=== PATIENT | male | born 1935 | race Caucasian/White ===

== ENCOUNTER 2017-04-12 10:32 | Outpatient (RCR) | payer MEDICARE, OTHER, SELFPAY ==
[2017-04-12 12:33] LABS: International Normalized Ratio 2.6; Prothrombin Time (Protime)PT. 26.5 SECONDS (11.7-14.9)
== END 2017-04-12 11:00 | disposition home or self-care (01) ==
LOC: MTLAB 10:32
PROVIDERS: Family Provider Family Medicine; PCP Family Medicine; Visit Provider Internal Medicine Cardiovascular Disease
DX: Z95.2 Presence of prosthetic heart valve (principal)
CPT/HCPCS: 36415; 85610

== ENCOUNTER 2017-06-03 13:17 | Outpatient (RCR) | payer MEDICARE, OTHER, SELFPAY ==
[2017-06-03 14:06] LABS: International Normalized Ratio 2.8; Prothrombin Time (Protime)PT. 29.7 SECONDS (11.7-14.9)
== END 2017-06-03 14:00 | disposition home or self-care (01) ==
LOC: MTLAB 13:17
PROVIDERS: Family Provider Family Medicine; PCP Family Medicine; Visit Provider Internal Medicine Cardiovascular Disease
DX: Z95.2 Presence of prosthetic heart valve (principal)
CPT/HCPCS: 36415; 85610

== ENCOUNTER 2017-08-01 08:22 | Outpatient (RCR) | payer MEDICARE, OTHER, SELFPAY ==
[2017-08-01 09:59] LABS: International Normalized Ratio 2.6; Prothrombin Time (Protime)PT. 28.3 SECONDS (11.7-14.9)
== END 2017-08-01 09:00 | disposition home or self-care (01) ==
LOC: MTLAB 08:22
PROVIDERS: Family Provider Family Medicine; PCP Family Medicine; Visit Provider Internal Medicine Cardiovascular Disease
DX: I48.0 Paroxysmal atrial fibrillation (principal)
CPT/HCPCS: 36415; 85610

== ENCOUNTER → 2017-08-02 08:25 | Outpatient (CLI) | payer MEDICARE, OTHER, SELFPAY ==
[2017-08-02 10:25] LABS: Absolute Lymphocyte Count 0.72 X10^3/ul (0.83-4.51); Absolute Neutrophil Count 2.9 X10^3/uL (2.0-7.7); Basophil# 0.04 X10^3/uL; Basophil% 0.9 % (0-1); Eosinophil# 0.13 X10^3/uL; Hematocrit 39.7 % (40-54); Hemoglobin 13.1 g/dl (13.0-16.5); Lymphocyte # 0.72 X10^3/ul (4.0); Lymphocyte % 16.8 % (19-41); Mean Corpuscular Hgb 32.5 pg (27.0-32.0); Mean Corpuscular Volume 98.5 fL (80-94); Mean Platelet Vol. 10.3 fl (6.2-12.0); Monocyte# 0.52 X10^3/uL; Monocyte% 12.1 % (0-10); Neutrophil # 2.87 X10^3/uL (2.7-7.7); Neutrophil % 67.2 % (47-70); Platelet Count 166 K/mm3 (150-450); RBC Distribution Width SD 49.8 fl (35.1-43.9); Red Blood Count 4.03 M/mm3 (4.6-6.2); White Blood Count 4.3 K/mm3 (4.4-11.0)
[2017-08-02 10:27] LABS: POSITIVE COUNT NO; POSITIVE DIFFERENTIAL NO; POSITIVE MORPHOLOGY NO
[2017-08-02 10:47] LABS: AST(SGOT) 23 U/L (15-37); Alanine Aminotransfer ALT/SGPT 22 U/L (16-61); Albumin, Serum 3.4 g/dL (3.2-5.0); Alkaline Phosphatase 63 U/L (45-117); Anion Gap 5 (5-15); BUN 21 mg/dL (7-18); BUN/Creat Ratio 16.7 RATIO (10-20); Bilirubin, Direct 0.17 mg/dL (0.00-0.30); Chloride 110 mmol/L (98-107); Cholesterol 116 mg/dL (200); Creatinine, Serum 1.26 mg/dL (0.70-1.30); EST Glomerular Filtration Rate 58 mL/min (>60); Est Glom Filt Rate - Afr Amer 70 mL/min (>60); Globulin 3.9 g/dL (2.2-4.2); Glucose 83 mg/dL (74-106); High Density Lipoprotein 50 mg/dL; Potassium 4.4 mmol/L (3.5-5.1); Protein, Total 7.3 g/dL (6.4-8.2); Sodium Level 141 mmol/L (136-145); Triglycerides 68 mg/dL; Very Low Density Lipoprotein 14 mg/dL (5-40)
== END ==
PROVIDERS: Physician Assistant Medical; Family Provider Family Medicine; PCP Family Medicine; Visit Provider Internal Medicine Cardiovascular Disease
DX: I10 Essential (primary) hypertension (principal); I48.91 Unspecified atrial fibrillation; E78.5 Hyperlipidemia, unspecified; I05.9 Rheumatic mitral valve disease, unspecified; I43 Cardiomyopathy in diseases classified elsewhere
CPT/HCPCS: 36415; 80048; 80061; 80076; 85025

== ENCOUNTER 2017-10-08 10:13 | Outpatient (RCR) | payer MEDICARE, OTHER, SELFPAY ==
[2017-10-08 12:04] LABS: International Normalized Ratio 3.2; Prothrombin Time (Protime)PT. 33.2 SECONDS (11.7-14.9)
== END 2017-10-08 12:00 ==
LOC: MTLAB 10:13
PROVIDERS: Family Provider Family Medicine; PCP Family Medicine; Visit Provider Internal Medicine Cardiovascular Disease
DX: I48.0 Paroxysmal atrial fibrillation (principal)
CPT/HCPCS: 36415; 85610

== ENCOUNTER 2017-12-05 09:04 | Outpatient (RCR) | payer MEDICARE, OTHER, SELFPAY ==
[2017-12-05 10:37] LABS: International Normalized Ratio 2.9; Prothrombin Time (Protime)PT. 30.3 SECONDS (11.7-14.9)
== END 2017-12-05 10:00 | disposition home or self-care (01) ==
LOC: MTLAB 09:04
PROVIDERS: Family Provider Family Medicine; PCP Family Medicine; Visit Provider Internal Medicine Cardiovascular Disease
DX: I48.0 Paroxysmal atrial fibrillation (principal)
CPT/HCPCS: 36415; 85610

== ENCOUNTER → 2018-02-04 11:07 | Outpatient (CLI) | payer MEDICARE, OTHER, SELFPAY | PROVIDERS: Family Provider Family Medicine; PCP Family Medicine; Referring Provider Internal Medicine Cardiovascular Disease; Visit Provider Internal Medicine Cardiovascular Disease | DX: I48.91 Unspecified atrial fibrillation (principal); I43 Cardiomyopathy in diseases classified elsewhere; I44.2 Atrioventricular block, complete; Z95.810 Presence of automatic (implantable) cardiac defibrillator; I49.3 Ventricular premature depolarization | CPT/HCPCS: 93225; 93226 ==

== ENCOUNTER 2018-02-25 11:28 | Outpatient (RCR) | payer MEDICARE, OTHER, SELFPAY ==
[2018-02-25 14:16] LABS: Prothrombin Time (Protime)PT. 31.6 SECONDS (11.7-14.9)
--- OUTSIDE RECORDS SUMMARY | 2018-04-09 03:15 | XMS RPT_ITS ---
:1935 Author Organization OHIP Support Name Relationship Address Phone R Unavailable Unavailable Unavailable LUCAS, MARINA Unavailable [address] + [place] [address] R Unavailable Unavailable Unavailable LUCAS, MARINA Unavailable [address] + [place] [address] R Unavailable Unavailable Unavailable LUCAS, MARINA Unavailable [address] + [place] [address] R Unavailable Unavailable Unavailable LUCAS, MARINA Unavailable [address] + [place] [address] R Unavailable Unavailable Unavailable LUCAS, MARINA Unavailable [address] + [place] [address] R Unavailable Unavailable Unavailable LUCAS, MARINA Unavailable [address] + [place] [address] R Unavailable Unavailable Unavailable LUCAS, MARINA Unavailable [address] + [place] [address] R Unavailable Unavailable Unavailable LUCAS, MARINA Unavailable [address] + [place] [address] R Unavailable Unavailable Unavailable LUCAS, MARINA Unavailable [address] + [place] [address] R Unavailable Unavailable Unavailable LUCAS, MARINA Unavailable [address] + [place] [address] R Unavailable Unavailable Unavailable LUCAS, MARINA Unavailable [address] + [place] [address] R Unavailable Unavailable Unavailable LUCAS, MARINA Unavailable [address] + [place] [address] R Unavailable Unavailable Unavailable LUCAS, MARINA Unavailable [address] + [place] [address] R Unavailable Unavailable Unavailable LUCAS, MARINA Unavailable [address] + [place] [address] R Unavailable Unavailable Unavailable MINO LUCASICE Unavailable [address] + [place] [address] R Unavailable Unavailable Unavailable MINO LUCASICE Unavailable [address] + [place] [address] R Unavailable Unavailable Unavailable MINO LUCASICE Unavailable [address] + [place] [address] R Unavailable Unavailable Unavailable MINO LUCASICE Unavailable NA + [place], [place] R Unavailable Unavailable Unavailable LUCASMINOMARINA Unavailable NA + [place], [place] R Unavailable Unavailable Unavailable MINO LUCASICE Unavailable [address] + [place] [address] Care Team Providers Name Role Phone Lon Alexis Attending Unavailable Jolliff, Luz Maria Primary Care Unavailable MoodispawLon Referring Unavailable Esther Mckinney Attending Unavailable Jolliff, Luz Maria Primary Care Unavailable Lucila Dugan Attending Unavailable Jolliff, Luz Maria Referring Unavailable Jolliff, Luz Maria Primary Care Unavailable MoodispawLon Attending Unavailable MoodispawLon Referring Unavailable Jolliff, Luz Maria Primary Care Unavailable Lucila Dugan Attending Unavailable Jolliff, Luz Maria Referring Unavailable Rosemarie Ang Attending Unavailable Esther Mckinney Attending Unavailable Jolliff, Luz Maria Referring Unavailable Jolliff, Luz Maria Primary Care Unavailable MoodispawLon Attending Unavailable MoodispawLon Referring Unavailable Jolliff, Luz Maria Primary Care Unavailable Lucila Dugan Attending Unavailable MoodispawLon Attending Unavailable Jolliff, Luz Maria Primary Care Unavailable MoodispawLon Attending Unavailable MoodispawLon Referring Unavailable Jolliff, Luz Maria Primary Care Unavailable Lucila Dugan Attending Unavailable Jolliff, Luz Maria Referring Unavailable MoodispawLon Attending Unavailable Moodisp[place] Lon Referring Unavailable Jolliff, Luz Maria Primary Care Unavailable MoodispawLon Attending Unavailable [place] Lon Referring Unavailable Jolliff, Luz Maria Primary Care Unavailable Lucila Dugan Attending Unavailable Jolliff, Luz Maria Referring Unavailable MoodispawLon Attending Unavailable Jolliff, Luz Maria Referring Unavailable KaileeLucila garrido Attending Unavailable Jolliff, Luz Maria Referring Unavailable Moodispaw, Lon Attending Unavailable Moodispaw, Lon Referring Unavailable Luz Maria Friedman Primary Care Unavailable Moodispaw, Lon Attending Unavailable Moodispaw, Lon Referring Unavailable Moodispaw, Lon Attending Unavailable Moodispaw, Lon Referring Unavailable Luz Maria Friedman Primary Care Unavailable PROBLEMS PROBLEMS DATE TYPE CONDITION / CODE ATTENDING STATUS SOURCE 03/04/2018 Unknown I48.0 - Paroxysmal [place], Active [place] atrial fibrillation [facility] I48.0(ICD-10) Hospital Repository 02/04/2018 Unknown I48.91 - Unspecified [place], Active [place] atrial fibrillation [facility] I48.91(ICD-10) Hospital Repository 02/04/2018 Unknown I43 - Cardiomyopathy [place], Active [place] in diseases classified [facility] elsewhere / Hospital I43(ICD-10) Repository 02/04/2018 Unknown Z95.810 - Presence of [place], Active [place] automatic [facility] (implantable) cardiac Hospital defibrillator / Repository Z95.810(ICD-10) 02/04/2018 Unknown I49.3 - Ventricular [place], Active [place] premature [facility] depolarization / Hospital I49.3(ICD-10) Repository 02/04/2018 Unknown I44.2 - [place], Active [place] Atrioventricular [facility] block, complete / Hospital I44.2(ICD-10) Repository 02/04/2018 Unknown I49.49 - Other Lucila Dugan Active [place] premature [facility] depolarization / Hospital I49.49(ICD-10) Repository 10/10/2017 Unknown I48.2 - Chronic atrial Lucila Dugan Active [place] fibrillation / Community I48.2(ICD-10) Hospital Repository 08/29/2017 Unknown Z95.2 - Presence of [place], Active [place] prosthetic heart valve [facility] / Z95.2(ICD-10) Hospital Repository 06/13/2017 Unknown I10 - Essential Mckinney, Active [place] (primary) hypertension [facility] / I10(ICD-10) Hospital Repository 06/13/2017 Unknown E78.5 - Mckinney, Active [place] Hyperlipidemia, [facility] unspecified / Hospital E78.5(ICD-10) Repository 06/13/2017 Unknown I05.9 - Rheumatic Mckinney, Active [place] mitral valve disease, [facility] unspecified / Hospital I05.9(ICD-10) Repository PROCEDURES PROCEDURES No Procedure Records FoundRESULTS RESULTS PROTHROMBIN TIME W/INR Collected: 02/25/2018 Status: F Source: [place] 11:32 AM [facility] REPOSITORY Order Comment: Comments: STANDING ORDER Comments: STANDING ORDER TYPE CODE TESTS RESULT OUT OF RANGE REFERENCE UNITS LAB L300.4150 11.7-14.9 SECONDS High PROTIME 31.6 LAB L300.4200 Normal INR 3.0 Performed By: #### L300.3900 #### [facility] [address] [place], [address] PACEMAKER CHECK Observed: 02/04/2018 Status: F Source: [place] 2:12 PM [facility] REPOSITORY [facility] [address] [place] [address] Pacemaker Check Date of Service: 02/04/181402 MR#: [id number] Acct: [id number] Name: RIO LUCAS Rep #: [id number] : 1935 From: Lucila Dugan Age/Sex: 82/M Location[place] [facility] [place] Status: Signed Billing Codes ICD Device Billing: ICD Dev Duane Ferreira 02/04/18 1405 <Electronically signed by Lucila Dugan > Date Lucila Dugan 02/04/18 1412<Electronically signed by Lon Alexis MD> Cosigner Signature: Date (if applicable) Lon Alexis MD CC: 12 LEAD EKG PERFORMED Observed: 02/04/2018 Status: F Source: [place] BY [facility] 10:25 AM [facility] REPOSITORY [facility] [address] [place] [address] 12 Lead EKG performed by [facility] 02/04/18 1024 MR#: [id number] Acct: [id number] Name: RIO LUCAS Rep #: [id number] : 1935 82 From: Lon Alexis MD Attending Dr: Lucila Dugan Status: DEP AMB Ordering Dr: Lon Alexis MD Date: 02/04/18 Location: [facility] [place] Sex: M C Admitted: BMS/12 Lead EKG performed by [facility] ECG Report Interpretation Atrial fibrillation / flutterPoor R wave progressionICLBBBNonspecific ST/T wave abnormalityABNORMAL Electronically signed on 02/05/2018 at 17:22 by Lon Alexis Software Version [id number] 02/05/18 1726 Date Lon Alexis MD CC: Luz Maria Friedman MD Date Dictated: 02/04/18 1024 Date Transcribed: 02/04/18 1024 Aegis Console Operator Track: PM Signed CARDIOLOGY VISIT Observed: 01/23/2018 Status: F Source: [place] REPORT 4:42 PM [facility] REPOSITORY [facility] [address] [place] [address] OFFICE VISIT Date of Service: 01/23/18 MR#: [id number] Acct: [id number] Name: RIO LUCAS Rep #: [id number] : 1935 Provider: Lon Alexis MD Age/Sex: 82/M Location: [facility] [place] Status: Signed [facility] HPI Details: RIO LUCAS, is a 82 M who presents to the office today for outpatient cardiovascular follow-up based upon a recent ICD interrogation suggesting underlying atrial flutter. It appears based upon his recent interrogation there have been concerns of underlying atrial flutter inhibiting him to biventricular paced 100% of the time. It appears based on his interrogation he is only been biventricular pacing between 50 and 60% of the time. He has not been complaining of ongoing palpitations. He has had no near syncope or syncope. He has had no new chest discomfort. There is been no orthopnea or PND or peripheral pitting edema. He does have what he believes is chronic shortness of breath/dyspnea and fatigue. He did have an ECG today. It appeared he was in an underlying electronic ventricular paced rhythm. Intake Vital Signs01/23/18 Height 6 ft 01/23/18 Weight: 205 lb 01/23/18 Body Mass Index (BMI) 27.8 01/23/18 Blood Pressure 142/88 H Intake Visit Reasons: FU Atrial Flutter\PFM Allergies No Known Allergies Allergy (Verified 01/23/18 15:15) Medications Aspirin [Aspirin, Baby] 81 mg PO DAILY@0800 03/17/13 [History Confirmed 01/23/18] warfarin 5 mg tablet 5 mg PO QDAY 03/05/17 [History Confirmed 01/23/18] finasteride 5 mg tablet 5 mg PO QDAY 06/11/17 [History Confirmed 01/23/18] amlodipine 5 mg tablet 5 mg PO DAILY #90 tab 06/13/17 [Rx Confirmed 01/23/18] carvedilol 25 mg tablet 25 mg PO BID #180 tab 06/13/17 [Rx Confirmed 01/23/18] digoxin 250 mcg tablet 250 mcg PO DAILY #90 tab 06/13/17 [Rx Confirmed 01/23/18] pravastatin 10 mg tablet 10 mg PO QHS #90 tab 06/13/17 [Rx Confirmed 01/23/18] warfarin 1 mg tablet 1 mg PO QDAY #90 tab 06/13/17 [Rx Confirmed 01/23/18] ramipril 10 mg capsule 10 mg PO BID #180 cap 06/17/17 [Rx Confirmed 01/23/18] Handicap Placard #1 ea 01/23/18 [Rx Confirmed 01/23/18] tamsulosin 0.4 mg capsule 0.4 mg PO BID cap 01/23/18 [History Confirmed 01/23/18] [facility] Medical History Essential hypertension (Chronic) Hyperlipidemia (Chronic) Mitral valve disorder (Chronic) Cardiomyopathy in other diseases classified elsewhere (Chronic) Atrioventricular block, complete (Chronic) Paroxysmal atrial fibrillation (Chronic) Premature beats (Chronic) 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) TIA (transient ischemic attack) (Chronic) [employer] (current) use of anticoagulants (Chronic) Dizziness and giddiness (Acute) Fatigue (Acute) Murmur (Acute) Surgical History H/O mitral valve replacement (Chronic) Cardiac pacemaker in situ (Chronic) Family History Father CAD (coronary artery disease) Mother Breast cancer Brother CAD (coronary artery disease) Hx CABG Brother Cancer Leukemia Social History Smoking Status: Never smoker alcohol intake: never substance use type: does not use caffeine: No what type of physical activity do you participate in: other details: tredmill frequency: 1-2 times per week duration: 15-30 minutes/day seatbelt use: always do you feel safe at home: Yes ROS Const Const: Negative for fatigue, weakness, weight gain, weight loss, frequent falls or excessive sweating Eyes Eyes: Negative for change in vision, blurry vision or transient loss of vision ENT ENT: Positive for balance problems (slight unsteadiness); negative for dizziness Cardio Chest Pain: No Palpitations: No Edema: None Muscle aches with walking: None Resp Respiratory: Negative for SOB with activity or SOB at rest GI GI: Negative vomiting or vomiting blood/hematemesis : Negative for hematuria Musc Musc: Positive for balance problems (slight unsteadiness) and muscle aches/ myalgia (generalized aches and pains); negative for muscle weakness or joint pain Skin Skin: Negative non-healing lesions or rash Neuro Neuro: Negative for weakness, blurry vision, dizziness, lightheadedness, frequent falls or orthostatic symptoms Adithya Hematologic/Lymphatic: Negative for easy bleeding Endo Endo: Negative for fatigue or excessive sweating Psych Psych: Negative for anxiety or depression Allergy Allergy/Immunology: Negative for hives, Negative for rash Cardiology Exam Const Appearance: cooperative, no acute distress, well developed and comfortable Nutritional Appearance: average body habitus Orientation: alert, awake and oriented x3 Head Head: normocephalic, atraumatic and normal to inspection Ears: hearing grossly normal bilaterally Nose: external nose normal Face and Sinus: face symmetric Mouth: oral mucosae normal Teeth and gingiva: fair dentition Eyes General: appearance normal, both eyes and all related structures Eyelids: eyelids normal Conjunctivae: conjunctivae normal Pupils: PERRL EOM: EOM intact bilaterally Neck Neck: normal visual inspection, no JVD and full ROM Carotids: Negative bruit Neck Mass: Negative Neck mass Chest Chest inspection: normal inspection of the chest, symmetric chest movement and normal respiratory effort Auscultation: Bilateral: Clear to Auscultation Cardio Palpation: normal PMI Rate: regular rate Rhythm: regular rhythm Heart sounds: S1 normal, S2 normal, crisp prosthetic S1 and positive S4; negative rub or murmur GI GI: normal to inspection, soft and bowel sounds present; negative tender Neuro General: alert, awake, oriented x3 and moves all extremities Skin Skin: no rashes or lesions noted Extremities Pulses: Normal: Right Posterior Tibial Pulse, Left Posterior Tibial Pulse, Right Radial Pulse, Left Radial Pulse Lower Extremity Edema: None: Bilateral Psych Psychological: normal affect Supplemental Info Transthoracic echocardiogram: 01/08/2027 Left ventricular systolic function is lower limits of normal. The estimated ejection fraction is 50 %. Paradoxical septal wall motion c/w a post open heart surgery state and / or an electronic ventricular pacemaker. Mild concentric left ventricular hypertrophy. The left atrium is moderately enlarged. The right atrium is severely enlarged. Stable appearing mechanical mitral valve apparatus. Trivial transvalvular insufficiency of the mitral valve. Mild tricuspid valve insufficiency. Mild focal aortic valve thickening. Right ventricular systolic pressure estimated to be 34 mmHg. ICD or pacer leads identified within the right atrium ICD or pacer leads identified within the right ventricle. Cardiac catheterization: 01/02/2008: [facility]: Report: Normal coronary arteries; normal prosthetic valve function ICD: Parts Classifier: Tellybean Scientific Name: [employer] BU[employer]ER-D IS-1 Model #: [id number] Serial #: [id number] Date Implanted: 03/19/2013 Device Characteristics Device: Biventricular Type: Implantable defibrillator Patient Characteristics AV Node Indication: Complete heart block Patient Substrate: Nonischemic cardiomyopathy Open heart surgery: [facility]: [place], [place]: 09/18/2004 Mitral valve replacement with a 33 mm [place] mechanical prosthesis Exclusion of the left atrial appendage Cryoprobe pulmonary vein isolation: Assessment AND Plan 1. Chronic atrial fibrillation I48.2 Plan He does have a history of underlying atrial fibrillation. He has been on medical management. This has included anticoagulant therapy 2. Atrial flutter I48.92 Plan There is concern of underlying atrial flutter and that this is inhibiting him from efficiently biventricular pacing. At the present time he will continue his current medication. His case will be discussed with his operation agent from [place] issue with respect to other options including medical therapy, DC cardioversion, or possible EPS/RFA. 3. Cardiomyopathy in other diseases classified elsewhere I43 Plan He does have a non-CAD related cardiomyopathy. He will continue medical management and follow-up 4. AICD (automatic cardioverter/defibrillator) present Z95.810 Plan He does have a biventricular device as noted above. Again there are concerns that he is not biventricular pacing near 100% of the time. His case will be discussed with his operation agent as noted above 5. H/O mitral valve replacement with mechanical valve Z95.2 Plan His mitral valve appears to have remained stable based on examination and noninvasive studies. He will continue AHA antibiotic prophylaxis. He will continue to be followed 6. Pure hypercholesterolemia E78.00 Plan He will continue risk factor evaluation and care as deemed appropriate. 7. Essential hypertension I10 Plan His blood pressure appears to be reasonably well-controlled. He will continue to be followed. 8. MCFP current use of anticoagulant Z79.01 Plan He is on anticoagulant therapy. He has had no obvious issues thus far. Plan Detail Other Orders Orders: Other Medications New: Additional Comments Thank you for allowing me to participate in the care of your patient. Please don't hesitate to call if any issues arise. This note was generated using a voice recognition system and there may be incorrect words, spelling or punctuation that were not noted when reviewing the office note prior to saving. Follow Up 3 Months (Keep appts.) Coding Level of Care Code Off vis,est,level 4 Diagnoses Chronic atrial fibrillation I48.2 Atrial fibrillation type: chronic Atrial flutter I48.92 Cardiomyopathy in other diseases classified elsewhere I43 AICD (automatic cardioverter/defibrillator) present Z95.810 H/O mitral valve replacement with mechanical valve Z95.2 Pure hypercholesterolemia E78.00 Hyperlipidemia type: pure hypercholesterolemia Essential hypertension I10 MCFP current use of anticoagulant Z79.01 Coding Level of Care Code Off vis,est,level 4 Diagnoses Chronic atrial fibrillation I48.2 Atrial fibrillation type: chronic Atrial flutter I48.92 Cardiomyopathy in other diseases classified elsewhere I43 AICD (automatic cardioverter/defibrillator) present Z95.810 H/O mitral valve replacement with mechanical valve Z95.2 Pure hypercholesterolemia E78.00 Hyperlipidemia type: pure hypercholesterolemia Essential hypertension I10 [employer] current use of anticoagulant Z79.01 01/23/18 1642 <Electronically signed by Lon Alexis MD> Date Lon Alexis MD Cosigner Signature: Date (if applicable) CC: Luz Maria Friedman MD 12 LEAD EKG PERFORMED Observed: 01/23/2018 Status: F Source: [place] [facility] 3:15 PM [facility] REPOSITORY [address] [address] 12 Lead EKG performed by [facility] 01/23/18 1514 MR#: [id number] Acct: [id number] Name: LANCERIO B Rep #: [id number] : 1935 82 From: Lon Alexis MD Attending Dr: Lon Alexis MD Status: DEP [facility] Ordering Dr: Lon Alexis MD Date: 01/23/18 Location: [facility] [place] Sex: M C Admitted: [facility]/12 Lead EKG performed by [facility] ECG Report Interpretation Electronic ventricular pacemaker Pacemaker ECG, No further analysis Electronically signed on 01/23/2018 at 17:27 by Lon Alexis Software Version [id number] 01/23/18 1731 Date Lon Alexis MD CC: Luz Maria Friedman MD Date Dictated: 01/23/181513 Date Transcribed: 01/23/181513 Aegis Console Operator Track: PM Signed PACEMAKER CHECK Observed: 01/17/2018 Status: F Source: [place] 6:58 AM [facility] REPOSITORY [facility] [address] [place] [address] [place] [address] Pacemaker Check Date of Service: 01/16/18 1046 MR#: [id number] Acct: [id number] Name: RIO LUCAS Rep #: [id number] : 1935 From: Lucila Dugan Age/Sex: 82/M Location: [facility] [place] Status: Signed Billing Codes ICD Device Billing: ICD Dev Prog Eval, Multi 01/16/18 1049 <Electronically signed by Lucila Dugan > Date Lucila Dugan 01/17/18 0658<Electronically signed by Kurt Solorzano MD> Jess Signature: Date (if applicable) Kurt Solorzano MD CC: PROTHROMBIN TIME W/INR Collected: 12/05/2017 Status: F Source: [place] 9:12 AM [facility] REPOSITORY TYPE CODE TESTS RESULT OUT OF RANGE REFERENCE UNITS LAB L300.4150 11.7-14.9 SECONDS High PROTIME 30.3 LAB L300.4200 Normal INR 2.9 Performed By: #### L300.3900 #### [facility] [address] [place], [address] PACEMAKER CHECK Observed: 10/09/2017 Status: F Source: [place] 4:58 PM [facility] REPOSITORY [facility] [address] [place] [address] [place] [address] Pacemaker Check Date of Service: 10/09/17 1611 MR#: [id number] Acct: [id number] Name: RIO LUCAS Rep #: [id number] : 1935 From: Lucila Dugan Age/Sex: 82/M Location: [facility] [place] Status: Signed Billing Codes ICD Device Billing: ICD Dev Prog Duane Crews 10/09/17 1615 <Electronically signed by Lucila Dugan > Date Lucila Dugan 10/09/17 1658<Electronically signed by Lon Alexis MD> Cosigner Signature: Date (if applicable) Lon Alexis MD CC: PROTHROMBIN TIME W/INR Collected: 10/08/2017 Status: F Source: [place] 10:17 AM [facility] REPOSITORY TYPE CODE TESTS RESULT OUT OF RANGE REFERENCE UNITS LAB L300.4150 11.7-14.9 SECONDS High PROTIME 33.2 LAB L300.4200 Normal INR 3.2 Performed By: #### L300.3900 #### [facility] [address] [place], [address] CBC W/DIFF, AUTOMATED Collected: 08/02/2017 Status: F Source: [place] 8:36 AM [facility] REPOSITORY TYPE CODE TESTS RESULT OUT OF RANGE REFERENCE UNITS LAB L100.1000 4.4-11.0 K/mm3 Low WBC 4.3 LAB L100.1200 4.6-6.2 M/mm3 Low RBC 4.03 LAB L100.1300 13.0-16.5 g/dl Normal HGB 13.1 LAB L100.1400 40-54 % Low HCT 39.7 LAB L100.1500 80-94 fL High MCV 98.5 LAB L100.1600 27.0-32.0 pg High MCH 32.5 LAB L100.1700 32-36 g/gl Normal MCHC 33.0 LAB L100.1810 11.6-14.6 % Normal RDW CV 14.0 LAB L100.1820 35.1-43.9 fl High RDW SD 49.8 LAB L100.1900 150-450 K/mm3 Normal PLT 166 LAB L100.2000 6.2-12.0 fl Normal MPV 10.3 LAB L100.2100 47-70 % Normal NEUT% 67.2 LAB L100.2200 19-41 % Low LY% 16.8 LAB L100.2300 0-10 % High MONO% 12.1 LAB L100.2400 0-5 % Normal EO% 3.0 LAB L100.2500 0-1 % Normal BASO% 0.9 LAB L100.2550 0.0-0.9 % Normal IM GRAN % 0.000 Result Comment: IG% - Immature Granulocytes (promyelocytes, myelocytes and metamyelocytes) > 1% indicates that a LEFT SHIFT is Present. LAB L100.2620 2.0-7.7 X10 3/uL Normal Absolute Neut 2.9 LAB L100.2720 0.83-4.51 X10 3/ul Low Absolute Lymph 0.72 Performed By: #### L100.0100 #### [facility] [address] [facility] [place], [place], [address] BASIC METABOLIC Collected: 08/02/2017 Status: F Source: [place] PROFILE (BMP) 8:36 AM [facility] REPOSITORY TYPE CODE TESTS RESULT OUT OF RANGE REFERENCE UNITS LAB L501.0100 74-106 mg/dL Normal GLU 83 Result Comment: Please note revised GLUCOSE reference range effective 2017. LAB L501.1000 7-18 mg/dL High BUN 21 LAB L501.1100 0.70-1.30 mg/dL Normal CREAT,SERUM 1.26 Result Comment: The validity of the calculated GFR AND GFRAA in patients over 70 years has not been determined. Clinical correlation is essential. LAB L501.1110 >60 mL/min Low EST GFR 58 Result Comment: Non- GFR Calc LAB L501.1115 >60 mL/min Normal EST GFR - AA 70 Result Comment: GFR Calc LAB L501.1300 10-20 RATIO Normal BUN/CRE 16.7 LAB L501.2200 8.5-10.1 mg/dL Low CA 8.0 LAB L501.5300 136-145 mmol/L NA Normal 141 LAB L501.5600 3.5-5.1 mmol/L K Normal 4.4 LAB L501.5900 98-107 mmol/L High CL 110 LAB L501.6100 21.0-32.0 mmol/L Normal CO2 26.0 LAB L501.6200 5-15 Normal GAP 5 Performed By: #### L500.2500, L500.3400, L500.4100 #### [facility] [address] [place], [place], [id number] LIVER PROFILE Collected: 08/02/2017 Status: F Source: [place] 8:36 AM [facility] REPOSITORY TYPE CODE TESTS RESULT OUT OF RANGE REFERENCE UNITS LAB L501.1500 6.4-8.2 g/dL Normal T PROT 7.3 LAB L501.1800 3.2-5.0 g/dL Normal ALB 3.4 LAB L501.1950 2.2-4.2 g/dL Normal GLOB 3.9 LAB L501.4100 15-37 U/L Normal AST 23 LAB L501.4305 45-117 U/L Normal ALK P 63 LAB L501.4405 16-61 U/L Normal ALT 22 LAB L501.4600 0.20-1.00 mg/dL Normal T BILI 0.80 LAB L501.4700 0.00-0.30 mg/dL Normal D BILI 0.17 Performed By: #### L500.2500, L500.3400, L500.4100 #### [facility] [address] [place], [place], [id number] LIPID PROFILE Collected: 08/02/2017 Status: F Source: [place] 8:36 AM [facility] REPOSITORY TYPE CODE TESTS RESULT OUT OF RANGE REFERENCE UNITS LAB L501.4900 200 mg/dL Normal CHOL 116 Result Comment: <200 mg/dL Desirable 200-240 mg/dL Borderline >240 mg/dL High Risk LAB L501.5000 mg/dL Normal TRIG 68 Result Comment: The drugs N-Acetylcysteine and Metamizole may falsely depress this assay. Serum Triglycerides Reference Interval Normal <150 mg/dL Borderline high 150 - 199 mg/dL High 200 - 499 mg/dL Very High > or = 500 mg/dL LAB L501.6400 mg/dL Normal HDL 50 Result Comment: The drugs N-Acetylcysteine and Metamizole may falsely depress this assay. Reference Range HDL <40 mg/dL Low HDL Cholesterol HDL >or= 60 mg/dL High HDL Cholesterol LAB L501.6500 0-130 mg/dL Normal LDL 52 LAB L501.6600 5-40 mg/dL Normal VLDL 14 Performed By: #### L500.2500, L500.3400, L500.4100 #### [facility] [address] [place], [address] PROTHROMBIN TIME W/INR Collected: 08/01/2017 Status: F Source: [place] 8:29 AM [facility] REPOSITORY TYPE CODE TESTS RESULT OUT OF RANGE REFERENCE UNITS LAB L300.4150 11.7-14.9 SECONDS High PROTIME 28.3 LAB L300.4200 Normal INR 2.6 Performed By: #### L300.3900 #### [facility] [address] [place], [address] PACEMAKER CHECK Observed: 07/15/2017 Status: F Source: [place] 10:15 AM [facility] REPOSITORY [facility] [address] [place] [address] Pacemaker Check Date of Service: 07/04/17 1047 MR#: [id number] Acct: [id number] Name: RIO LUCAS Rep #: [id number] : 1935 From: Lucila Dugan Age/Sex: 82/M Location: [facility] [facility] Status: Signed Comments Summary Comments: Bi-VICD Evaluation: Interrogation shows 3 NSVT episodes atrial whcguk=982% since last check 04/04/17. Left pectoral pocket/incision w/o s/s of infection or erosion. Pt offers no cardiac complaints at present. Presenting rhythm shows RV/LV pacing @ 80 ppm with underlying atrial flutter. Pt on Coumadin. RV paced= 87%, LV paced=87%. Battery longevity approx 5 yrs. Lead impedances, sensing and RV/LV pace/sense thresholds remain stable. Unable to check atrial threshold d/t atrial flutter. Increased LRL to 70 ppm in attempt to increase Bi-Vpacing d/t atrial flutter. Changed ATR trigger rate to 160 bpm from 170 bpm so will MS quicker. No other parameter changes made. Counters cleared. Next f/u appt scheduled for in 3 mos. Device Device Date Interviewed: 07/04/17 Follow-up Location: in office Interview Reason: routine follow up Parts Classifier: Logan Scientific Name: Energen CONTRACTOR BUYER-D IS-1 Model: N141 Serial #: [id number] Implant Date: 03/19/13 Year(s): 4 Implant Physician: Dr. Herson Cadet Patient Characteristics AV/Node Indication: Complete heart block Patient Substrate: Nonischemic cardiomyopathy Ejection fraction %: 50 to 54 (12/2016) By: Echo Underlying rhythm: Sinus rhythm Pacemaker Dependent: No Device Characteristics Device: Biventricular Type: Implantable defibrillator Device Physical Exam Yes Incision well healed Leads Lead #1 Parts Classifier Lead 1: St. Nathaniel Model Lead 1: 1388T Serial# Lead 1: [id number] Date Implanted Lead 1: 09/26/04 Position Lead 1: RA Lead #2 Parts Classifier Lead 2: Medtronic Model Lead 2: 6947 Serial# Lead 2: [id number] Date Implanted Lead 2: 01/05/08 Position Lead 2: RV Lead #3 Parts Classifier Lead 3: Medtronic Model Lead 3: [id number] Serial# Lead 3: [id number] Date Implanted Lead 3: 01/05/08 Position Lead 3: LV Diagnostics Pacing % RA Pacin % RV Pacin % LV Pacin Mode Switching Total # Episodes: 10 % Mode switched: 100 Arrhythmias VF Episodes: 0 Fast VT Episodes: 0 Slow VT Episodes: 0 Non-Sust Episodes: 13 Measurements Battery Charge Time (Sec): 11 Predicted Remaining Longevity (months or years): 5 years RA Measurements Signal Amplitude (mV): 5 Impedance (Ohms): 419 RV Measurements Signal Amplitude (mV): 15.8 Impedance (Ohms): 525 Threshold Voltage: 0.6 @ PW(ms): 0.5 Shock Impedance (Ohms): 51 LV Measurements Signal Amplitude (mV): 17.1 Impedance (Ohms): 740 Threshold Voltage: 1.3 @ PW(ms): 0.5 Tachy Settings VF Therapies VF Therapy Status On On On On On On Energy 31 41 41 41 41 41 Pathway ATP: During charging on FVT Therapies FVT Therapy Status On On On On On On VT Therapies FVT Therapy Status Off Off Off off Off Off Comments: Mateusz Settings Mateusz Settings Pacemaker Mode DDDR Output/Sensing V/PW (ms) 2.0/0.5 2.0/0.5 2.8/0.5 Sensitivity RA RV LV AGC 0.25 0.6 1.0 Comments: Billing Codes ICD Device Billing: ICD Dev Prog Eval, Multi Assessment AND Plan Problems 1. AICD (automatic cardioverter/defibrillator) present Z95.810 2. Cardiomyopathy in other diseases classified elsewhere I43 3. Atrioventricular block, complete I44.2 4. Paroxysmal atrial fibrillation I48.0 5. Premature ventricular contractions I49.3 07/13/17 1322 <Electronically signed by Lucila Dugan > Date Lucila Dugan 07/15/17 0924<Electronically signed by Lon Alexis MD> Cosigner Signature: Date (if applicable) Lon Alexis MD CC: CARDIOLOGY VISIT Observed: 07/15/2017 Status: F Source: [place] REPORT 9:37 AM [facility] REPOSITORY [facility] [address] [place] [address] OFFICE VISIT Date of Service: 06/13/17 MR#: [id number] Acct: [id number] Name: RIO LUCAS Rep #: [id number] : 1935 Provider: Esther Mckinney Age/Sex: 82/M Location: [facility] [place] Status: Signed HPI HPI Details: RIO LUCAS, is a 82 M who presents to the office today for for a cardiovascular follow-up. He has a history of mitral valve prolapse, mitral valve regurgitation, mitral valve replacement with a [employer] Nathaniel mechanical valve. Pacemaker placement in 2004 which was upgraded to an ICD in 2007. He also has a history of cardiomyopathy and hyper tension From a cardiac standpoint, patient is doing well. He does not have any chest discomfort/heaviness/tightness. His exercise tolerance is stable for his age. He does not have any worsening symptoms of shortness of breath. He denies any PND. He does not have any orthopnea. He does not have any symptoms of congestive heart failure. He does not have any palpitations that he is aware of. He does not have any lightheadedness or dizziness. He does not have any near-syncope or syncope. He does not have any lower extremity edema. He does not have any symptoms of claudication. Intake Vital Signs06/13/17 Height 6 ft 06/13/17 Weight: 208 lb 06/13/17 Body Mass Index (BMI) 28.2 06/13/17 Blood Pressure 142/74 06/13/17 Blood Pressure Location Lt brachial Intake Visit Reasons: 6 M Program Associate Required: No Accompanied by: None Is patient in pain?: No Allergies No Known Allergies Allergy (Verified 06/13/17 13:42) Medications Aspirin [Aspirin, Baby] 81 mg PO DAILY@0800 03/17/13 [History Confirmed 06/13/17] warfarin 5 mg tablet 5 mg PO QDAY 03/05/17 [History Confirmed 06/13/17] finasteride 5 mg tablet 5 mg PO QDAY 06/11/17 [History Confirmed 06/13/17] amlodipine 5 mg tablet 5 mg PO DAILY #90 tab 06/13/17 [Rx Confirmed 06/13/17] carvedilol 25 mg tablet 25 mg PO BID #180 tab 06/13/17 [Rx Confirmed 06/13/17] digoxin 250 mcg tablet 250 mcg PO DAILY #90 tab 06/13/17 [Rx Confirmed 06/13/17] pravastatin 10 mg tablet 10 mg PO QHS #90 tab 06/13/17 [Rx Confirmed 06/13/17] ramipril 10 mg capsule 10 mg PO BID #90 cap 06/13/17 [Rx Confirmed 06/13/17] warfarin 1 mg tablet 1 mg PO QDAY #90 tab 06/13/17 [Rx Confirmed 06/13/17] Ejection fraction %: 50 to 54 [facility] Medical History Hyperlipidemia (Chronic) Mitral valve disorder (Chronic) Cardiomyopathy in other diseases classified elsewhere (Chronic) Atrioventricular block, complete (Chronic) Paroxysmal atrial fibrillation (Chronic) Premature beats (Chronic) 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) TIA (transient ischemic attack) (Chronic) MCFP (current) use of anticoagulants (Chronic) Dizziness and giddiness (Acute) Fatigue (Acute) Murmur (Acute) Surgical History H/O mitral valve replacement (Chronic) Cardiac pacemaker in situ (Chronic) Family History Father CAD (coronary artery disease) Mother Breast cancer Brother CAD (coronary artery disease) Hx CABG Brother Cancer Leukemia Social History Smoking Status: Never smoker alcohol intake: never substance use type: does not use caffeine: No what type of physical activity do you participate in: other details: tredmill frequency: 1-2 times per week duration: 15-30 minutes/day seatbelt use: always do you feel safe at home: Yes ROS Const Const: Negative for weakness, fatigue, fever(s) or headache(s) Eyes Eyes: Negative for blind spots, loss of peripheral vision or transient loss of vision ENT ENT: Negative for headache(s), dizziness, tinnitus or Nosebleed/epistaxis Cardio Chest Pain: No Palpitations: No Edema: None Muscle aches with walking: None Resp Respiratory: Negative for SOB with activity, SOB at rest, SOB orthopnea\SOB lying down or Cough GI GI: Negative nausea, vomiting, heartburn or vomiting blood/hematemesis : Negative for hematuria Musc Musc: Negative for muscle aches/ myalgia Neuro Neuro: Negative for weakness, headache(s), dizziness, near syncope, syncope, lightheadedness or orthostatic symptoms Adithya Hematologic/Lymphatic: Negative for easy bleeding Endo Endo: Negative for fatigue Cardiology Exam Const Appearance: cooperative, no acute distress and well developed Orientation: alert, awake and oriented x3 Head Head: normocephalic and atraumatic Mouth: moist mucous membranes Eyes General: appearance normal, both eyes and all related structures Conjunctivae: conjunctivae normal Pupils: PERRL EOM: EOM intact bilaterally Neck Neck: normal visual inspection, no lymphadenopathy and no JVD Carotids: Negative bruit Neck Mass: Negative Neck mass Chest Chest inspection: normal inspection of the chest and symmetric chest movement Auscultation: Bilateral: Clear to Auscultation Cardio Palpation: normal PMI Rate: regular rate Rhythm: regular rhythm Heart sounds: S1 normal, S2 normal, crisp prosthetic S1 and positive S4; negative rub or murmur GI GI: normal to inspection, soft, no hepatosplenomegaly and bowel sounds present; negative tender Neuro General: alert, awake, oriented x3, CN's II-XI intact bilaterally and moves all extremities Extremities Pulses: Normal: Right Posterior Tibial Pulse, Left Posterior Tibial Pulse, Right Radial Pulse, Left Radial Pulse Lower Extremity Edema: None: Bilateral Psych Psychological: normal affect Supplemental Info Left ventricular systolic function is lower limits of normal. The estimated ejection fraction is 50 %. Paradoxical septal wall motion c/w a post open heart surgery state and / or an electronic ventricular pacemaker. Mild concentric left ventricular hypertrophy. The left atrium is moderately enlarged. The right atrium is severely enlarged. Stable appearing mechanical mitral valve apparatus. Trivial transvalvular insufficiency of the mitral valve. Mild tricuspid valve insufficiency. Mild focal aortic valve thickening. Right ventricular systolic pressure estimated to be 34 mmHg. ICD or pacer leads identified within the right atrium ICD or pacer leads identified within the right ventricle. ?<SPAN ?`?? Assessment AND Plan 1. Essential hypertension I10 SHIVA Porter Blood pressure is well controlled on current medications, we do not recommend any changes at this time. Orders Orders: 2. AICD (automatic cardioverter/defibrillator) present Z95.810 SHIVA Porter ICD is functioning appropriately. We will continue to monitor with routine scheduled ICD interrogations. Patient has not had any discharges from their device. 3. Chronic atrial fibrillation I48.2 SHIVA Porter Patient is not symptomatic. He will continue with his current rate limiting medication. This is continue to be monitored through his ICD. He is also anticoagulated with a therapeutic INR goal of 2.5-3.5. 4. Mitral valve disorder I05.9 SHIVA Porter Patient does have a mechanical valve. He is on Coumadin is therapeutic with his INRs. He is aware of antibiotic prophylaxis. We will continue to monitor by history, exam and echocardiograms as deemed appropriate. Recent echocardiogram has been reviewed. We will continue to monitor by history, exam and echocardiograms as deemed appropriate. Orders Orders: 5. Pure hypercholesterolemia E78.00; E78.0 Plan - SHIVA Morgan Patient is due to have his lipids checked in the near future. Will make adjustments accordingly. 6. Cardiomyopathy in other diseases classified elsewhere I43 Plan - SHIVA Morgan Stable, patient does not have any symptoms of congestive heart failure. We will continue to monitor by history, exam and echocardiograms as deemed appropriate. Orders Orders: Plan Detail Other Orders Orders: Other Medications New: Discontinued: Additional Comments - SHIVA Morgan The above patient was discussed with Dr. Solorzano in Dr. Tobin absence, he agrees with plan of care. Thank you for allowing us to participate in patient's plan of care, if you have any questions please do not hesitate to call. This note was generated using a voice recognition system and there may be incorrect words, spelling or punctuation errors that were not noted when reviewing the office note prior to saving. Follow Up 9 Months (PFM) Coding Level of Care Code Off vis,est,level 3 Diagnoses Essential hypertension I10 Hypertension type: essential hypertension AICD (automatic cardioverter/defibrillator) present Z95.810 Chronic atrial fibrillation I48.2 Atrial fibrillation type: chronic Mitral valve disorder I05.9 Pure hypercholesterolemia E78.00; E78.0 Hyperlipidemia type: pure hypercholesterolemia Cardiomyopathy in other diseases classified elsewhere I43 Coding Level of Care Code Off vis,est,level 3 Diagnoses Essential hypertension I10 Hypertension type: essential hypertension AICD (automatic cardioverter/defibrillator) present Z95.810 Chronic atrial fibrillation I48.2 Atrial fibrillation type: chronic Mitral valve disorder I05.9 Pure hypercholesterolemia E78.00; E78.0 Hyperlipidemia type: pure hypercholesterolemia Cardiomyopathy in other diseases classified elsewhere I43 06/14/17 1545 <Electronically signed by Esther SHANNON> Date Esther SHANNON 07/15/17 8691<Electronically signed by Lon Alexis MD> Jess Signature: Date (if applicable) Lon Alexis MD CC: Luz Maria Friedman MD PROTHROMBIN TIME W/INR Collected: 06/03/2017 Status: F Source: [place] 1:22 PM [facility] REPOSITORY TYPE CODE TESTS RESULT OUT OF RANGE REFERENCE UNITS LAB L300.4150 11.7-14.9 SECONDS High PROTIME 29.7 LAB L300.4200 Normal INR 2.8 Performed By: #### L300.3900 #### [facility] [address] [place], [address] PROTHROMBIN TIME W/INR Collected: 04/12/2017 Status: F Source: [place] 10:38 AM [facility] REPOSITORY TYPE CODE TESTS RESULT OUT OF RANGE REFERENCE UNITS LAB L300.4150 11.7-14.9 SECONDS High PROTIME 26.5 LAB L300.4200 Normal INR 2.6 Performed By: #### L300.3900 #### [facility] [address] [place], [address] CAROTID DUPLEX Observed: 04/07/2017 Status: F Source: [place]TRAS[place] 5:11 PM [facility] REPOSITORY [facility] [address] [place] [address] Carotid Duplex Ultrasound 04/03/17 1255 MR#: [id number] Acct: [id number] Name: RIO LUCAS Rep #: [id number] : 1935 81 From: Carlos Roche MD Attending Dr: Esther Mckinney Status: REG CLI Ordering Dr: Esther Mckinney Date: 04/03/17 Location: CVS Sex: M C Admitted: Reason For Study: Dizziness Rt. Velocities/BP Lt. Velocities/BP Prox CCA 96/15 cm/sec. Prox CCA 152/19 cm/sec. Mid CCA 83/17 cm/sec. Mid CCA 80/18 cm/sec. Dist CCA 83/17 cm/sec. Dist CCA 85/18 cm/sec. Prox ICA 57/16 cm/sec. Prox ICA 70/22 cm/sec. Mid ICA 70/22 cm/sec. Mid ICA 79/24 cm/sec. Dist ICA 89/24 cm/sec. Dist ICA 73/25 cm/sec. Rt. ICA/CCA = 1.07. Lt. ICA/CCA = 0.98. Prox ECA 147/16 cm/sec. Prox ECA 119/13 cm/sec. Rt. Vert. 41/10 cm/sec. Lt. Vert. 75/21 cm/sec. Right Extracranial There is intimal thickening but no significant atherosclerotic plaque noted in the right common carotid artery. There is intimal thickening but no significant atherosclerotic plaque noted in the right internal carotid artery. The right internal carotid artery is very tortuous. There is no significant atherosclerotic plaque noted in the right external carotid artery. Antegrade flow is noted in the right vertebral artery. Left Extracranial There is intimal thickening but no significant atherosclerotic plaque noted in the left common carotid artery. The left common carotid artery is tortuous. There is intimal thickening but no significant atherosclerotic plaque noted in the left internal carotid artery. The left internal carotid artery is very tortuous. There is no significant atherosclerotic plaque noted in the left external carotid artery. Antegrade flow is noted in the left vertebral artery. Procedure Carotid Duplex 58041. Exam performed in department. Interpretation Summary Mild (<50%) stenosis right extracranial internal carotid. Mild (<50%) stenosis left extracranial internal carotid. Flow within the vertebral arteries is antegrade bilaterally. Ordering Physician: Esther Mckinney Referring Physician: Luz Maria Friedman Performed By: Debbie Spangler, FAWAD, RVT 04/07/17 1710 Date Carlos Roche MD CC: Luz Maria Friedman MD; Esther Mckinney Date Dictated: 04/03/17 1255 Date Transcribed: 04/07/17 1710 [employer]eg[employer] Console Operator Track: Signed OFFICE VISIT REPORT Observed: 04/06/2017 Status: F Source: [place] 6:20 PM [facility] [address] [place] [address] OFFICE VISIT Date of Service: 04/04/17 MR#: [id number] Acct: [id number] Patient: RIO LUCAS Rep #: [id number] : 1935 Provider: Lucila Dugan Age/Sex: 81/M Location: [facility] [place] Status: Signed Device Device Date Interviewed: 04/04/17 Follow-up Location: in office Interview Reason: scheduled follow up Parts Classifier: [employer] Superstructure Name: Energen CONTRACTOR BUYER-D IS-1 Model: N141 Serial #: [id number] Implant Date: 03/19/13 Year(s): 4 Implant Physician: Dr. Herson Cadet Patient Characteristics AV/Node Indication: Complete heart block Patient Substrate: Nonischemic cardiomyopathy Ejection fraction %: 50 to 54 (12/2016) By: Echo Underlying rhythm: Sinus rhythm Pacemaker Dependent: No Device Characteristics Device: Biventricular Type: Implantable defibrillator Device Physical Exam Yes Incision well healed Leads Lead #1 Parts Classifier Lead 1: St. Nathaniel Model Lead 1: 1388T Serial# Lead 1: [id number] Date Implanted Lead 1: 09/26/04 Position Lead 1: RA Lead #2 Parts Classifier Lead 2: Medtronic Model Lead 2: 6947 Serial# Lead 2: [id number] Date Implanted Lead 2: 01/05/08 Position Lead 2: RV Lead #3 Parts Classifier Lead 3: Medtronic Model Lead 3: 4194 Serial# Lead 3: [id number] Date Implanted Lead 3: 01/05/08 Position Lead 3: LV Diagnostics Pacing % RA Pacin % RV Pacin % LV Pacin Mode Switching Total # Episodes: 10 % Mode switched: 100 Arrhythmias VF Episodes: 0 Fast VT Episodes: 0 Slow VT Episodes: 0 Non-Sust Episodes: 13 Measurements Battery Charge Time (Sec): 10.9 Battery Status: VELVET Predicted Remaining Longevity (months or years): 5 years RA Measurements Impedance (Ohms): 410 RV Measurements Signal Amplitude (mV): 15.7 Impedance (Ohms): 506 Threshold Voltage: 0.5 @ PW(ms): 0.5 LV Measurements Signal Amplitude (mV): 18.9 Impedance (Ohms): 701 Threshold Voltage: 1.5 @ PW(ms): 0.5 Tachy Settings VF Therapies VF Therapy Status On On On On On On Energy 31 41 41 41 41 41 Pathway ATP: During charging on FVT Therapies FVT Therapy Status On On On On On On VT Therapies FVT Therapy Status Off Off Off off Off Off Comments: Mateusz Settings Mateusz Settings Pacemaker Mode DDDR Output/Sensing V/PW (ms) 2.0/0.5 2.0/0.5 2.8/0.5 Sensitivity RA RV LV AGC 0.25 0.6 1.0 Comments: Comments Summary Comments: Bi-VICD Evaluation: Interrogation shows 100% atrial burden and 13 NSVT episodes since 12/21/16. Last NSVT episode occurred on 02/12/17. Left pectoral pocket/incision w/o s/s of infection or erosion. Pt continues to have dizziness but has states not as severe. Dizziness is with movement. Pt's balance noticed to be off when stood up and walking. Presenting rhythm shows Bi-Vpaced @ 70 ppm with underlying atrial flutter. Patient on Coumadin. Bi-Vpaced=86% which suboptimal possibly d/t RVR. Battery longevity approx 5 yrs. Lead impedances, sensing and RV/LV pace/sense thresholds remain stable. Unable to check atrial threshold d/t atrial flutter. No parameter changes made. Counters cleared. Next f/u appt scheduled for in 3 mos. Pt awaiting results from Carotid U/S. 04/04/17 1923 <Electronically signed by Lucila Dugan > Date Lucila Dugan 04/06/17 1820<Electronically signed by Lon Alexis MD> Cosigner Signature: Date (if applicable) Lon Alexis MD CC: ALLERGIES ALLERGIES DATE TYPE / CODE NAME / CODE REACTION SEVERITY SOURCE 01/23/2018 Drug No Known Unknown [place] [facility] Allergy/4160 Allergies/F00 Hospital 45571(SNOMED 9159636(RXNOR Repository CT) M) ENCOUNTERS ENCOUNTERS ADMIT/DISCHARGE ACCOUNT ADMITTING ENCOUNTER LOCATION SOURCE NUMBER CLASS 03/04/2018 [id number] Ambulatory [place] [facility] ing:[facility] Repository 02/25/2018/ [id number] Ambulatory [place] [facility] 8 5 [facility] ing:[facility]LAB Repository 02/07/2018 [id number] Ambulatory BMSBuilding:W [place] 9 [facility] Repository 02/04/2018 [id number] Ambulatory [place] [facility] ing:PSN Repository 02/04/2018/ [id number] Ambulatory BMSBuilding:B [facility] 7 [facility] Repository 01/23/2018/ [id number] Ambulatory BMSBuilding:B [facility] 8 3 [facility] Repository 01/16/2018/ [id number] Ambulatory BMSBuilding:B [place] 8 1 [facility] Repository 12/05/2017/ [id number] Ambulatory [place] [facility] ing:MTLAB Repository 10/09/2017/ [id number] Ambulatory BMSBuilding:B [facility] 8 9 [facility] Repository 10/08/2017/ [id number] Ambulatory Jb [place] 8 8 [facility] ing:[facility]LAB Repository 08/02/2017 [id number] Ambulatory Jb [place] 7 [facility] Hospital ing:MTLAB Repository 08/01/2017/ [id number] Ambulatory [place] [facility] 8 1 [facility] ing:[facility]LAB Repository 07/12/2017 [id number] Ambulatory BMSBuilding:B [facility] 2 [facility] Repository 07/04/2017/ [id number] Ambulatory BMSBuilding:B [place] 8 0 [facility] Repository 06/13/2017/ [id number] Ambulatory BMSBuilding:B [place] 8 8 [facility] Repository 06/13/2017 [id number] Ambulatory BMSBuilding:B [place] 9 [facility] Repository 06/03/2017/ [id number] Ambulatory Jb [facility] 8 6 [facility] ing:MTLAB Repository 04/12/2017/ [id number] Ambulatory [place] [facility] 8 3 [facility] ing:[facility]LAB Repository 04/04/2017/ [id number] Ambulatory BMSBuilding:B [facility] 8 5 [facility] Repository 04/03/2017 [id number] Ambulatory [place] [facility] 3 [facility] ing:[facility] Repository PAYERS PAYERS ENCOUNTER GUARANTOR PAYER SUBSCRIBER SOURCE 03/04/2018 RIO B Primary RIO B [place] [id number] Insurance:MEDICARE WAGNERDOB: [facility] [id number]: Repository [id number]: [id number] [phone] () Date:2017-05-03 03/04/2018 Secondary RIO B Jb Insurance:AARPPolicy WAGNERDOB: [facility] Number: [id number] [id number] Repository Date:3790-93-56ZQ [address], [place] [address]RD: 03/04/2018 Tertiary NOT GIVENUNK [place] Insurance:SELF PAY [facility] Number: Effective Repository Date:2018-03-04 02/25/2018 RIO B Primary RIO B [place] [id number] Insurance:MEDICARE WAGNERDOB: [facility] [id number] Number[place] Repository [address]Rgn: 330 [id number] [phone] () Date:2017-05-03 02/25/2018 Secondary RIO B Jb Insurance:AARPPolicy WAGNERDOB: Community Number: [id number] Hospital [id number] Repository Date:5567-86-07HZ [address], [place] [address]NR: 02/25/2018 Tertiary NOT GIVENUNK [place] Insurance:SELF PAY [facility] Number: Effective Repository Date:2017-12-31 02/07/2018 RIO B Primary RIO B [place] [id number] Insurance:MEDICARE WAGNERDOB: [facility] PART A [facility] [id number] Number: Repository [id number]: 330 [id number] [phone] () Date:2018-02-04 02/07/2018 Secondary RIO B Jb Insurance:AARPPolicy WAGNERDOB: Community Number: [id number] Hospital [id number] Repository Date:8694-08-44IF [address], [place] [address]MK: 02/07/2018 Tertiary NOT GIVENUNK [place] Insurance:SELF PAY [facility] Number: Effective Repository Date:2018-02-07 02/04/2018 RIO B Primary RIO B [place] [id number] Insurance:MEDICARE WAGNERDOB: [facility] PART A [facility] [id number] Number[place] Repository [address]Cbb: 330 [id number] [phone] () Date:2018-02-04 02/04/2018 Secondary RIO B Jb Insurance:AARPPolicy WAGNERDOB: Community Number: [id number] Hospital [id number] Repository Date:2566-87-12KI [address], [place] [address]BH: 02/04/2018 Tertiary NOT GIVENUNK [place] Insurance:SELF PAY [facility] Number: Effective Repository Date:2018-02-04 02/04/2018 RIO B Primary RIO B Jb [id number] Insurance:MEDICARE WAGNERDOB: [facility] PART A [facility] [id number] Number[place] Repository [address]Njb: 330 [id number] [phone] () Date:2018-01-29 02/04/2018 Secondary RIO B [place] Insurance:AARPPolicy WAGNERDOB: Community Number: [id number] Hospital [id number] Repository Date:5306-89-95YX [address], [place] [address]CG: 02/04/2018 Tertiary NOT GIVENUNK Jb Insurance:SELF PAY [facility] Number: Effective Repository Date:2018-02-04 01/23/2018 RIO B Primary RIO B [place] [id number] Insurance:MEDICARE WAGNERDOB: [id number] [place] Number[facility] Repository [address]Yyz: 330 [id number] [phone] () Date:2018-01-22 01/23/2018 Secondary RIO B Jb Insurance:AARPPolicy WAGNERDOB: Community Number: [id number] Hospital [id number] Repository Date:9690-08-60UR [address], [place] [address]NW: 01/23/2018 Tertiary NOT GIVENUNK Jb Insurance:SELF PAY [facility] Number: Effective Repository Date:2018-01-23 01/16/2018 RIO B Primary RIO B Jb [id number] Insurance:MEDICARE WAGNERDOB: [facility] PART A [facility] [id number] Number[place] Rep[place] [address]Ahw: 330 [id number] [phone] () Date:2017-10-09 01/16/2018 Secondary RIO B [place] Insurance:AARPPolicy WAGNERDOB: Community Number: [id number] Hospital [id number] Repository Date:0530-67-83AB [address]APF, [place] [address]TB: 01/16/2018 Tertiary NOT GIVENUNK [place] Insurance:SELF PAY [facility] Number: Effective Repository Date:2018-01-16 12/05/2017 RIO B Primary RIO B Jb [id number] Insurance:MEDICARE WAGNERDOB: Community [facility] PART A [facility] [id number] [place] Number[facility] Repository [address]Pmk: 330 [id number] [phone] () Date:2017-05-03 12/05/2017 Secondary RIO B [place] Insurance:AARPPolicy WAGNERDOB: Community Number: [id number] Hospital [id number] Repository Date:7273-50-27PS [address]JGVSQKW, [place] [address]DQ: 12/05/2017 Tertiary NOT GIVENUNK Jb Insurance:SELF PAY [facility] Number: Effective Repository Date:2017-11-01 10/09/2017 RIO B Primary RIO B Jb [id number] Insurance:MEDICARE WAGNERDOB: [facility] PART A [facility] [id number] [place] Repository [address]Yxr: 330 [id number] [phone] () Date:2017-07-04 10/09/2017 Secondary RIO B [place] Insurance:AARPPolicy WAGNERDOB: Community Number: [id number] Hospital [id number] Repository Date:7878-08-01JU [address]HTLXBSM, [place] [address]XH: 10/09/2017 Tertiary NOT GIVENUNK Jb Insurance:SELF PAY [facility] Number: Effective Repository Date:2017-10-09 10/08/2017 RIO B Primary RIO B [place] [id number] Insurance:MEDICARE WAGNERDOB: [facility] PART A [facility] [id number] [place] Number: Repository [address]Sov: 330 [id number] [phone] (HP) Date:2017-05-03 10/08/2017 Secondary RIO B Jb Insurance:AARPPolicy WAGNERDOB: Community Number: [id number] Hospital [id number] Repository Date:4622-34-82BM [address]NZ, [place] [address]QO: 10/08/2017 Tertiary NOT GIVENUNK [place] Insurance:SELF PAY [facility] Rep[facility] Date:2017-08-29 08/02/2017 RIO B Primary RIO B [place] [id number] Insurance:MEDICARE WAGNERDOB: Community [place] [facility] [place] [facility] [id number] Number: Repository [address]Isp: [phone] [id number] [phone] () Date:2017-08-02 08/02/2017 Secondary RIO B Jb Insurance:AARPPolicy WAGNERDOB: Community Number: [id number] Hospital [id number] Repository Date:6231-18-83YW [address]PJJSPYQ, [place] [address]YV: 08/02/2017 Tertiary NOT GIVENUNK [place] Insurance:SELF PAY [facility] Number: Effective Repository Date:2017-08-02 08/01/2017 RIO B Primary RIO B [place] [id number] Insurance:MEDICARE WAGNERDOB: Community [place] [facility] [id number] Number: Repository [address]Mlh: [phone] [id number] [phone] () Date:2017-05-03 08/01/2017 Secondary RIO B [place] Insurance:AARPPolicy WAGNERDOB: Community Number: [id number] Hospital [id number] Repository Date:5236-30-44VX [address]CTLUWJK, [place] [address]CG: 08/01/2017 Tertiary NOT GIVENUNK [place] Insurance:SELF PAY [facility] Number: Effective Repository Date:2017-07-01 07/12/2017 RIO B Primary RIO B Jb [id number] Insurance:MEDICARE WAGNERDOB: Community [place] [facility] [id number] [place] Number: Repository [address]Dkv: 330 [id number] [phone] () Date:2017-04-04 07/12/2017 Secondary RIO B Jb Insurance:AARPPolicy WAGNERDOB: Community Number: [id number] Hospital [id number] Repository Date:6596-10-38EZ [address]WSPQQTJ, [place] [address]DS: 07/12/2017 Tertiary NOT GIVENUNK Jb Insurance:SELF PAY [facility] Number: Effective Repository Date:2017-04-04 07/04/2017 RIO B Primary RIO B Jb [id number] Insurance:MEDICARE WAGNERDOB: [facility] [id number] [place] Number: Repository [address]Kuw: 330 [id number] [phone] () Date:2017-05-30 07/04/2017 Secondary RIO B Jb Insurance:AARPPolicy WAGNERDOB: Community Number: [id number] Hospital [id number] Repository Date:9737-50-59PY [address]CCDWWJI, [place] [address]GT: 07/04/2017 Tertiary NOT GIVENUNK [place] Insurance:SELF PAY [facility] Number: Effective Repository Date:2017-07-04 06/13/2017 RIO B Primary RIO B Jb [id number] Insurance:MEDICARE WAGNERDOB: [facility] [id number] [facility] [place] Number: Repository [address]Aut: 330 [id number] [phone] () Date:2017-03-08 06/13/2017 Secondary RIO B [place] Insurance:AARPPolicy WAGNERDOB: Community Number: [id number] Hospital [id number] Repository Date:6153-01-97HZ [address]LXPFCBC, [place] [address]UN: 06/13/2017 Tertiary NOT GIVENUNK Jb Insurance:SELF PAY [facility] Number: Effective Repository Date:2017-03-08 06/13/2017 RIO B Primary RIO B [place] [id number] Insurance:MEDICARE WAGNERDOB: Community [facility] PART A [facility] [id number] [facility] [place] Repository [address]Iye: 330 [id number] [phone] (HP) Date:2017-06-13 06/13/2017 Secondary RIO B [place] Insurance:AARPPolicy WAGNERDOB: Community Number: [id number] Hospital [id number] Repository Date:7771-99-69HR [address]DNLTITV, [place] [address]BF: 06/13/2017 Tertiary NOT GIVENUNK Jb Insurance:SELF PAY [facility] Number: Effective Repository Date:2017-06-13 06/03/2017 RIO B Primary RIO B Jb [id number] Insurance:MEDICARE WAGNERDOB: [facility] PART A [facility] [id number] Medical Center [facility] [place] Number[place] Repository [address]Kys: 330 [id number] [phone] (HP) Date:2017-05-03 06/03/2017 Secondary RIO B Jb Insurance:AARPPolicy WAGNERDOB: Community Number: [id number] Hospital [id number] Repository Date:2283-01-93ID [address]DRKZIDQ, [place] [address]MH: 06/03/2017 Tertiary NOT GIVENUNK Jb Insurance:SELF PAY [facility] Number: Effective Repository Date:2017-05-03 04/12/2017 RIO B Primary RIO B Jb [id number] Insurance:MEDICARE WAGNERDOB: [facility] PART A [facility] [id number] Medical Center [facility] [place] Number[place] Repository [address]Ysh: 330 [id number] [phone] (HP) Date:1999-05-02 04/12/2017 Secondary RIO B Jb Insurance:AARPPolicy WAGNERDOB: Community Number: [id number] Hospital [id number] Repository Date:9682-06-16BR [address]ORHCZJC, [place] [address]CN: 04/12/2017 Tertiary NOT GIVENUNK [place] Insurance:SELF PAY [facility] Number: Effective Repository Date:2017-04-01 04/04/2017 RIO B Primary RIO B [place] [id number] Insurance:MEDICARE WAGNERDOB: [facility] PART A [place] [id number] Number: Repository [id number]: [phone] [id number] [phone] (HP) Date:2017-03-03 04/04/2017 Secondary RIO B Jb Insurance:AARPPolicy WAGNERDOB: Community Number: [id number] [place] [address] [id number] Repository Date:1303-62-77KX [address]NAASFKY, [place] [address]XY: 04/04/2017 Tertiary NOT GIVENUNK Jb Insurance:SELF PAY [facility] Number: Effective Repository Date:2017-03-03 04/03/2017 Rio B Primary [place] [id number] Insurance:MEDICARE WagnerDOB: [facility] PART A [place] [id number] Number[place] Repository [id number]: [phone] [id number] [phone] (HP) Date:2017-03-21 04/03/2017 Secondary Rio B [place] Insurance:AARPPolicy WagnerDOB: Community Number: [id number] [place] [address] [id number] Repository Date:8866-75-74CR [address]IBKPUQA, [place] [address]HM: 04/03/2017 Tertiary NOT GIVENUNK Jb Insurance:SELF PAY [facility] Number: Effective Repository Date:2017-04-03
== END 2018-02-25 12:00 | disposition home or self-care (01) ==
LOC: MTLAB 11:28
PROVIDERS: Family Provider Family Medicine; PCP Family Medicine; Referring Provider Internal Medicine Cardiovascular Disease; Visit Provider Internal Medicine Cardiovascular Disease
DX: I48.0 Paroxysmal atrial fibrillation (principal)
CPT/HCPCS: 36415; 85610

== ENCOUNTER 2018-05-01 10:46 | Outpatient (RCR) | payer MEDICARE, OTHER, SELFPAY ==
[2018-01-23 15:15] VITALS: BMI 27.8
[2018-04-24 10:24] VITALS: BMI 28.6
[2018-04-28 10:51] LABS: AST(SGOT) 31 U/L (15-37); Alanine Aminotransfer ALT/SGPT 28 U/L (16-61); Albumin, Serum 3.5 g/dL (3.2-5.0); Alkaline Phosphatase 67 U/L (45-117); Anion Gap 7 (5-15); BUN 24 mg/dL (7-18); BUN/Creat Ratio 17.5 RATIO (10-20); Bilirubin, Direct 0.21 mg/dL (0.00-0.30); Calcium,Total 8.5 mg/dL (8.5-10.1); Chloride 109 mmol/L (98-107); Cholesterol 129 mg/dL (200); Creatinine, Serum 1.37 mg/dL (0.70-1.30); EST Glomerular Filtration Rate 53 mL/min (>60); Est Glom Filt Rate - Afr Amer 64 mL/min (>60); Globulin 4.1 g/dL (2.2-4.2); Glucose 91 mg/dL (74-106); High Density Lipoprotein 54 mg/dL; Potassium 4.3 mmol/L (3.5-5.1); Protein, Total 7.6 g/dL (6.4-8.2); Sodium Level 144 mmol/L (136-145); Triglycerides 71 mg/dL; Very Low Density Lipoprotein 14 mg/dL (5-40)
[2018-04-28 11:46] LABS: Digoxin Level < 0.06 ng/mL (0.80-2.00)
[2018-05-01 12:15] LABS: International Normalized Ratio 2.7; Prothrombin Time (Protime)PT. 28.8 SECONDS (11.7-14.9)
== END 2018-05-01 12:00 | disposition home or self-care (01) ==
LOC: MTLAB 10:46
PROVIDERS: Family Provider Family Medicine; PCP Family Medicine; Referring Provider Internal Medicine Cardiovascular Disease; Visit Provider Internal Medicine Cardiovascular Disease
DX: I48.0 Paroxysmal atrial fibrillation (principal); I10 Essential (primary) hypertension; I43 Cardiomyopathy in diseases classified elsewhere; I49.3 Ventricular premature depolarization; E78.5 Hyperlipidemia, unspecified; Z95.2 Presence of prosthetic heart valve; Z95.810 Presence of automatic (implantable) cardiac defibrillator; Z79.01 Long term (current) use of anticoagulants
CPT/HCPCS: 36415; 80048; 80061; 80076; 80162; 85610

== ENCOUNTER → 2018-05-22 09:51 | Outpatient (CLI) | payer MEDICARE, OTHER, SELFPAY ==
[2018-04-24 10:24] VITALS: BMI 28.6
--- NOTE | 2018-05-22 09:52 | ECHOD_ITS ---
Reason For Study: VALVE REPL Procedure This was a 2D Doppler, Color Flow transthoracic echocardiogram. The exam was of adequate technical quality. Exam performed in department. Left Ventricle Normal LV size. Left ventricular systolic function is normal. The estimated ejection fraction is 55 %. Paradoxical septal wall motion compatible with a post open-heart surgery state and/or an electronic ventricular pacemaker. No regional wall motion abnormalities noted. Right Ventricle Normal RV size. ICD or pacer leads identified within the right ventricle. Normal systolic function. Atria The left atrium is moderately enlarged. The right atrium is severely enlarged. ICD or pacer leads identified within the right atrium. No doppler evidence for ASD. Mitral Valve Stable appearing mechanical mitral valve apparatus. Trivial transvalvular insufficiency of the mitral valve. Tricuspid Valve Normal tricuspid valve. Mild (1+) tricuspid valve insufficiency. Right ventricular systolic pressure estimated to be 36 mmHg. Aortic Valve Trisinus/trileaflet aortic valve. Mild focal aortic valve calcification. Pulmonic Valve The pulmonic valve is not well visualized. Trivial pulmonic valve insufficiency. Great Vessels Borderline enlarge aortic root. Pericardium/Pleural No pericardial effusion. MMode/2D Measurements & Calculations LVIDd: 4.5 cm IVSd: 1.0 cm Ao root diam: 3.9 cm LVIDs: 3.5 cm LVPWd: 1.1 cm RVDd: 4.9 cm FS: 21.3 % LAV(MOD-bp): 113.4 ml LA A4 area: 31.5 cm2 LA dimension(2D): 6.0 cm LAV(MOD-bp) Indexed: 52.4 ml/m2 LAV(MOD-sp2): 106.6 ml LAV(MOD-sp4): 112.2 ml RA A4 area: 29.1 cm2 Doppler Measurements & Calculations MV V2 max: 172.3 cm/sec Ao V2 max: 109.7 cm/sec LV V1 max: 81.5 cm/sec MV max P.9 mmHg Ao max P.8 mmHg LV V1 max P.7 mmHg MV V2 mean: 98.8 cm/sec MV mean P.8 mmHg MV V2 VTI: 22.1 cm PA V2 max: 72.6 cm/sec TR max tai: 288.8 cm/sec MV P1/2t-pr_phl: 57.2 msec TR max P.4 mmHg Interpretation Summary Left ventricular systolic function is normal. The estimated ejection fraction is 55 %. Paradoxical septal wall motion compatible with a post open-heart surgery state and/or an electronic ventricular pacemaker. The left atrium is moderately enlarged. The right atrium is severely enlarged. Stable appearing mechanical mitral valve apparatus. Trivial transvalvular insufficiency of the mitral valve. Mild (1+) tricuspid valve insufficiency. Mild focal aortic valve calcification. Trivial pulmonic valve insufficiency. Borderline enlarge aortic root. Right ventricular systolic pressure estimated to be 36 mmHg. Transmitral diastolic flow velocities suggest diastolic dysfunction (pseudonormal pattern). ICD or pacer leads identified within the right atrium ICD or pacer leads identified within the right ventricle. Ordering Physician: Lon Alexis Referring Physician: DARIUS HARRISON Performed By: Radha Hayes, RDCS, RVT
== END ==
PROVIDERS: Family Provider Family Medicine; PCP Family Medicine; Referring Provider Internal Medicine Cardiovascular Disease; Visit Provider Internal Medicine Cardiovascular Disease
DX: I48.0 Paroxysmal atrial fibrillation (principal); I43 Cardiomyopathy in diseases classified elsewhere; I49.3 Ventricular premature depolarization; Z95.810 Presence of automatic (implantable) cardiac defibrillator; E78.5 Hyperlipidemia, unspecified; I10 Essential (primary) hypertension; Z79.01 Long term (current) use of anticoagulants; Z95.2 Presence of prosthetic heart valve
CPT/HCPCS: 93306

== ENCOUNTER 2018-07-14 13:16 | Outpatient (RCR) | payer MEDICARE, OTHER, SELFPAY ==
[2018-04-24 10:24] VITALS: BMI 28.6
[2018-07-14 15:30] LABS: International Normalized Ratio 3.1; Prothrombin Time (Protime)PT. 32.3 SECONDS (11.7-14.9)
== END 2018-07-29 16:00 | disposition home or self-care (01) ==
LOC: MTLAB 13:16
PROVIDERS: Family Provider Family Medicine; PCP Family Medicine; Referring Provider Internal Medicine Cardiovascular Disease; Visit Provider Internal Medicine Cardiovascular Disease
DX: I48.0 Paroxysmal atrial fibrillation (principal)
CPT/HCPCS: 36415; 85610

== ENCOUNTER 2018-09-24 09:25 | Outpatient (RCR) | payer MEDICARE, OTHER, SELFPAY ==
[2018-04-24 10:24] VITALS: BMI 28.6
[2018-09-24 10:15] LABS: International Normalized Ratio 2.6; Prothrombin Time (Protime)PT. 27.9 SECONDS (11.7-14.9)
[2018-09-24 10:44] LABS: AST(SGOT) 20 U/L (15-37); Alanine Aminotransfer ALT/SGPT 24 U/L (16-61); Albumin, Serum 3.5 g/dL (3.2-5.0); Alkaline Phosphatase 68 U/L (45-117); Bilirubin, Direct 0.29 mg/dL (0.00-0.30); Cholesterol 130 mg/dL (200); Globulin 3.9 g/dL (2.2-4.2); High Density Lipoprotein 43 mg/dL; Protein, Total 7.4 g/dL (6.4-8.2); Triglycerides 93 mg/dL; Very Low Density Lipoprotein 19 mg/dL (5-40)
== END 2018-09-24 10:00 | disposition home or self-care (01) ==
LOC: MTLAB 09:25
PROVIDERS: Family Provider Family Medicine; PCP Family Medicine; Referring Provider Internal Medicine Cardiovascular Disease; Visit Provider Internal Medicine Cardiovascular Disease
DX: I48.0 Paroxysmal atrial fibrillation (principal); Z79.01 Long term (current) use of anticoagulants; E78.5 Hyperlipidemia, unspecified
CPT/HCPCS: 36415; 80061; 80076; 85610

== ENCOUNTER 2018-10-28 08:04 | Outpatient (RCR) | payer MEDICARE, OTHER, SELFPAY ==
[2018-04-24 10:24] VITALS: BMI 28.6
[2018-10-28 10:27] LABS: International Normalized Ratio 4.3
== END 2018-10-28 08:30 | disposition home or self-care (01) ==
LOC: MTLAB 08:04
PROVIDERS: Family Provider Family Medicine; PCP Family Medicine; Referring Provider Internal Medicine Cardiovascular Disease; Visit Provider Internal Medicine Cardiovascular Disease
DX: I48.0 Paroxysmal atrial fibrillation (principal); Z79.01 Long term (current) use of anticoagulants
CPT/HCPCS: 36415; 85610

== ENCOUNTER 2018-11-20 09:15 | Outpatient (RCR) | payer MEDICARE, OTHER, SELFPAY ==
[2018-10-29 11:23] VITALS: BMI 28.2
[2018-11-04 12:29] LABS: International Normalized Ratio 3.4; Prothrombin Time (Protime)PT. 34.7 SECONDS (11.7-14.9)
[2018-11-20 10:07] LABS: International Normalized Ratio 3.2; Prothrombin Time (Protime)PT. 32.6 SECONDS (11.7-14.9)
== END 2018-11-20 10:15 | disposition home or self-care (01) ==
LOC: MTLAB 09:15
PROVIDERS: Family Provider Family Medicine; PCP Family Medicine; Referring Provider Internal Medicine Cardiovascular Disease; Visit Provider Internal Medicine Cardiovascular Disease
DX: I48.0 Paroxysmal atrial fibrillation (principal); Z79.01 Long term (current) use of anticoagulants
CPT/HCPCS: 36415; 85610

== ENCOUNTER 2018-12-11 11:44 | Outpatient (RCR) | payer MEDICARE, OTHER, SELFPAY ==
[2018-10-29 11:23] VITALS: BMI 28.2
[2018-12-11 14:50] LABS: International Normalized Ratio 2.2; Prothrombin Time (Protime)PT. 24.5 SECONDS (11.7-14.9)
== END 2018-12-11 18:00 | disposition home or self-care (01) ==
LOC: MTLAB 11:44
PROVIDERS: Family Provider Family Medicine; PCP Family Medicine; Referring Provider Internal Medicine Cardiovascular Disease; Visit Provider Internal Medicine Cardiovascular Disease
DX: I48.0 Paroxysmal atrial fibrillation (principal); Z79.01 Long term (current) use of anticoagulants
CPT/HCPCS: 36415; 85610

== ENCOUNTER 2019-01-27 10:52 | Outpatient (RCR) | payer MEDICARE, OTHER, SELFPAY ==
[2018-10-29 11:23] VITALS: BMI 28.2
[2018-12-31 12:29] LABS: Prothrombin Time (Protime)PT. 38.8 SECONDS (11.7-14.9)
[2018-12-31 12:42] LABS: International Normalized Ratio 3.9
[2019-01-08 16:18] LABS: International Normalized Ratio 2.6; Prothrombin Time (Protime)PT. 27.8 SECONDS (11.7-14.9)
[2019-01-27 13:52] LABS: International Normalized Ratio 2.5; Prothrombin Time (Protime)PT. 26.7 SECONDS (11.7-14.9)
== END 2019-01-27 18:00 | disposition home or self-care (01) ==
LOC: MTLAB 10:52
PROVIDERS: Family Provider Family Medicine; PCP Family Medicine; Referring Provider Internal Medicine Cardiovascular Disease; Visit Provider Internal Medicine Cardiovascular Disease
DX: I48.0 Paroxysmal atrial fibrillation (principal); Z79.01 Long term (current) use of anticoagulants
CPT/HCPCS: 36415; 85610

== ENCOUNTER → 2019-02-27 09:11 | Outpatient (CLI) | payer MEDICARE, OTHER, SELFPAY ==
[2018-10-29 11:23] VITALS: BMI 28.2
[2019-02-27 10:38] LABS: Anion Gap 5 (5-15); BUN 33 mg/dL (7-18); BUN/Creat Ratio 25.8 RATIO (10-20); Calcium,Total 8.4 mg/dL (8.5-10.1); Chloride 113 mmol/L (98-107); Cholesterol 136 mg/dL (200); Creatinine, Serum 1.28 mg/dL (0.70-1.30); EST Glomerular Filtration Rate 57 mL/min (>60); Est Glom Filt Rate - Afr Amer 69 mL/min (>60); Glucose 91 mg/dL (74-106); High Density Lipoprotein 47 mg/dL; Potassium 4.5 mmol/L (3.5-5.1); Sodium Level 144 mmol/L (136-145); Triglycerides 69 mg/dL; Very Low Density Lipoprotein 14 mg/dL (5-40)
== END ==
PROVIDERS: Family Provider Family Medicine; PCP Family Medicine; Referring Provider Family Medicine; Visit Provider Family Medicine
DX: I10 Essential (primary) hypertension (principal)
CPT/HCPCS: 36415; 80048; 80061

== ENCOUNTER → 2019-03-06 12:41 | Outpatient (CLI) | payer MEDICARE, OTHER, SELFPAY ==
[2018-10-29 11:23] VITALS: BMI 28.2
== END ==
PROVIDERS: Family Provider Family Medicine; PCP Family Medicine; Referring Provider Family Medicine; Visit Provider Family Medicine
DX: R29.898 Other symptoms and signs involving the musculoskeletal system (principal)
CPT/HCPCS: 93922

== ENCOUNTER 2019-03-17 14:29 | Outpatient (RCR) | payer MEDICARE, OTHER, SELFPAY ==
[2018-10-29 11:23] VITALS: BMI 28.2
[2019-03-10 12:26] LABS: AST(SGOT) 26 U/L (15-37); Alanine Aminotransfer ALT/SGPT 25 U/L (16-61); Albumin, Serum 3.5 g/dL (3.2-5.0); Alkaline Phosphatase 86 U/L (45-117); Bilirubin, Direct 0.18 mg/dL (0.00-0.30); Cholesterol 133 mg/dL (200); Globulin 4.1 g/dL (2.2-4.2); High Density Lipoprotein 46 mg/dL; Protein, Total 7.6 g/dL (6.4-8.2); Triglycerides 88 mg/dL; Very Low Density Lipoprotein 18 mg/dL (5-40)
[2019-03-10 12:36] LABS: International Normalized Ratio 2.3; Prothrombin Time (Protime)PT. 25.1 SECONDS (11.7-14.9)
[2019-03-17 17:46] LABS: International Normalized Ratio 3.3; Prothrombin Time (Protime)PT. 34.1 SECONDS (11.7-14.9)
== END 2019-03-17 18:00 | disposition home or self-care (01) ==
LOC: MTLAB 14:29
PROVIDERS: Family Provider Family Medicine; PCP Family Medicine; Referring Provider Internal Medicine Cardiovascular Disease; Visit Provider Internal Medicine Cardiovascular Disease
DX: I48.0 Paroxysmal atrial fibrillation (principal); Z79.01 Long term (current) use of anticoagulants; E78.5 Hyperlipidemia, unspecified
CPT/HCPCS: 36415; 80061; 80076; 85610

== ENCOUNTER 2019-04-16 10:47 | Outpatient (RCR) | payer MEDICARE, OTHER, SELFPAY ==
[2019-03-11 14:22] VITALS: BMI 27.9
[2019-04-16 12:31] LABS: Prothrombin Time (Protime)PT. 37.8 SECONDS (11.7-14.9)
[2019-04-16 13:08] LABS: International Normalized Ratio 3.8
== END 2019-04-16 18:00 | disposition home or self-care (01) ==
LOC: MTLAB 10:47
PROVIDERS: Family Provider Family Medicine; PCP Family Medicine; Referring Provider Internal Medicine Cardiovascular Disease; Visit Provider Internal Medicine Cardiovascular Disease
DX: I48.0 Paroxysmal atrial fibrillation (principal); Z79.01 Long term (current) use of anticoagulants
CPT/HCPCS: 36415; 85610

== ENCOUNTER 2019-05-25 11:53 | Outpatient (RCR) | payer MEDICARE, OTHER, SELFPAY ==
[2019-03-11 14:22] VITALS: BMI 27.9
[2019-05-15 14:08] LABS: Prothrombin Time (Protime)PT. 38.4 SECONDS (11.7-14.9)
[2019-05-15 14:25] LABS: International Normalized Ratio 3.9
[2019-05-25 14:20] LABS: International Normalized Ratio 2.5; Prothrombin Time (Protime)PT. 27.2 SECONDS (11.7-14.9)
== END 2019-05-25 18:00 | disposition home or self-care (01) ==
LOC: MTLAB 11:53
PROVIDERS: Family Provider Family Medicine; PCP Family Medicine; Referring Provider Internal Medicine Cardiovascular Disease; Visit Provider Internal Medicine Cardiovascular Disease
DX: I48.0 Paroxysmal atrial fibrillation (principal); Z79.01 Long term (current) use of anticoagulants
CPT/HCPCS: 36415; 85610

== ENCOUNTER 2019-07-14 15:18 | Outpatient (RCR) | payer MEDICARE, OTHER, SELFPAY ==
[2019-03-11 14:22] VITALS: BMI 27.9
[2019-07-14 17:36] LABS: International Normalized Ratio 2.3; Prothrombin Time (Protime)PT. 24.5 SECONDS (11.7-14.9)
== END 2019-07-30 18:00 | disposition home or self-care (01) ==
LOC: MTLAB 15:18
PROVIDERS: Family Provider Family Medicine; PCP Family Medicine; Referring Provider Internal Medicine Cardiovascular Disease; Visit Provider Internal Medicine Cardiovascular Disease
DX: I48.0 Paroxysmal atrial fibrillation (principal); Z79.01 Long term (current) use of anticoagulants
CPT/HCPCS: 36415; 85610

== ENCOUNTER 2019-09-28 08:45 | Outpatient (RCR) | payer MEDICARE, OTHER, SELFPAY ==
[2019-03-11 14:22] VITALS: BMI 27.9
[2019-09-10 13:19] VITALS: BMI 26.7
[2019-09-14 12:46] LABS: AST(SGOT) 20 U/L (15-37); Alanine Aminotransfer ALT/SGPT 21 U/L (16-61); Albumin, Serum 3.4 g/dL (3.2-5.0); Alkaline Phosphatase 64 U/L (45-117); Bilirubin, Direct 0.26 mg/dL (0.00-0.30); Cholesterol 122 mg/dL (200); Globulin 3.9 g/dL (2.2-4.2); High Density Lipoprotein 48 mg/dL; Protein, Total 7.3 g/dL (6.4-8.2); Triglycerides 67 mg/dL; Very Low Density Lipoprotein 13 mg/dL (5-40)
[2019-09-14 12:49] LABS: International Normalized Ratio 2.4; Prothrombin Time (Protime)PT. 25.3 SECONDS (11.7-14.9)
[2019-09-24 15:25] LABS: International Normalized Ratio 1.2; Prothrombin Time (Protime)PT. 14.3 SECONDS (11.7-14.9)
[2019-09-25 12:20] LABS: International Normalized Ratio 1.1; Prothrombin Time (Protime)PT. 13.8 SECONDS (11.7-14.9)
[2019-09-25 12:27] LABS: AST(SGOT) 19 U/L (15-37); Alanine Aminotransfer ALT/SGPT 22 U/L (16-61); Albumin, Serum 3.2 g/dL (3.2-5.0); Alkaline Phosphatase 61 U/L (45-117); Bilirubin, Direct 0.18 mg/dL (0.00-0.30); Globulin 3.8 g/dL (2.2-4.2)
[2019-09-26 09:13] LABS: International Normalized Ratio 1.4; Prothrombin Time (Protime)PT. 17.1 SECONDS (11.7-14.9)
[2019-09-27 10:07] LABS: International Normalized Ratio 1.9; Prothrombin Time (Protime)PT. 21.3 SECONDS (11.7-14.9)
[2019-09-28 10:11] LABS: International Normalized Ratio 2.2; Prothrombin Time (Protime)PT. 23.6 SECONDS (11.7-14.9)
== END 2019-09-28 18:00 | disposition home or self-care (01) ==
LOC: MTLAB 08:45
PROVIDERS: Family Provider Family Medicine; PCP Family Medicine; Referring Provider Internal Medicine Cardiovascular Disease; Visit Provider Internal Medicine Cardiovascular Disease
DX: I48.0 Paroxysmal atrial fibrillation (principal); Z79.01 Long term (current) use of anticoagulants; E78.00 Pure hypercholesterolemia, unspecified
CPT/HCPCS: 36415; 80061; 80076; 85610

== ENCOUNTER 2019-10-22 11:12 | Outpatient (RCR) | payer MEDICARE, OTHER, SELFPAY ==
[2019-09-10 13:19] VITALS: BMI 26.7
[2019-09-30 12:46] LABS: International Normalized Ratio 2.7; Prothrombin Time (Protime)PT. 28.1 SECONDS (11.7-14.9)
[2019-10-07 12:57] LABS: International Normalized Ratio 2.2; Prothrombin Time (Protime)PT. 24.3 SECONDS (11.7-14.9)
[2019-10-15 12:57] LABS: International Normalized Ratio 2.3; Prothrombin Time (Protime)PT. 25.1 SECONDS (11.7-14.9)
[2019-10-22 15:16] LABS: Prothrombin Time (Protime)PT. 30.4 SECONDS (11.7-14.9)
== END 2019-10-22 18:00 | disposition home or self-care (01) ==
LOC: MTLAB 11:12
PROVIDERS: Family Provider Family Medicine; PCP Family Medicine; Referring Provider Internal Medicine Cardiovascular Disease; Visit Provider Internal Medicine Cardiovascular Disease
DX: I48.0 Paroxysmal atrial fibrillation (principal); Z79.01 Long term (current) use of anticoagulants
CPT/HCPCS: 36415; 85610

== ENCOUNTER 2019-11-27 11:41 | Outpatient (RCR) | payer MEDICARE, OTHER, SELFPAY ==
[2019-09-10 13:19] VITALS: BMI 26.7
[2019-11-11 15:49] LABS: Prothrombin Time (Protime)PT. 38.9 SECONDS (11.7-14.9)
[2019-11-19 12:53] LABS: International Normalized Ratio 3.8
[2019-11-27 15:58] LABS: International Normalized Ratio 3.2; Prothrombin Time (Protime)PT. 32.2 SECONDS (11.7-14.9)
== END 2019-11-30 18:00 | disposition home or self-care (01) ==
LOC: MTLAB 11:41
PROVIDERS: Family Provider Family Medicine; PCP Family Medicine; Referring Provider Internal Medicine Cardiovascular Disease; Visit Provider Internal Medicine Cardiovascular Disease
DX: I48.0 Paroxysmal atrial fibrillation (principal); Z79.01 Long term (current) use of anticoagulants
CPT/HCPCS: 36415; 85610

== ENCOUNTER 2019-12-18 09:55 | Outpatient (RCR) | payer MEDICARE, OTHER, SELFPAY ==
[2019-09-10 13:19] VITALS: BMI 26.7
[2019-12-18 12:22] LABS: Prothrombin Time (Protime)PT. 30.5 SECONDS (11.7-14.9)
== END 2019-12-18 18:00 | disposition home or self-care (01) ==
LOC: MTLAB 09:55
PROVIDERS: Family Provider Family Medicine; PCP Family Medicine; Referring Provider Internal Medicine Cardiovascular Disease; Visit Provider Internal Medicine Cardiovascular Disease
DX: I48.0 Paroxysmal atrial fibrillation (principal); Z79.01 Long term (current) use of anticoagulants
CPT/HCPCS: 36415; 85610

== ENCOUNTER 2020-01-15 15:21 | Outpatient (RCR) | payer MEDICARE, OTHER, SELFPAY ==
[2019-09-10 13:19] VITALS: BMI 26.7
[2020-01-15 17:49] LABS: Prothrombin Time (Protime)PT. 30.6 SECONDS (11.7-14.9)
== END 2020-01-15 18:00 | disposition home or self-care (01) ==
LOC: MTLAB 15:21
PROVIDERS: Family Provider Family Medicine; PCP Family Medicine; Referring Provider Internal Medicine Cardiovascular Disease; Visit Provider Internal Medicine Cardiovascular Disease
DX: I48.0 Paroxysmal atrial fibrillation (principal); Z79.01 Long term (current) use of anticoagulants
CPT/HCPCS: 36415; 85610

== ENCOUNTER 2020-02-11 13:35 | Outpatient (RCR) | payer MEDICARE, OTHER, SELFPAY ==
[2019-09-10 13:19] VITALS: BMI 26.7
[2020-02-11 16:28] LABS: International Normalized Ratio 3.1; Prothrombin Time (Protime)PT. 31.3 SECONDS (11.7-14.9)
== END 2020-02-11 18:00 | disposition home or self-care (01) ==
LOC: MTLAB 13:35
PROVIDERS: Family Provider Family Medicine; PCP Family Medicine; Referring Provider Internal Medicine Cardiovascular Disease; Visit Provider Internal Medicine Cardiovascular Disease
DX: I48.0 Paroxysmal atrial fibrillation (principal); Z79.01 Long term (current) use of anticoagulants
CPT/HCPCS: 36415; 85610

== ENCOUNTER 2020-03-11 09:26 | Outpatient (RCR) | payer MEDICARE, OTHER, SELFPAY ==
[2019-09-10 13:19] VITALS: BMI 26.7
[2020-03-11 12:04] LABS: International Normalized Ratio 2.9; Prothrombin Time (Protime)PT. 30.2 SECONDS (11.7-14.9)
== END 2020-03-11 18:00 | disposition home or self-care (01) ==
LOC: MTLAB 09:26
PROVIDERS: Family Provider Family Medicine; PCP Family Medicine; Referring Provider Internal Medicine Cardiovascular Disease; Visit Provider Internal Medicine Cardiovascular Disease
DX: I48.0 Paroxysmal atrial fibrillation (principal); Z79.01 Long term (current) use of anticoagulants
CPT/HCPCS: 36415; 85610

== ENCOUNTER → 2020-03-16 09:06 | Outpatient (CLI) | payer MEDICARE, OTHER, SELFPAY ==
[2019-09-10 13:19] VITALS: BMI 26.7
[2020-03-16 10:50] LABS: AST(SGOT) 19 U/L (15-37); Alanine Aminotransfer ALT/SGPT 30 U/L (16-61); Albumin, Serum 3.3 g/dL (3.2-5.0); Alkaline Phosphatase 74 U/L (45-117); Cholesterol 124 mg/dL (200); Globulin 4.1 g/dL (2.2-4.2); High Density Lipoprotein 50 mg/dL; Protein, Total 7.4 g/dL (6.4-8.2); Triglycerides 48 mg/dL; Very Low Density Lipoprotein 10 mg/dL (5-40)
== END ==
PROVIDERS: PCP Family Medicine; Referring Provider Internal Medicine Cardiovascular Disease; Visit Provider Internal Medicine Cardiovascular Disease
DX: E78.00 Pure hypercholesterolemia, unspecified (principal)
CPT/HCPCS: 36415; 80061; 80076

== ENCOUNTER 2020-05-13 14:07 | Outpatient (RCR) | payer MEDICARE, OTHER, SELFPAY ==
[2019-09-10 13:19] VITALS: BMI 26.7
[2020-05-13 17:56] LABS: International Normalized Ratio 2.9
== END 2020-05-13 18:00 | disposition home or self-care (01) ==
LOC: MTLAB 14:07
PROVIDERS: Family Provider Family Medicine; PCP Family Medicine; Referring Provider Internal Medicine Cardiovascular Disease; Visit Provider Internal Medicine Cardiovascular Disease
DX: I48.0 Paroxysmal atrial fibrillation (principal); Z79.01 Long term (current) use of anticoagulants
CPT/HCPCS: 36415; 85610

== ENCOUNTER 2020-07-28 10:27 | Outpatient (RCR) | payer MEDICARE, OTHER, SELFPAY ==
[2019-09-10 13:19] VITALS: BMI 26.7
[2020-05-30 10:29] VITALS: BMI 26.7
[2020-07-28 12:17] LABS: International Normalized Ratio 3.2; Prothrombin Time (Protime)PT. 31.6 SECONDS (11.7-14.9)
== END 2020-07-28 18:00 | disposition home or self-care (01) ==
LOC: MTLAB 10:27
PROVIDERS: Family Provider Family Medicine; PCP Family Medicine; Referring Provider Internal Medicine Cardiovascular Disease; Visit Provider Internal Medicine Cardiovascular Disease
DX: I48.0 Paroxysmal atrial fibrillation (principal); Z79.01 Long term (current) use of anticoagulants
CPT/HCPCS: 36415; 85610

== ENCOUNTER 2020-07-29 08:50 | Emergency (ER) | payer MEDICARE, OTHER, SELFPAY ==
[2020-05-30 10:29] VITALS: BMI 26.7
[2020-07-29 08:51] VITALS: BP 147/77; PULSE 58; RESP 18; TEMP 36.6; O2SAT 99; BMI 27.8
--- NOTE | 2020-07-29 09:13 | EDS_ITS ---
HPI History of Present Illness Chief Complaint: Nosebleed Detail of Chief Complaint: Patient started with a nosebleed just after midnight this morning. Informant: patient Onset/Context/Timing Location: Left side of nose Narrative Narrative: Patient on Coumadin for history of mechanical heart valve and history of paroxysmal A. fib. Patient states that he was picking at his nose last evening when it started to bleed around midnight. Patient placed a packing into the nose and went to sleep and when he woke up this morning noted that still had small amount of bleeding. Patient did check his INR yesterday and it was 3.2. Patient denies frequent nosebleeds. Prior similar symptoms: No PFSH PFSH Medical History (Updated 07/29/20 @ 10:[address] 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 Mitral valve disorder Murmur Paroxysmal atrial fibrillation Premature beats Premature ventricular contractions Pure hypercholesterolemia TIA (transient ischemic attack) Home Medications aspirin 81 mg PO DAILY@0800 03/17/13 [History Last Taken Unknown] Handicap Placard #1 ea 09/29/18 [Rx Last Taken Unknown] carvedilol 25 mg tablet 25 mg PO BID #180 tab 09/10/19 [Rx Last Taken Unknown] ramipril 10 mg capsule 10 mg PO BID #180 cap 09/10/19 [Rx Last Taken Unknown] warfarin 1 mg tablet 1 mg PO QDAY #90 tab 09/10/19 [Rx Last Taken Unknown] warfarin 5 mg tablet 5 mg PO QDAY #90 tab 09/10/19 [Rx Last Taken Unknown] amlodipine 5 mg tablet 5 mg PO DAILY #90 tab 12/09/19 [Rx Last Taken Unknown] warfarin 6 mg tablet 6 mg PO DAILY #90 tab 02/10/20 [Rx Last Taken Unknown] pravastatin 10 mg tablet 10 mg PO QHS #90 tab 05/30/20 [Rx Last Taken Unknown] tamsulosin 0.4 mg capsule 0.4 mg PO QHS 05/30/20 [History Last Taken Unknown] amoxicillin-pot clavulanate [Augmentin] 1 tab PO BID #14 tab 07/29/20 [Rx Last Taken Unknown] ramipril 10 mg PO BID 07/29/20 [History Last Taken Unknown] Allergy/AdvReac Type Severity Reaction Status Date / Time No Known Allergies Allergy Verified 07/29/20 08:53 Family History Father CAD (coronary artery disease) Mother Breast cancer Brother CAD (coronary artery disease) Hx CABG Brother Cancer Leukemia Surgical History Cardiac pacemaker in situ H/O mitral valve replacement Social History (Updated 05/30/20 @ 10:[address] Lon Alexis MD) Smoking Status: Never smoker alcohol intake: never substance use type: does not use caffeine: No what type of physical activity do you participate in: other details: tredmill frequency: 1-2 times per week duration: 15-30 minutes/day seatbelt use: always do you feel safe at home: Yes ROS ROS ED Constitutional Constitutional ED: Reports systems reviewed and no addt'l complaints, except as documented; Denies body ache(s), change in weight or chills Eyes Eyes: Denies acute decrease in peripheral vision, change in vision, double vision or loss of vision ENT ENT ED: Reports none and other Details: Bleeding from left side of nose ; Denies ear pain, lip swelling, loss taste/smell, neck pain, otalgia or sore throat Cardiovascular Cardiovascular: Reports none; Denies abdominal pain, chest pain with activity, leg edema, lightheadedness, palpitations, rapid heart rate or syncope Respiratory/Chest Respiratory/Chest: Reports none; Denies change in mental status, dry cough, dyspnea, hemoptysis, shortness of breath at rest or shortness of breath with exertion Gastrointestinal Gastrointestinal: Reports none; Denies abdominal pain, change in stool character, diarrhea, hematemesis, hematochezia, melena, rectal bleeding or vomiting Genitourinary Genitourinary ED: Reports none; Denies abdominal discomfort, anuria, dysuria, genital pain or polyuria Musculoskeletal Musculoskeletal: Reports none; Denies arthralgias, back pain, difficulty walking, extremity pain, muscle weakness or myalgias Integumentary Reports none; Denies abscess or rash Neurologic Neurologic: Reports none; Denies abnormal gait, confusion, focal weakness, frequent falls, headache(s), loss of vision, numbness, paresthesias, radicular pain, vertigo or weakness Psychiatric Psychiatric: Reports systems reviewed and no addt'l complaints, except as documented and none; Denies behavioral changes, confusion, difficulty concentrating, hallucinations, suicidal ideation, tactile hallucinations or visual hallucinations Endocrine Endocrinology: Denies none, cold intolerance, excessive sweating, fatigue or heat intolerance Hematologic/Lymphatic Hematologic/Lymphatic: Reports none; Denies anemia, easy bleeding or easy bruising Allergic/Immunologic Allergic/Immunologic ED: Denies as per HPI, none, lip swelling, mouth swelling, throat swelling, tongue swelling or hives EXAM Physical Exam Const Vital Signs: 07/29/20 08:51 Temperature 97.8 F Temperature Source Temporal Pulse Rate 58 L Respiratory Rate 18 Blood Pressure 147/77 H Blood Pressure Mean 100 Pulse Ox 99 Oxygen Delivery Method Room Air Positive well nourished and well developed General Appearance ED: well developed and NAD HEENT Reports TM's clear and moist mucous membranes HEENT Narrative: Patient has clot on the floor of nasal vault on the left. Patient had small clot noted down the posterior oropharynx without any evidence of active bleeding. I do not appreciate the site of the bleeding. I did have patient attempt to blow his nose and there was no active bleeding. normocephalic and atraumatic; Negative for trauma or tenderness Tympanic Membrane ED: Yes TM's clear Eyes PERRL and EOMs intact bilaterally General Eye ED: Negative for pale conjunctiva or scleral icterus Neck no lymphadenopathy, supple and no JVD General: Negative for tenderness Chest Wall inspection of chest normal and palpation of chest normal Chest: symmetrical chest wall rise; Negative for tenderness Resp normal respiratory effort and clear to auscultation bilaterally Effort and Inspection: Negative for respiratory distress or pain with movement Auscultation: Negative for rhonchi, wheezes or diminished lung sounds Cardio S1 normal heart sound, S2 normal heart sound, no murmurs and peripheral pulses 2+ throughout; Negative for diaphoretic Cardio Narrative: Heart is irregular with a 2 out of 6 systolic ejection murmur noted Peripheral Pulses: pulses 2+ throughout GI normal to inspection, nondistended, normoactive bowel sounds, soft to palpation, non-tender, non-distended and no masses Back/Spine no CVA tenderness and no thoracic nor lumbar tenderness Extremity normal to inspection General Extremety ED: Negative for edema General Extremity: Negative for edema Neuro oriented x3, CN's II-XII intact bilaterally, no sensory deficits noted and gait normal Sensorium / Orientation: awake, alert, oriented to person, oriented to place and oriented to time Motor Exam: strength 5/5 throughout and strength abnormal Psych mental status grossly normal Skin no rashes or lesions noted and no wounds MDM MDM MDM Narrative Medical decision making narrative: After cotton was removed from the left side of nose patient was noted to have a clot on the inferior floor the left nasal vault continue to have small amount of blood oozing from it. I decision was made to place a 7.5 cm Rhino Rocket into the left nasal vault and was inflated with air. Patient was observed further in the emergency department and had no further bleeding. We are unable to discontinue his Coumadin as he has a mechanical heart valve. His INR was 3.2 yesterday. Patient will be advised to follow-up with his ear nose and throat physician who will have to remove his packing. We will start him on Augmentin until the packing is removed. Patient advised to return if worsening of the bleeding or condition should worsen anyway. Procedures Other Procedures Procedure(s): Patient had cotton ball with Prem solution applied to the left nasal vault and pressure was held for 20 minutes. Patient continued to have small amount of bleeding noted and therefore a Rhino Rocket was placed in the left nasal vault 7.5 cm. Discharge Plan Triage Chief Complaint: Nosebleed ED Provider: Leilani Pérez Dx/Rx/DC Orders Clinical Impression: Acute anterior epistaxis Instructions: ED Epistaxis (Adult) Prescriptions: New amoxicillin-pot clavulanate [Augmentin] 875-125 mg tablet 1 tab PO BID Qty: 14 RF: 0 No Action warfarin [Coumadin] 1 mg tablet 1 mg PO QDAY Qty: 90 RF: 3 warfarin [Coumadin] 5 mg tablet 5 mg PO QDAY Qty: 90 RF: 3 carvedilol 25 mg tablet 25 mg PO BID Qty: 180 RF: 3 ramipril 10 mg capsule 10 mg PO BID Qty: 180 RF: 3 tamsulosin 0.4 mg capsule 0.4 mg PO QHS RF: 0 pravastatin 10 mg tablet 10 mg PO QHS Qty: 90 RF: 4 aspirin 81 MG tablet,chewable 81 mg PO DAILY@0800 RF: 0 ramipril 10 mg Capsule 10 mg PO BID RF: 0 (DME) Handicap Placard Qty: 1 RF: 0 amlodipine 5 mg tablet 5 mg PO DAILY Qty: 90 RF: 3 warfarin 6 mg tablet 6 mg PO DAILY Qty: 90 RF: 4 Primary Care Provider: Lon Gonzalez Referrals: Ryan Eddy MD [STAFF PHYSICIAN] - 3-5 Days Lon Gonzalez MD [Primary Care Provider] - Disposition Disposition: Home, self care
== END 2020-07-29 10:45 | disposition home or self-care (01) ==
PROVIDERS: Emergency Provider Emergency Medicine; PCP Family Medicine
DX: R04.0 Epistaxis (principal); I10 Essential (primary) hypertension; I44.2 Atrioventricular block, complete; I43 Cardiomyopathy in diseases classified elsewhere; I48.0 Paroxysmal atrial fibrillation; I49.3 Ventricular premature depolarization; E78.00 Pure hypercholesterolemia, unspecified; Z86.73 Personal history of transient ischemic attack (TIA), and cerebral infarction without residual deficits; Z95.2 Presence of prosthetic heart valve; Z79.01 Long term (current) use of anticoagulants; Z79.82 Long term (current) use of aspirin; Z79.899 Other long term (current) drug therapy
CPT/HCPCS: 30901; 99282

== ENCOUNTER → 2020-08-04 03:50 | Emergency (ER) | payer MEDICARE, OTHER, SELFPAY ==
[2020-07-29 08:51] VITALS: BMI 27.8
[2020-08-04 03:51] VITALS: BP 140/63; PULSE 55; RESP 16; TEMP 36.7; O2SAT 96; BMI 27.6
--- NOTE | 2020-08-04 04:04 | EX.ED.VIS.UR ---
HPI HPI - URI History of Present Illness Chief Complaint: Nosebleed Informant: patient Narrative Narrative: Patient presents with a nosebleed. Is coming from the left-hand side. He states it started bleeding a little bit yesterday but then he woke up with it again this morning. It started last week when he was picking at his nose. He was seen here and had a Rhino Rocket placed. He did follow-up with Dr. Eddy who cauterized his nose in the office and sent him home. The patient is on Coumadin for mechanical heart valve. His INR last week was 3.2. He denies that he is picking at his nose at this time. ROS ROS ED Constitutional Constitutional ED: Denies chills or fever(s) Eyes Eyes: Denies blurry vision, change in vision or diplopia ENT ENT ED: Reports other Details: Epistaxis Cardiovascular Cardiovascular: Denies chest pain or palpitations Respiratory/Chest Respiratory/Chest: Denies cough, dyspnea or sputum Gastrointestinal Gastrointestinal: Denies abdominal pain, diarrhea, nausea or vomiting Genitourinary Genitourinary ED: Denies dysuria, hematuria or urinary frequency Musculoskeletal Musculoskeletal: Denies back pain or neck pain Integumentary Denies change in pigmentation or rash Neurologic Neurologic: Denies headache(s), numbness or weakness Psychiatric Psychiatric: Denies anxiety or depression Endocrine Endocrinology: Denies polydipsia or polyuria [facility] Medical History 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, complete Cardiomyopathy in other diseases classified elsewhere Dizziness and giddiness Essential hypertension Fatigue Hernia longterm (current) use of anticoagulants Mitral valve disorder Murmur Paroxysmal atrial fibrillation Premature beats Premature ventricular contractions Pure hypercholesterolemia TIA (transient ischemic attack) Home Medications aspirin 81 mg PO DAILY@0800 03/17/13 [History Last Taken Unknown] Handicap Placard #1 ea 09/29/18 [Rx Last Taken Unknown] carvedilol 25 mg tablet 25 mg PO BID #180 tab 09/10/19 [Rx Last Taken Unknown] ramipril 10 mg capsule 10 mg PO BID #180 cap 09/10/19 [Rx Last Taken Unknown] warfarin 1 mg tablet 1 mg PO QDAY #90 tab 09/10/19 [Rx Last Taken Unknown] warfarin 5 mg tablet 5 mg PO QDAY #90 tab 09/10/19 [Rx Last Taken Unknown] amlodipine 5 mg tablet 5 mg PO DAILY #90 tab 12/09/19 [Rx Last Taken Unknown] warfarin 6 mg tablet 6 mg PO DAILY #90 tab 02/10/20 [Rx Last Taken Unknown] pravastatin 10 mg tablet 10 mg PO QHS #90 tab 05/30/20 [Rx Last Taken Unknown] tamsulosin 0.4 mg capsule 0.4 mg PO QHS 05/30/20 [History Last Taken Unknown] amoxicillin-pot clavulanate [Augmentin] 1 tab PO BID #14 tab 07/29/20 [Rx Last Taken Unknown] ramipril 10 mg PO BID 07/29/20 [History Last Taken Unknown] Allergy/AdvReac Type Severity Reaction Status Date / Time No Known Allergies Allergy Verified 08/04/20 03:57 Family History Father CAD (coronary artery disease) Mother Breast cancer Brother CAD (coronary artery disease) Hx CABG Brother Cancer Leukemia Surgical History Cardiac pacemaker in situ H/O mitral valve replacement Social History Smoking Status: Never smoker alcohol intake: never substance use type: does not use caffeine: No what type of physical activity do you participate in: other details: tredmill frequency: 1-2 times per week duration: 15-30 minutes/day seatbelt use: always do you feel safe at home: Yes EXAM Physical Exam Const Vital Signs: 08/04/20 03:51 Temperature 98.1 F Temperature Source Temporal Pulse Rate 55 L Respiratory Rate 16 Blood Pressure 140/63 H Blood Pressure Mean 88 Pulse Ox 96 Oxygen Delivery Method Room Air Positive well nourished and well developed General Appearance ED: well developed HEENT HEENT Narrative: There is oozing of blood coming from the inferior portion of the left nares. I cannot visualize where the exact bleeding is coming from. When tilting his head back he is swallowing blood. normocephalic and atraumatic External Ear: external ears normal Eyes PERRL Neck supple Neuro oriented x3 Sensorium / Orientation: alert Motor Exam: strength 5/5 throughout Psych mental status grossly normal Skin Rashes: no rashes MDM MDM MDM Narrative Medical decision making narrative: I was unable to visualize the bleeding source so I put a 7.5 cm Rhino Rocket. He did have hemostasis after this. His INR is 4.6. I recommend he skip his next Coumadin dose. He will need to call Dr. Eddy's office today for follow-up Lab Data Attestation: I reviewed the patient's lab results. Labs: Laboratory Results - last 24 hr 08/04/20 04:12 PT 43.0 H INR 4.6 H* Procedures Other Procedures Procedure(s): 7.5 cm Rhino Rocket was placed in the left nares. It was inflated until hemostasis was obtained Discharge Plan Triage Chief Complaint: Nosebleed ED Provider: Luther Lazcano Dx/Rx/DC Orders Clinical Impression: Epistaxis Instructions: ED Epistaxis (Adult) Prescriptions: No Action warfarin [Coumadin] 1 mg tablet 1 mg PO QDAY Qty: 90 RF: 3 warfarin [Coumadin] 5 mg tablet 5 mg PO QDAY Qty: 90 RF: 3 carvedilol 25 mg tablet 25 mg PO BID Qty: 180 RF: 3 ramipril 10 mg capsule 10 mg PO BID Qty: 180 RF: 3 tamsulosin 0.4 mg capsule 0.4 mg PO QHS RF: 0 pravastatin 10 mg tablet 10 mg PO QHS Qty: 90 RF: 4 aspirin 81 MG tablet,chewable 81 mg PO DAILY@0800 RF: 0 ramipril 10 mg Capsule 10 mg PO BID RF: 0 amoxicillin-pot clavulanate [Augmentin] 875-125 mg tablet 1 tab PO BID Qty: 14 RF: 0 (DME) Handicap Placard Qty: 1 RF: 0 amlodipine 5 mg tablet 5 mg PO DAILY Qty: 90 RF: 3 warfarin 6 mg tablet 6 mg PO DAILY Qty: 90 RF: 4 Primary Care Provider: Lon Gonzalez Referrals: Ryan Eddy MD [STAFF PHYSICIAN] - Lon Gonzalez MD [Primary Care Provider] - Disposition Disposition: Home, self care
[2020-08-04 04:41] LABS: International Normalized Ratio 4.6
[2020-08-04 04:49] VITALS: BP 144/70; PULSE 60; RESP 16; O2SAT 96
== END | disposition home or self-care (01) ==
PROVIDERS: Emergency Provider Emergency Medicine; PCP Family Medicine
DX: R04.0 Epistaxis (principal); I10 Essential (primary) hypertension; I43 Cardiomyopathy in diseases classified elsewhere; I44.2 Atrioventricular block, complete; I48.0 Paroxysmal atrial fibrillation; I70.219 Atherosclerosis of native arteries of extremities with intermittent claudication, unspecified extremity; E78.00 Pure hypercholesterolemia, unspecified; Z86.73 Personal history of transient ischemic attack (TIA), and cerebral infarction without residual deficits; Z79.01 Long term (current) use of anticoagulants; Z79.82 Long term (current) use of aspirin; Z79.899 Other long term (current) drug therapy
CPT/HCPCS: 30901; 85610; 99282; A4216

== ENCOUNTER 2020-08-06 02:33 | Emergency (ER) | payer MEDICARE, OTHER, SELFPAY ==
[2020-08-04 03:51] VITALS: BMI 27.6
[2020-08-06 02:34] VITALS: BP 150/69; PULSE 60; RESP 15; TEMP 36.5; O2SAT 99; BMI 28.0
--- NOTE | 2020-08-06 02:58 | EDS_ITS ---
HPI History of Present Illness Chief Complaint: Nosebleed Narrative Narrative: This patient is an 85-year-old male who presents with epistaxis. He has had 2 recent visits for the same. He has had nasal packings placed on both occasions. After the first ER visit he did follow-up with otolaryngology and underwent cautery. His epistaxis recurred and he had another packing placed. The patient feels it was not as full or pushed back as far it had actually fallen out on its own. His bleeding began again tonight about 40 minutes before presentation. He is on warfarin due to a history of aortic mechanical valve. His INR was high on his recent visits. He otherwise denies recent medical illness. No fevers vomiting cough chest pain. 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 Mitral valve disorder Murmur Paroxysmal atrial fibrillation Premature beats Premature ventricular contractions Pure hypercholesterolemia TIA (transient ischemic attack) Home Medications aspirin 81 mg PO DAILY@0800 03/17/13 [History Last Taken Unknown] Handicap Placard #1 ea 09/29/18 [Rx Last Taken Unknown] carvedilol 25 mg tablet 25 mg PO BID #180 tab 09/10/19 [Rx Last Taken Unknown] ramipril 10 mg capsule 10 mg PO BID #180 cap 09/10/19 [Rx Last Taken Unknown] warfarin 1 mg tablet 1 mg PO QDAY #90 tab 09/10/19 [Rx Last Taken Unknown] warfarin 5 mg tablet 5 mg PO QDAY #90 tab 09/10/19 [Rx Last Taken Unknown] amlodipine 5 mg tablet 5 mg PO DAILY #90 tab 12/09/19 [Rx Last Taken Unknown] warfarin 6 mg tablet 6 mg PO DAILY #90 tab 02/10/20 [Rx Last Taken Unknown] pravastatin 10 mg tablet 10 mg PO QHS #90 tab 05/30/20 [Rx Last Taken Unknown] tamsulosin 0.4 mg capsule 0.4 mg PO QHS 05/30/20 [History Last Taken Unknown] amoxicillin-pot clavulanate [Augmentin] 1 tab PO BID #14 tab 07/29/20 [Rx Last Taken Unknown] ramipril 10 mg PO BID 07/29/20 [History Last Taken Unknown] Allergy/AdvReac Type Severity Reaction Status Date / Time No Known Allergies Allergy Verified 08/06/20 02:37 Family History Father CAD (coronary artery disease) Mother Breast cancer Brother CAD (coronary artery disease) Hx CABG Brother Cancer Leukemia Surgical History Cardiac pacemaker in situ H/O mitral valve replacement Social History Smoking Status: Never smoker alcohol intake: never substance use type: does not use caffeine: No what type of physical activity do you participate in: other details: tredmill frequency: 1-2 times per week duration: 15-30 minutes/day seatbelt use: always do you feel safe at home: Yes ROS ROS ED Constitutional Constitutional ED: Denies fever(s) Eyes Eyes: Denies change in vision ENT ENT ED: Reports other Details: Epistaxis Cardiovascular Cardiovascular: Denies chest pain Respiratory/Chest Respiratory/Chest: Denies dyspnea Gastrointestinal Gastrointestinal: Denies vomiting Integumentary Denies rash Neurologic Neurologic: Denies headache(s) Hematologic/Lymphatic Hematologic/Lymphatic: Reports easy bleeding EXAM Physical Exam Const Vital Signs: 08/06/20 02:34 Temperature 97.7 F L Temperature Source Temporal Pulse Rate 60 Respiratory Rate 15 Blood Pressure 150/69 H Blood Pressure Mean 96 Pulse Ox 99 Oxygen Delivery Method Room Air Positive well nourished HEENT HEENT Narrative: Patient has active epistaxis from left nostril. I am unable to identify the definite source of bleeding Eyes EOMs intact bilaterally Neck supple Chest Wall inspection of chest normal Cardio regular rate and regular rhythm GI Palpation: soft Extremity normal to inspection Neuro Sensorium / Orientation: alert Psych mental status grossly normal Skin no rashes or lesions noted MDM MDM MDM Narrative Medical decision making narrative: Patient presented with significant active epistaxis. Afrin was instilled in both naris. A 7.5 cm anterior/posterior Rhino Rocket type packing was placed in the left nostril. This was well- tolerated. Hemostasis was achieved. INR is 6. Although the previous ER note had noted the patient was advised to hold the dose of Coumadin there may have been a miscommunication as patient was not aware of this and has been taking his Coumadin as normal. I clearly stated to hold his next 2 doses of warfarin and to have his INR rechecked on Saturday and to contact Dr. Alexis or his office for further guidance on warfarin dosing. Additionally the patient does have ENT follow-up scheduled on Saturday. On recheck his bleeding is still controlled. All questions answered bedside, patient agreeable to the plan. Patient discharged. Lab Data Labs: Laboratory Results - last 24 hr 08/06/20 03:05 PT 52.5 H INR 6.0 H* Discharge Plan Triage Chief Complaint: Nosebleed ED Provider: Evan Stokes Dx/Rx/DC Orders Clinical Impression: Epistaxis Instructions: ED Epistaxis (Adult) Prescriptions: No Action warfarin [Coumadin] 1 mg tablet 1 mg PO QDAY Qty: 90 RF: 3 warfarin [Coumadin] 5 mg tablet 5 mg PO QDAY Qty: 90 RF: 3 carvedilol 25 mg tablet 25 mg PO BID Qty: 180 RF: 3 ramipril 10 mg capsule 10 mg PO BID Qty: 180 RF: 3 tamsulosin 0.4 mg capsule 0.4 mg PO QHS RF: 0 pravastatin 10 mg tablet 10 mg PO QHS Qty: 90 RF: 4 aspirin 81 MG tablet,chewable 81 mg PO DAILY@0800 RF: 0 ramipril 10 mg Capsule 10 mg PO BID RF: 0 amoxicillin-pot clavulanate [Augmentin] 875-125 mg tablet 1 tab PO BID Qty: 14 RF: 0 (DME) Handicap Placard Qty: 1 RF: 0 amlodipine 5 mg tablet 5 mg PO DAILY Qty: 90 RF: 3 warfarin 6 mg tablet 6 mg PO DAILY Qty: 90 RF: 4 Primary Care Provider: Lon Gonzalez Referrals: Lon Gonzalez MD [Primary Care Provider] - Disposition Disposition: Home, self care
[2020-08-06 03:20] LABS: Prothrombin Time (Protime)PT. 52.5 SECONDS (11.7-14.9)
[2020-08-06 03:54] VITALS: BP 149/81; PULSE 60; RESP 18; O2SAT 95
== END 2020-08-06 03:58 | disposition home or self-care (01) ==
PROVIDERS: Emergency Provider Emergency Medicine; PCP Family Medicine
DX: R04.0 Epistaxis (principal); I44.2 Atrioventricular block, complete; I10 Essential (primary) hypertension; I48.0 Paroxysmal atrial fibrillation; I43 Cardiomyopathy in diseases classified elsewhere; E78.00 Pure hypercholesterolemia, unspecified; I70.219 Atherosclerosis of native arteries of extremities with intermittent claudication, unspecified extremity; Z86.73 Personal history of transient ischemic attack (TIA), and cerebral infarction without residual deficits; Z95.2 Presence of prosthetic heart valve; Z79.01 Long term (current) use of anticoagulants; Z79.82 Long term (current) use of aspirin; Z79.899 Other long term (current) drug therapy
CPT/HCPCS: 30901; 36415; 85610; 99282

== ENCOUNTER 2020-08-22 14:29 | Outpatient (RCR) | payer MEDICARE, OTHER, SELFPAY ==
[2020-08-08 12:37] LABS: International Normalized Ratio 3.9; Prothrombin Time (Protime)PT. 37.2 SECONDS (11.7-14.9)
[2020-08-19 10:26] LABS: Prothrombin Time (Protime)PT. 41.6 SECONDS (11.7-14.9)
[2020-08-19 10:35] LABS: International Normalized Ratio 4.5
[2020-08-22 18:17] LABS: International Normalized Ratio 3.2; Prothrombin Time (Protime)PT. 31.6 SECONDS (11.7-14.9)
== END 2020-08-22 18:00 | disposition home or self-care (01) ==
LOC: MTLAB 14:29
PROVIDERS: Family Provider Family Medicine; PCP Family Medicine; Referring Provider Internal Medicine Cardiovascular Disease; Visit Provider Internal Medicine Cardiovascular Disease
DX: I48.0 Paroxysmal atrial fibrillation (principal); Z79.01 Long term (current) use of anticoagulants
CPT/HCPCS: 36415; 85610

== ENCOUNTER 2020-09-12 11:10 | Outpatient (RCR) | payer MEDICARE, OTHER, SELFPAY ==
[2020-08-30 15:32] LABS: International Normalized Ratio 3.2; Prothrombin Time (Protime)PT. 31.9 SECONDS (11.7-14.9)
[2020-09-12 12:26] LABS: International Normalized Ratio 2.9; Prothrombin Time (Protime)PT. 29.7 SECONDS (11.7-14.9)
== END 2020-09-12 18:00 | disposition home or self-care (01) ==
LOC: MTLAB 11:10
PROVIDERS: Family Provider Family Medicine; PCP Family Medicine; Referring Provider Internal Medicine Cardiovascular Disease; Visit Provider Internal Medicine Cardiovascular Disease
DX: I48.0 Paroxysmal atrial fibrillation (principal); Z79.01 Long term (current) use of anticoagulants
CPT/HCPCS: 36415; 85610

== ENCOUNTER 2020-10-11 10:56 | Outpatient (RCR) | payer MEDICARE, OTHER, SELFPAY ==
[2020-10-11 12:16] LABS: International Normalized Ratio 3.3; Prothrombin Time (Protime)PT. 32.7 SECONDS (11.7-14.9)
== END 2020-10-11 18:00 | disposition home or self-care (01) ==
LOC: MTLAB 10:56
PROVIDERS: Family Provider Family Medicine; PCP Family Medicine; Referring Provider Internal Medicine Cardiovascular Disease; Visit Provider Internal Medicine Cardiovascular Disease
DX: I48.0 Paroxysmal atrial fibrillation (principal); Z79.01 Long term (current) use of anticoagulants
CPT/HCPCS: 36415; 85610

== ENCOUNTER 2020-11-23 10:22 | Outpatient (RCR) | payer MEDICARE, OTHER, SELFPAY ==
[2020-11-14 18:07] LABS: Prothrombin Time (Protime)PT. 38.6 SECONDS (11.7-14.9)
[2020-11-14 18:17] LABS: International Normalized Ratio 4.1
[2020-11-23 12:26] LABS: International Normalized Ratio 2.2; Prothrombin Time (Protime)PT. 23.7 SECONDS (11.7-14.9)
== END 2020-11-23 18:00 | disposition home or self-care (01) ==
LOC: MTLAB 10:22
PROVIDERS: Family Provider Family Medicine; PCP Family Medicine; Referring Provider Internal Medicine Cardiovascular Disease; Visit Provider Internal Medicine Cardiovascular Disease
DX: I48.0 Paroxysmal atrial fibrillation (principal); Z79.01 Long term (current) use of anticoagulants
CPT/HCPCS: 36415; 85610

== ENCOUNTER 2020-12-07 10:58 | Outpatient (RCR) | payer MEDICARE, OTHER, SELFPAY ==
[2020-11-30 01:40] VITALS: BMI 28.0
[2020-11-30 15:19] LABS: International Normalized Ratio 2.1; Prothrombin Time (Protime)PT. 23.1 SECONDS (11.7-14.9)
[2020-12-07 12:23] LABS: International Normalized Ratio 2.6; Prothrombin Time (Protime)PT. 27.1 SECONDS (11.7-14.9)
[2020-12-07 12:32] LABS: AST(SGOT) 21 U/L (15-37); Alanine Aminotransfer ALT/SGPT 25 U/L (16-61); Albumin, Serum 3.1 g/dL (3.2-5.0); Alkaline Phosphatase 60 U/L (45-117); Cholesterol 116 mg/dL (200); Globulin 4.2 g/dL (2.2-4.2); High Density Lipoprotein 49 mg/dL; Protein, Total 7.3 g/dL (6.4-8.2); Triglycerides 72 mg/dL; Very Low Density Lipoprotein 14 mg/dL (5-40)
== END 2020-12-07 18:00 | disposition home or self-care (01) ==
LOC: MTLAB 10:58
PROVIDERS: Physician Assistant Medical; Family Provider Family Medicine; PCP Family Medicine; Referring Provider Internal Medicine Cardiovascular Disease; Visit Provider Internal Medicine Cardiovascular Disease
DX: I48.0 Paroxysmal atrial fibrillation (principal); E78.00 Pure hypercholesterolemia, unspecified; Z79.01 Long term (current) use of anticoagulants
CPT/HCPCS: 36415; 80061; 80076; 85610

== ENCOUNTER 2021-01-05 10:11 | Outpatient (RCR) | payer MEDICARE, OTHER, SELFPAY ==
[2020-12-30 02:18] VITALS: BMI 28.0
[2021-01-05 12:33] LABS: International Normalized Ratio 3.1; Prothrombin Time (Protime)PT. 30.9 SECONDS (11.7-14.9)
== END 2021-01-29 04:06 | disposition home or self-care (01) ==
LOC: MTLAB 10:11
PROVIDERS: Family Provider Family Medicine; PCP Family Medicine; Referring Provider Internal Medicine Cardiovascular Disease; Visit Provider Internal Medicine Cardiovascular Disease
DX: I48.0 Paroxysmal atrial fibrillation (principal); Z79.01 Long term (current) use of anticoagulants
CPT/HCPCS: 36415; 85610

== ENCOUNTER 2021-02-27 11:59 | Outpatient (RCR) | payer MEDICARE, OTHER, SELFPAY ==
[2021-01-29 04:06] VITALS: BMI 28.0
[2021-02-10 15:08] LABS: International Normalized Ratio 2.3; Prothrombin Time (Protime)PT. 24.7 SECONDS (11.7-14.9)
[2021-02-27 15:28] LABS: International Normalized Ratio 3.4; Prothrombin Time (Protime)PT. 33.2 SECONDS (11.7-14.9)
== END 2021-02-28 18:00 | disposition home or self-care (01) ==
LOC: MTLAB 11:59
PROVIDERS: Family Provider Family Medicine; PCP Family Medicine; Referring Provider Internal Medicine Cardiovascular Disease; Visit Provider Internal Medicine Cardiovascular Disease
DX: I48.0 Paroxysmal atrial fibrillation (principal); Z79.01 Long term (current) use of anticoagulants
CPT/HCPCS: 36415; 85610

== ENCOUNTER 2021-05-08 09:33 | Outpatient (RCR) | payer MEDICARE, OTHER, SELFPAY ==
[2021-03-01 03:16] VITALS: BMI 28.0
[2021-05-08 13:00] LABS: International Normalized Ratio 2.6
== END 2021-05-08 18:00 | disposition home or self-care (01) ==
LOC: MTLAB 09:33
PROVIDERS: Family Provider Family Medicine; PCP Family Medicine; Referring Provider Internal Medicine Cardiovascular Disease; Visit Provider Internal Medicine Cardiovascular Disease
DX: I48.0 Paroxysmal atrial fibrillation (principal); Z79.01 Long term (current) use of anticoagulants
CPT/HCPCS: 36415; 85610

== ENCOUNTER 2021-07-06 11:37 | Outpatient (RCR) | payer MEDICARE, OTHER, SELFPAY ==
[2021-05-30 10:42] VITALS: BMI 28.0
[2021-07-06 15:33] LABS: International Normalized Ratio 3.1; Prothrombin Time (Protime)PT. 31.4 SECONDS (11.7-14.9)
== END 2021-07-06 18:00 | disposition home or self-care (01) ==
LOC: MTLAB 11:37
PROVIDERS: Family Provider Family Medicine; PCP Family Medicine; Referring Provider Internal Medicine Cardiovascular Disease; Visit Provider Internal Medicine Cardiovascular Disease
DX: I48.0 Paroxysmal atrial fibrillation (principal); Z79.01 Long term (current) use of anticoagulants
CPT/HCPCS: 36415; 85610

== ENCOUNTER 2021-08-18 13:00 | Outpatient (RCR) | payer MEDICARE, OTHER, SELFPAY ==
[2021-07-30 04:02] VITALS: BMI 28.0
[2021-08-18 15:36] LABS: International Normalized Ratio 2.7; Prothrombin Time (Protime)PT. 27.9 SECONDS (11.7-14.9)
== END 2021-08-18 18:00 | disposition home or self-care (01) ==
LOC: MTLAB 13:00
PROVIDERS: Family Provider Family Medicine; PCP Family Medicine; Referring Provider Internal Medicine Cardiovascular Disease; Visit Provider Internal Medicine Cardiovascular Disease
DX: I48.0 Paroxysmal atrial fibrillation (principal); Z79.01 Long term (current) use of anticoagulants
CPT/HCPCS: 36415; 85610

== ENCOUNTER → 2021-09-29 | Outpatient (CLI) | payer MEDICARE, OTHER, SELFPAY ==
--- NOTE | 2021-09-29 08:52 | ECHOD_ITS ---
Reason For Study: CMP Procedure This was a 2D Doppler, Color Flow transthoracic echocardiogram. The exam was of adequate technical quality. Exam performed in department. Left Ventricle Normal LV size. Left ventricular systolic function is normal. The estimated ejection fraction is 55 %. Paradoxical septal wall motion compatible with post open heart surgery state and electronic ventricular pacemaker. Unable to assess diastolic dysfunction. Right Ventricle Normal RV size. ICD or pacer leads identified within the right ventricle. Normal systolic function. Atria The left atrium is moderately enlarged. The right atrium is severely enlarged. ICD or pacer leads identified within the right atrium. No doppler evidence for ASD. Mitral Valve Stable appearing mechanical mitral valve apparatus. MIld (1+) transvalvular insufficiency of the mitral valve. Tricuspid Valve Normal tricuspid valve. Mild tricuspid valve insufficiency. Right ventricular systolic pressure estimated to be 43 mmHg. Aortic Valve Trisinus/trileaflet aortic valve. Normal aortic valve. Pulmonic Valve The pulmonic valve is not well visualized. Trivial pulmonic valve insufficiency. Great Vessels The aortic root is not well visualized. Pericardium/Pleural No pericardial effusion. MMode/2D Measurements & Calculations LVIDd: 4.6 cm IVSd: 1.1 cm LVAd ap4: 34.6 cm2 LVIDs: 3.2 cm LVPWd: 1.3 cm LVLd ap4: 9.3 cm RVDd: 4.7 cm FS: 29.8 % EDV(MOD-sp4): 116.8 ml EDV(sp4-el): 109.6 ml LVAs ap4: 24.2 cm2 LVLs ap4: 8.4 cm ESV(MOD-sp4): 61.0 ml ESV(sp4-el): 59.6 ml EF(MOD-sp4): 47.8 % EF(sp4-el): 45.7 % SV(MOD-sp4): 55.9 ml SV(sp4-el): 50.1 ml RA A4 area: 42.7 cm2 Doppler Measurements & Calculations MV E max tai: 148.1 cm/sec Ao V2 max: 119.1 cm/sec LV V1 max: 100.8 cm/sec Ao max P.7 mmHg LV V1 max P.1 mmHg PA V2 max: 65.7 cm/sec TR max tai: 314.6 cm/sec TR max P.6 mmHg ECHO/Echo Complete Interpretation Summary Left ventricular systolic function is normal. The estimated ejection fraction is 55 %. Paradoxical septal wall motion compatible with post open heart surgery state an d electronic ventricular pacemaker. The left atrium is moderately enlarged. The right atrium is severely enlarged. Stable appearing mechanical mitral valve apparatus. MIld (1+) transvalvular insufficiency of the mitral valve. Mild tricuspid valve insufficiency. Trivial pulmonic valve insufficiency. Right ventricular systolic pressure estimated to be 43 mmHg. Unable to assess diastolic dysfunction. ICD or pacer leads identified within the right atrium ICD or pacer leads identified within the right ventricle. Ordering Physician: Marycruz Alaniz Referring Physician: Marycruz Alaniz Performed By: Liana Mackey RCS
[2021-09-29 10:03] LABS: AST(SGOT) 18 U/L (15-37); Alanine Aminotransfer ALT/SGPT 20 U/L (16-61); Albumin, Serum 3.2 g/dL (3.2-5.0); Alkaline Phosphatase 59 U/L (45-117); Bilirubin, Direct 0.26 mg/dL (0.00-0.30); Cholesterol 112 mg/dL (200); Globulin 3.9 g/dL (2.2-4.2); High Density Lipoprotein 49 mg/dL; Protein, Total 7.1 g/dL (6.4-8.2); Triglycerides 46 mg/dL; Very Low Density Lipoprotein 9 mg/dL (5-40)
== END | disposition home or self-care (01) ==
PROVIDERS: PCP Family Medicine; Referring Provider Nurse Practitioner Gerontology; Visit Provider Nurse Practitioner Gerontology
DX: E78.00 Pure hypercholesterolemia, unspecified (principal); I43 Cardiomyopathy in diseases classified elsewhere; Z95.810 Presence of automatic (implantable) cardiac defibrillator
CPT/HCPCS: 36415; 80061; 80076; 93306

== ENCOUNTER 2021-11-20 08:24 | Outpatient (RCR) | payer MEDICARE, OTHER, SELFPAY ==
[2021-08-30 01:40] VITALS: BMI 28.0
[2021-11-20 10:09] LABS: International Normalized Ratio 2.3; Prothrombin Time (Protime)PT. 24.9 SECONDS (11.7-14.9)
== END 2021-11-20 18:00 | disposition home or self-care (01) ==
LOC: MTLAB 08:24
PROVIDERS: Family Provider Family Medicine; PCP Family Medicine; Referring Provider Internal Medicine Cardiovascular Disease; Visit Provider Internal Medicine Cardiovascular Disease
DX: I48.0 Paroxysmal atrial fibrillation (principal); Z79.01 Long term (current) use of anticoagulants; Z95.2 Presence of prosthetic heart valve
CPT/HCPCS: 36415; 85610

== ENCOUNTER 2021-12-19 11:33 | Outpatient (RCR) | payer MEDICARE, OTHER, SELFPAY ==
[2021-11-30 01:35] VITALS: BMI 28.0
[2021-12-06 18:04] LABS: International Normalized Ratio 2.2; Prothrombin Time (Protime)PT. 23.8 SECONDS (11.7-14.9)
[2021-12-19 15:21] LABS: International Normalized Ratio 3.3; Prothrombin Time (Protime)PT. 33.4 SECONDS (11.7-14.9)
== END 2021-12-19 18:00 | disposition home or self-care (01) ==
LOC: MTLAB 11:33
PROVIDERS: Family Provider Family Medicine; PCP Family Medicine; Referring Provider Internal Medicine Cardiovascular Disease; Visit Provider Internal Medicine Cardiovascular Disease
DX: I48.0 Paroxysmal atrial fibrillation (principal); Z79.01 Long term (current) use of anticoagulants; Z95.2 Presence of prosthetic heart valve
CPT/HCPCS: 36415; 85610

== ENCOUNTER 2022-01-26 10:26 | Outpatient (RCR) | payer MEDICARE, OTHER, SELFPAY ==
[2021-12-30 04:16] VITALS: BMI 28.0
[2022-01-24 15:17] LABS: Prothrombin Time (Protime)PT. 51.7 SECONDS (11.7-14.9)
[2022-01-24 16:13] LABS: International Normalized Ratio 5.8
[2022-01-26 13:32] LABS: International Normalized Ratio 3.1; Prothrombin Time (Protime)PT. 31.4 SECONDS (11.7-14.9)
== END 2022-01-26 18:00 | disposition home or self-care (01) ==
LOC: MTLAB 10:26
PROVIDERS: Family Provider Family Medicine; PCP Family Medicine; Referring Provider Internal Medicine Cardiovascular Disease; Visit Provider Internal Medicine Cardiovascular Disease
DX: I48.0 Paroxysmal atrial fibrillation (principal); Z79.01 Long term (current) use of anticoagulants; Z95.2 Presence of prosthetic heart valve
CPT/HCPCS: 36415; 85610

== ENCOUNTER 2022-02-06 11:11 | Outpatient (RCR) | payer MEDICARE, OTHER, SELFPAY ==
[2022-01-30 13:27] VITALS: BMI 28.0
[2022-02-06 15:22] LABS: International Normalized Ratio 3.2; Prothrombin Time (Protime)PT. 32.2 SECONDS (11.7-14.9)
== END 2022-02-28 18:00 | disposition home or self-care (01) ==
LOC: MTLAB 11:11
PROVIDERS: Family Provider Family Medicine; PCP Family Medicine; Referring Provider Internal Medicine Cardiovascular Disease; Visit Provider Internal Medicine Cardiovascular Disease
DX: I48.0 Paroxysmal atrial fibrillation (principal); Z79.01 Long term (current) use of anticoagulants; Z95.2 Presence of prosthetic heart valve
CPT/HCPCS: 36415; 85610

== ENCOUNTER → 2022-03-09 | Outpatient (CLI) | payer MEDICARE, OTHER, SELFPAY ==
[2022-03-09 10:55] LABS: Anion Gap 3 (5-15); BUN 22 mg/dL (7-18); BUN/Creat Ratio 16.7 RATIO (10-20); Calcium,Total 8.8 mg/dL (8.5-10.1); Chloride 109 mmol/L (98-107); Creatinine, Serum 1.32 mg/dL (0.70-1.30); EST Glomerular Filtration Rate 54 mL/min (>60); Est Glom Filt Rate - Afr Amer 66 mL/min (>60); Glucose 105 mg/dL (74-106); Potassium 4.4 mmol/L (3.5-5.1); Sodium Level 138 mmol/L (136-145)
== END | disposition home or self-care (01) ==
LOC: LAB 09:42
PROVIDERS: PCP Family Medicine; Referring Provider Nurse Practitioner Gerontology; Visit Provider Nurse Practitioner Gerontology
DX: R42 Dizziness and giddiness (principal)
CPT/HCPCS: 36415; 80048

== ENCOUNTER 2022-03-22 11:04 | Outpatient (RCR) | payer MEDICARE, OTHER, SELFPAY ==
[2022-03-01 02:52] VITALS: BMI 28.0
[2022-03-08 16:11] LABS: Prothrombin Time (Protime)PT. 53.1 SECONDS (11.7-14.9)
[2022-03-08 18:44] LABS: International Normalized Ratio 5.9
[2022-03-13 12:19] LABS: International Normalized Ratio 4.6; Prothrombin Time (Protime)PT. 43.6 SECONDS (11.7-14.9)
[2022-03-22 12:22] LABS: International Normalized Ratio 3.2; Prothrombin Time (Protime)PT. 32.4 SECONDS (11.7-14.9)
== END 2022-03-22 18:00 | disposition home or self-care (01) ==
LOC: MTLAB 11:04
PROVIDERS: Family Provider Family Medicine; PCP Family Medicine; Referring Provider Internal Medicine Cardiovascular Disease; Visit Provider Internal Medicine Cardiovascular Disease
DX: I48.0 Paroxysmal atrial fibrillation (principal); Z79.01 Long term (current) use of anticoagulants; Z95.2 Presence of prosthetic heart valve
CPT/HCPCS: 36415; 85610

== ENCOUNTER 2022-04-19 07:08 | Emergency (ER) | payer MEDICARE, OTHER, SELFPAY ==
[2022-04-19 07:09] VITALS: BP 136/79; PULSE 86; RESP 18; TEMP 36.7; O2SAT 95; BMI 26.2
--- NOTE | 2022-04-19 07:38 | ED.VIS.BACK ---
HPI History of Present Illness Chief Complaint: Back Informant: patient Onset/Context/Timing Onset: Weeks (2) Context: Gradual Onset Timing: Intermittent Quality: Aching Location: Lumbar and Buttock Worsened by: improves with Movement Relieved by: Nothing Associated Symptoms Associated Symptoms: Negative for Numbness, Tingling, Radiation to Right Leg, Radiation to Left Leg, Fever, Abdominal Pain, Dysuria, Unable to Transfer, Urinary Retention, Urinary Incontinence, Constipation or Fecal Incontinence Narrative Narrative: Patient presents with back pain that has been getting worse over the past couple weeks. Patient states his grades are getting worse. Family states patient has been following more frequently. Family states patient has been having some lower extremity weakness bilaterally. Patient states his pain is over the lower lumbar area and into his buttocks. Patient denies any radiation of the pain to his lower extremities. Patient states his pain is worse with movement. Patient states it is better with rest. Patient describes his pain as aching. Patient states his pain comes and goes. Patient denies any radiation of the pain into the abdomen. Patient denies any fevers or chills. Patient denies any incontinence of urine or stool. 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 Mitral valve disorder Murmur Paroxysmal atrial fibrillation Premature beats Premature ventricular contractions Pure hypercholesterolemia TIA (transient ischemic attack) Home Medications aspirin 81 mg chewable tablet 81 mg PO DAILY@0800 03/17/13 [History Last Taken Unknown] Handicap Placard #1 ea 09/29/18 [Rx Last Taken Unknown] tamsulosin 0.4 mg capsule 0.4 mg PO QHS 05/30/20 [History Last Taken Unknown] warfarin 1 mg tablet 1 mg PO QDAY #90 tabs 01/10/21 [Rx Last Taken Unknown] warfarin 5 mg tablet 5 mg PO QDAY #90 tabs 01/10/21 [Rx Last Taken Unknown] pravastatin 10 mg tablet 10 mg PO QHS #90 tabs 09/06/21 [Rx Last Taken Unknown] carvedilol 25 mg tablet 25 mg PO BID #180 tabs 01/05/22 [Rx Last Taken Unknown] warfarin 2 mg tablet 2 mg PO DAILY #270 tabs 01/12/22 [Rx Last Taken Unknown] ramipril 10 mg capsule 10 mg PO BID #180 caps 01/17/22 [Rx Last Taken Unknown] amlodipine 5 mg tablet 5 mg PO DAILY #90 tabs 03/09/22 [Rx Last Taken Unknown] cephalexin 500 mg capsule 500 mg PO Q8H 03/09/22 [History Last Taken Unknown] fluoxetine 20 mg capsule (Prozac) 20 mg PO DAILY 03/09/22 [History Last Taken Unknown] Allergy/AdvReac Type Severity Reaction Status Date / Time No Known Allergies Allergy Verified 04/19/22 07:12 Family History Father CAD (coronary artery disease) Mother Breast cancer Brother CAD (coronary artery disease) Hx CABG Brother Cancer Leukemia Surgical History Cardiac pacemaker in situ H/O mitral valve replacement Social History Smoking Status: Never smoker alcohol intake: never substance use type: does not use caffeine: No what type of physical activity do you participate in: other details: tredmill frequency: 1-2 times per week duration: 15-30 minutes/day seatbelt use: always do you feel safe at home: Yes ROS ROS ED Constitutional Constitutional ED: Denies chills or fever(s) Eyes Eyes: Denies blurry vision or change in vision ENT ENT ED: Denies rhinorrhea or sore throat Cardiovascular Cardiovascular: Denies chest pain or palpitations Respiratory/Chest Respiratory/Chest: Denies cough or dyspnea Gastrointestinal Gastrointestinal: Denies nausea or vomiting Genitourinary Genitourinary ED: Denies dysuria or hematuria Musculoskeletal Musculoskeletal: Reports back pain; Denies neck pain Integumentary Reports rash; Denies abscess Neurologic Neurologic: Reports weakness; Denies headache(s) Allergic/Immunologic Allergic/Immunologic ED: Denies mouth swelling or urticaria EXAM Physical Exam Const Vital Signs: 04/19/22 07:09 04/19/22 09:14 Temperature 98.1 F Temperature Source Temporal Pulse Rate 86 86 Respiratory Rate 18 16 Blood Pressure 136/79 H 144/91 H Blood Pressure Mean 98 108 Pulse Ox 95 94 Oxygen Delivery Method Room Air Room Air Positive well nourished and well developed General Appearance ED: well developed and NAD HEENT Reports moist mucous membranes Neck supple and no JVD Resp normal respiratory effort and clear to auscultation bilaterally Cardio regular rate and regular rhythm GI normal to inspection, nondistended, normoactive bowel sounds and non-tender Palpation: soft Back/Spine Back/Spine Narrative: There is tenderness over the lower lumbar spine and paraspinal muscles. There is some ecchymosis in the right upper lumbar paraspinal area. There is no bony crepitance or step-off. There is adequate range of motion of the lumbar spine. There is some mild restriction of all motion secondary to pain. Straight leg raises were negative bilaterally. Deep tendon reflexes were 2/4 bilaterally in the lower extremities. Strength is 5/5 bilaterally in the lower extremities. There are no sensory deficits noted. Lumbar Spine / Lower Back: ROM limited and straight leg raise negative bilaterally Extremity normal to inspection General Extremety ED: Negative for edema or tenderness General Extremity: Negative for edema Neuro oriented x3, CN's II-XII intact bilaterally and no sensory deficits noted Sensorium / Orientation: alert Motor Exam: strength 5/5 throughout Deep Tendon Reflexes: Rt Patellar (L4): 2+, Lt Patellar (L4): 2+, Rt Ankle (S1): 2+ and Lt Ankle (S1): 2+ Deep Tendon Reflexes Back: Rt Patellar (L4): 2+, Lt Patellar (L4): 2+, Rt Ankle (S1): 2+ and Lt Ankle (S1): 2+ Psych mental status grossly normal MDM MDM MDM Narrative Medical decision making narrative: Patient states he is concerned that this could be from a kidney stone or gallstone. Because of his concerns, CT scan of the abdomen pelvis without contrast was obtained. This will evaluate for kidney stone as well as musculoskeletal etiology of his pain. CBC and comprehensive metabolic profile were obtained to check for anemia, infection, electrolyte abnormality, and biliary obstruction. Urinalysis will be obtained to check for urinary tract infection and hematuria. Patient was given injection of morphine for pain. Patient was given IV fluids. Lab Data Lab results narrative: CBC was reviewed. There is a mild anemia with a hemoglobin of 11.9 and hematocrit 35.5. Platelets were normal. Comprehensive metabolic profile was obtained and was reviewed. BUN was 22 and creatinine was 1.38. Prior outpatient results were reviewed. These are consistent with those results. Total bilirubin was slightly elevated at 1.10. Urinalysis was reviewed. There is no evidence of urinary tract infection or hematuria. Labs: Laboratory Results - last 24 hr 04/19/22 04/19/22 04/19/22 08:08 08:08 08:35 WBC 4.7 RBC 3.55 L Hgb 11.9 L Hct 35.5 L MCV 100.0 H MCH 33.5 H MCHC 33.5 RDW Std Deviation 52.6 H RDW Coeff of Al 14.2 Plt Count 193 MPV 10.0 Immature Gran % (Auto) 0.200 Neut % (Auto) 72.0 H Lymph % (Auto) 12.3 L [place] % (Auto) 10.2 H Eos % (Auto) 4.0 Baso % (Auto) 1.3 H Absolute Neuts (auto) 3.4 Absolute Lymphs (auto) 0.58 L Nucleated RBC % 0 Differential Comment SCANNED Sodium 136 Potassium 3.9 Chloride 107 Carbon Dioxide 26.0 Anion Gap 3 L BUN 22 H Creatinine 1.38 H Estim Creat Clear Calc 41.39 Est GFR (MDRD) Af Amer 63 Est GFR (MDRD) Non-Af 52 L BUN/Creatinine Ratio 15.9 Glucose 100 Calcium 8.4 L Total Bilirubin 1.10 H AST 19 ALT 21 Alkaline Phosphatase 80 Total Protein 7.2 Albumin 3.3 Globulin 3.9 Albumin/Globulin Ratio 0.8 L Lipase 112 Urine Color Yellow Urine Clarity Clear Urine pH 6.0 Ur Specific [place] 1.020 Urine Protein Negative Urine Glucose (UA) Normal Urine Ketones Negative Urine Occult Blood 150 H Urine Nitrite Negative Urine Bilirubin Negative Urine Urobilinogen Normal Ur Leukocyte Esterase Negative Urine RBC 0-5 SEEN Urine WBC 0 SEEN Ur Squamous Epith Cells 0 SEEN Urine Bacteria 0 SEEN Urine Mucus 1+ Radiography Diagnostic Testing: Clinical Impression(s) from Imaging Studies Abdomen/Pelvis CT 04/19/22 07:45 IMPRESSION: Markedly enlarged prostate with indentation of the bladder base. Stable cystic structure in the posterior medial segment of the right lower lobe suggestive of either a bronchogenic cyst or pericardial cyst. Electronically Signed: Valente Floyd MD at 9:29 EST , CT scan of the abdomen pelvis was obtained. On my independent interpretation, there is no free air or obstruction. There is no obstructive uropathy. There is no evidence of cholelithiasis or cholecystitis. Radiologist also interpreted the CT scan. He noted a markedly enlarged prostate that is indenting the bladder base. There is either a bronchogenic cyst or a pericardial cyst in the right lower lobe that is stable. Treatment and Re-Evaluation Narrative: On reevaluation, the patient was able to ambulate up and down the hallway without difficulty. Patient feels well enough to go home. Patient was advised that this may be a musculoskeletal strain. Patient was instructed to use ice to the area. Patient was instructed to take Tylenol or ibuprofen as needed for pain. Patient was instructed to follow-up with his primary care physician in 5 to 7 days. Patient understood and was agreeable with the plan. All questions were answered. Discharge Plan Triage Chief Complaint: Back Other Complaint: Flank Pain ED Provider: Jose Maria Montiel Dx/Rx/DC Orders Clinical Impression: Acute low back pain, Lumbar contusion Instructions: ED Back Contusion, ED Back and Neck Pain, General Prescriptions: No Action tamsulosin 0.4 mg capsule 0.4 mg PO QHS cephalexin 500 mg capsule 500 mg PO Q8H fluoxetine [Prozac] 20 mg capsule 20 mg PO DAILY aspirin 81 MG tablet,chewable 81 mg PO DAILY@0800 (DME) Handicap Placard Qty: 1 0RF Dose Instruction: As directed Rx Instructions: Good from 09/29/2018 - 09/30/2023 warfarin 5 mg tablet 5 mg PO QDAY Qty: 90 3RF Protocol: Dose Management Condition: Saturday Dose/Route: 2 mg Instruction: 1 x 2 mg tablet Condition: Saturday Dose/Route: 2 mg Instruction: 1 x 2 mg tablet Condition: Saturday Dose/Route: 2 mg Instruction: 1 x 2 mg tablet Condition: Saturday Dose/Route: 2 mg Instruction: 1 x 2 mg tablet Condition: Dose/Route: 2 mg Instruction: 1 x 2 mg tablet Condition: Saturday Dose/Route: 2 mg Instruction: 1 x 2 mg tablet Condition: Saturday Dose/Route: 2 mg Instruction: 1 x 2 mg tablet Protocol Text: Adjustment Start Date: Saturday04/18/22 INR Value: 2.0 INR Date: 04/18/22 Recheck Date: 04/25/22 warfarin 1 mg tablet 1 mg PO QDAY Qty: 90 3RF Protocol: Dose Management Condition: Saturday Dose/Route: 2 mg Instruction: 1 x 2 mg tablet Condition: Saturday Dose/Route: 2 mg Instruction: 1 x 2 mg tablet Condition: Saturday Dose/Route: 2 mg Instruction: 1 x 2 mg tablet Condition: Saturday Dose/Route: 2 mg Instruction: 1 x 2 mg tablet Condition: Dose/Route: 2 mg Instruction: 1 x 2 mg tablet Condition: Saturday Dose/Route: 2 mg Instruction: 1 x 2 mg tablet Condition: Saturday Dose/Route: 2 mg Instruction: 1 x 2 mg tablet Protocol Text: Adjustment Start Date: Saturday04/18/22 INR Value: 2.0 INR Date: 04/18/22 Recheck Date: 04/25/22 pravastatin 10 mg tablet 10 mg PO QHS Qty: 90 4RF carvedilol 25 mg tablet 25 mg PO BID Qty: 180 3RF warfarin 2 mg tablet 2 mg PO DAILY Qty: 270 4RF Protocol: Dose Management Condition: Saturday Dose/Route: 2 mg Instruction: 1 x 2 mg tablet Condition: Saturday Dose/Route: 2 mg Instruction: 1 x 2 mg tablet Condition: Saturday Dose/Route: 2 mg Instruction: 1 x 2 mg tablet Condition: Saturday Dose/Route: 2 mg Instruction: 1 x 2 mg tablet Condition: Dose/Route: 2 mg Instruction: 1 x 2 mg tablet Condition: Saturday Dose/Route: 2 mg Instruction: 1 x 2 mg tablet Condition: Saturday Dose/Route: 2 mg Instruction: 1 x 2 mg tablet Protocol Text: Adjustment Start Date: Saturday04/18/22 INR Value: 2.0 INR Date: 04/18/22 Recheck Date: 04/25/22 Rx Instructions: Take 2 tabs (4mg) x3 days and 6mg the other days of the week; or as directed ramipril 10 mg capsule 10 mg PO BID Qty: 180 3RF amlodipine 5 mg tablet 5 mg PO DAILY Qty: 90 3RF Primary Care Provider: Lon Gonzalez Referrals: Lon Gonzalez MD [Primary Care Provider] - 5-7 Days Disposition Disposition: Home, Self Care
--- NOTE | 2022-04-19 07:45 | CT_ITS ---
STUDY: CT ABDOMEN AND PELVIS WITHOUT CONTRAST REASON FOR EXAM: Male, 86 years old. One week history of back pain. RADIATION DOSAGE (If Supplied By Facility): CTDIvol = ( 9.45 ) mGy, DLP = ( 514.68 ) mGycm TECHNIQUE: Transaxial images were obtained from the dome of the diaphragm to the symphysis pubis without oral contrast, and without intravenous contrast. Sagittal and coronal images were reconstructed. Individualized dose optimization techniques were used for this CT. COMPARISON: Comparison is made with prior study dated 11/26/2014. FINDINGS: Stable 4.1 cm x 6.2 sono cystic structure in the posterior medial segment of the right lower lobe. This may represent a bronchogenic or pericardial cyst. Stable mild scarring at the lung bases. Cardiomegaly. Prior mitral valve replacement. Dual-chamber pacemaker. Normal liver. Normal gallbladder and extrahepatic biliary system. There are multiple benign calcified granulomata of the spleen. There are pancreatic calcifications in the distribution of the ducts consistent with chronic pancreatitis. Normal bilateral adrenal glands. Normal right kidney. Normal left kidney. Normal visualized stomach. Normal small intestine. Normal colon. The appendix is visualized and appears normal. There is diffuse atherosclerotic calcification of the abdominal aorta, without a demonstrated aneurysm. Normal inferior vena cava. Normal retroperitoneum. The urinary bladder is empty at the time of examination. The prostate is enlarged. It measures 6.4 sinus by 7.3 cm. This causes indentation of the bladder base. There is a left-sided inguinal hernia containing adipose tissue. There are degenerative changes of the visualized lumbar spine. CT/Abdomen/Pelvis without Cont IMPRESSION: Markedly enlarged prostate with indentation of the bladder base. Stable cystic structure in the posterior medial segment of the right lower lobe suggestive of either a bronchogenic cyst or pericardial cyst. Electronically Signed: Valente Floyd MD at 9:29 EST ,
[2022-04-19] MEDS: Morphine 4 MG/ML Syringe IV (08:26)
[2022-04-19] MEDS: 0.9% Normal Saline 1,000 ML 1000 ML IV (08:26)
[2022-04-19 08:40] LABS: Absolute Lymphocyte Count 0.58 X10^3/uL (0.83-4.51); Absolute Neutrophil Count 3.4 X10^3/uL (2.0-7.7); Basophil# 0.06 X10^3/uL; Basophil% 1.3 % (0-1); Eosinophil# 0.19 X10^3/uL; Hematocrit 35.5 % (40-54); Hemoglobin 11.9 g/dL (13.0-16.5); Lymphocyte # 0.58 X10^3/ul (0.83-4.51); Lymphocyte % 12.3 % (19-41); Mean Corp Hgb Conc 33.5 g/dL (32-36); Mean Corpuscular Hgb 33.5 pg (27.0-32.0); Monocyte# 0.48 X10^3/uL; Monocyte% 10.2 % (0-10); NRBC Flagged by Analyzer 0 % (0-5); Neutrophil # 3.38 X10^3/uL (2.7-7.7); POSITIVE DIFFERENTIAL YES; Platelet Count 193 K/mm3 (150-450); RBC Distribution Width CV 14.2 % (11.6-14.6); RBC Distribution Width SD 52.6 fl (35.1-43.9); Red Blood Count 3.55 M/mm3 (4.6-6.2); White Blood Count 4.7 K/mm3 (4.4-11.0)
[2022-04-19 08:42] LABS: Bacteria 0 SEEN /hpf (None Seen); Squamous Epithelial Cells - UA 0 SEEN /hpf (0-5); White Blood Cells 0 SEEN /hpf (0-5)
[2022-04-19 08:48] LABS: ALB/GLOB Ratio 0.8 RATIO (0.9-2.4); AST(SGOT) 19 U/L (15-37); Alanine Aminotransfer ALT/SGPT 21 U/L (16-61); Albumin, Serum 3.3 g/dL (3.2-5.0); Alkaline Phosphatase 80 U/L (45-117); Anion Gap 3 (5-15); BUN 22 mg/dL (7-18); BUN/Creat Ratio 15.9 RATIO (10-20); Calcium,Total 8.4 mg/dL (8.5-10.1); Chloride 107 mmol/L (98-107); Creatinine, Serum 1.38 mg/dL (0.70-1.30); EST Glomerular Filtration Rate 52 mL/min (>60); Est Glom Filt Rate - Afr Amer 63 mL/min (>60); Estimated Creatinine Clearance 41.39 ml/min; Globulin 3.9 g/dL (2.2-4.2); Glucose 100 mg/dL (74-106); Lipase 112 U/L (73-393); Potassium 3.9 mmol/L (3.5-5.1); Protein, Total 7.2 g/dL (6.4-8.2); Sodium Level 136 mmol/L (136-145)
[2022-04-19 08:50] LABS: Color, Urine Yellow (Yellow); Glucose, Dipstick Normal (Normal); Ketone-Dipstick Negative (Negative); Leukocyte Esterase-Dipstick Negative /ul (Negative); Nitrite-Dipstick Negative (Negative); Occult Blood-Urine 150 /ul (Negative); Protein-Dipstick Negative (Negative); Urine Bilirubin Dipstick Negative (Negative); Urine Clarity Clear (Clear); Urine Urobilinogen Normal (Normal)
[2022-04-19 09:00] LABS: Differential Indicated SCAN CRITERIA MET
[2022-04-19 09:02] LABS: Mucous, Urine 1+ /hpf (<or=2+); Red Blood Cells-Urine 0-5 SEEN /hpf (0-5)
[2022-04-19 09:14] VITALS: BP 144/91; PULSE 86; RESP 16; O2SAT 94
[2022-04-19 09:51] LABS: Differential Comment SCANNED
[2022-04-19 12:00] VITALS: BP 124/77; PULSE 62; RESP 15; O2SAT 98
== END 2022-04-19 12:05 | disposition home or self-care (01) ==
PROVIDERS: Emergency Provider Emergency Medicine; PCP Family Medicine; Visit Provider Emergency Medicine
DX: S30.0XXA Contusion of lower back and pelvis, initial encounter (principal); M54.50 Low back pain, unspecified; Z86.73 Personal history of transient ischemic attack (TIA), and cerebral infarction without residual deficits; Z95.0 Presence of cardiac pacemaker; X58.XXXA Exposure to other specified factors, initial encounter
CPT/HCPCS: 74176; 80053; 81001; 83690; 85025; 96374; 99285

== ENCOUNTER 2022-04-30 16:00 | Outpatient (RCR) | payer MEDICARE, OTHER, SELFPAY ==
[2022-04-01 06:44] VITALS: BMI 28.0
[2022-04-03 14:58] LABS: International Normalized Ratio 6.2; Prothrombin Time (Protime)PT. 54.7 SECONDS (11.7-14.9)
[2022-04-10 15:25] LABS: Prothrombin Time (Protime)PT. 56.3 SECONDS (11.7-14.9)
[2022-04-10 15:33] LABS: International Normalized Ratio 6.4
[2022-04-12 15:50] LABS: International Normalized Ratio 6.7
--- NOTE | 2022-04-30 16:00 | CT_ITS ---
EXAM: CT HEAD WITHOUT INTRAVENOUS CONTRAST CLINICAL INDICATION: ataxia after fall with head trauma TECHNIQUE: Multiple axial images were obtained of the head without intravenous contrast. This CT exam was performed using one or more of the following dose reduction techniques: automated exposure control, adjustment of the mA and/or kV according to patient size, and/or use of iterative reconstruction technique. This report was created using [employer] report generation technology. COMPARISON: None. FINDINGS: BRAIN AND EXTRA-AXIAL SPACES: Areas of diminished white matter density noted within both cerebral hemispheres suggestive of chronic microvascular change. Prominence of the cortical sulci and ventricles related to volume loss change. Mild encephalomalacic changes of the right cerebellum likely related to prior surgery. No intra- or extra-axial hemorrhage. No evidence of acute infarct. No intracranial mass or mass effect. There is preservation of the flores/white matter interface. Basal cisterns are patent. BONES/JOINTS: Right occipital craniectomy defect is noted. No discrete lytic or blastic abnormalities. SINUSES: Nearly complete opacification of the right maxillary sinus. MASTOID AIR CELLS: Normal. Clear. ORBITS: Visualized globes, extraocular muscles, optic nerves and retrobulbar fat appear unremarkable. CT/Brain/Head without Contrast IMPRESSION: 1. No acute intracranial abnormality. 2. Senescent changes. 3. Postop changes of the right occiput. 4. Right maxillary sinus opacification suggestive of chronic sinusitis. Electronically Signed: Eb Frey MD at 16:29 EST ,
[2022-04-30 16:04] LABS: International Normalized Ratio 2.2; Prothrombin Time (Protime)PT. 24.2 SECONDS (11.7-14.9)
== END 2022-04-30 16:06 | disposition home or self-care (01) ==
LOC: CT 16:00
PROVIDERS: Family Provider Family Medicine; PCP Family Medicine; Referring Provider Internal Medicine Cardiovascular Disease; Visit Provider Internal Medicine Cardiovascular Disease
DX: I48.0 Paroxysmal atrial fibrillation (principal); Z79.01 Long term (current) use of anticoagulants; Z95.2 Presence of prosthetic heart valve; S09.90XA Unspecified injury of head, initial encounter
CPT/HCPCS: 36415; 70450; 85610

== ENCOUNTER 2022-05-17 08:24 | Day surgery (SDC) | payer MEDICARE, OTHER, SELFPAY ==
[2022-04-23 09:59] LABS: Bacteria 0 SEEN /hpf (None Seen); Mucous, Urine 0 SEEN /hpf (<or=2+); Squamous Epithelial Cells - UA 0 SEEN /hpf (0-5)
[2022-04-23 10:23] LABS: Hematocrit 35.3 % (40-54); Hemoglobin 11.5 g/dL (13.0-16.5); Mean Corp Hgb Conc 32.6 g/dL (32-36); Mean Corpuscular Hgb 32.8 pg (27.0-32.0); Mean Corpuscular Volume 100.6 fL (80-94); Mean Platelet Vol. 9.9 fl (6.2-12.0); Platelet Count 177 K/mm3 (150-450); RBC Distribution Width CV 14.7 % (11.6-14.6); RBC Distribution Width SD 53.4 fl (35.1-43.9); Red Blood Count 3.51 M/mm3 (4.6-6.2); White Blood Count 4.6 K/mm3 (4.4-11.0)
[2022-04-23 11:02] LABS: Anion Gap 6 (5-15); BUN 23 mg/dL (7-18); BUN/Creat Ratio 12.8 RATIO (10-20); Calcium,Total 9.1 mg/dL (8.5-10.1); Chloride 107 mmol/L (98-107); EST Glomerular Filtration Rate 38 mL/min (>60); Est Glom Filt Rate - Afr Amer 46 mL/min (>60); Glucose 102 mg/dL (74-106); Potassium 4.1 mmol/L (3.5-5.1); Sodium Level 140 mmol/L (136-145)
[2022-04-23 11:03] LABS: International Normalized Ratio 2.1
[2022-04-23 11:20] LABS: AST(SGOT) 20 U/L (15-37); Alanine Aminotransfer ALT/SGPT 22 U/L (16-61); Albumin, Serum 3.3 g/dL (3.2-5.0); Alkaline Phosphatase 79 U/L (45-117); Bilirubin, Direct 0.33 mg/dL (0.00-0.30); Cholesterol 113 mg/dL (200); High Density Lipoprotein 49 mg/dL; Protein, Total 7.3 g/dL (6.4-8.2); Triglycerides 67 mg/dL; Very Low Density Lipoprotein 13 mg/dL (5-40)
[2022-04-23 12:01] LABS: Color, Urine Yellow (Yellow); Glucose, Dipstick Normal (Normal); Ketone-Dipstick 5 mg/dl (Negative); Leukocyte Esterase-Dipstick 25 /ul (Negative); Nitrite-Dipstick Negative (Negative); Occult Blood-Urine 25 /ul (Negative); Protein-Dipstick 30 mg/dl (Negative); Urine Clarity Sl. Cloudy (Clear); Urine Urobilinogen 1 mg/dl (Normal)
[2022-04-23 12:02] LABS: Urine Bilirubin Dipstick 1 mg/dL (Negative)
[2022-04-23 12:13] LABS: Hyaline Cast 0-5 SEEN /lpf (0-5); Red Blood Cells-Urine 0-5 SEEN /hpf (0-5); White Blood Cells 0-5 SEEN /hpf (0-5)
[2022-05-16 08:34] VITALS: BMI 26.3
--- NOTE | 2022-05-17 11:24 | EX.DEFIBPROC ---
Defibrillator Procedure Note Defibrillator Procedure Note Diagnosis: NONISCHEMIC Cardiomyopathy with NYHA Class ii. ICD for PRIMARY prevention. Device generator replacement for normal battery depletion Preoperative diagnosis is device at end of life for normal battery depletion. Postoperative diagnosis same as above. After informed consent and IV antibiotics the patient was brought to the [place] catheterization laboratory and the skin over the device was prepped and draped in the usual sterile manner. Intermittent boluses of Versed, and fentanyl were used for sedation and analgesia as well as 1% subcutaneous lidocaine. An incision was made over the pre-existing device. Using blunt and Bovie dissection the pocket was opened and the device was removed. Careful attention was paid not to injure the pre-existing leads. The leads were removed from the device header and they were interrogated. There is normal lead function. Hemostasis was obtained. The pocket was flushed with antibiotic solution. The sponge and needle count were correct. The new device was brought to the field. The leads were placed in the appropriate position in the header and secured by the set screw. The leads and the device were then placed in the pocket. The pocket was closed with a deep layer of running 2-0 Vicryl, a superficial layer of running 4-0 Vicryl, skin with Steri-Strips which were covered with a rolled 4 x 4 and Tegaderm. Patient left the room with the device programmed to proper parameters and there were no complications. The device is a bIv icd chamber [employer] generator. All lead parameters were tested and found to be functionally normal. Lead and device serial and model numbers are available in the chart documents provided by the device company industrial sales representative procedure summary. The patient's [place] QRS complex is narrow thus there is no need for chronic biventricular pacing. His atrial rhythm is chronic atrial flutter thus there is no need for programming any atrial parameters since pacing is not feasible and there is no additional value to merely sensing atrial flutter. I have programmed the pacing parameters to VVI 40. All of his medications can be continued. I did program biventricular pacing to ON but only in the setting of VVI 40. Consideration for a direct oral anticoagulant may be helpful considering his INR is quite variable or consideration for left atrial appendage occlusion device. Since he is also on antiplatlet therapy
== END 2022-05-17 14:40 | disposition home or self-care (01) ==
PROVIDERS: Internal Medicine Cardiovascular Disease; Nurse Practitioner Gerontology; PCP Family Medicine; Referring Provider Internal Medicine Cardiovascular Disease; Visit Provider Internal Medicine Cardiovascular Disease
DX: Z45.02 Encounter for adjustment and management of automatic implantable cardiac defibrillator (principal); I43 Cardiomyopathy in diseases classified elsewhere; I70.219 Atherosclerosis of native arteries of extremities with intermittent claudication, unspecified extremity; I44.2 Atrioventricular block, complete; I48.0 Paroxysmal atrial fibrillation; R42 Dizziness and giddiness; R53.83 Other fatigue; Z95.810 Presence of automatic (implantable) cardiac defibrillator; Z95.2 Presence of prosthetic heart valve; E78.00 Pure hypercholesterolemia, unspecified; I10 Essential (primary) hypertension; Z86.73 Personal history of transient ischemic attack (TIA), and cerebral infarction without residual deficits; Z79.01 Long term (current) use of anticoagulants; Z82.49 Family history of ischemic heart disease and other diseases of the circulatory system
CPT/HCPCS: 33264; 36415; 36416; 80048; 80061; 80076; 81001; 85027; 85610; 93641; 99152; 99153; J7040; J7050

== ENCOUNTER 2022-05-25 10:26 | Outpatient (RCR) | payer MEDICARE, OTHER, SELFPAY ==
[2022-05-14 18:17] LABS: Prothrombin Time (Protime)PT. 71.4 SECONDS (11.7-14.9)
[2022-05-14 18:59] LABS: International Normalized Ratio 8.6
[2022-05-16 15:41] LABS: International Normalized Ratio 3.5; Prothrombin Time (Protime)PT. 35.1 SECONDS (11.7-14.9)
[2022-05-25 12:05] LABS: International Normalized Ratio 2.9
== END 2022-05-25 18:00 | disposition home or self-care (01) ==
LOC: MTLAB 10:26
PROVIDERS: PCP Family Medicine; Referring Provider Internal Medicine Cardiovascular Disease; Visit Provider Internal Medicine Cardiovascular Disease
DX: Z79.01 Long term (current) use of anticoagulants (principal)
CPT/HCPCS: 36415; 85610

== ENCOUNTER 2022-06-02 18:49 | Day surgery (SDC) | payer MEDICARE, OTHER, SELFPAY ==
[2022-06-02] VITALS (10 sets, daily range): BP systolic 92–120; BP diastolic 60–83; PULSE 73–97; RESP 16–97; TEMP 36.3–36.6; O2SAT 20–97; BMI 25.2
--- NOTE | 2022-06-02 19:11 | ED.VIS.GI ---
HPI HPI - GI History of Present Illness Chief Complaint: Foreign Body Detail of Chief Complaint: Esophageal foreign body. Patient was eating cauliflower. Informant: patient Abdominal Pain/Flank Pain Onset: Today and Hours Context: Sudden Onset Timing: Continuous Current Severity: Moderate Maximum Severity: Moderate Nausea/Vomiting/Emesis GI Symptom: Negative for Nausea or Vomiting Diarrhea/Melena/Hematochezia GI Symptom: Negative for Diarrhea, Melena or Hematochezia Associated Symptoms Associated Symptoms: Negative for Dysuria, Frequency or Hematuria Narrative Narrative: 87-year-old male history of A-fib, cardiomyopathy, pacemaker and on Coumadin. About an hour ago he was eating cauliflower for dinner and said it got stuck in his throat. Now he is unable to swallow. He denies any meat. Said he was swallowing fine earlier today. He has had prior symptoms of this before and is needed upper endoscopy before. 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, complete Cardiomyopathy in other diseases classified elsewhere Dizziness and giddiness Essential hypertension Fatigue Hernia senior care (current) use of anticoagulants Mitral valve disorder Murmur Paroxysmal atrial fibrillation Premature beats Premature ventricular contractions Pure hypercholesterolemia TIA (transient ischemic attack) Home Medications aspirin 81 mg chewable tablet 81 mg PO DAILY@0800 03/17/13 [History Last Taken 05/16/22] Handicap Placard #1 ea 09/29/18 [Rx Last Taken Unknown] tamsulosin 0.4 mg capsule 0.4 mg PO QHS 05/30/20 [History Last Taken Unknown] warfarin 1 mg tablet 1 mg PO QDAY #90 tabs 01/10/21 [Rx Last Taken Unknown] warfarin 5 mg tablet 5 mg PO QDAY #90 tabs 01/10/21 [Rx Last Taken 05/13/22] pravastatin 10 mg tablet 10 mg PO QHS #90 tabs 09/06/21 [Rx Last Taken Unknown] carvedilol 25 mg tablet 25 mg PO BID #180 tabs 01/05/22 [Rx Last Taken 05/17/22] warfarin 2 mg tablet 2 mg PO DAILY #270 tabs 01/12/22 [Rx Last Taken Unknown] ramipril 10 mg capsule 10 mg PO BID #180 caps 01/17/22 [Rx Last Taken 05/17/22] amlodipine 5 mg tablet 5 mg PO DAILY #90 tabs 03/09/22 [Rx Last Taken 05/17/22] cephalexin 500 mg capsule 500 mg PO Q8H 03/09/22 [History Last Taken Unknown] fluoxetine 20 mg capsule (Prozac) 20 mg PO DAILY 03/09/22 [History Last Taken Unknown] Allergy/AdvReac Type Severity Reaction Status Date / Time No Known Allergies Allergy Verified 05/16/22 08:36 Family History Father CAD (coronary artery disease) Mother Breast cancer Brother CAD (coronary artery disease) Hx CABG Brother Cancer Leukemia Surgical History Cardiac pacemaker in situ H/O mitral valve replacement Social History Smoking Status: Never smoker alcohol intake: never substance use type: does not use caffeine: No what type of physical activity do you participate in: other details: tredmill frequency: 1-2 times per week duration: 15-30 minutes/day seatbelt use: always do you feel safe at home: Yes ROS ROS ED ROS Narrative No recent illness. Review of Systems ROS Unobtainable: Denies due to encephalopathy Constitutional Constitutional ED: Denies fever(s) ENT ENT ED: Denies ear pain Cardiovascular Cardiovascular: Denies chest pain Respiratory/Chest Respiratory/Chest: Denies cough Gastrointestinal Gastrointestinal: Denies abdominal pain Genitourinary Genitourinary ED: Denies dysuria or hematuria Musculoskeletal Musculoskeletal: Denies arthralgias Integumentary Denies abscess Neurologic Neurologic: Denies headache(s) Psychiatric Psychiatric: Denies anxiety Endocrine Endocrinology: Denies polydipsia Hematologic/Lymphatic Hematologic/Lymphatic: Denies easy bleeding Allergic/Immunologic Allergic/Immunologic ED: Denies mouth swelling or tongue swelling EXAM Physical Exam Narrative Exam Narrative: 79-year-old male unable to swallow even his own phlegm. Vital signs are stable his pulse ox is 92% on room air. HEENT exam a lot of phlegm and saliva in posterior pharynx which was suctioned out. This did improve his symptoms. Neck nontender. Trachea midline. Lungs clear to auscultation. Heart regular rhythm rate about 95 no murmur. Chest wall nontender. Abdomen soft nontender. Moving all 4 extremities. Neurologically is awake and alert. Const Vital Signs: 06/02/22 18:50 06/02/22 18:57 06/02/22 20:12 Temperature 97.8 F Temperature Source Oral Pulse Rate 95 96 Respiratory Rate 18 21 H Blood Pressure 120/83 H 112/76 Blood Pressure Mean 95 88 Blood Pressure Source Blood Pressure Position Blood Pressure Location Pulse Ox 92 97 95 Oxygen Delivery Method Room Air Room Air Room Air 06/02/22 20:37 06/02/22 20:49 Temperature 97.9 F Temperature Source Temporal Pulse Rate 76 97 Respiratory Rate 97 H 18 Blood Pressure 107/72 107/72 Blood Pressure Mean 83 83 Blood Pressure Source Monitor Blood Pressure Position Semi-Fowlers Blood Pressure Location Right Arm Pulse Ox 20 97 Oxygen Delivery Method Room Air Room Air Positive well nourished and well developed; Negative for obese, cachectic, contractures or unkempt General Appearance ED: well developed and NAD; Negative for unkempt, cachectic or contractures Nutritional Appearance: Negative for cachectic or obese HEENT Reports moist mucous membranes normocephalic and atraumatic; Negative for trauma or tenderness Eyes PERRL and EOMs intact bilaterally General Eye ED: Negative for pale conjunctiva Neck no lymphadenopathy, supple and no JVD General: Negative for tenderness Carotids: Negative for other Lymph Lymphatic: Negative for other Resp normal respiratory effort and clear to auscultation bilaterally Effort and Inspection: Negative for respiratory distress Auscultation: Negative for rales, rhonchi or wheezes Cardio regular rate, regular rhythm, S1 normal heart sound, S2 normal heart sound and no murmurs Rate: Negative for bradycardia Rhythm: Negative for abnormal rhythm GI non-tender, non-distended and no masses Inspection: Negative for abdominal distention Auscultation: normoactive bowel sounds Palpation: soft; Negative for tender, guarding or rigid Back/Spine no CVA tenderness General Back: Negative for CVA tenderness Cervical Spine: Negative for cervical spine tenderness Thoracic Spine / Upper Back: Negative for thoracic spinal tenderness Lumbar Spine / Lower Back: Negative for lumbar spinal tenderness Coccyx: Negative for other Extremity full ROM General Extremety ED: Negative for edema or tenderness General Extremity: Negative for edema Neuro CN's II-XII intact bilaterally and moves all extremities Sensorium / Orientation: alert, oriented to person and oriented to place Motor Exam: strength 5/5 throughout Psych mental status grossly normal and thought process normal Appearance: Negative for unkempt Attitude: No agitated Mood & Affect: Negative for depressed, anxious or tearful Skin no wounds Lesions: no lesions Rashes: no rashes Trauma: Negative for abrasion Nails: Negative for discolored MDM MDM MDM Narrative Medical decision making narrative: 87-year-old male suspect esophageal foreign body. He is unable to swallow. I am seeing if there is someone available for GI for upper endoscopy to evaluate for esophageal food impaction. Repeat exam at 8:15 PM. He is able to handle his own secretions he can drink some water. He said his swallowing is still not his normal but it is much improved. I have already spoken to Dr. Radha camacho thumb on for general surgery she is on her way in to evaluate the patient for possible upper endoscopy. She did request an INR be obtained which has been ordered. Patient's PT/INR returned and was supratherapeutic at 5.0. We will call down to endoscopy to make sure they are aware that so they can have the patient hold his Coumadin and have that reevaluated before it is restarted next several days. Lab Data Labs: Laboratory Results - last 24 hr 06/02/22 20:10 PT 46.4 H INR 5.0 H* Discharge Plan Triage Chief Complaint: Foreign Body ED Provider: Todd Ram Dx/Rx/DC Orders Clinical Impression: Esophageal obstruction due to food impaction, Chronic anticoagulation, History of chronic atrial fibrillation, Coagulopathy Primary Care Provider: Lon Gonzalez Disposition Disposition: Home, Self Care Discharge Date/Time: 06/02/22 20:50
[2022-06-02 20:25] LABS: Prothrombin Time (Protime)PT. 46.4 SECONDS (11.7-14.9)
--- NOTE | 2022-06-02 20:41 | CON.PCM.SX_ITS ---
Assessment & Plan Assessment/Plan (1) Esophageal obstruction due to food impaction: (2) Chronic anticoagulation: (3) History of chronic atrial fibrillation: (4) H/O mitral valve replacement with mechanical valve: PLAN: Plan I have discussed the above with the patient. Patient is at increased risk for bleeding due to INR being 5--family and patient expressed understanding.. However due to the mechanical valve we are unable to really reverse the INR. Hopefully since he is swallowing a little better we will just have to take a look with the EGD. I have offered the patient esophagogastroduodenoscopy, possible removal of foreign body I have explained the risks/benefits of the procedure and described the procedure. I have discussed the risks with the patient, including but not limited to: infection, bleeding, perforation of the GI tract requiring emergency surgery, inability to complete the procedure, injury to any internal organs, complications of anesthesia, etc. - the patient understands and agrees to proceed. I have answered all the patient's questions to the patient's satisfaction and the patient has no further questions. Enma Fine M.D. Pager: [phone] [facility] [address] [place] [address], [facility], [address] [place] [address] Office: [phone] HPI Consult Data Date of Consult: 06/02/22 HPI Narrative HPI Narrative: GREGORIO LUCAS, is a 87 M who presents due to a soft general food impaction. Patient was having some raw cauliflower tonight and felt increased discomfort in his neck and was unable to swallow his saliva. Patient does have top and bottom dentures. Patient's currently had his bottom dentures out. Patient states he is able to swallow a little bit better currently. Patient is anticoagulated due to mechanical valve current INR is 5. Patient has a pacer in ACD; however, family states they state he has not gone off. 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, complete Cardiomyopathy in other diseases classified elsewhere Dizziness and giddiness Essential hypertension Fatigue Hernia residential (current) use of anticoagulants Mitral valve disorder Murmur Paroxysmal atrial fibrillation Premature beats Premature ventricular contractions Pure hypercholesterolemia TIA (transient ischemic attack) Home Medications aspirin 81 mg chewable tablet 81 mg PO DAILY@0800 03/17/13 [History Last Taken 05/16/22] Handicap Placard #1 ea 09/29/18 [Rx Last Taken Unknown] tamsulosin 0.4 mg capsule 0.4 mg PO QHS 05/30/20 [History Last Taken Unknown] warfarin 1 mg tablet 1 mg PO QDAY #90 tabs 01/10/21 [Rx Last Taken Unknown] warfarin 5 mg tablet 5 mg PO QDAY #90 tabs 01/10/21 [Rx Last Taken 05/13/22] pravastatin 10 mg tablet 10 mg PO QHS #90 tabs 09/06/21 [Rx Last Taken Unknown] carvedilol 25 mg tablet 25 mg PO BID #180 tabs 01/05/22 [Rx Last Taken 05/17/22] warfarin 2 mg tablet 2 mg PO DAILY #270 tabs 01/12/22 [Rx Last Taken Unknown] ramipril 10 mg capsule 10 mg PO BID #180 caps 01/17/22 [Rx Last Taken 05/17/22] amlodipine 5 mg tablet 5 mg PO DAILY #90 tabs 03/09/22 [Rx Last Taken 05/17/22] cephalexin 500 mg capsule 500 mg PO Q8H 03/09/22 [History Last Taken Unknown] fluoxetine 20 mg capsule (Prozac) 20 mg PO DAILY 03/09/22 [History Last Taken Unknown] Allergy/AdvReac Type Severity Reaction Status Date / Time No Known Allergies Allergy Verified 05/16/22 08:36 Family History Father CAD (coronary artery disease) Mother Breast cancer Brother CAD (coronary artery disease) Hx CABG Brother Cancer Leukemia Surgical History Cardiac pacemaker in situ H/O mitral valve replacement Social History Smoking Status: Never smoker alcohol intake: never substance use type: does not use caffeine: No what type of physical activity do you participate in: other details: tredmill frequency: 1-2 times per week duration: 15-30 minutes/day seatbelt use: always do you feel safe at home: Yes Physical Exam Const alert and oriented x3 General Appearance: cooperative HEENT Head and Scalp: normal to inspection Resp no retractions Effort and Inspection: able to speak in complete sentences Cardio Rate: regular rate GI soft to palpation, non-tender and non-distended Lab / Micro Data Labs: Laboratory Results - last 24 hr 06/02/22 20:10: PT 46.4 H, INR 5.0 H*
--- NOTE | 2022-06-02 21:14 | OP.CCLET_ITS ---
06/02/2022 Lon Gonzalez MD [address] [id number] Re : Upper GI endoscopy procedure for Rio Neal Dear Dr. Gonzalez This procedure was performed on Thursday, June 02, 2022. My impressions and recommendations are as follows: Impressions : - Z-line variable. - Food in the proximal esophagus. - Erythematous mucosa in the antrum. - Normal examined duodenum. - Small hiatal hernia. - No specimens collected. Recommendations : - Discharge patient to home. - Resume previous diet. - Use Protonix (pantoprazole) 40 mg PO daily. - Continue present medications. My findings are described in the full procedure note, which is enclosed. If I can be of further assistance, please feel free to contact me at Doctor phone number(s): , Work: . Sincerely, MD Enma Baeza MD 06/02/2022 9:13:04 PM This report has been signed electronically.
--- NOTE | 2022-06-02 21:14 | OP.EGD_ITS ---
Patient Name: Rio Neal Procedure Date: 06/02/2022 8:40 PM Date of : 1935 Age: 87 Procedure: Upper GI endoscopy Indications: Foreign body in the esophagus Providers: Enma Fine MD Referring MD: Enma Fine MD Medicines: Monitored Anesthesia Care Patient Profile: This is an 87 year old male. Complications: No immediate complications. Procedure: Pre-Anesthesia Assessment: - Prior to the procedure, a History and Physical was performed, and patient medications and allergies were reviewed. The patient's tolerance of previous anesthesia was also reviewed. The risks and benefits of the procedure and the sedation options and risks were discussed with the patient. All questions were answered, and informed consent was obtained. Prior Anticoagulants: The patient has taken Coumadin (warfarin), last dose was day of procedure. ASA Grade Assessment: Per anesthesia. After reviewing the risks and benefits, the patient was deemed in satisfactory condition to undergo the procedure. After obtaining informed consent, the endoscope was passed under direct vision. Throughout the procedure, the patient's blood pressure, pulse, and oxygen saturations were monitored continuously. The gastroscope was introduced through the mouth, and advanced to the second part of duodenum. The upper GI endoscopy was accomplished without difficulty. The patient tolerated the procedure well. Scope In: 8:56:56 PM Scope Out: 9:02:31 PM Total Procedure Duration Time 0 hours 5 minutes 35 seconds Findings: The Z-line was variable. Food was found in the proximal esophagus. Cauliflower pieces were small and able to pass into stomach without any difficultie just with insufflation and water Mildly erythematous mucosa without bleeding was found in the gastric antrum. The examined duodenum was normal. A small hiatal hernia was present. Impression: - Z-line variable. - Food in the proximal esophagus. - Erythematous mucosa in the antrum. - Normal examined duodenum. - Small hiatal hernia. - No specimens collected. Recommendation: - Discharge patient to home. - Resume previous diet. - Use Protonix (pantoprazole) 40 mg PO daily. - Continue present medications. Procedure Code(s): --- Professional --- 22296, Esophagogastroduodenoscopy, flexible, transoral; diagnostic, including collection of specimen(s) by brushing or washing, when performed (separate procedure) Diagnosis Code(s): --- Professional --- K22.8, Other specified diseases of esophagus T18.128A, Food in esophagus causing other injury, initial encounter K31.89, Other diseases of stomach and duodenum K44.9, Diaphragmatic hernia without obstruction or gangrene T18.108A, Unspecified foreign body in esophagus causing other injury, initial encounter CPT copyright 2017 [employer]. All rights reserved. The codes documented in this report are preliminary and upon sketch maker review may be revised to meet current compliance requirements. MD Enma Baeza MD 06/02/2022 9:13:04 PM This report has been signed electronically. Number of Addenda: 0 Note Initiated On: 06/02/2022 8:40 PM
== END 2022-06-02 21:40 | disposition home or self-care (01) ==
LOC: ED 19:41 → EN 20:15 → AC 20:15
PROVIDERS: Emergency Provider Emergency Medicine; PCP Family Medicine; Referring Provider Surgery; Visit Provider Surgery
PROC: 0DJ08ZZ Inspection of Upper Intestinal Tract, Via Natural or Artificial Opening Endoscopic (ICD-10-PCS; CPT 43235; principal; 2022-06-02 21:00)
DX: K44.9 Diaphragmatic hernia without obstruction or gangrene (principal); I42.9 Cardiomyopathy, unspecified; Z79.01 Long term (current) use of anticoagulants; Z79.82 Long term (current) use of aspirin; E78.00 Pure hypercholesterolemia, unspecified; Z95.0 Presence of cardiac pacemaker; R11.2 Nausea with vomiting, unspecified; T18.108A Unspecified foreign body in esophagus causing other injury, initial encounter; I10 Essential (primary) hypertension; R79.1 Abnormal coagulation profile; K31.89 Other diseases of stomach and duodenum; K22.89 Other specified disease of esophagus; T18.128A Food in esophagus causing other injury, initial encounter; Z86.73 Personal history of transient ischemic attack (TIA), and cerebral infarction without residual deficits
CPT/HCPCS: 43235; 85610; 99284; A4216

== ENCOUNTER 2022-06-25 10:57 | Outpatient (RCR) | payer MEDICARE, OTHER, SELFPAY ==
[2022-06-06 12:54] LABS: International Normalized Ratio 3.8; Prothrombin Time (Protime)PT. 37.2 SECONDS (11.7-14.9)
[2022-06-19 18:07] LABS: International Normalized Ratio 1.9; Prothrombin Time (Protime)PT. 21.7 SECONDS (11.7-14.9)
[2022-06-19 20:20] LABS: Anion Gap 5 (5-15); BUN 24 mg/dL (7-18); BUN/Creat Ratio 15.5 RATIO (10-20); Calcium,Total 8.3 mg/dL (8.5-10.1); Chloride 109 mmol/L (98-107); Creatinine, Serum 1.55 mg/dL (0.70-1.30); EST Glomerular Filtration Rate 45 mL/min (>60); Est Glom Filt Rate - Afr Amer 55 mL/min (>60); Glucose 94 mg/dL (74-106); Potassium 4.2 mmol/L (3.5-5.1); Sodium Level 141 mmol/L (136-145)
[2022-06-25 13:05] LABS: Prothrombin Time (Protime)PT. 22.2 SECONDS (11.7-14.9)
== END 2022-06-29 21:09 | disposition home or self-care (01) ==
LOC: MTLAB 10:57
PROVIDERS: PCP Family Medicine; Referring Provider Internal Medicine Cardiovascular Disease; Visit Provider Internal Medicine Cardiovascular Disease
DX: Z95.2 Presence of prosthetic heart valve (principal); I48.0 Paroxysmal atrial fibrillation; Z79.01 Long term (current) use of anticoagulants
CPT/HCPCS: 36415; 80048; 85610

== ENCOUNTER 2022-07-09 11:00 | Outpatient (RCR) | payer MEDICARE, OTHER, SELFPAY ==
--- NOTE | 2022-05-09 11:53 | HP.PTEVAL_ITS ---
Patient's Visit Information GREGORIO LUCAS is a 86 year old M referred to Physical Therapy by Dr. Luz Maria Friedman MD with a diagnosis of Balance. Date of Evaluation: 05/09/22 Physical Therapist: Letty Gottlieb DPT - Visit Plan Frequency: 2x /Week Duration: 4 Weeks Plan: Focus on functional mobility, LE and core strength/stabilization and proprioception- GAIT BELT. HEP Given IE: marching, hip adduction with ball, LAQ, seated HR/TR - Subjective 4-6 weeks ago he started having issues with walking and balance. No medication or history has changed- they have done two CT Scans and everything was clear. He just needs to get stronger. He has been using a walker for about a week. He does not use the walker normally. He has had multiple falls- yesterday he went over backwards in a chair. He hold onto furniture when he is walking. He used a cane once in awhile but not all the time prior to about 4 weeks ago. He has progressively gotten worse. 6 months he has been sitting in his chair. He gets very tired quickly. He lives in a split level- railing on a single side. He is still going up/down the stairs. He leads with the right LE when he goes up and down. He has never had PT prior. He does have pain in the middle of the back that comes and goes. He has a harder time walking when he has pain in his back. 10 min of the day he reports pain- if he gets up and moves around the pain goes away- pain starts when he sits for long periods of time. PMHx/Meds: see ED visit 04/19/22. - Objective Posture: FH, RS- unable to correct but does improve. Gait: decreased step length- shuffling- FWW-requires SBA for safety. HR/TR: unable in standing but able in sitting. Balance: see FGA and TUG. ROM: WFL with the exception of knee extension-HS contracture - unable to get full extension approx 15 deg con traction bilateral. Strength: Core: poor, Hip: 4/5 throughout, Knee: 4+/5, Ankle: 5/5. Flex: HS: SEVERE, Gastroc: mod - Balance/Special Test Scores Functional Gait Assessment Score: 3 % Disability: 90.0000 CATSIB Score (Max score 120 seconds): 12 Lower Extremity Functional Score: 9 TUG Test Time Seconds: 40 - Goals Goal 1:: Patient will be I with HEP and progression Goal Time Frame: 4-6 Weeks Goal 2:: Patient ambulate >300 feet with mod I and LRD Goal Time Frame: 4-6 Weeks Goal 3:: Patient will TUG in under 20 sec with LRD safely Goal Time Frame: 4-6 Weeks Goal 4:: Patient will improve his FGA by 5 points for increased safety Goal Time Frame: 4-6 Weeks Goal 5:: Patient will report 80% improvement Goal Time Frame: 4-6 Weeks - Rehabilitation Potential Physical Therapy Diagnosis: Patient presents with hypomobility- he has decreased LE and core strength/stabilization, proprioception, flex and muscular endurance leading to poor posture, balance and difficulty with ADL's - Anticipated Interventions Patient/Client Instruction: Educate patient on: Benefits of Fitness Program Therapeutic Exercise to Include: Strength training, Endurance training, Balance training, Coordination, Agility training, Body mechanics, Postural training, Flexibilty training, Gait and locomotor training, Neuromotor development, Dynamic Lumbar Stabilization, Scapular Strength/Stabilization For the Purpose of:: To improve muscle performance and motor function Thank you for the opportunity to evaluate your patient. For Medicare and Medicare HMO plans, please review the plan of care and approve it. It will need to be FAXED BACK to us at [phone] for Medicare purposes. For Medicare only, by signing this I certify the plan of care. Please let me know if there are questions or concerns regarding this plan of care. Physician Signature: Date:
--- NOTE | 2022-06-06 12:00 | HP.PTREVAL ---
Dr. Luz Maria Friedman MD, It has been my pleasure to treat GREGORIO LUCAS over the last 8 visits for Balance. Please see the progress note below for an update on the physical therapy plan of care! Subjective: Patient and report that he is doing better- no falls- moving better and sleeping better. Objective/Function: Posture: FH, RS- unable to correct but does improve. Gait: decreased step length- shuffling- FWW-requires SBA for safety. HR/TR: unable in standing but able in sitting. Balance: see FGA and TUG. ROM: WFL - stretched out hamstrings to 0 degrees of extension Strength: Core: poor, Hip: 4+/5 throughout, Knee: 4+/5, Ankle: 5/5. Flex: HS: moderate, Gastroc: mod Plan Plan: 06/06/22: Continue an additional 2x a week for 4 weeks. Focus on functional mobility, LE and core strength/stabilization and proprioception- GAIT BELT. HEP Given IE: marching, hip adduction with ball, LAQ, seated HR/TR Balance/Gait/Functional tests - Balance/Special Test Scores Functional Gait Assessment Score: 13 % Disability: 56.6700 CATSIB Score (Max score 120 seconds): 12 Lower Extremity Functional Score: 41 TUG Test Time Seconds: 28 Tug Test: 20-30sec.=variable mobility Goals Goal 1:: Patient will be I with HEP and progression Goal Time Frame: 4-6 Weeks Goal Progress: Progressing Goal 2:: Patient ambulate >300 feet with mod I and LRD Goal Time Frame: 4-6 Weeks Goal Progress: Progressing Goal 3:: Patient will TUG in under 20 sec with LRD safely Goal Time Frame: 4-6 Weeks Goal Progress: Progressing Goal 4:: Patient will improve his FGA by 5 points for increased safety Goal Time Frame: 4-6 Weeks Goal Progress: Progressing Goal 5:: Patient will report 80% improvement Goal Time Frame: 4-6 Weeks Goal Progress: Progressing Anticipated Interventions Patient/Client Instruction: Educate patient on: Benefits of Fitness Program Therapeutic Exercise to Include: Strength training, Endurance training, Balance training, Coordination, Agility training, Body mechanics, Postural training, Flexibilty training, Gait and locomotor training, Neuromotor development, Dynamic Lumbar Stabilization, Scapular Strength/Stabilization For the Purpose of:: To improve muscle performance and motor function Please do not hesitate to contact me at [phone] by phone or if you have questions or concerns regarding this new plan of care! Sincerely, CORINA CarrilloT
--- NOTE | 2022-07-09 12:08 | HP.PTDCSUM_ITS ---
It has been my pleasure to treat GREGORIO LUCAS referred by Dr. Luz Maria Friedman MD, with the diagnosis of Balance for a total of 15 visit(s). Discharge Date: Please see the following information for a summary of their discharge status. Subjective: Patient reports that he is slowly but surely getting better. No falls- but they are very careful. He and his feel that he is 80-90% better. She feels that he is using his walker much better. He still has issues getting in/out of the chairs because it rocks back and forth. They plan to look into [employer]. They are also on a waiting list for [facility] living at [place] [facility] Pain Intensity (Out of 10): 8 % Improvement: 50 Objective/Function: Posture: FH, RS- unable to correct but does improve. Gait: decreased step length- shuffling- FWW-much improved safety HR/TR: unable in standing but able in sitting. Balance: see FGA and TUG. ROM: WFL - stretched out hamstrings to 0 degrees of extension Strength: Core: poor, Hip: 4+/5 throughout, Knee: 4+/5, Ankle: 5/5. Flex: HS: moderate, Gastroc: mod. Transfers: requires UE A to get out of chair Goal 1:: Patient will be I with HEP and progression Goal Progress: Progressing Goal 2:: Patient ambulate >300 feet with mod I and LRD Goal Progress: Progressing Goal 3:: Patient will TUG in under 20 sec with LRD safely Goal Progress: Progressing Goal 4:: Patient will improve his FGA by 5 points for increased safety Goal Progress: Progressing Goal 5:: Patient will report 80% improvement Goal Progress: Progressing Plan: 07/09/22: Discharge to [facility] home exercise program and [employer]i [employer] classes. 06/06/22: Continue an additional 2x a week for 4 weeks. Focus on functional mobility, LE and core strength/stabilization and proprioception- GAIT BELT. HEP Given IE: marching, hip adduction with ball, LAQ, seated HR/TR If there are questions or concerns regarding this patient's physical therapy, please feel free to call me at [phone]. Thank you for the referral of this patient. Sincerely, Letty Gottlieb, CORINAT Balance/Gait/Functional tests - Balance/Special Test Scores Functional Gait Assessment Score: 11 % Disability: 63.3400 CATSIB Score (Max score 120 seconds): 12 Lower Extremity Functional Score: 42 TUG Test Time Seconds: 28 Tug Test: <20 sec.=mostly independent
== END 2022-07-09 19:00 | disposition home or self-care (01) ==
LOC: PT 11:00
PROVIDERS: PCP Family Medicine; Referring Provider Family Medicine; Visit Provider Family Medicine
DX: R26.81 Unsteadiness on feet (principal)
CPT/HCPCS: 97110; 97162; 97164; 97530

== ENCOUNTER 2022-07-24 14:33 | Outpatient (RCR) | payer MEDICARE, OTHER, SELFPAY ==
[2022-07-02 12:13] LABS: International Normalized Ratio 2.3; Prothrombin Time (Protime)PT. 25.3 SECONDS (11.7-14.9)
[2022-07-17 18:24] LABS: International Normalized Ratio 2.3
[2022-07-24 18:10] LABS: International Normalized Ratio 2.5; Prothrombin Time (Protime)PT. 26.5 SECONDS (11.7-14.9)
== END 2022-07-29 05:13 | disposition home or self-care (01) ==
LOC: MTLAB 14:33
PROVIDERS: PCP Family Medicine; Referring Provider Physician Assistant Medical; Visit Provider Physician Assistant Medical
DX: Z95.2 Presence of prosthetic heart valve (principal); I48.0 Paroxysmal atrial fibrillation; Z79.01 Long term (current) use of anticoagulants; N19 Unspecified kidney failure; Z86.79 Personal history of other diseases of the circulatory system
CPT/HCPCS: 36415; 85610

== ENCOUNTER 2022-08-13 11:59 | Outpatient (RCR) | payer MEDICARE, OTHER, SELFPAY ==
[2022-08-13 16:11] LABS: International Normalized Ratio 2.6; Prothrombin Time (Protime)PT. 28.3 SECONDS (11.7-14.9)
== END 2022-08-13 12:59 | disposition home or self-care (01) ==
LOC: MTLAB 11:59
PROVIDERS: PCP Family Medicine; Referring Provider Physician Assistant Medical; Visit Provider Physician Assistant Medical
DX: Z95.2 Presence of prosthetic heart valve (principal); I48.0 Paroxysmal atrial fibrillation; Z79.01 Long term (current) use of anticoagulants; N19 Unspecified kidney failure; Z86.79 Personal history of other diseases of the circulatory system
CPT/HCPCS: 36415; 85610

== ENCOUNTER 2022-08-31 12:31 | Emergency (ER) | payer MEDICARE, OTHER, SELFPAY ==
[2022-08-31 12:36] VITALS: BP 141/79; PULSE 93; RESP 18; TEMP 37.1; O2SAT 97; BMI 29.9
--- NOTE | 2022-08-31 13:03 | CT_ITS ---
EXAM: CT HEAD WITHOUT INTRAVENOUS CONTRAST CLINICAL INDICATION: Head trauma on anticoagulant TECHNIQUE: Multiple axial images were obtained of the head without intravenous contrast. This CT exam was performed using one or more of the following dose reduction techniques: automated exposure control, adjustment of the mA and/or kV according to patient size, and/or use of iterative reconstruction technique. COMPARISON: CT Head dated 04/30/2022 FINDINGS: BRAIN AND EXTRA-AXIAL SPACES: Areas of diminished white matter density noted within both cerebral hemispheres suggestive of chronic microvascular change. Prominence of the cortical sulci and ventricles related to volume loss change. No hemorrhage or mass effect. No evidence of acute ischemia. BONES/JOINTS: Right occipital craniectomy defect again noted. SINUSES: Right maxillary sinus remains opacified. MASTOID AIR CELLS: Normal. Clear. ORBITS: Visualized globes, extraocular muscles, optic nerves and retrobulbar fat appear unremarkable. CT/Brain/Head without Contrast IMPRESSION: 1. No acute intracranial abnormality. 2. Stable senescent changes. Electronically Signed: Eb Frey MD at 14:08 EDT ,
--- NOTE | 2022-08-31 13:03 | EKG12_ITS ---
Test Reason : FALL Blood Pressure : / mmHG Vent. Rate : 095 BPM Atrial Rate : 000 BPM P-R Int : 000 ms QRS Dur : 108 ms QT Int : 402 ms P-R-T Axes : 000 096 -24 degrees QTc Int : 505 ms Atrial fibrillation Rightward axis Septal infarct , age undetermined Prolonged QT Abnormal ECG Confirmed by RADHA HUDSON, JORGE ([id number]), school photograph editor SONNY JACOBSON ([id number]) on 09/04/2022 8:46:34 AM Referred By: Confirmed By:JORGE GARCIA MD
--- NOTE | 2022-08-31 13:05 | EX.ED.DYSGE1 ---
HPI History of Present Illness Chief Complaint: Fall Detail of Chief Complaint: Multiple falls past week, on anticoagulant, multiple areas of pain Informant: patient and family Onset/Context/Timing Onset: Weeks (For episodes past week) Quality: Complains of pain Location: Extremities, back Current Severity: Mild Maximum Severity: Moderate Worsened by: Not a good informant due to dementia Relieved by: Nothing Associated Symptoms Associated Symptoms: Headache Narrative Narrative: Patient is an 87-year-old male on Coumadin with past medical history of AICD, mitral valve replacement with mechanical valve, pure hypercholesterolemia, essential hypertension, paroxysmal atrial fibrillation, TIA and long-term use of anticoagulant. He does have a cardiac pacemaker. This was recently changed. He fell a week ago and had pain. He had increased pain since has had 3 additional falls with the last fall occurring last evening. The fall that occurred last night was not witnessed. He does complain of headache. [place] double vision, blurred vision loss of vision. Does have history of hard of hearing and uses hearing aids. He presently denies neck pain. He denies numbness or tingling in his arms or legs. There is no history of neuropathy. He denies chest pain or shortness of breath. He denies GI symptoms. He denies urologic symptoms. 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 Mitral valve disorder Murmur Paroxysmal atrial fibrillation Premature beats Premature ventricular contractions Pure hypercholesterolemia TIA (transient ischemic attack) Home Medications aspirin 81 mg chewable tablet 81 mg PO DAILY@0800 03/17/13 [History Last Taken 05/16/22] Handicap Placard #1 ea 09/29/18 [Rx Last Taken Unknown] tamsulosin 0.4 mg capsule 0.4 mg PO QHS 05/30/20 [History Last Taken Unknown] warfarin 1 mg tablet 1 mg PO QDAY #90 tabs 01/10/21 [Rx Last Taken Unknown] warfarin 5 mg tablet 5 mg PO QDAY #90 tabs 01/10/21 [Rx Last Taken 05/13/22] pravastatin 10 mg tablet 10 mg PO QHS #90 tabs 09/06/21 [Rx Last Taken Unknown] carvedilol 25 mg tablet 25 mg PO BID #180 tabs 01/05/22 [Rx Last Taken 05/17/22] warfarin 2 mg tablet 2 mg PO DAILY #270 tabs 01/12/22 [Rx Last Taken Unknown] ramipril 10 mg capsule 10 mg PO BID #180 caps 01/17/22 [Rx Last Taken 05/17/22] amlodipine 5 mg tablet 5 mg PO DAILY #90 tabs 03/09/22 [Rx Last Taken 05/17/22] cephalexin 500 mg capsule 500 mg PO Q8H 03/09/22 [History Last Taken Unknown] fluoxetine 20 mg capsule (Prozac) 20 mg PO DAILY 03/09/22 [History Last Taken Unknown] pantoprazole 40 mg tablet,delayed release 40 mg PO DAILY #30 tabs 06/02/22 [Rx Last Taken Unknown] Allergy/AdvReac Type Severity Reaction Status Date / Time No Known Allergies Allergy Verified 05/16/22 08:36 Family History Father CAD (coronary artery disease) Mother Breast cancer Brother CAD (coronary artery disease) Hx CABG Brother Cancer Leukemia Surgical History Cardiac pacemaker in situ H/O mitral valve replacement Social History (Updated 08/31/22 @ 13:[address] Jese Chadwick MD) household members: spouse Smoking Status: Never smoker alcohol intake: never substance use type: does not use caffeine: No what type of physical activity do you participate in: other details: tredmill frequency: 1-2 times per week duration: 15-30 minutes/day seatbelt use: always do you feel safe at home: Yes ROS ROS ED Review of Systems ROS Unobtainable: due to mental status Constitutional Constitutional ED: Denies chills, fever(s), subjective, sweats or weight loss Eyes Eyes: Denies blurry vision, change in vision or diplopia ENT ENT ED: Denies ear pain, rhinorrhea or sore throat Cardiovascular Cardiovascular: Denies chest pain, orthopnea, palpitations, paroxysmal nocturnal dyspnea or racing heartbeat Respiratory/Chest Respiratory/Chest: Denies cough, dyspnea, dyspnea on exertion, orthopnea or paroxysmal nocturnal dyspnea Gastrointestinal Gastrointestinal: Denies abdominal pain, nausea or vomiting Genitourinary Genitourinary ED: Denies dysuria, hematuria or other Musculoskeletal Musculoskeletal: Reports arthralgias, back pain and myalgias; Denies neck pain Integumentary Reports rash; Denies abscess or Abrasions Neurologic Neurologic: Reports headache(s) and weakness; Denies paresthesias Psychiatric Psychiatric: Denies anxiety Endocrine Endocrinology: Denies cold intolerance or heat intolerance Hematologic/Lymphatic Hematologic/Lymphatic: Reports easy bruising EXAM Physical Exam Const Vital Signs: 08/31/22 12:36 08/31/22 12:40 08/31/22 14:37 Temperature 98.7 F Temperature Source Temporal Pulse Rate 93 94 Respiratory Rate 18 14 Respiratory Effort Normal Respiratory Depth Normal Blood Pressure 141/79 H 148/90 H Blood Pressure Mean 99 109 Pulse Ox 97 96 Oxygen Delivery Method Room Air Room Air Room Air Positive well nourished and well developed General Appearance ED: well developed, NAD and pallor; Negative for cyanotic or diaphoretic HEENT Reports dry mucous membranes HEENT Narrative: Patient has hearing aids noted. TMs are normal. No clinical signs of basilar skull fracture. No palpable depression. Uvula is midline. There is no deviation tongue with protrusion. There is no erythema or exudate of the posterior pharynx. trauma and tenderness Mouth ED: Yes dry mucous membranes Mouth: dry mucous membranes Eyes PERRL and EOMs intact bilaterally Eyes Narrative: There is no subconjunctival hemorrhage noted. General Eye ED: Negative for pale conjunctiva or scleral icterus Neck no lymphadenopathy, supple and no JVD Chest Wall inspection of chest normal and palpation of chest normal Chest Narrative: There is a palpable pacemaker left subclavian region. Resp normal respiratory effort and clear to auscultation bilaterally Cardio regular rate, regular rhythm, S1 normal heart sound, S2 normal heart sound and no murmurs GI normal to inspection, nondistended, normoactive bowel sounds, non-tender, non-distended and no masses; Negative for hepatosplenomegaly Back/Spine no CVA tenderness Cervical Spine: Negative for cervical spine tenderness Extremity Extremity Narrative: Patient has edema of the lower extremities that is pitting in nature. DP pulses palpable and 2+. He has multiple scratches noted due to dry skin. There is no asymmetry. There is no discoloration. There is no leg vein distention. There is no palpable cords or tenderness on the distribution deep venous system. General Extremety ED: Yes edema General Extremity: edema Neuro No oriented x3, No CN's II-XII intact bilaterally and no sensory deficits noted Sensorium / Orientation: alert Motor Exam: strength 5/5 throughout Psych mental status grossly normal Skin No no rashes or lesions noted, no wounds and No skin turgor normal General Skin Exam: pallor; Negative for elasticity normal or jaundice MDM MDM MDM Narrative Medical decision making narrative: With history of multiple falls on Coumadin will obtain PT/INR and CT of the head to rule out intracranial bleed. CBC was obtained assess H&H and white count. Basic metabolic panel assess renal function as well as electrolytes. Patient's son informed that they were moving him into assisted living. Presently he lives with his . Lab Data Attestation: I reviewed the patient's lab results. Lab results narrative: There is approximate 1.5 g drop in hemoglobin since April 2022. INR is elevated at 3.9. Basic metabolic panel reveals a BUN to creatinine ratio greater than 20-1. This is abnormal as well since April. In light of the drop in hemoglobin elevated BUN/creatinine ratio will perform rectal exam to assess for melena/maroon stool. Also will check for heme positive stool. Stool for occult blood was negative. Labs: Laboratory Results - last 24 hr 08/31/22 08/31/22 08/31/22 13:15 13:15 13:15 WBC 5.7 RBC 2.97 L Hgb 9.8 L Hct 30.8 L MCV 103.7 H MCH 33.0 H MCHC 31.8 L RDW Std Deviation 56.6 H RDW Coeff of Al 14.9 H Plt Count 186 MPV 10.1 Immature Gran % (Auto) 0.700 Neut % (Auto) 81.8 H Lymph % (Auto) 5.1 L [place] % (Auto) 10.6 H Eos % (Auto) 1.1 Baso % (Auto) 0.7 Absolute Neuts (auto) 4.6 Absolute Lymphs (auto) 0.29 L Nucleated RBC % 0 Differential Comment COMMENT PT 38.5 H INR 3.9 Sodium 143 Potassium 4.1 Chloride 112 H Carbon Dioxide 25.0 Anion Gap 6 BUN 26 H Creatinine 1.19 Estim Creat Clear Calc 45.70 Est GFR (MDRD) Af Amer 74 Est GFR (MDRD) Non-Af 61 BUN/Creatinine Ratio 21.8 H Glucose 99 Calcium 8.6 Radiography Diagnostic Testing: Clinical Impression(s) from Imaging Studies Brain CT 08/31/22 13:03 IMPRESSION: 1. No acute intracranial abnormality. 2. Stable senescent changes. Electronically Signed: Eb Frey MD at 14:08 EDT Reading Location ID and State: [facility] / [place] Tel , Service support , CT of the head was independent reviewed by me at 1353. There is no evidence of subdural, epidural, intracranial bleed or subarachnoid hemorrhage. There is no fluid noted in the sinuses. Awaiting formal read by radiologist. EKG Initial EKG: Attestation: I personally reviewed and interpreted this EKG as follows: Interpretation: Atrial Fibrillation (Rate is 95. Cures duration 108 ms. QT duration 402 ms. [place] to the right. There is decreased anterior force. QTc is 505, prolonged QT.) Discharge Plan Triage Chief Complaint: Fall ED Provider: Jese Chadwick Dx/Rx/DC Orders Clinical Impression: CHI (closed head injury), AICD (automatic cardioverter/defibrillator) present, Paroxysmal atrial fibrillation, Essential hypertension, Pure hypercholesterolemia, Cardiac pacemaker in situ, Anticoagulant long-term use, Multiple falls Instructions: ED Head Injury (Adult) Prescriptions: No Action tamsulosin 0.4 mg capsule 0.4 mg PO QHS cephalexin 500 mg capsule 500 mg PO Q8H fluoxetine [Prozac] 20 mg capsule 20 mg PO DAILY aspirin 81 MG tablet,chewable 81 mg PO DAILY@0800 pantoprazole 40 mg tablet,delayed release (DR/EC) 40 mg PO DAILY Qty: 30 3RF (DME) Handicap Placard Qty: 1 0RF Dose Instruction: As directed Rx Instructions: Good from 09/29/2018 - 09/30/2023 warfarin 5 mg tablet 5 mg PO QDAY Qty: 90 3RF Protocol: Dose Management Condition: Saturday Dose/Route: 4 mg Instruction: 2 x 2 mg tablets Condition: Saturday Dose/Route: 2 mg Instruction: 1 x 2 mg tablet Condition: Saturday Dose/Route: 2 mg Instruction: 1 x 2 mg tablet Condition: Saturday Dose/Route: 2 mg Instruction: 1 x 2 mg tablet Condition: Dose/Route: 2 mg Instruction: 1 x 2 mg tablet Condition: Saturday Dose/Route: 4 mg Instruction: 2 x 2 mg tablets Condition: Saturday Dose/Route: 4 mg Instruction: 2 x 2 mg tablets Protocol Text: Adjustment Start Date: Saturday08/13/22 INR Value: 2.6 INR Date: 08/13/22 Recheck Date: 08/27/22 warfarin 1 mg tablet 1 mg PO QDAY Qty: 90 3RF Protocol: Dose Management Condition: Saturday Dose/Route: 4 mg Instruction: 2 x 2 mg tablets Condition: Saturday Dose/Route: 2 mg Instruction: 1 x 2 mg tablet Condition: Saturday Dose/Route: 2 mg Instruction: 1 x 2 mg tablet Condition: Saturday Dose/Route: 2 mg Instruction: 1 x 2 mg tablet Condition: Dose/Route: 2 mg Instruction: 1 x 2 mg tablet Condition: Saturday Dose/Route: 4 mg Instruction: 2 x 2 mg tablets Condition: Saturday Dose/Route: 4 mg Instruction: 2 x 2 mg tablets Protocol Text: Adjustment Start Date: Saturday08/13/22 INR Value: 2.6 INR Date: 08/13/22 Recheck Date: 08/27/22 pravastatin 10 mg tablet 10 mg PO QHS Qty: 90 4RF carvedilol 25 mg tablet 25 mg PO BID Qty: 180 3RF warfarin 2 mg tablet 2 mg PO DAILY Qty: 270 4RF Protocol: Dose Management Condition: Saturday Dose/Route: 4 mg Instruction: 2 x 2 mg tablets Condition: Saturday Dose/Route: 2 mg Instruction: 1 x 2 mg tablet Condition: Saturday Dose/Route: 2 mg Instruction: 1 x 2 mg tablet Condition: Saturday Dose/Route: 2 mg Instruction: 1 x 2 mg tablet Condition: Dose/Route: 2 mg Instruction: 1 x 2 mg tablet Condition: Saturday Dose/Route: 4 mg Instruction: 2 x 2 mg tablets Condition: Saturday Dose/Route: 4 mg Instruction: 2 x 2 mg tablets Protocol Text: Adjustment Start Date: Saturday08/13/22 INR Value: 2.6 INR Date: 08/13/22 Recheck Date: 08/27/22 Rx Instructions: Take 2 tabs (4mg) x3 days and 6mg the other days of the week; or as directed ramipril 10 mg capsule 10 mg PO BID Qty: 180 3RF amlodipine 5 mg tablet 5 mg PO DAILY Qty: 90 3RF Primary Care Provider: Lon Gonzalez Referrals: Lon Gonzalez MD [Primary Care Provider] - 3-5 Days Disposition Disposition: Home, Self Care
[2022-08-31 13:30] LABS: Absolute Lymphocyte Count 0.29 X10^3/uL (0.83-4.51); Absolute Neutrophil Count 4.6 X10^3/uL (2.0-7.7); Basophil# 0.04 X10^3/uL; Basophil% 0.7 % (0-1); Eosinophil# 0.06 X10^3/uL; Eosinophils% 1.1 % (0-5); Hematocrit 30.8 % (40-54); Hemoglobin 9.8 g/dL (13.0-16.5); Lymphocyte # 0.29 X10^3/ul (0.83-4.51); Lymphocyte % 5.1 % (19-41); Mean Corp Hgb Conc 31.8 g/dL (32-36); Mean Corpuscular Volume 103.7 fL (80-94); Mean Platelet Vol. 10.1 fl (6.2-12.0); Monocyte% 10.6 % (0-10); NRBC Flagged by Analyzer 0 % (0-5); Neutrophil # 4.63 X10^3/uL (2.7-7.7); Neutrophil % 81.8 % (47-70); POSITIVE DIFFERENTIAL YES; Platelet Count 186 K/mm3 (150-450); RBC Distribution Width CV 14.9 % (11.6-14.6); RBC Distribution Width SD 56.6 fl (35.1-43.9); Red Blood Count 2.97 M/mm3 (4.6-6.2); White Blood Count 5.7 K/mm3 (4.4-11.0)
[2022-08-31 13:31] LABS: Differential Indicated SCAN CRITERIA MET
[2022-08-31 13:36] LABS: International Normalized Ratio 3.9; Prothrombin Time (Protime)PT. 38.5 SECONDS (11.7-14.9)
[2022-08-31 13:44] LABS: Anion Gap 6 (5-15); BUN 26 mg/dL (7-18); BUN/Creat Ratio 21.8 RATIO (10-20); Calcium,Total 8.6 mg/dL (8.5-10.1); Chloride 112 mmol/L (98-107); Creatinine, Serum 1.19 mg/dL (0.70-1.30); EST Glomerular Filtration Rate 61 mL/min (>60); Est Glom Filt Rate - Afr Amer 74 mL/min (>60); Glucose 99 mg/dL (74-106); Potassium 4.1 mmol/L (3.5-5.1); Sodium Level 143 mmol/L (136-145)
[2022-08-31 14:37] VITALS: BP 148/90; PULSE 94; RESP 14; O2SAT 96
[2022-08-31 15:35] VITALS: BP 147/82; PULSE 100; RESP 17
== END 2022-08-31 16:41 | disposition home or self-care (01) ==
PROVIDERS: Emergency Provider Emergency Medicine; PCP Family Medicine; Visit Provider Emergency Medicine
DX: R29.6 Repeated falls (principal); I48.0 Paroxysmal atrial fibrillation; I10 Essential (primary) hypertension; Z79.01 Long term (current) use of anticoagulants; E78.00 Pure hypercholesterolemia, unspecified; Z95.2 Presence of prosthetic heart valve; Z86.73 Personal history of transient ischemic attack (TIA), and cerebral infarction without residual deficits; I25.10 Atherosclerotic heart disease of native coronary artery without angina pectoris; S09.8XXA Other specified injuries of head, initial encounter; W19.XXXA Unspecified fall, initial encounter; Z95.810 Presence of automatic (implantable) cardiac defibrillator; Z79.82 Long term (current) use of aspirin
CPT/HCPCS: 99285; 70450; 80048; 82274; 85025; 85610; 93005; A4216

== ENCOUNTER 2022-09-02 11:10 | Inpatient (IN) | payer MEDICARE, OTHER, SELFPAY ==
[2022-09-02] VITALS (7 sets, daily range): BP systolic 115–128; BP diastolic 71–93; PULSE 96–103; RESP 14–18; TEMP 36.2–37.1; O2SAT 94–98; BMI 26.8; BMI 25.5
--- NOTE | 2022-09-02 11:40 | EKG12_ITS ---
Test Reason : NEURO Blood Pressure : / mmHG Vent. Rate : 098 BPM Atrial Rate : 000 BPM P-R Int : 000 ms QRS Dur : 104 ms QT Int : 372 ms P-R-T Axes : 000 090 -30 degrees QTc Int : 474 ms Atrial fibrillation Rightward axis Low voltage QRS Septal infarct , age undetermined Abnormal ECG Confirmed by RADHA HUDSON, JORGE ([id number]), editor map SONNY JACOBSON ([id number]) on 09/04/2022 8:48:23 AM Referred By: Confirmed By:JORGE GARCIA MD
--- NOTE | 2022-09-02 11:40 | CT_ITS ---
EXAM: CT HEAD WITHOUT INTRAVENOUS CONTRAST CLINICAL INDICATION: AMS TECHNIQUE: Multiple axial images were obtained of the head without intravenous contrast. This CT exam was performed using one or more of the following dose reduction techniques: automated exposure control, adjustment of the mA and/or kV according to patient size, and/or use of iterative reconstruction technique. COMPARISON: CT Head dated 08/31/2022 FINDINGS: BRAIN AND EXTRA-AXIAL SPACES: Areas of diminished white matter density noted within both cerebral hemispheres suggestive of chronic microvascular change. Prominence of the cortical sulci and ventricles related to volume loss change. No hemorrhage or mass effect. No acute ischemia. BONES/JOINTS: No suspicious lytic or blastic abnormality. SINUSES: Opacified right maxillary sinus again noted. MASTOID AIR CELLS: Normal. Clear. ORBITS: Visualized globes, extraocular muscles, optic nerves and retrobulbar fat appear unremarkable. CT/Brain/Head without Contrast IMPRESSION: 1. No acute intracranial abnormality. 2. Stable senescent changes. Electronically Signed: Eb Frey MD at 12:43 EDT ,
--- NOTE | 2022-09-02 11:46 | RAD_ITS ---
EXAM: XR CHEST, 1 VIEW CLINICAL INDICATION: AMS TECHNIQUE: Frontal view of the chest. COMPARISON: XR Chest dated 03/11/2013 FINDINGS: LUNGS AND PLEURAL SPACES: Normal. No consolidation or edema. No pneumothorax. No effusion. HEART: Mild cardiomegaly. MEDIASTINUM: No mediastinal or hilar mass. BONES/JOINTS: Sternotomy wires and AICD remain in place. RAD/Chest 1 View (Portable) IMPRESSION: No acute pulmonary abnormality. Mild cardiomegaly. Electronically Signed: Eb Frey MD at 12:44 EDT ,
[2022-09-02 11:55] LABS: Hematocrit 29.2 % (40-54); Hemoglobin 9.4 g/dL (13.0-16.5); Mean Corp Hgb Conc 32.2 g/dL (32-36); Mean Corpuscular Hgb 33.3 pg (27.0-32.0); Mean Corpuscular Volume 103.5 fL (80-94); Mean Platelet Vol. 10.4 fl (6.2-12.0); Platelet Count 203 K/mm3 (150-450); RBC Distribution Width CV 15.1 % (11.6-14.6); RBC Distribution Width SD 57.6 fl (35.1-43.9); Red Blood Count 2.82 M/mm3 (4.6-6.2); White Blood Count 6.2 K/mm3 (4.4-11.0)
[2022-09-02 12:02] LABS: Bacteria 0 SEEN /hpf (None Seen); Mucous, Urine 0 SEEN /hpf (<or=2+); Squamous Epithelial Cells - UA 0 SEEN /hpf (0-5); White Blood Cells 0 SEEN /hpf (0-5)
[2022-09-02 12:03] LABS: Color, Urine Yellow (Yellow); Glucose, Dipstick Normal (Normal); Ketone-Dipstick 15 mg/dl (Negative); Leukocyte Esterase-Dipstick 25 /ul (Negative); Nitrite-Dipstick Negative (Negative); Occult Blood-Urine 10 /ul (Negative); Protein-Dipstick 30 mg/dl (Negative); Specific Gravity, Urine 1.025 (1.002-1.030); Urine Clarity Clear (Clear); Urine Urobilinogen 1 mg/dl (Normal)
--- NOTE | 2022-09-02 12:03 | EX.ED.DYSGE1 ---
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, complete Cardiomyopathy in other diseases classified elsewhere Dizziness and giddiness Essential hypertension Fatigue Hernia USP (current) use of anticoagulants Mitral valve disorder Murmur Paroxysmal atrial fibrillation Premature beats Premature ventricular contractions Pure hypercholesterolemia TIA (transient ischemic attack) Home Medications aspirin 81 mg chewable tablet 81 mg PO DAILY@0800 heart [facility] 03/17/13 [History Last Taken 05/16/22] Handicap Placard #1 ea 09/29/18 [Rx Last Taken Unknown] tamsulosin 0.4 mg capsule 0.4 mg PO QHS prostate 05/30/20 [History Last Taken Unknown] pravastatin 10 mg tablet 10 mg PO QHS #90 tabs 09/06/21 [Rx Last Taken Unknown] carvedilol 25 mg tablet 25 mg PO BID #180 tabs 01/05/22 [Rx Last Taken 05/17/22] warfarin 2 mg tablet 2 mg PO DAILY #270 tabs 01/12/22 [Rx Last Taken Unknown] ramipril 10 mg capsule 10 mg PO BID #180 caps 01/17/22 [Rx Last Taken 05/17/22] amlodipine 5 mg tablet 5 mg PO DAILY #90 tabs 03/09/22 [Rx Last Taken 05/17/22] fluoxetine 20 mg capsule (Prozac) 20 mg PO DAILY mood 03/09/22 [History Last Taken Unknown] finasteride 5 mg PO/SL DAILY 09/02/22 [History Last Taken Unknown] Allergy/AdvReac Type Severity Reaction Status Date / Time No Known Allergies Allergy Verified 09/02/22 11:11 Family History Father CAD (coronary artery disease) Mother Breast cancer Brother CAD (coronary artery disease) Hx CABG Brother Cancer Leukemia Surgical History Cardiac pacemaker in situ H/O mitral valve replacement Social History (Updated 09/02/22 @ 17:12 by Jolanta Miguel) household members: spouse housing: assisted living facility Smoking Status: Never smoker alcohol intake: never substance use type: does not use caffeine: No what type of physical activity do you participate in: other details: tredmill frequency: 1-2 times per week duration: 15-30 minutes/day seatbelt use: always do you feel safe at home: Yes EXAM Physical Exam Const Vital Signs: 09/02/22 11:12 09/02/22 13:10 09/02/22 13:16 Temperature 97.2 F L Temperature Source Temporal Pulse Rate 99 103 H Respiratory Rate 18 17 Respiratory Pattern Normal Blood Pressure 128/71 H 126/88 H Blood Pressure Mean 90 100 Pulse Ox 97 98 Oxygen Delivery Method Room Air Room Air 09/02/22 15:00 Temperature Temperature Source Pulse Rate 99 Respiratory Rate 14 Respiratory Pattern Blood Pressure 128/79 H Blood Pressure Mean 95 Pulse Ox 94 Oxygen Delivery Method Room Air MDM MDM MDM Narrative Medical decision making narrative: HISTORY OF PRESENT ILLNESS: 87-year-old male alf resident here accompanied by his daughter and son-in-law with concern for change in mental status. Last known well was yesterday around lunchtime. They state he has been progressively declining over last several weeks. They note left-sided weakness. States symptoms have been constant, severe without alleviating or exacerbating factors REVIEW OF SYSTEMS: Unable to obtain secondary to acuity of condition PHYSICAL EXAM: Nursing triage notes reviewed, Vital signs reviewed Constitutional: please see mdm HENT: MMM Eyes: Pupils equal round and reactive to light, Extraocular muscles intact Neck: No stridor, no JVD, full neck ROM Lungs: Clear to auscultation, No wheezing or rales. No increased work of breathing, no conversational dyspnea, no accessory muscle use, no nasal flaring. No respiratory distress noted Heart: Regular rate and rhythm, No murmurs, No rubs and No gallops, 2+ distal pulses (radial, femoral, posterior tibial) in all extremities Abdomen: Soft, there is no tenderness, rigidity, rebound or guarding, no obvious peritoneal signs, no palpable pulsatile abdominal masses, no auscultated abdominal bruit : No CVAT Back: No obvious signs of trauma, no step-offs deformities or midline T or L-spine tenderness Extremities: No edema Neuro: Alert and oriented x3, neuro exam at baseline, cranial nerves II through XII are intact. No pain with extraocular muscle movement. There is negative test of skew. Normal speech. 4/5 strength in upper extremities in flexion extension. 3/5 strength in bilateral lower extremities. Symmetric weakness noted. Intact sensation to light touch in upper and lower extremity dermatomes. No extremity ataxia. 2+ reflexes. No meningeal signs. Negative Babinski. NIH of 0. Skin: No rash or lesions noted MEDICAL DECISION MAKING: Chief Complaint: Diffuse weakness, change in mental status External records reviewed: Factors affecting care: CAD, cardiomyopathy, hypertension, paroxysmal A-fib, hyperlipidemia, TIA Social determinants of health: Elderly, poor health literacy History obtained from others: The patient's family Consults: Internal medicine ALL IMAGES HAVE BEEN PERSONALLY REVIEWED AND INTERPRETED BY MYSELF. MDM Narrative: Patient was hemodynamically stable, afebrile, nontoxic-appearing. There are no focal neurologic deficits on my exam. No source of infection I considered the following differential diagnosis: Intracranial normality, ICH, arrhythmia, anemia, metabolic encephalopathy, UTI Labs images most consistent with likely hepatic encephalopathy given hyperbilirubinemia, new elevated ammonia level. No evidence of intracranial normality, arrhythmia, myocardial ischemia, UTI. Given the patient's advanced age, change in mental status and diffuse weakness with inability ambulate at assisted living he is appropriate for admission to the hospital for ongoing evaluation, treatment of hepatic encephalopathy, PT OT and potential placement at more appropriate facility. This was discussed with the hospitalist (Dr. Mejía) who accepted the patient's case. Dr. Mejía requested CT scan of the thoracic and lumbar spine which he will follow-up on an inpatient basis. Total critical care time today provided was at least 0 minutes. This excludes separately billable procedures. There was a high probability of clinically significant/life threatening deterioration in the patient's condition which required my urgent intervention. Shared decision making: I will have a discussion with the patient and or visitors regarding risk/benefits of further testing or admission. They will be made aware of of the risk/benefits inherent in this decision they will be given the opportunity to voice understanding. Lab Data Attestation: I reviewed the patient's lab results. Lab results narrative: EKG with rate controlled atrial fibrillation, right axis deviation, prolonged QT, no STEMI CBC without leukocytosis, mild anemia, no thrombocytopenia BMP without evidence of significant electrolyte abnormalities, no anion gap, no acute kidney injury. LFTs with hyperbilirubinemia with no prior for comparison. Mildly elevated AST Ammonia elevated BNP elevated consistent with volume overload increased transmural pressure Lipase is wnl indicating no pancreatic inflammation. Troponin is negative, no evidence of myocardial ischemia INR supratherapeutic UA without evidence of infection. Labs: Laboratory Results - last 24 hr 09/02/22 09/02/22 09/02/22 11:00 11:00 11:00 WBC 6.2 RBC 2.82 L Hgb 9.4 L Hct 29.2 L MCV 103.5 H MCH 33.3 H MCHC 32.2 RDW Std Deviation 57.6 H RDW Coeff of Al 15.1 H Plt Count 203 MPV 10.4 PT INR Sodium 144 Potassium 4.0 Chloride 113 H Carbon Dioxide 25.0 Anion Gap 6 BUN 38 H Creatinine 1.30 Estim Creat Clear Calc 40.56 Est GFR (MDRD) Af Amer 67 Est GFR (MDRD) Non-Af 55 L BUN/Creatinine Ratio 29.2 H Glucose 112 H Calcium 8.2 L Total Bilirubin 1.20 H AST 44 H ALT 31 Alkaline Phosphatase 102 Ammonia Troponin I High Sens 40 B-Natriuretic Peptide 773.1 H Total Protein 6.4 Albumin 2.7 L Globulin 3.7 Albumin/Globulin Ratio 0.7 L Lipase 21 Urine Color Urine Clarity Urine pH Ur Specific [place] Urine Protein Urine Glucose (UA) Urine Ketones Urine Occult Blood Urine Nitrite Urine Bilirubin Urine Urobilinogen Ur Leukocyte Esterase Urine RBC Urine WBC Ur Squamous Epith Cells Urine Bacteria Urine Mucus POC Glucose 09/02/22 09/02/22 09/02/22 11:00 11:37 11:56 WBC RBC Hgb Hct MCV MCH MCHC RDW Std Deviation RDW Coeff of Al Plt Count MPV PT 41.0 H INR 4.2 H* Sodium Potassium Chloride Carbon Dioxide Anion Gap BUN Creatinine Estim Creat Clear Calc Est GFR (MDRD) Af Amer Est GFR (MDRD) Non-Af BUN/Creatinine Ratio Glucose Calcium Total Bilirubin AST ALT Alkaline Phosphatase Ammonia Troponin I High Sens B-Natriuretic Peptide Total Protein Albumin Globulin Albumin/Globulin Ratio Lipase Urine Color Yellow Urine Clarity Clear Urine pH 5.0 Ur Specific [place] 1.025 Urine Protein 30 H Urine Glucose (UA) Normal Urine Ketones 15 H Urine Occult Blood 10 H Urine Nitrite Negative Urine Bilirubin 1 H Urine Urobilinogen 1 H Ur Leukocyte Esterase 25 H Urine RBC 0-5 SEEN Urine WBC 0 SEEN Ur Squamous Epith Cells 0 SEEN Urine Bacteria 0 SEEN Urine Mucus 0 SEEN POC Glucose 114 H 09/02/22 13:30 WBC RBC Hgb Hct MCV MCH MCHC RDW Std Deviation RDW Coeff of Al Plt Count MPV PT INR Sodium Potassium Chloride Carbon Dioxide Anion Gap BUN Creatinine Estim Creat Clear Calc Est GFR (MDRD) Af Amer Est GFR (MDRD) Non-Af BUN/Creatinine Ratio Glucose Calcium Total Bilirubin AST ALT Alkaline Phosphatase Ammonia 42.0 H Troponin I High Sens B-Natriuretic Peptide Total Protein Albumin Globulin Albumin/Globulin Ratio Lipase Urine Color Urine Clarity Urine pH Ur Specific [place] Urine Protein Urine Glucose (UA) Urine Ketones Urine Occult Blood Urine Nitrite Urine Bilirubin Urine Urobilinogen Ur Leukocyte Esterase Urine RBC Urine WBC Ur Squamous Epith Cells Urine Bacteria Urine Mucus POC Glucose ABG Data ABG results: ABG 09/02/22 14:06 Specimen Type JANICE VBG pH 7.44 H VBG pO2 143 H VBG HCO3 24 VBG Total CO2 25 VBG O2 Sat (Calc) 99 H VBG Base Excess 0 POC Mix VBG pCO2 Pt Tmp 35.1 L O2 Delivery Device Room Air Radiography Chest X-Ray - ED: Read by ED Physician Diagnostic Testing: Clinical Impression(s) from Imaging Studies Brain CT 09/02/22 11:40 IMPRESSION: 1. No acute intracranial abnormality. 2. Stable senescent changes. Electronically Signed: Eb Frey MD at 12:43 EDT , Chest X-Ray 09/02/22 11:46 IMPRESSION: No acute pulmonary abnormality. Mild cardiomegaly. Electronically Signed: Eb Frey MD at 12:44 EDT , I have personally reviewed the patient's chest x-ray. Chest x-ray is unremarkable for pulmonary edema, pneumothorax, pneumonia or focal cardiopulmonary abnormality. Discharge Plan Dx/Rx/DC Orders Clinical Impression: Acute weakness, Altered mental status, Hyperammonemia, Hyperbilirubinemia Disposition Disposition: Acute Care Hospital [facility] Discharge Date/Time: 09/02/22 16:28
[2022-09-02 12:04] LABS: Bedside Glucose 114 mg/dL (74-106)
[2022-09-02 12:04] LABS: International Normalized Ratio 4.2
[2022-09-02 12:09] LABS: Urine Bilirubin Dipstick 1 mg/dL (Negative)
[2022-09-02 12:12] LABS: ALB/GLOB Ratio 0.7 RATIO (0.9-2.4); AST(SGOT) 44 U/L (15-37); Alanine Aminotransfer ALT/SGPT 31 U/L (16-61); Albumin, Serum 2.7 g/dL (3.2-5.0); Alkaline Phosphatase 102 U/L (45-117); Anion Gap 6 (5-15); BUN 38 mg/dL (7-18); BUN/Creat Ratio 29.2 RATIO (10-20); Calcium,Total 8.2 mg/dL (8.5-10.1); Chloride 113 mmol/L (98-107); EST Glomerular Filtration Rate 55 mL/min (>60); Est Glom Filt Rate - Afr Amer 67 mL/min (>60); Estimated Creatinine Clearance 40.56 ml/min; Globulin 3.7 g/dL (2.2-4.2); Glucose 112 mg/dL (74-106); Lipase 21 U/L (13-75); Protein, Total 6.4 g/dL (6.4-8.2); Sodium Level 144 mmol/L (136-145); Troponin-I HS 40 pg/mL (3.0-78.0)
[2022-09-02 12:21] LABS: Red Blood Cells-Urine 0-5 SEEN /hpf (0-5)
[2022-09-02 12:29] LABS: BNP,B-Type NATRIURETIC PEPTIDE 773.1 pg/mL (0-100)
[2022-09-02 14:10] LABS: Blood Gas Specimen Type VEN; O2 Delivery Device Room Air; VBG BASE EXCESS 0 mmol/L (-1.0-3.5); VBG Bicarbonate 24 mmol/L (22-26); VBG PO2 143 mmHg (25-40); VBG SO2 99 % (50-70); VBG TCO2 25 mmol/L (23-33); VBG pCO2 35.1 mmHg (41-51); VBG pH 7.44 (7.32-7.42)
--- NOTE | 2022-09-02 15:14 | HP.PCM.HOS_ITS ---
HPI - General General Date of Admission: 09/02/22 Date of Service: 09/02/22 Chief Complaint: Generalized weakness, recurrent fall, garbled speech for past few days to 1 week HPI Narrative GREGORIO LUCAS, is a 87 M who who is in assisted living center in [place] was brought to ED for back pain and generalized weakness. Patient's son and allen berrioser present in the ER and according to them patient fell about a week ago on last weekend. Prior to that he also had 3 falls in 1 week. Patient complain of lumbar back pain more on the right side and feels pain on lifting right lower extremity. Patient unable to stand or bear weight. As per the daughter he also has garbled speech hard to understand for last 2 to 3 days. According to her, lissa pandey goes in and out of garbled speech/language deficit. Patient also has gradual onset of dementia and could not tell the name of month and year although he remembers current and immediate past president. He denies recent chest pain pressure tightness or acute shortness of breath. No fever, dysuria or recent URI symptoms. Vitals done in EMS shows BP 122/80, heart rate 108/min. In ED was normal with heart rate 99 203/min. Twelve-lead EKG shows A-fib at 98 bpm, QTc 474 ms, RAD. Patient had left subclavicular pacemaker and recently converted to AICD about 2 months ago with well-healed scar. He also has mitral valve replacement with mechanical valve and on warfarin, INR supratherapeutic. Patient was also in ED for recent fall on 09-[address] head which did not show acute abnormality and was discharged back. 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 Mitral valve disorder Murmur Paroxysmal atrial fibrillation Premature beats Premature ventricular contractions Pure hypercholesterolemia TIA (transient ischemic attack) Home Medications aspirin 81 mg chewable tablet 81 mg PO DAILY@0800 03/17/13 [History Last Taken 05/16/22] Handicap Placard #1 ea 09/29/18 [Rx Last Taken Unknown] tamsulosin 0.4 mg capsule 0.4 mg PO QHS 05/30/20 [History Last Taken Unknown] warfarin 1 mg tablet 1 mg PO QDAY #90 tabs 01/10/21 [Rx Last Taken Unknown] warfarin 5 mg tablet 5 mg PO QDAY #90 tabs 01/10/21 [Rx Last Taken 05/13/22] pravastatin 10 mg tablet 10 mg PO QHS #90 tabs 09/06/21 [Rx Last Taken Unknown] carvedilol 25 mg tablet 25 mg PO BID #180 tabs 01/05/22 [Rx Last Taken 05/17/22] warfarin 2 mg tablet 2 mg PO DAILY #270 tabs 01/12/22 [Rx Last Taken Unknown] ramipril 10 mg capsule 10 mg PO BID #180 caps 01/17/22 [Rx Last Taken 05/17/22] amlodipine 5 mg tablet 5 mg PO DAILY #90 tabs 03/09/22 [Rx Last Taken 05/17/22] cephalexin 500 mg capsule 500 mg PO Q8H 03/09/22 [History Last Taken Unknown] fluoxetine 20 mg capsule (Prozac) 20 mg PO DAILY 03/09/22 [History Last Taken Unknown] pantoprazole 40 mg tablet,delayed release 40 mg PO DAILY #30 tabs 06/02/22 [Rx Last Taken Unknown] Allergy/AdvReac Type Severity Reaction Status Date / Time No Known Allergies Allergy Verified 09/02/22 11:11 Family History Father CAD (coronary artery disease) Mother Breast cancer Brother CAD (coronary artery disease) Hx CABG Brother Cancer Leukemia Surgical History Cardiac pacemaker in situ H/O mitral valve replacement Social History household members: spouse Smoking Status: Never smoker alcohol intake: never substance use type: does not use caffeine: No what type of physical activity do you participate in: other details: tredmill frequency: 1-2 times per week duration: 15-30 minutes/day seatbelt use: always do you feel safe at home: Yes ROS ROS Narrative 14 system ROS incomplete as patient has gradual onset of dementia, garbled speech. It was mostly obtained from patient's son and daughter near the bedside. No chest pain pressure or tightness. No nausea vomiting, hematemesis or melena. Patient had bowel movement today in the morning. Feels sensation of defecation and bladder fullness/urination. No acute urinary symptoms. No dysuria. Rest 14 ROS are negative except mentioned in HPI Review of Systems ROS Unobtainable: due to mental status Vital Signs Vital Signs Vital Signs: 09/02/22 11:12 09/02/22 13:10 09/02/22 13:16 Temperature 97.2 F L Temperature Source Temporal Pulse Rate 99 103 H Respiratory Rate 18 17 Respiratory Pattern Normal Blood Pressure 128/71 H 126/88 H Blood Pressure Mean 90 100 Pulse Ox 97 98 Oxygen Delivery Method Room Air Room Air Weight Weight: 191 lb 12.835 oz Body Mass Index (BMI) 26.8 Physical Exam Narrative General: Alert, Oriented x1, unclear of the place and time. Normal baseline. Cooperative HEENT: Atraumatic, PERRLA, EOMI, Normocephalic Oral: No Gingival or Mucosal Lesions/ Ulcerations Neck: Supple, No JVD, Negative Carotid Bruits Lungs: Air entry diminished in bilateral lung bases. No crepitation/rhonchi Cardiovascular: Regular rate, Regular Rhythm, Normal S1, Normal S2, No murmurs Abdomen: Bowel Sounds Present, Soft, Non Tender, Non-Distended : No renal angle tenderness. No suprapubic tenderness. Extremities: No edema, Capillary Refill Less than 3 Seconds Skin: No rashes, No breakdown Spine: Tenderness present over lumbar spine mainly on right side. SLR positive on RLE 45 to 60 degree. ROM restricted over lumbar spine. Degenerative arthritis. Musculoskeletal: No Tenderness to Palpation of Joints or Extremities. 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 ROM restricted Neurological: Cranial nerves II-XII grossly intact, DTR 2+/4. Mild to moderate language deficit. Mild dysarthria. Psych/Mental Status: Flat affect. Gradual onset dementia. Results Lab / Micro Data Result Diagrams: 09/02/22 11:00 09/02/22 11:00 Labs: Laboratory Results - last 24 hr 09/02/22 11:00: WBC 6.2, RBC 2.82 L, Hgb 9.4 L, Hct 29.2 L, MCV 103.5 H, MCH 33.3 H, MCHC 32.2, RDW Std Deviation 57.6 H, RDW Coeff of Al 15.1 H, Plt Count 203, MPV 10.4 09/02/22 11:00: Sodium 144, Potassium 4.0, Chloride 113 H, Carbon Dioxide 25.0, Anion Gap 6, BUN 38 H, Creatinine 1.30, Estim Creat Clear Calc 40.56, Est GFR (MDRD) Af Amer 67, Est GFR (MDRD) Non-Af 55 L, BUN/Creatinine Ratio 29.2 H, Glucose 112 H, Calcium 8.2 L, Total Bilirubin 1.20 H, AST 44 H, ALT 31, Alkaline Phosphatase 102, Troponin I High Sens 40, Total Protein 6.4, Albumin 2.7 L, Globulin 3.7, Albumin/Globulin Ratio 0.7 L, Lipase 21 09/02/22 11:00: B-Natriuretic Peptide 773.1 H 09/02/22 11:00: PT 41.0 H, INR 4.2 H* 09/02/22 11:37: POC Glucose 114 H 09/02/22 11:56: Urine Color Yellow, Urine Clarity Clear, Urine pH 5.0, Ur Specific [place] 1.025, Urine Protein 30 H, Urine Glucose (UA) Normal, Urine Ketones 15 H, Urine Occult Blood 10 H, Urine Nitrite Negative, Urine Bilirubin 1 H, Urine Urobilinogen 1 H, Ur Leukocyte Esterase 25 H, Urine RBC 0-5 SEEN, Urine WBC 0 SEEN, Ur Squamous Epith Cells 0 SEEN, Urine Bacteria 0 SEEN, Urine Mucus 0 SEEN 09/02/22 13:30: Ammonia 42.0 H Micro: Microbiology 09/02/22 11:45 Nasal Secretion SARS-CoV-2 & FLU Antigen (Rapid) - Final ABG Data ABG results: ABG 09/02/22 14:06 Specimen Type JANICE VBG pH 7.44 H VBG pO2 143 H VBG HCO3 24 VBG Total CO2 25 VBG O2 Sat (Calc) 99 H VBG Base Excess 0 POC Mix VBG pCO2 Pt Tmp 35.1 L O2 Delivery Device Room Air Radiology Impression Brain CT 09/02/22 11:40 IMPRESSION: 1. No acute intracranial abnormality. 2. Stable senescent changes. Electronically Signed: Eb Frey MD at 12:43 EDT , Chest X-Ray 09/02/22 11:46 IMPRESSION: No acute pulmonary abnormality. Mild cardiomegaly. Electronically Signed: Eb Frey MD at 12:44 EDT , Assessment & Plan Assessment/Plan (1) Fall: (2) Suspected cerebrovascular accident: PLAN: Plan This is a 87-year-old gentleman was brought to ED by EMS for generalized weakness, lumbar back pain, garbled speech 1. Change in his speech, mild to moderate language deficit concern of stroke subacute: Patient is being admitted in PCU. PT, OT, speech therapy/swallow evaluation and management, nursing NIH stroke scale, BP and glucose monitoring and control as per stroke protocol. TSH, A1c fasting lipid profile tomorrow AM. MRI brain ordered. Patient has AICD therefore will need a screening before the MRI. Carotid Doppler is ordered. Patient recently had echo in September 2021 reported EF 55% with ICD. No Doppler evidence for ASD. LA moderately enlarged, RA severely enlarged. RVSP 43 mmHg suggestive of mild to moderate pulmonary hypertension. Stable mechanical mitral valve apparatus with mild MR. Mild TR. Patient already on baby aspirin and pravastatin. Medium intensity statin as patient is elderly with back pain. 2. Recurrent fall in the last week with lumbar back pain and spasm: CT thoracic and lumbar spine ordered. SLR positive of RLE. PT and OT, low-dose opioid for pain control and muscle relaxant. Patient might need from assisted living to subacute rehab. programming manager consult. 3. 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 I think it is gradually progressing dementia but unclear to rule out acute encephalopathy at this time. Patient denies dysuria or recent change in urine characteristic therefore I do not suspect UTI. UA shows LE 25, WBC 0, RBC 0, benign. Serum ammonia 42 elevated, etiology unclear. Patient does not have history of cirrhosis. Lactulose empirically ordered. Chest x-ray does not show acute abnormality. 4. 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 Patient is doing well with no recent chest pressure tightness or pressure or acute shortness of breath the last 2 to 3 weeks. Last cardiology visit in April 2022. 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 Patient on carvedilol 25 mg twice daily with holding parameters, warfarin. INR supratherapeutic, 4.2. Hold warfarin. 5. Hypertension and dyslipidemia: Lipid profile tomorrow AM.Last lipid profile in September 2021 reported LDL 54, HDL 49 and triglyceride 46 in normal limit. Blood pressure is in normal range. Living will/advanced directive/end of life care: Patient does not have living will or advanced directive. After discussion of benefits/risks procedures involved with full code, DNR CC arrest and DNR CC, the patient opted for full code. Patient does want artificial life support including intubation, tube feed, ventilator and/chest compression, central venous catheter, vasopressor and DC shock if needed Total time spent in [id number] encounter in discussion of advanced directive 17 minutes. Clinical Impression(s) from Imaging Studies Brain CT 09/02/22 11:40 IMPRESSION: 1. No acute intracranial abnormality. 2. Stable senescent changes. Chest X-Ray 09/02/22 11:46 IMPRESSION: No acute pulmonary abnormality. Mild cardiomegaly. Microbiology Past 72 Hours 09/02/22 11:45 Nasal Secretion SARS-CoV-2 & FLU Antigen (Rapid) - Final Laboratory Results 09/02/22 11:00: WBC 6.2, RBC 2.82 L, Hgb 9.4 L, Hct 29.2 L, MCV 103.5 H, MCH 33.3 H, MCHC 32.2, RDW Std Deviation 57.6 H, RDW Coeff of Al 15.1 H, Plt Count 203, MPV 10.4 09/02/22 11:00: Sodium 144, Potassium 4.0, Chloride 113 H, Carbon Dioxide 25.0, Anion Gap 6, BUN 38 H, Creatinine 1.30, Estim Creat Clear Calc 40.56, Est GFR (MDRD) Af Amer 67, Est GFR (MDRD) Non-Af 55 L, BUN/Creatinine Ratio 29.2 H, Glucose 112 H, Calcium 8.2 L, Total Bilirubin 1.20 H, AST 44 H, ALT 31, Alkaline Phosphatase 102, Troponin I High Sens 40, Total Protein 6.4, Albumin 2.7 L, Globulin 3.7, Albumin/Globulin Ratio 0.7 L, Lipase 21 09/02/22 11:00: B-Natriuretic Peptide 773.1 H 09/02/22 11:00: PT 41.0 H, INR 4.2 H* 09/02/22 11:37: POC Glucose 114 H 09/02/22 11:56: Urine Color Yellow, Urine Clarity Clear, Urine pH 5.0, Ur Specific [place] 1.025, Urine Protein 30 H, Urine Glucose (UA) Normal, Urine Ketones 15 H, Urine Occult Blood 10 H, Urine Nitrite Negative, Urine Bilirubin 1 H, Urine Urobilinogen 1 H, Ur Leukocyte Esterase 25 H, Urine RBC 0-5 SEEN, Urine WBC 0 SEEN, Ur Squamous Epith Cells 0 SEEN, Urine Bacteria 0 SEEN, Urine Mucus 0 SEEN 09/02/22 13:30: Ammonia 42.0 H 09/02/22 14:06: Specimen Type JANICE, VBG pH 7.44 H, VBG pO2 143 H, VBG HCO3 24, VBG Total CO2 25, VBG O2 Sat (Calc) 99 H, VBG Base Excess 0, POC Mix VBG pCO2 Pt Tmp 35.1 L, O2 Delivery Device Room Air Charges/Coding Visit Charges Inpatient E&M: 00065 Init Hosp L3 Procedures Hospitalists Procedures: 97548 Advncd Care Plan 30 Min
--- NOTE | 2022-09-02 15:41 | CT_ITS ---
EXAM: CT THORACIC SPINE WITHOUT INTRAVENOUS CONTRAST CLINICAL INDICATION: back pain TECHNIQUE: Helically acquired images were obtained of the thoracic spine without intravenous contrast. 2D reformats were reviewed. This CT exam was performed using one or more of the following dose reduction techniques: automated exposure control, adjustment of the mA and/or kV according to patient size, and/or use of iterative reconstruction technique. RADIATION DOSE: CTDIvol = 23.98 mGy, DLP = 2079.07 mGy-cm COMPARISON: No relevant prior studies available. FINDINGS: VERTEBRAE: Diffusely osteopenic. Moderate thoracic kyphosis. No spinal stenosis. No fracture. No traumatic subluxation. No discrete lytic or blastic abnormality. DISCS/SPINAL CANAL/NEURAL FORAMINA: Unremarkable. Diffuse spondylosis. VASCULATURE: Visualized thoracic aorta is not dilated. LYMPH NODES: Unremarkable. No retroperitoneal adenopathy. LUNGS AND PLEURAL SPACES: Slight bilateral pleural effusions. No mass. No pneumothorax. HEART: Prosthetic mitral valve. CT/Spine Thoracic without Contras IMPRESSION: 1. Moderate thoracic kyphosis. 2. Diffuse spondylosis. No spinal stenosis. 3. Bones are diffusely osteopenic. 4. Slight bilateral pleural effusions. 5. No acute abnormality. Electronically Signed: Terrance Jimenez MD at 1:38 EDT ,
--- NOTE | 2022-09-02 15:41 | CT_ITS ---
We are attempting to reach an attending provider to discuss findings. An addendum with communication details will be sent when the communication is complete. EXAM: CT LUMBAR SPINE WITHOUT INTRAVENOUS CONTRAST CLINICAL INDICATION: back pain TECHNIQUE: Helically acquired images were obtained of the lumbar spine without intravenous contrast. 2D reformats were reviewed. This CT exam was performed using one or more of the following dose reduction techniques: automated exposure control, adjustment of the mA and/or kV according to patient size, and/or use of iterative reconstruction technique. RADIATION DOSE: CTDIvol = 23.98 mGy, DLP = 2079.07 mGy-cm COMPARISON: No relevant prior studies available. FINDINGS: VERTEBRAE: Transverse fracture of the anterior sacrum at S1-S2 with approximately 30 degrees of kyphotic angulation. Acute anterior compression fracture L1 with approximately 20% loss of height. Diffuse bilateral multilevel vertebral facet arthropathy. Diffusely osteopenic vertebra. No traumatic subluxation. No discrete lytic or blastic abnormality. SACRUM/COCCYX: Bilateral nondisplaced sacral wing fractures. DISCS/SPINAL CANAL/NEURAL FORAMINA: Vacuum phenomenon L4-L5. Mild diffuse spondylosis. VASCULATURE: Visualized abdominal aorta is not dilated. LYMPH NODES: Unremarkable. No retroperitoneal adenopathy. CT/Spine Lumbar without Contrast IMPRESSION: 1. Transverse fracture of the anterior sacrum at S1-S2 with approximately 30 degrees of kyphotic angulation. 2. Bilateral nondisplaced sacral wing fractures. 3. Acute anterior compression fracture L1 with approximately 20% loss of height. No retropulsion. 4. Diffuse bilateral multilevel vertebral facet arthropathy. 5. No spinal stenosis. Electronically Signed: Terrance Jimenez MD at 1:43 EDT ,
--- NOTE | 2022-09-02 16:46 | CDU_ITS ---
Reason For Study: Suspected stroke Rt. Velocities/BP Lt. Velocities/BP Prox CCA 78.7/12.6 cm/sec. Prox CCA 81.1/8.9 cm/sec. Mid CCA 64.5/10.7 cm/sec. Mid CCA 68.3/10.7 cm/sec. Dist CCA 53.2/6.9 cm/sec. Dist CCA 37.7/6 cm/sec. Prox ICA 28.6/6.9 cm/sec. Prox ICA 46.6/16.3 cm/sec. Mid ICA 30.5/8.8 cm/sec. Mid ICA 48.5/14.5 cm/sec. Dist ICA 51.3/11.6 cm/sec. Dist ICA 43.7/13.5 cm/sec. Rt. ICA/CCA = 0.80. Lt. ICA/CCA = 0.71. Prox ECA 48.5 cm/sec. Prox ECA 74.9/6 cm/sec. Rt. Vert. 55.1/12.6 cm/sec. Lt. Vert. 61.7/20.1 cm/sec. Right Extracranial There is intimal thickening but no significant atherosclerotic plaque noted in the right common carotid artery. There is homogeneous, smooth atherosclerotic plaque noted in the right internal carotid artery. There is intimal thickening but no significant atherosclerotic plaque noted in the right external carotid artery. Antegrade flow is noted in the right vertebral artery. Left Extracranial There is intimal thickening but no significant atherosclerotic plaque noted in the left common carotid artery. There is intimal thickening but no significant atherosclerotic plaque noted in the left internal carotid artery. There is intimal thickening but no significant atherosclerotic plaque noted in the left external carotid artery. Antegrade flow is noted in the left vertebral artery. Procedure Carotid Duplex 19139. This is a Carotid Duplex examination using B-mode, color flow and specral Doppler. The study was technically difficult. Exam performed portable in patient room. VL/Carotid Duplex Ultrasound Interpretation Summary Smooth plaque at the proximal right internal carotid artery with less than 50% stenosis Less than 50% stenosis right external carotid artery Intimal thickening at the proximal left internal carotid artery with less than 50% stenosis Less than 50% stenosis left external carotid artery Patent and antegrade vertebral arteries bilaterally Ordering Physician: Ronnie Mejía Referring Physician: Lon Gonzalez Performed By: Adriana Santos RVT
[2022-09-02] MEDS: Lactated Ringers 1,000 ML 75 ML IV (17:52)
[2022-09-02] MEDS: Aspirin 81 MG TAB.CHEW PO (18:02)
[2022-09-02] MEDS: oxyCODONE 5 MG Tablet 2.5 MG PO (18:02)
[2022-09-02] MEDS: Carvedilol 25 MG Tablet PO (20:54)
[2022-09-02] MEDS: 0.9% Saline Lock 10 ML Syringe IV (20:54)
[2022-09-02] MEDS: tiZANidine HCl 2 MG Tablet PO (20:54)
[2022-09-02] MEDS: Senna/Docusate Sodium 1 Tablet 2 TABLET PO (20:54)
[2022-09-02] MEDS: Lactulose 20 GM/30 ML UDC PO (20:54)
[2022-09-02] MEDS: Tamsulosin HCl 0.4 MG Capsule PO (20:54)
[2022-09-02] MEDS: Atorvastatin Calcium 20 MG Tablet PO (20:56)
[2022-09-03] VITALS (7 sets, daily range): BP systolic 109–141; BP diastolic 70–114; PULSE 90–104; RESP 18; TEMP 36.3–36.8; O2SAT 93–96; BMI 25.5
[2022-09-03] MEDS: oxyCODONE 5 MG Tablet 2.5 MG PO ×2 (00:52→20:52)
--- NOTE | 2022-09-03 04:31 | NURSING ---
Pt very AKHIOK and has c/o back and leg pain d/t his sacrum and L1 fracture. Pt very weak has some difficulties moving lower extremities, and w/ not being able to hear well has some difficulties ff directions. Overall conditions complicate performing NIHss assessment.
--- NOTE | 2022-09-03 05:14 | NURSING ---
pt hasnt urinated all night, bladder scanned for 392cc urine in bladder. okay to straight cath pt, Pt had 400cc clear, romeo urine output. Pt states to feeling so much better after.
[2022-09-03] MEDS: tiZANidine HCl 2 MG Tablet PO ×3 (05:23→20:58)
[2022-09-03] MEDS: Lactulose 20 GM/30 ML UDC PO ×3 (05:23→20:54)
[2022-09-03 07:56] LABS: Prothrombin Time (Protime)PT. 41.1 SECONDS (11.7-14.9)
[2022-09-03 07:58] LABS: International Normalized Ratio 4.2
[2022-09-03 09:20] LABS: Hemoglobin A1c 5.2 % (3.8-5.6)
[2022-09-03] MEDS: Pantoprazole Sodium 40 MG Tablet PO (10:59)
[2022-09-03] MEDS: Senna/Docusate Sodium 1 Tablet 2 TABLET PO ×2 (10:59→20:57)
[2022-09-03] MEDS: FLUoxetine 20 MG Capsule PO (10:59)
[2022-09-03] MEDS: Aspirin 81 MG TAB.CHEW PO (11:00)
[2022-09-03] MEDS: Ensure Plus High Protein 120 ML LIQUID PO (13:49)
--- NOTE | 2022-09-03 15:16 | CASEMGMT ---
Sw informed by bedside RN that patient and family had questions specifically for social work. Sw presented to bedside and introduced self to patient and his daughter and son. Patient's son states that they recently moved patient and his into Independent Living at [facility] and patient has continued to decline. Pt son asked what their options are at this time. Sw explained that options will be dependent upon what the doctor and therapy recommend for patient once he is medically ready for dishcarge. Sw stated that once a recommendation has been made on what discharge plan should be, sw can provide a list of agencies that work with patient's insurance. Patient states that he does have a POA/ Living will. Sw encouraged pt daughter to bring in copy of documents so they can be scanned into patient's chart. Lexie Farooq, VEHICLE DELIVERY WORKER, REGULATOR OPERATOR
--- NOTE | 2022-09-03 17:45 | PN.HOSP_ITS ---
Subjective Subjective Right seen comfortably, no issues overnight. Unfortunately he has had multiple devices that preclude him from getting an MRI Objective Data Objective Data Vital Signs: Vital Signs Temp Pulse Resp BP Pulse Ox O2 Del Method 97.7 F L 102 H 18 128/114 H 95 Room Air 09/03/22 16:25 09/03/22 16:25 09/03/22 16:25 09/03/22 16:25 09/03/22 16:25 09/03/22 16:25 Oxygen Delivery Method Room Air Weight: 183 lb 3.266 oz Body Mass Index (BMI) 25.5 Intake & Output: Intake and Output for Last 24 Hours 09/02/22 09/03/22 09/04/22 03:59 03:59 03:59 Intake Total 1030 / 1030 120 / 120 Output Total 0 / 0 400 / 400 Balance 1030 / 1030 -280 / -280 Lab / Micro Data Result Diagrams: 09/02/22 11:00 09/02/22 11:00 Labs: Laboratory Results - last 24 hr 09/03/22 07:25: Hemoglobin A1c 5.2 09/03/22 07:25: PT 41.1 H, INR 4.2 H* Micro: Microbiology 09/02/22 11:56 Urine, Catheterized Urine Culture - Preliminary GPC Poss Enterococcus sp 09/02/22 11:45 Nasal Secretion SARS-CoV-2 & FLU Antigen (Rapid) - Final Radiography Diagnostic Testing: Radiology Impression Lumbar Spine CT 09/02/22 15:41 IMPRESSION: 1. Transverse fracture of the anterior sacrum at S1-S2 with approximately 30 degrees of kyphotic angulation. 2. Bilateral nondisplaced sacral wing fractures. 3. Acute anterior compression fracture L1 with approximately 20% loss of height. No retropulsion. 4. Diffuse bilateral multilevel vertebral facet arthropathy. 5. No spinal stenosis. Electronically Signed: Terrance Jimenez MD at 1:43 EDT , ADDENDUM: 09/03/22 0157 IMPRESSION: 1. Transverse fracture of the anterior sacrum at S1-S2 with approximately 30 degrees of kyphotic angulation. 2. Bilateral nondisplaced sacral wing fractures. 3. Acute anterior compression fracture L1 with approximately 20% loss of height. No retropulsion. 4. Diffuse bilateral multilevel vertebral facet arthropathy. 5. No spinal stenosis. N.B. : The above Results were Read Back by Terrance Jimenez MD to Leslie Doyle RN, and understanding confirmed on 09/03/2022 01:50:59 (ET). Electronically Signed: Terrance Jimenez MD at 1:43 EDT , Thoracic Spine CT 09/02/22 15:41 IMPRESSION: 1. Moderate thoracic kyphosis. 2. Diffuse spondylosis. No spinal stenosis. 3. Bones are diffusely osteopenic. 4. Slight bilateral pleural effusions. 5. No acute abnormality. Electronically Signed: Terrance Jimenez MD at 1:38 EDT , Carotid Duplex 09/02/22 16:46 Interpretation Summary Smooth plaque at the proximal right internal carotid artery with less than 50% stenosis Less than 50% stenosis right external carotid artery Intimal thickening at the proximal left internal carotid artery with less than 50% stenosis Less than 50% stenosis left external carotid artery Patent and antegrade vertebral arteries bilaterally Ordering Physician: Ronnie Mejía Referring Physician: Lon Gonzalez Performed By: Adriana Santos RVT Physical Exam Narrative General: Alert, Oriented x1-2, Cooperative, No apparent distress HEENT: Atraumatic, PERRLA, EOMI, Normocephalic Oral: Moist Mucosa Neck: Supple, No JVD Lungs: Diminished, Normal air movement, No rhonchi, No wheeze, No rales Cardiovascular: Regular rate, Regular Rhythm, Normal S1, Normal S2, No murmurs Abdomen: Soft, Non Tender, Non-Distended, No Hepato-splenomegaly Extremities: No edema, Capillary Refill Less than 3 Seconds Skin: No rashes, No breakdown Musculoskeletal: Low back pain which limits lower extremity movement Neurological: Motor Exam 5/5 strength throughout, Sensory exam intact to light touch and pain, NIH of 4 because of his decreased mobility of his lower extremities bilaterally Psych/Mental Status: Normal Affect, Appropriate Assessment & Plan Assessment/Plan (1) Fall: (2) Suspected cerebrovascular accident: PLAN: Plan 1. Change in his speech, mild to moderate language deficit concern of stroke subacute: Patient is being admitted in PCU. PT, OT, speech therapy/swallow evaluation and management, nursing NIH stroke scale, BP and glucose monitoring and control as per stroke protocol. TSH, A1c fasting lipid profile tomorrow AM. MRI brain ordered. Patient has AICD therefore will need a screening before the MRI. Carotid Doppler is ordered. Patient recently had echo in September 2021 reported EF 55% with ICD. No Doppler evidence for ASD. LA moderately enlarged, RA severely enlarged. RVSP 43 mmHg suggestive of mild to moderate pulmonary hypertension. Stable mechanical mitral valve apparatus with mild MR. Mild TR. Patient already on baby aspirin and pravastatin. Medium intensity statin as patient is elderly with back pain. 09/03: We will repeat CT brain in the morning as he cannot have an MRI, will follow-up with PT and OT and if necessary will discuss with family the possibility of SNF placement 2. Recurrent fall in the last week with lumbar back pain and spasm: CT thoracic and lumbar spine ordered. SLR positive of RLE. PT and OT, low-dose opioid for pain control and muscle relaxant. Patient might need from assisted living to subacute rehab. produce manager consult. 3. 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 I think it is gradually progressing dementia but unclear to rule out acute encephalopathy at this time. Patient denies dysuria or recent change in urine characteristic therefore I do not suspect UTI. UA shows LE 25, WBC 0, RBC 0, benign. Serum ammonia 42 elevated, etiology unclear. Patient does not have history of cirrhosis. Lactulose empirically ordered. Chest x-ray does not show acute abnormality. 09/03: Continue with fluoxetine for anxiety and depression continue with Seroquel at night at to help with any agitation 4. 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 Patient is doing well with no recent chest pressure tightness or pressure or acute shortness of breath the last 2 to 3 weeks. Last cardiology visit in April 2022. 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 Patient on carvedilol 25 mg twice daily with holding parameters, warfarin. INR supratherapeutic, 4.2. Hold warfarin. 09/03: INR still elevated will continue to hold Coumadin 5. Hypertension and dyslipidemia: Lipid profile tomorrow AM.Last lipid profile in September 2021 reported LDL 54, HDL 49 and triglyceride 46 in normal limit. Blood pressure is in normal range. DVT: Supratherapeutic INR Charges/Coding Visit Charges Inpatient E&M: 16583 Subs Hosp L2
[2022-09-03] MEDS: Carvedilol 25 MG Tablet PO (20:56)
[2022-09-03] MEDS: Atorvastatin Calcium 20 MG Tablet PO (20:57)
[2022-09-03] MEDS: Tamsulosin HCl 0.4 MG Capsule PO (20:57)
[2022-09-04 00:25] VITALS: BP 139/97; PULSE 101; RESP 18; TEMP 36.4; O2SAT 96
[2022-09-04 02:56] VITALS: BMI 25.5
[2022-09-04] MEDS: Sodium Chloride 0.65% 1 SPRAY SPRAY.BTL NASAL ×3 (03:25→21:42)
[2022-09-04 04:30] VITALS: BP 133/75; PULSE 103; RESP 18; TEMP 36.8; O2SAT 95
[2022-09-04] MEDS: tiZANidine HCl 2 MG Tablet PO ×3 (05:49→21:46)
[2022-09-04] MEDS: Lactulose 20 GM/30 ML UDC PO ×3 (05:49→21:43)
--- NOTE | 2022-09-04 05:55 | CT_ITS ---
STUDY: CT BRAIN WITHOUT CONTRAST REASON FOR EXAM: Male, 87 years old. Stroke, cant have MRI RADIATION DOSAGE (If Supplied By Facility): CTDIvol = ( 44.99 ) mGy, DLP = ( 863.60 ) mGycm TECHNIQUE: Transaxial CT imaging of the brain was performed without administration of intravenous contrast material. Individualized dose optimization techniques were used for this CT. COMPARISON: Comparison is made with prior study dated September 02, 2022. FINDINGS: Normal soft tissue structures. Was again, the patient is status post craniotomy in the right occipital lobe. There is mild cerebral atrophy with widening of the extra-axial spaces and ventricular dilatation. There are areas of decreased attenuation within the white matter tracts of the supratentorial brain, consistent with microvascular disease changes. Normal basal ganglia and thalami. Normal brainstem. There is mild cerebellar atrophy. Stable focal assimilation lateral aspect of the right cerebellar hemisphere. There is no intracranial hemorrhage. There are no findings of an acute ischemic infarction. Atherosclerotic calcification of the vertebral arteries and cavernous portions of the internal carotid arteries bilaterally. Stable opacification of the right maxillary sinus. CT/Brain/Head without Contrast IMPRESSION: Chronic involutional changes of the brain. Stable examination. Electronically Signed: Valente Floyd MD at 14:11 EDT ,
[2022-09-04 06:49] LABS: Absolute Lymphocyte Count 0.48 X10^3/uL (0.83-4.51); Absolute Neutrophil Count 3.5 X10^3/uL (2.0-7.7); Basophil# 0.03 X10^3/uL; Basophil% 0.6 % (0-1); Eosinophil# 0.17 X10^3/uL; Eosinophils% 3.5 % (0-5); Hematocrit 28.3 % (40-54); Hemoglobin 9.1 g/dL (13.0-16.5); Lymphocyte # 0.48 X10^3/ul (0.83-4.51); Mean Corp Hgb Conc 32.2 g/dL (32-36); Mean Corpuscular Volume 102.5 fL (80-94); Mean Platelet Vol. 9.7 fl (6.2-12.0); Monocyte# 0.62 X10^3/uL; Monocyte% 12.9 % (0-10); NRBC Flagged by Analyzer 0 % (0-5); Neutrophil % 72.6 % (47-70); POSITIVE DIFFERENTIAL YES; Platelet Count 208 K/mm3 (150-450); RBC Distribution Width CV 14.9 % (11.6-14.6); RBC Distribution Width SD 55.2 fl (35.1-43.9); Red Blood Count 2.76 M/mm3 (4.6-6.2); White Blood Count 4.8 K/mm3 (4.4-11.0)
[2022-09-04 07:02] LABS: International Normalized Ratio 3.1; Prothrombin Time (Protime)PT. 32.5 SECONDS (11.7-14.9)
[2022-09-04 07:06] LABS: Differential Indicated SCAN CRITERIA MET
[2022-09-04 07:30] VITALS: O2SAT 94
[2022-09-04 07:32] LABS: Anion Gap 4 (5-15); BUN 28 mg/dL (7-18); BUN/Creat Ratio 25.5 RATIO (10-20); Calcium,Total 8.1 mg/dL (8.5-10.1); Chloride 113 mmol/L (98-107); Cholesterol 91 mg/dL (200); EST Glomerular Filtration Rate 67 mL/min (>60); Est Glom Filt Rate - Afr Amer 81 mL/min (>60); Estimated Creatinine Clearance 49.44 ml/min; Glucose 104 mg/dL (74-106); High Density Lipoprotein 35 mg/dL; Potassium 3.4 mmol/L (3.5-5.1); Sodium Level 143 mmol/L (136-145); Triglycerides 67 mg/dL; Very Low Density Lipoprotein 13 mg/dL (5-40)
[2022-09-04 09:02] VITALS: BMI 25.5
[2022-09-04] MEDS: FLUoxetine 20 MG Capsule PO (09:19)
[2022-09-04] MEDS: Ramipril 10 MG Capsule PO (09:19)
[2022-09-04] MEDS: Pantoprazole Sodium 40 MG Tablet PO (09:20)
[2022-09-04] MEDS: Carvedilol 25 MG Tablet PO ×2 (09:20→21:43)
[2022-09-04] MEDS: Senna/Docusate Sodium 1 Tablet 2 TABLET PO ×2 (09:20→21:46)
[2022-09-04] MEDS: Aspirin 81 MG TAB.CHEW PO (09:21)
--- NOTE | 2022-09-04 09:32 | CASEMGMT ---
Discharge Planning SNF list created and given to SW. Ailyn Serrano
[2022-09-04 10:00] VITALS: BP 122/74; PULSE 100; RESP 16; TEMP 36.6; O2SAT 97
--- NOTE | 2022-09-04 12:23 | PCM.PN.HOSP ---
Subjective Subjective Doing well, no issues overnight Objective Data Objective Data Vital Signs: Vital Signs Temp Pulse Resp BP Pulse Ox O2 Del Method 97.9 F 100 16 122/74 H 97 Room Air 09/04/22 10:00 09/04/22 10:00 09/04/22 10:00 09/04/22 10:00 09/04/22 10:00 09/04/22 10:00 Oxygen Delivery Method Room Air Weight: 183 lb 3.266 oz Body Mass Index (BMI) 25.5 Intake & Output: Intake and Output for Last 24 Hours 09/03/22 09/04/22 09/05/22 03:59 03:59 03:59 Intake Total 1030 / 1030 577.5 / 577.5 Output Total 0 / 0 400 / 400 Balance 1030 / 1030 177.5 / 177.5 Lab / Micro Data Result Diagrams: 09/04/22 06:31 09/04/22 06:31 Labs: Laboratory Results - last 24 hr 09/04/22 06:31: PT 32.5 H, INR 3.1 09/04/22 06:31: WBC 4.8, RBC 2.76 L, Hgb 9.1 L, Hct 28.3 L, MCV 102.5 H, MCH 33.0 H, MCHC 32.2, RDW Std Deviation 55.2 H, RDW Coeff of Al 14.9 H, Plt Count 208, MPV 9.7, Immature Gran % (Auto) 0.400, Neut % (Auto) 72.6 H, Lymph % (Auto) 10.0 L, [place] % (Auto) 12.9 H, Eos % (Auto) 3.5, Baso % (Auto) 0.6, Absolute Neuts (auto) 3.5, Absolute Lymphs (auto) 0.48 L, Nucleated RBC % 0, Differential Comment COMMENT 09/04/22 06:31: Sodium 143, Potassium 3.4 L, Chloride 113 H, Carbon Dioxide 26.0, Anion Gap 4 L, BUN 28 H, Creatinine 1.10, Estim Creat Clear Calc 49.44, Est GFR (MDRD) Af Amer 81, Est GFR (MDRD) Non-Af 67, BUN/Creatinine Ratio 25.5 H, Glucose 104, Calcium 8.1 L, Triglycerides 67, Cholesterol 91, LDL Cholesterol 43, VLDL Cholesterol 13, HDL Cholesterol 35 L Micro: Microbiology 09/02/22 11:56 Urine, Catheterized Urine Culture - Preliminary GPC Poss Enterococcus sp Staphylococcus species 09/02/22 11:45 Nasal Secretion SARS-CoV-2 & FLU Antigen (Rapid) - Final Physical Exam Narrative General: Alert, Oriented x2, Cooperative, No apparent distress HEENT: Atraumatic, PERRLA, EOMI, Normocephalic Oral: Moist Mucosa Neck: Supple, No JVD Lungs: Diminished, Normal air movement, No rhonchi, No wheeze, No rales Cardiovascular: Regular rate, Regular Rhythm, Normal S1, Normal S2, No murmurs Abdomen: Soft, Non Tender, Non-Distended, No Hepato-splenomegaly Extremities: No edema, Capillary Refill Less than 3 Seconds Skin: No rashes, No breakdown Musculoskeletal: Low back pain which limits lower extremity movement Neurological: Motor Exam 5/5 strength throughout, Sensory exam intact to light touch and pain, NIH of 4 because of his decreased mobility of his lower extremities bilaterally Psych/Mental Status: Normal Affect, Appropriate Assessment & Plan Assessment/Plan (1) Fall: (2) Suspected cerebrovascular accident: PLAN: Plan 1. Change in his speech, mild to moderate language deficit concern of stroke subacute: Patient is being admitted in PCU. PT, OT, speech therapy/swallow evaluation and management, nursing NIH stroke scale, BP and glucose monitoring and control as per stroke protocol. TSH, A1c fasting lipid profile tomorrow AM. MRI brain ordered. Patient has AICD therefore will need a screening before the MRI. Carotid Doppler is ordered. Patient recently had echo in September 2021 reported EF 55% with ICD. No Doppler evidence for ASD. LA moderately enlarged, RA severely enlarged. RVSP 43 mmHg suggestive of mild to moderate pulmonary hypertension. Stable mechanical mitral valve apparatus with mild MR. Mild TR. Patient already on baby aspirin and pravastatin. Medium intensity statin as patient is elderly with back pain. 09/03: We will repeat CT brain in the morning as he cannot have an MRI, will follow-up with PT and OT and if necessary will discuss with family the possibility of SNF placement 09/04: Repeat CT scan is done and my read does not show a stroke however pending formal read. Plan for SNF placement secondary to PT and OT requirements 2. Recurrent fall in the last week with lumbar back pain and spasm: CT thoracic and lumbar spine ordered. SLR positive of RLE. PT and OT, low-dose opioid for pain control and muscle relaxant. Patient might need from assisted living to subacute rehab. manager competitive intelligence consult. 3. 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 I think it is gradually progressing dementia but unclear to rule out acute encephalopathy at this time. Patient denies dysuria or recent change in urine characteristic therefore I do not suspect UTI. UA shows LE 25, WBC 0, RBC 0, benign. Serum ammonia 42 elevated, etiology unclear. Patient does not have history of cirrhosis. Lactulose empirically ordered. Chest x-ray does not show acute abnormality. 09/03: Continue with fluoxetine for anxiety and depression continue with Seroquel at night at to help with any agitation 4. 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 Patient is doing well with no recent chest pressure tightness or pressure or acute shortness of breath the last 2 to 3 weeks. Last cardiology visit in April 2022. 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 Patient on carvedilol 25 mg twice daily with holding parameters, warfarin. INR supratherapeutic, 4.2. Hold warfarin. 09/03: INR still elevated will continue to hold Coumadin 5. Hypertension and dyslipidemia: Lipid profile tomorrow AM.Last lipid profile in September 2021 reported LDL 54, HDL 49 and triglyceride 46 in normal limit. Blood pressure is in normal range. DVT: Supratherapeutic INR Charges/Coding Visit Charges Inpatient E&M: 81222 Subs Hosp L2
[2022-09-04 14:00] VITALS: BP 115/77; PULSE 105; RESP 18; O2SAT 98
[2022-09-04] MEDS: Potassium Chloride Oral Tablet 20 MEQ 40 MEQ PO (14:01)
--- NOTE | 2022-09-04 15:02 | CASEMGMT ---
Sw A list of SNF providers, including quality and resources use data and consistent with the patient's preferred geographical region, medical needs and insurance network from the [facility] Guide were given to patient. Patient reviewed list with his daughter and informed sw of choices: 1.) [facility] 2.) [facility] and 3.) [facility]. Rand informed discharge assistance Ailyn. Referral sent to [facility]. Lexie Farooq, FLIGHT SIMULATOR TEACHER, STATISTICAL FINANCIAL ANALYST
--- NOTE | 2022-09-04 15:03 | CASEMGMT ---
Discharge Planning Referral sent via [facility] to [facility]. Ailyn Serrano
[2022-09-04] MEDS: Jantoven 2 MG Tablet PO (16:59)
[2022-09-04] MEDS: Ensure Plus High Protein 120 ML LIQUID PO ×2 (16:59→21:56)
[2022-09-04] MEDS: oxyCODONE 5 MG Tablet 2.5 MG PO (19:47)
[2022-09-04 21:36] VITALS: BP 144/85; PULSE 106; RESP 18; TEMP 36.9; O2SAT 96
[2022-09-04] MEDS: Atorvastatin Calcium 20 MG Tablet PO (21:42)
[2022-09-04] MEDS: Tamsulosin HCl 0.4 MG Capsule PO (21:44)
[2022-09-04] MEDS: QUEtiapine 25 MG Tablet PO (21:51)
--- NOTE | 2022-09-05 00:35 | NURSING ---
pt more confused overnight, frequently pulling tele leads and brief off. This RN notified MD, and MD ordered ok to be off tele.
[2022-09-05 01:44] VITALS: BMI 25.5
[2022-09-05 03:33] VITALS: BP 137/82; PULSE 104; RESP 18; TEMP 36.8; O2SAT 96
[2022-09-05 03:35] VITALS: O2SAT 96
[2022-09-05] MEDS: Lactulose 20 GM/30 ML UDC PO (06:23)
[2022-09-05] MEDS: tiZANidine HCl 2 MG Tablet PO (06:23)
[2022-09-05 06:43] LABS: International Normalized Ratio 2.1; Prothrombin Time (Protime)PT. 23.9 SECONDS (11.7-14.9)
--- NOTE | 2022-09-05 08:56 | CASEMGMT ---
Discharge Planning Patient is ready for discharge. Msg sent via [facility] to [facility] for update on status of referral. Ailyn Serrano
[2022-09-05] MEDS: oxyCODONE 5 MG Tablet 2.5 MG PO (09:29)
[2022-09-05] MEDS: Ramipril 10 MG Capsule PO (09:29)
[2022-09-05 09:30] VITALS: BP 130/76; PULSE 106; RESP 18; TEMP 36.4; O2SAT 98
[2022-09-05] MEDS: Carvedilol 25 MG Tablet PO (09:30)
[2022-09-05] MEDS: FLUoxetine 20 MG Capsule PO (09:30)
[2022-09-05] MEDS: Aspirin 81 MG TAB.CHEW PO (09:30)
[2022-09-05] MEDS: Pantoprazole Sodium 40 MG Tablet PO (09:30)
[2022-09-05] MEDS: Ensure Plus High Protein 120 ML LIQUID PO (09:31)
[2022-09-05 09:41] VITALS: PULSE 106
--- NOTE | 2022-09-05 09:58 | PN.HOSP_ITS ---
Subjective Subjective Doing well, no issues overnight Objective Data Objective Data Vital Signs: Vital Signs Temp Pulse Resp BP Pulse Ox O2 Del Method 97.5 F L 106 H 18 130/76 H 98 Room Air 09/05/22 09:30 09/05/22 09:41 09/05/22 09:30 09/05/22 09:30 09/05/22 09:30 09/05/22 09:41 Oxygen Delivery Method Room Air Weight: 183 lb 3.266 oz Body Mass Index (BMI) 25.5 Intake & Output: Intake and Output for Last 24 Hours 09/04/22 09/05/22 09/06/22 03:59 03:59 03:59 Intake Total 577.5 / 577.5 Output Total 400 / 400 Balance 177.5 / 177.5 Lab / Micro Data Result Diagrams: 09/04/22 06:31 09/04/22 06:31 Labs: Laboratory Results - last 24 hr 09/05/22 06:06: PT 23.9 H, INR 2.1 Micro: Microbiology 09/02/22 11:56 Urine, Catheterized Urine Culture - Final Enterococcus faecalis Staphylococcus epidermidis 09/02/22 11:45 Nasal Secretion SARS-CoV-2 & FLU Antigen (Rapid) - Final Radiography Diagnostic Testing: Radiology Impression Brain CT 09/04/22 05:55 IMPRESSION: Chronic involutional changes of the brain. Stable examination. Electronically Signed: Valente Floyd MD at 14:11 EDT Reading Location ID and State: [address] [place] [address] , Service support , Physical Exam Narrative General: Alert, Oriented x2, Cooperative, No apparent distress HEENT: Atraumatic, PERRLA, EOMI, Normocephalic Oral: Moist Mucosa Neck: Supple, No JVD Lungs: Diminished, Normal air movement, No rhonchi, No wheeze, No rales Cardiovascular: Regular rate, Regular Rhythm, Normal S1, Normal S2, No murmurs Abdomen: Soft, Non Tender, Non-Distended, No Hepato-splenomegaly Extremities: No edema, Capillary Refill Less than 3 Seconds Skin: No rashes, No breakdown Musculoskeletal: Low back pain which limits lower extremity movement Neurological: Motor Exam 5/5 strength throughout, Sensory exam intact to light touch and pain, NIH of 4 because of his decreased mobility of his lower extremities bilaterally Psych/Mental Status: Normal Affect, Appropriate Assessment & Plan Assessment/Plan (1) Fall: (2) Suspected cerebrovascular accident: PLAN: Plan 1. Change in his speech, mild to moderate language deficit concern of stroke subacute: Patient is being admitted in PCU. PT, OT, speech therapy/swallow evaluation and management, nursing NIH stroke scale, BP and glucose monitoring and control as per stroke protocol. TSH, A1c fasting lipid profile tomorrow AM. MRI brain ordered. Patient has AICD therefore will need a screening before t he MRI. Carotid Doppler is ordered. Patient recently had echo in September 2021 reported EF 55% with ICD. No Doppler evidence for ASD. LA moderately enlarged, RA severely enlarged. RVSP 43 mmHg suggestive of mild to moderate pulmonary hypertension. Stable mechanical mitral valve apparatus with mild MR. Mild TR. Patient already on baby aspirin and pravastatin. Medium intensity statin as patient is elderly with back pain. 09/03: We will repeat CT brain in the morning as he cannot have an MRI, will follow-up with PT and OT and if necessary will discuss with family the possibility of SNF placement 09/04: Repeat CT scan is done and my read does not show a stroke however pending formal read. Plan for SNF placement secondary to PT and OT requirements 09/05: CT scan was also read as normal by radiology 2. Recurrent fall in the last week with lumbar back pain and spasm: CT thoracic and lumbar spine ordered. SLR positive of RLE. PT and OT, low-dose opioid for pain control and muscle relaxant. Patient might need from assisted living to subacute rehab. schedule planning manager consult. 3. 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 I think it is gradually progressing dementia but unclear to rule out acute encephalopathy at this time. Patient denies dysuria or recent change in urine characteristic therefore I do not suspect UTI. UA shows LE 25, WBC 0, RBC 0, benign. Serum ammonia 42 elevated, etiology unclear. Patient does not have history of cirrhosis. Lactulose empirically ordered. Chest x-ray does not show acute abnormality. 09/03: Continue with fluoxetine for anxiety and depression continue with Seroquel at night at to help with any agitation 09/05: Urine cultures have grown Enterococcus and Staphylococcus however CFU's are between 1000 and 10,000 therefore will not treat 4. 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 Patient is doing well with no recent chest pressure tightness or pressure or acute shortness of breath the last 2 to 3 weeks. Last cardiology visit in April 2022. 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 Patient on carvedilol 25 mg twice daily with holding parameters, warfarin. INR supratherapeutic, 4.2. Hold warfarin. 09/03: INR still elevated will continue to hold Coumadin 67: Restart Coumadin and monitor 5. Hypertension and dyslipidemia: Lipid profile tomorrow AM.Last lipid profile in September 2021 reported LDL 54, HDL 49 and triglyceride 46 in normal limit. Blood pressure is in normal range. DVT: Coumadin Charges/Coding Visit Charges Inpatient E&M: 29591 Subs Hosp L2
--- NOTE | 2022-09-05 11:28 | CASEMGMT ---
Discharge Planning Patient has been accepted by [facility]. SW notified. Ailyn Serrano
--- NOTE | 2022-09-05 11:45 | PCM.TXEXTCAR ---
Diet Diet Order/Speech Therapy: 09/02/22 17:34 Diet: Cardiac - Heart Healthy Food consistency:: Soft & Bite Sized Liquid Consistency:: Regular/Thin Is pt able to select menu?: No Diet Comments: Supervision at meals, upright as much as tolerated Routine Orders/Code Status Routine Lab Work: CBC, BMP and INR Code Status: DNRCC-A Wound(s) Posterior L arm: Wound Type: Skin Tear Therapies Physical Therapy: Eval and Treat Occupational Therapy: Eval and Treat Problem/Diagnosis (1) Fall: Status: Acute Code(s): W19.XXXA - Unspecified fall, initial encounter (2) Suspected cerebrovascular accident: Status: Acute Code(s): R09.89 - Other specified symptoms and signs involving the circulatory and respiratory systems Plan 1. Change in his speech, mild to moderate language deficit concern of stroke subacute: Patient is being admitted in PCU. PT, OT, speech therapy/swallow evaluation and management, nursing NIH stroke scale, BP and glucose monitoring and control as per stroke protocol. TSH, A1c fasting lipid profile tomorrow AM. MRI brain ordered. Patient has AICD therefore will need a screening before the MRI. Carotid Doppler is ordered. Patient recently had echo in September 2021 reported EF 55% with ICD. No Doppler evidence for ASD. LA moderately enlarged, RA severely enlarged. RVSP 43 mmHg suggestive of mild to moderate pulmonary hypertension. Stable mechanical mitral valve apparatus with mild MR. Mild TR. Patient already on baby aspirin and pravastatin. Medium intensity statin as patient is elderly with back pain. 09/03: We will repeat CT brain in the morning as he cannot have an MRI, will follow-up with PT and OT and if necessary will discuss with family the possibility of SNF placement 09/04: Repeat CT scan is done and my read does not show a stroke however pending formal read. Plan for SNF placement secondary to PT and OT requirements 09/05: CT scan was also read as normal by radiology 2. Recurrent fall in the last week with lumbar back pain and spasm: CT thoracic and lumbar spine ordered. SLR positive of RLE. PT and OT, low-dose opioid for pain control and muscle relaxant. Patient might need from assisted living to subacute rehab. service station manager consult. 3. 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 I think it is gradually progressing dementia but unclear to rule out acute encephalopathy at this time. Patient denies dysuria or recent change in urine characteristic therefore I do not suspect UTI. UA shows LE 25, WBC 0, RBC 0, benign. Serum ammonia 42 elevated, etiology unclear. Patient does not have history of cirrhosis. Lactulose empirically ordered. Chest x-ray does not show acute abnormality. 09/03: Continue with fluoxetine for anxiety and depression continue with Seroquel at night at to help with any agitation 6/: Urine cultures have grown Enterococcus and Staphylococcus however CFU's are between 1000 and 10,000 therefore will not treat 4. 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 Patient is doing well with no recent chest pressure tightness or pressure or acute shortness of breath the last 2 to 3 weeks. Last cardiology visit in April 2022. 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 Patient on carvedilol 25 mg twice daily with holding parameters, warfarin. INR supratherapeutic, 4.2. Hold warfarin. 09/03: INR still elevated will continue to hold Coumadin 7: Restart Coumadin and monitor 5. Hypertension and dyslipidemia: Lipid profile tomorrow AM.Last lipid profile in September 2021 reported LDL 54, HDL 49 and triglyceride 46 in normal limit. Blood pressure is in normal range. DVT: Coumadin Allergies/Procedures Done in Hospital Allergies No Known Allergies Allergy (Verified 09/02/22 11:11) Procedures: None Type of Care/Length of Stay Estimated LOS: Convalescent Care Less Than 30 days Type of Care Needed: Skilled Rehab Potential: Good Prognosis: Good Additional Orders/Day of Discharge Day of Discharge: 09/05/22 Dietary and Speech Recommendations Dietitian Recommendations/Changes: will adjust diet to regular and add 120mL ensure plus high protein 4x/day given concerns for wt loss/malnutrition. Speech Linguistic Eval Summary: Patient is hard of hearing. He was confused intermittently throughout session, describing to DAIRY HUSBANDRY WORKER that he came from a trip or a vacation. Orientation: Patient is oriented to self, . DAIRY HUSBANDRY WORKER re-oriented the patient to city, month, and year. Auditory Comprehension: Following 1-step commands - 08/05 acc. Frequent repetition of commands and instruction, likely due to hard of hearing status and poor attention to task. He often needed redirected to activities during the session. Verbal Expression: 2-min conversational sample taken. Patient with fluent speech with volume WNL. Speech intelligibility ~90% acc. 7.3 words per utterance. Confrontation naming - 9/10 acc. Divergent naming list of concrete category - 4 items in 60 seconds. Social Interaction: Patient pleasant in conversation; however, he became off topic frequently and required redirection. Memory: Not formally tested; however, patient needed reminded throughout the session he was in the hospital, not on a trip/vacation, frequent repetition of DAIRY HUSBANDRY WORKER's name as patient kept asking. The patient presents with moderate cognitive-linguistic impairment with most notable deficits in orientation, attention, and recall. Additionally, DAIRY HUSBANDRY WORKER has concerns for poor safety awareness. Patient wanting to get out of bed to re-adjust positioning due to pain. DAIRY HUSBANDRY WORKER pressed call light and alerted MANAGER PACU for assistance safely re-adjusting patient and encouraged pt to stay in bed and utilize call light for assistance. Goals added to POC. Discharge Plan Admission Admit Date/Time: 09/02/22 19:24 Attending Provider: Yvan Watson Primary Care Provider: Lon Gonzalez Consulting Providers: Ronnie Mejía Discharge Orders/Prescriptions Prescriptions: New quetiapine 25 mg Tablet 25 mg PO QHS PRN PRN (Reason: Agitation) Qty: 0 0RF lactulose 20 gram/30 mL Solution 20 g PO TID Qty: 0 0RF Continued tamsulosin 0.4 mg capsule 0.4 mg PO QHS fluoxetine [Prozac] 20 mg capsule 20 mg PO DAILY aspirin 81 MG tablet,chewable 81 mg PO DAILY@0800 finasteride 5 mg PO/SL DAILY (DME) Handicap Placard Qty: 1 0RF Dose Instruction: As directed Rx Instructions: Good from 09/29/2018 - 09/30/2023 pravastatin 10 mg tablet 10 mg PO QHS Qty: 90 4RF carvedilol 25 mg tablet 25 mg PO BID Qty: 180 3RF warfarin 2 mg tablet 2 mg PO DAILY Qty: 270 4RF Protocol: Dose Management Condition: Saturday Dose/Route: 2 mg Instruction: 1 x 2 mg tablet Condition: Saturday Dose/Route: 2 mg Instruction: 1 x 2 mg tablet Condition: Saturday Dose/Route: 2 mg Instruction: 1 x 2 mg tablet Condition: Saturday Dose/Route: 4 mg Instruction: 2 x 2 mg tablets Condition: Dose/Route: 4 mg Instruction: 2 x 2 mg tablets Condition: Saturday Dose/Route: 2 mg Instruction: 1 x 2 mg tablet Condition: Saturday Dose/Route: 2 mg Instruction: 1 x 2 mg tablet Protocol Text: Adjustment Start Date: Saturday08/31/22 INR Value: 3.9 INR Date: 08/31/22 Recheck Date: 09/07/22 Rx Instructions: Take 2 tabs (4mg) , Saturday and 2mg Saturday, Saturday, Saturday, Saturday, Saturday ramipril 10 mg capsule 10 mg PO BID Qty: 180 3RF amlodipine 5 mg tablet 5 mg PO DAILY Qty: 90 3RF Referrals / Follow Up: Lon Gonzalez MD [Primary Care Provider] - Disposition Disposition (needs filled in before D/C Order can be placed): Intermediate Facility
--- NOTE | 2022-09-05 13:17 | CASEMGMT ---
Discharge Planning Discharge orders and transport time sent to [facility] via [facility]. Ailyn Serrano
--- NOTE | 2022-09-05 13:26 | CASEMGMT ---
Patient medically ready for discharge. 7000 completed and sent along with discharge orders to [facility] where patient will be going. Patient and family have been informed of discharge plans and agree. Transport has been arranged via [facility]. Family and patient notified of potato picker time. Patient's daughter also asking questions regarding Medicaid. Sw provided some resources and encouraged daughter to follow up with resources available at [facility] who can assist with completion of application if necessary. Lexie Farooq, CASE TECHNICIAN REGULATOR OPERATOR
--- NOTE | 2022-09-05 13:37 | PHA.DC.MR ---
Pharmacy Service has performed discharge medication reconciliation for this patient. The patient's discharge medication list was reviewed for discrepancies and discrepancies were resolved. Home Medications aspirin 81 mg chewable tablet 81 mg PO DAILY@0800 heart health 03/17/13 Handicap Placard #1 ea 09/29/18 tamsulosin 0.4 mg capsule 0.4 mg PO QHS prostate 05/30/20 pravastatin 10 mg tablet 10 mg PO QHS #90 tabs 09/06/21 carvedilol 25 mg tablet 25 mg PO BID #180 tabs 01/05/22 warfarin 2 mg tablet 2 mg PO DAILY #270 tabs 01/12/22 ramipril 10 mg capsule 10 mg PO BID #180 caps 01/17/22 amlodipine 5 mg tablet 5 mg PO DAILY #90 tabs 03/09/22 fluoxetine 20 mg capsule (Prozac) 20 mg PO DAILY mood 03/09/22 finasteride 5 mg PO/SL DAILY 09/02/22 lactulose 20 gram/30 mL oral solution 20 g (30 mL) PO TID #0 mL 09/05/22 quetiapine 25 mg tablet 25 mg PO QHS PRN PRN Agitation #0 tabs 09/05/22
--- NOTE | 2022-09-05 14:04 | NURSING ---
pt dressed and ready for ems transport. belongings list completed and pt with b/l hearing aides and dentures in. attempted to call report but ecf requesting to call back in 10.
--- NOTE | 2022-09-05 14:58 | DS.PCM_ITS ---
Providers Date of Admission: 09/02/22 Primary Care Physician: Dr. Lon Gonzalez MD Reason For Visit: GEN WEAKNESS Diagnosis Discharge Diagnosis (1) Fall: Status: Acute Code(s): W19.XXXA - Unspecified fall, initial encounter (2) Suspected cerebrovascular accident: Status: Acute Code(s): R09.89 - Other specified symptoms and signs involving the circulatory and respiratory systems Medications at Discharge Home Medications aspirin 81 mg chewable tablet 81 mg PO DAILY@0800 heart health 03/17/13 Handicap Placard #1 ea 09/29/18 tamsulosin 0.4 mg capsule 0.4 mg PO QHS prostate 05/30/20 pravastatin 10 mg tablet 10 mg PO QHS #90 tabs 09/06/21 carvedilol 25 mg tablet 25 mg PO BID #180 tabs 01/05/22 warfarin 2 mg tablet 2 mg PO DAILY #270 tabs 01/12/22 ramipril 10 mg capsule 10 mg PO BID #180 caps 01/17/22 amlodipine 5 mg tablet 5 mg PO DAILY #90 tabs 03/09/22 fluoxetine 20 mg capsule (Prozac) 20 mg PO DAILY mood 03/09/22 finasteride 5 mg PO/SL DAILY 09/02/22 lactulose 20 gram/30 mL oral solution 20 g (30 mL) PO TID #0 mL 09/05/22 quetiapine 25 mg tablet 25 mg PO QHS PRN PRN Agitation #0 tabs 09/05/22 Hospital Course Operations None Procedures None Summary of Care Provided Minutes Spent on Discharge: 36 Hospital Course: Per HPI: GREGORIO LUCAS, is a 87 M who who is in assisted living center in [place] was brought to ED for back pain and generalized weakness.? Patient's son and daughter present in the ER and according to them patient fell about a week ago on last weekend.? Prior to that he also had 3 falls in 1 week.? Patient complain of lumbar back pain more on the right side and feels pain on lifting right lower extremity.? Patient unable to stand or bear weight.? As per the daughter he also has garbled speech hard to understand for last 2 to 3 days.? According to her, he goes in and out of garbled speech/language deficit.? Patient also has gradual onset of dementia and could not tell the name of month and year although he remembers current and immediate past president. He denies recent chest pain pressure tightness or acute shortness of breath.? No fever, dysuria or recent URI symptoms. Vitals done in EMS shows BP 122/80, heart rate 108/min.? In ED was normal with heart rate 99 203/min. Twelve-lead EKG shows A-fib at 98 bpm, QTc 474 ms, RAD.? Patient had left subclavicular pacemaker and recently converted to AICD about 2 months ago with well-healed scar.? He also has mitral valve replacement with mechanical valve and on warfarin, INR supratherapeutic. Patient was also in ED? for recent fall on 09-[address] head which did not show acute abnormality and was discharged back. Hospital Course: 1.? Change in his speech, mild to moderate language deficit concern of stroke subacute: Patient is being admitted in PCU.? PT, OT, speech therapy/swallow evaluation and management, nursing NIH stroke scale, BP and glucose monitoring and control as per stroke protocol.? TSH, A1c fasting lipid profile tomorrow AM.? MRI brain? ordered.? Patient has AICD therefore will need a screening before the MRI.? Carotid Doppler is ordered.? Patient recently had echo in September 2021 reported EF 55% with ICD.? No Doppler evidence for ASD.? LA moderately enlarged, RA severely enlarged.? RVSP 43 mmHg suggestive of mild to moderate pulmonary hypertension.? Stable mechanical mitral valve apparatus with mild MR.? Mild TR.? Patient already on baby aspirin and pravastatin.? Medium intensity statin as patient is elderly with back pain. 09/03: We will repeat CT brain in the morning as he cannot have an MRI, will follow-up with PT and OT and if necessary will discuss with family the possib ility of SNF placement 09/04: Repeat CT scan is done and my read does not show a stroke however pending formal read.? Plan for SNF placement secondary to PT and OT requirements 09/05: CT scan was also read as normal by radiology 2.? Recurrent fall in the last week with lumbar back pain and spasm: CT thoracic and lumbar spine ordered.? SLR positive of RLE.? PT and OT, low-dose opioid for pain control and muscle relaxant.? Patient might need from assisted living to subacute rehab.? provider network manager consult. 3.? 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 I think it is gradually progressing dementia but unclear to rule out acute encephalopathy at this time.? Patient denies dysuria or recent change in urine characteristic therefore I do not suspect UTI.? UA shows LE 25, WBC 0, RBC 0, benign.? Serum ammonia 42 elevated, etiology unclear.? Patient does not have history of cirrhosis.? Lactulose empirically ordered.? Chest x-ray does not show acute abnormality. 09/03: Continue with fluoxetine for anxiety and depression continue with Seroquel at night at to help with any agitation 09/05: Urine cultures have grown Enterococcus and Staphylococcus however CFU's are between 1000 and 10,000 therefore will not treat. He did have a slightly elevated ammonia to 42 so we will plan to discharge on oral lactulose. We will also place on Seroquel to allow for rest at night and to prevent his sleep schedule from changing 4.? 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 Patient is doing well with no recent chest pressure tightness or pressure or acute shortness of breath the last 2 to 3 weeks.? Last cardiology visit in April 2022.? 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 Patient on carvedilol 25 mg twice daily with holding parameters, warfarin.? INR supratherapeutic, 4.2.? Hold warfarin. 09/03: INR still elevated will continue to hold Coumadin 09/05: Restart Coumadin and monitor 5.? Hypertension and dyslipidemia: Lipid profile was unremarkable.Last lipid profile in September 2021 reported LDL 54, HDL 49 and triglyceride 46 in normal limit.? Blood pressure is in normal range. Weight / BMI Weight Weight: 183 lb 3.266 oz Body Mass Index (BMI) 25.5 ABG / Lab / Microbiology Data Result Diagrams: 09/04/22 06:31 09/04/22 06:31 Laboratory: Laboratory Results - last 24 hr 09/05/22 06:06: PT 23.9 H, INR 2.1 Microbiology: Microbiology 09/05/22 12:00 Nasal Secretion SARS-CoV-2 Antigen (Rapid) - Final 09/02/22 11:56 Urine, Catheterized Urine Culture - Final Enterococcus faecalis Staphylococcus epidermidis 09/02/22 11:45 Nasal Secretion SARS-CoV-2 & FLU Antigen (Rapid) - Final Meaningful Use Info Meaningful Use Diagnoses (Choose all that apply): None applicable Discharge Plan Admission Admit Date/Time: 09/02/22 19:24 Attending Provider: Yvan Watson Primary Care Provider: Lon Gonzalez Consulting Providers: Ronnie Mejía Discharge Orders/Prescriptions Prescriptions: New quetiapine 25 mg Tablet 25 mg PO QHS PRN PRN (Reason: Agitation) Qty: 0 0RF lactulose 20 gram/30 mL Solution 20 g PO TID Qty: 0 0RF Continued tamsulosin 0.4 mg capsule 0.4 mg PO QHS fluoxetine [Prozac] 20 mg capsule 20 mg PO DAILY aspirin 81 MG tablet,chewable 81 mg PO DAILY@0800 finasteride 5 mg PO/SL DAILY (DME) Handicap Placard Qty: 1 0RF Dose Instruction: As directed Rx Instructions: Good from 09/29/2018 - 09/30/2023 pravastatin 10 mg tablet 10 mg PO QHS Qty: 90 4RF carvedilol 25 mg tablet 25 mg PO BID Qty: 180 3RF warfarin 2 mg tablet 2 mg PO DAILY Qty: 270 4RF Protocol: Dose Management Condition: Saturday Dose/Route: 2 mg Instruction: 1 x 2 mg tablet Condition: Saturday Dose/Route: 2 mg Instruction: 1 x 2 mg tablet Condition: Saturday Dose/Route: 2 mg Instruction: 1 x 2 mg tablet Condition: Saturday Dose/Route: 4 mg Instruction: 2 x 2 mg tablets Condition: Dose/Route: 4 mg Instruction: 2 x 2 mg tablets Condition: Saturday Dose/Route: 2 mg Instruction: 1 x 2 mg tablet Condition: Saturday Dose/Route: 2 mg Instruction: 1 x 2 mg tablet Protocol Text: Adjustment Start Date: Saturday08/31/22 INR Value: 3.9 INR Date: 08/31/22 Recheck Date: 09/07/22 Rx Instructions: Take 2 tabs (4mg) , Saturday and 2mg Saturday, Saturday, Saturday, Saturday, Saturday ramipril 10 mg capsule 10 mg PO BID Qty: 180 3RF amlodipine 5 mg tablet 5 mg PO DAILY Qty: 90 3RF Referrals / Follow Up: Lon Gonzalez MD [Primary Care Provider] - Disposition Disposition (needs filled in before D/C Order can be placed): [facility] Charges/Coding Visit Charges Inpatient E&M: 25473 Disch Hosp >30min
== END 2022-09-05 14:20 | disposition skilled nursing facility (03) | DRG 92 ==
LOC: ED 15:25 → PCU 16:09
PROVIDERS: Admitting Provider Internal Medicine; Emergency Provider Emergency Medicine; PCP Family Medicine; Visit Provider Family Medicine
DX: R47.89 Other speech disturbances (principal); S32.019A Unspecified fracture of first lumbar vertebra, initial encounter for closed fracture; I42.8 Other cardiomyopathies; S32.10XA Unspecified fracture of sacrum, initial encounter for closed fracture; I27.20 Pulmonary hypertension, unspecified; I48.0 Paroxysmal atrial fibrillation; I73.9 Peripheral vascular disease, unspecified; E78.00 Pure hypercholesterolemia, unspecified; I08.1 Rheumatic disorders of both mitral and tricuspid valves; I10 Essential (primary) hypertension; E80.6 Other disorders of bilirubin metabolism; F41.9 Anxiety disorder, unspecified; W19.XXXA Unspecified fall, initial encounter; M54.50 Low back pain, unspecified; F32.A Depression, unspecified; R53.1 Weakness; R29.700 NIHSS score 0; Z79.01 Long term (current) use of anticoagulants; Z79.82 Long term (current) use of aspirin; R41.82 Altered mental status, unspecified; Z51.5 Encounter for palliative care; Z66 Do not resuscitate; R79.1 Abnormal coagulation profile; Z95.810 Presence of automatic (implantable) cardiac defibrillator
CPT/HCPCS: 36415; 70450; 71045; 72128; 72131; 80048; 80053; 80061; 81001; 82140; 82274; 82803; 82962; 83036; 83690; 83880; 84484; 85025; 85027; 85610; 87077; 87086; 87088; 87186; 87426; 87428; 92507; 92523; 92610; 93005; 93880; 97162; 97166; 97530; 97535; 97802; 99285; J7120; A4216

== ENCOUNTER 2022-09-07 12:49 | Inpatient (IN) | payer MEDICARE, OTHER, SELFPAY ==
[2022-09-07 12:51] VITALS: BP 160/89; PULSE 84; RESP 16; TEMP 36.2; O2SAT 93; BMI 37.9
--- NOTE | 2022-09-07 13:45 | EX.ED.DYSGE1 ---
HPI History of Present Illness Chief Complaint: Abn Labs Informant: patient and family Narrative Narrative: 87-year-old male who was living at home but was placed in assisted living about a month ago with his due to a relatively rapid decline in memory/functional capacity, and 3 days ago, he was deemed inappropriate for assisted living due to needing a lot more care than they can provide and sent to a longterm facility where he was diagnosed with what sounds like a lumbar compression fracture due to multiple falls in assisted living, and labs that were done today showed acute renal failure so daughter states that staff at the senior care said you can put him on palliative care/comfort care only, or we can transport him to the hospital for medical care. The daughter states there is no reason for them to consider palliative/comfort care prior to this, so she is not sure that they want to do that, hence having him transported him here. He does have a history of lung cancer that is in remission. 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 Mitral valve disorder Murmur Paroxysmal atrial fibrillation Premature beats Premature ventricular contractions Pure hypercholesterolemia TIA (transient ischemic attack) Home Medications aspirin 81 mg chewable tablet 81 mg PO DAILY@0800 heart [facility] [place] 03/17/13 [History Last Taken 05/16/22] Handicap Placard #1 ea 09/29/18 [Rx Last Taken Unknown] tamsulosin 0.4 mg capsule 0.4 mg PO QHS prostate 05/30/20 [History Last Taken Unknown] pravastatin 10 mg tablet 10 mg PO QHS #90 tabs 09/06/21 [Rx Last Taken Unknown] carvedilol 25 mg tablet 25 mg PO BID #180 tabs 01/05/22 [Rx Last Taken 05/17/22] warfarin 2 mg tablet 2 mg PO DAILY #270 tabs 01/12/22 [Rx Last Taken Unknown] ramipril 10 mg capsule 10 mg PO BID #180 caps 01/17/22 [Rx Last Taken 05/17/22] amlodipine 5 mg tablet 5 mg PO DAILY #90 tabs 03/09/22 [Rx Last Taken 05/17/22] fluoxetine 20 mg capsule (Prozac) 20 mg PO DAILY mood 03/09/22 [History Last Taken Unknown] finasteride 5 mg PO/SL DAILY 09/02/22 [History Last Taken Unknown] lactulose 20 gram/30 mL oral solution 20 g (30 mL) PO TID #0 mL 09/05/22 [Rx Last Taken Unknown] quetiapine 25 mg tablet 25 mg PO QHS PRN PRN Agitation #0 tabs 09/05/22 [Rx Last Taken Unknown] Allergy/AdvReac Type Severity Reaction Status Date / Time No Known Allergies Allergy Verified 09/02/22 11:11 Family History Father CAD (coronary artery disease) Mother Breast cancer Brother CAD (coronary artery disease) Hx CABG Brother Cancer Leukemia Surgical History Cardiac pacemaker in situ H/O mitral valve replacement Social History household members: spouse housing: assisted living facility Smoking Status: Never smoker alcohol intake: never substance use type: does not use caffeine: No what type of physical activity do you participate in: other details: tredmill frequency: 1-2 times per week duration: 15-30 minutes/day seatbelt use: always do you feel safe at home: Yes ROS ROS ED Constitutional Constitutional ED: Denies chills or fever(s) Eyes Eyes: Denies change in vision or diplopia ENT ENT ED: Denies rhinorrhea or sore throat Cardiovascular Cardiovascular: Denies chest pain or palpitations Respiratory/Chest Respiratory/Chest: Denies cough or dyspnea Gastrointestinal Gastrointestinal: Denies abdominal pain, diarrhea, nausea or vomiting Genitourinary Genitourinary ED: Denies dysuria or hematuria Musculoskeletal Musculoskeletal: Denies back pain or neck pain Integumentary Denies abscess or rash Neurologic Neurologic: Reports confusion; Denies headache(s), paresthesias or weakness Psychiatric Psychiatric: Denies anxiety or suicidal thoughts EXAM Physical Exam Const Vital Signs: 09/07/22 12:51 09/07/22 13:18 Temperature 97.1 F L Temperature Source Oral Pulse Rate 84 Respiratory Rate 16 Respiratory Pattern Normal Blood Pressure 160/89 H Blood Pressure Mean 112 Pulse Ox 93 Oxygen Delivery Method Room Air Positive well nourished and well developed General Appearance ED: well developed and NAD HEENT Reports moist mucous membranes normocephalic and atraumatic Eyes PERRL and EOMs intact bilaterally Neck full ROM and supple Resp normal respiratory effort and clear to auscultation bilaterally Cardio regular rate, regular rhythm and no murmurs GI non-tender and non-distended Auscultation: normoactive bowel sounds Palpation: soft Back/Spine no CVA tenderness General Back: other FROM Extremity normal to inspection General Extremety ED: Negative for edema, pulses abnormal or tenderness General Extremity: Negative for edema or pulses abnormal Neuro CN's II-XII intact bilaterally and no sensory deficits noted Neuro Narrative: Oriented to state but thinks he is in [place], and nearby town. Disoriented to time. Sensorium / Orientation: awake, alert and orientation impaired Motor Exam: general weakness Psych mental status grossly normal Skin no rashes or lesions noted and no wounds MDM MDM MDM Narrative Medical decision making narrative: This appears to be very acute, occurring in 3 days or so. Daughter states yesterday he was wide-awake and talking yet confused, at baseline. He is a little somnolent now but awakes easily to voice and states that he feels as good as expected. He does not have any terminal diagnoses, and they prefer after our discussion to have him admitted medically to explore/treat his renal failure which I think is totally appropriate. As I discussed with him, if he has had a progressive decline due to some type of dementia, he does have a history of stroke and it may be a vascular dementia, they can certainly look into palliative care options as well simultaneously if needed, or later. History & Record Review Discussion w/independent historian: EMS personnel, Patient and Family Lab Data Attestation: I reviewed the patient's lab results. Lab results narrative: Reviewed outpatient labs from earlier today, hemoglobin 9.9 a little macrocytic, creatinine 4.12 with the last reading from 3 days prior 1.1. BUN 57 up from 28. Total protein and albumin low. No hyperkalemia. Management Discussion w/another healthcare provider: Hospitalist Treatment and Re-Evaluation Comments:: Apparently patient was recently admitted, which is why he had labs done 3 days ago; reviewed that briefly and discussed with hospitalist for admission. Will straight cath to see if he has urine production. Discharge Plan Dx/Rx/DC Orders Clinical Impression: Acute renal failure, Debility Disposition Disposition: Acute Care Hospital [facility]
--- NOTE | 2022-09-07 13:59 | HP.PCM.HOS_ITS ---
HPI - General General Date of Admission: 09/07/22 Date of Service: 09/07/22 Chief Complaint: Patient had abnormal lab found in correction, increased creatinine. HPI Narrative GREGORIO LUCAS, is a 87 M who was discharged on 09/05/2022 was brought to ED ED by EMS for increased creatinine and abnormal lab. Patient complain of generalized weakness. During last admission patient was admitted for generalized weakness with 3 falls in last 1 week with excruciating pain on lumbar back pain. As per the daughter and son, therapist are working on him but is still not able to walk because of pain. BUN 57 went up from 28. Creatinine 4.12 with 1.13 days ago. No hyperkalemia. Rest of the features remain same as in last admission with gradual decline in physical health and dementia. PCP signed DNR CC arrest paper in patient's chart. 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 Mitral valve disorder Murmur Paroxysmal atrial fibrillation Premature beats Premature ventricular contractions Pure hypercholesterolemia TIA (transient ischemic attack) Home Medications aspirin 81 mg chewable tablet 81 mg PO DAILY@0800 heart [facility] 03/17/13 [History Last Taken 05/16/22] Handicap Placard #1 ea 09/29/18 [Rx Last Taken Unknown] tamsulosin 0.4 mg capsule 0.4 mg PO QHS prostate 05/30/20 [History Last Taken Unknown] pravastatin 10 mg tablet 10 mg PO QHS #90 tabs 09/06/21 [Rx Last Taken Unknown] carvedilol 25 mg tablet 25 mg PO BID #180 tabs 01/05/22 [Rx Last Taken 05/17/22] warfarin 2 mg tablet 2 mg PO DAILY #270 tabs 01/12/22 [Rx Last Taken Unknown] ramipril 10 mg capsule 10 mg PO BID #180 caps 01/17/22 [Rx Last Taken 05/17/22] amlodipine 5 mg tablet 5 mg PO DAILY #90 tabs 03/09/22 [Rx Last Taken 05/17/22] fluoxetine 20 mg capsule (Prozac) 20 mg PO DAILY mood 03/09/22 [History Last Taken Unknown] finasteride 5 mg PO/SL DAILY 09/02/22 [History Last Taken Unknown] lactulose 20 gram/30 mL oral solution 20 g (30 mL) PO TID #0 mL 09/05/22 [Rx Last Taken Unknown] quetiapine 25 mg tablet 25 mg PO QHS PRN PRN Agitation #0 tabs 09/05/22 [Rx Last Taken Unknown] Allergy/AdvReac Type Severity Reaction Status Date / Time No Known Allergies Allergy Verified 09/02/22 11:11 Family History Father CAD (coronary artery disease) Mother Breast cancer Brother CAD (coronary artery disease) Hx CABG Brother Cancer Leukemia Surgical History Cardiac pacemaker in situ H/O mitral valve replacement Social History household members: spouse housing: assisted living facility Smoking Status: Never smoker alcohol intake: never substance use type: does not use caffeine: No what type of physical activity do you participate in: other details: tredmill frequency: 1-2 times per week duration: 15-30 minutes/day seatbelt use: always do you feel safe at home: Yes ROS ROS Narrative 14 system ROS incomplete? as patient has mild difficulty in understanding and dementia. It was mostly obtained from patient's son and daughter near the bedside. Constitutional: Reports fatigue and weakness. No fever. HEENT: Reports systems reviewed and no addt'l complaints, except as documented Respiratory/Chest: No acute shortness of breath or respiratory distress or wheezing. CVS: No chest pain pressure or tightness. Gastrointestinal: Denies coffee ground emesis, hematemesis or vomiting Genitourinary: Denies burning urination or new urinary tract symptoms Musculoskeletal: Back pain. Not able to walk. Neurologic: Denies seizure-like symptoms. skin: No ulcer. No rash Endocrinology: Reports systems reviewed and no addt'l complaints, except as documented Hematologic/Lymphatic: Reports systems reviewed and no addt'l complaints, except as documented Rest 14 ROS are negative except as mentioned in HPI Vital Signs Vital Signs Vital Signs: 09/07/22 12:51 09/07/22 13:18 Temperature 97.1 F L Temperature Source Oral Pulse Rate 84 Respiratory Rate 16 Respiratory Pattern Normal Blood Pressure 160/89 H Blood Pressure Mean 112 Pulse Ox 93 Oxygen Delivery Method Room Air Weight Weight: 200 lb 9.93 oz Body Mass Index (BMI) 37.9 Physical Exam Narrative General: Alert, Oriented x3. Normal baseline. Awake. HEENT: Atraumatic, PERRLA, EOMI, Normocephalic Oral: Oral mucosa dry. No Gingival or Mucosal Lesions/ Ulcerations Neck: Supple, No JVD, Negative Carotid Bruits Lungs:? Air entry diminished in bilateral lung bases.? No crepitation/rhonchi Cardiovascular: Regular rate, Regular Rhythm, Normal S1, Normal S2, No murmurs Abdomen: Bowel Sounds Present, Soft, Non Tender, Non-Distended : No renal angle tenderness.? No suprapubic tenderness. Extremities: No edema, Capillary Refill Less than 3 Seconds Skin: No rashes, No breakdown Spine: Tenderness present over lumbosacral spine spine mainly on right side. Patient not able to stand up. SLR positive on RLE at 60 degree.? ROM restricted over lumbar spine.? Musculoskeletal: No Tenderness to Palpation of Joints or Extremities.? 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 Stiffness at knee and hip joints. Neurological: Cranial nerves II-XII grossly intact, DTR? 2+/4.? Mild to moderate language deficit.? Mild dysarthria. Psych/Mental Status: Flat affect.? Gradual onset dementia. Assessment & Plan Assessment/Plan (1) GLORIA (acute kidney injury): PLAN: Plan This is a 87-year-old gentleman being sent from correction for increased BUN and creatinine. Patient looks dehydrated. 1. GLORIA on CKD stage IIIa: Patient BUNs/creatinine went up from 28-57 and 1.1- 4.12 respectively. IV fluid Ringer lactate ordered as patient has high chloride 110. Sodium and potassium in normal range. Patient not on diuretic on home medication but on ramipril that is held. Monitor kidney function daily. Bladder scan Q3 hourly and if urine retention will need a straight cath. 2.? Recurrent fall about 10 days ago with lumbosacral back pain, stiffness and spasm: CT lumbar spine was done last time which showed transverse fracture of anterior sacrum at S1-S2 with approximately 30 degree of kyphotic angulation. Bilateral nondisplaced sacral wing fractures. Acute anterior compression fracture L1 with a proximal 20% loss of height. Diffuse bilateral multilevel vertebral facet arthropathy. No spinal stenosis. Thoracic spine shows moderate thoracis kyphosis, diffuse spondylosis but no spinal stenosis. Bones are diffusely osteopenic. No acute abnormality. PT and OT. Muscle relaxant and pain medication. Patient is still has significant pain and spasm over lumbar spine. 3.? gradual onset dementia: Patient had a stroke work-up during last admission but could not have MRI because of AICD.? Patient had repeat CT scan which did not show up any new changes therefore it was discharged to SNF. 4.? 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 Patient denies any acute change including chest pain or tightness or pressure or acute shortness of breath.Patient recently had echo in September 2021 reported EF 55% with ICD.? No Doppler evidence for ASD.? LA moderately enlarged, RA severely enlarged.? RVSP 43 mmHg suggestive of mild to moderate pulmonary hypertension.? Stable mechanical mitral valve apparatus with mild MR.? Mild TR.? Patient already on baby aspirin and pravastatin.? Last cardiology visit in April 2022.? 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 Patient on carvedilol 25 mg twice daily with holding parameters, warfarin continued. INR therapeutic. 5.? Hypertension and dyslipidemia: Lipid profile done on 09/04 shows normal LDL, TG and total cholesterol except HDL low at 35. Blood pressure fluctuates was 160/89 but most recent 105/70. DVT: Coumadin Living will/advanced directive/end of life care: Patient does not have living will or advanced directive. Patient has DNRCC arrest papers signed up by PCP. After discussion of benefits/risks procedures involved with full code, DNR CC arrest and DNR CC, the patient and his family members opted for DNRCC arrest with no intubation. Patient's family member do not want artificial life support including intubation, tube feed, ventilator and/chest compression, central venous catheter, vasopressor and DC shock if needed Total time spent in [id number] encounter in discussion of advanced directive 17 minutes. Charges/Coding Visit Charges Inpatient E&M: 41196 Init Hosp L3 Procedures Hospitalists Procedures: 78491 Advncd Care Plan 30 Min
[2022-09-07 14:20] VITALS: BP 105/70; PULSE 69; RESP 15; TEMP 36.2; O2SAT 93
[2022-09-07 14:22] LABS: Mucous, Urine 0 SEEN /hpf (<or=2+); Squamous Epithelial Cells - UA 0 SEEN /hpf (0-5)
[2022-09-07 14:31] LABS: Color, Urine Yellow (Yellow); Glucose, Dipstick Normal (Normal); Ketone-Dipstick 5 mg/dl (Negative); Leukocyte Esterase-Dipstick 25 /ul (Negative); Nitrite-Dipstick Negative (Negative); Occult Blood-Urine 150 /ul (Negative); Protein-Dipstick Negative (Negative); Specific Gravity, Urine 1.015 (1.002-1.030); Urine Bilirubin Dipstick Negative (Negative); Urine Clarity Sl. Cloudy (Clear); Urine Urobilinogen Normal (Normal)
[2022-09-07 14:41] LABS: Bacteria 2+ /hpf (None Seen); Red Blood Cells-Urine 10-25 SEEN /hpf (0-5); White Blood Cells 0-5 SEEN /hpf (0-5)
[2022-09-07] MEDS: 0.9% Normal Saline 1,000 ML 150 ML IV (15:00)
--- NOTE | 2022-09-07 15:38 | CM.ED ---
Social Work SW introduced self and role to patient and family. Pt's daughter and son present in the room. They expressed concern over the nurse at [facility] insisting they need to make a choice immediately whether patient goes to the hospital or is placed on hospice. Daughter decided to have pt come to the hospital and patient is being admitted due to abnormal labs. SW provided emotional support. Currently it is unclear whether patient is in need of care such as palliative or hospice. Pt was in independent living, then assisted living and now skilled. Children expressed concern over wanted to do what is best for their father and not being able to make that kind of decision without more information. Plan: SW to follow patient and physician recommendations for care. Rhiannon Sims WATER QUALITY SPECIALIST, POULTRY FARM LABORER
[2022-09-07 16:24] VITALS: BMI 37.9
[2022-09-07 16:50] VITALS: BP 100/67; PULSE 104; RESP 18; O2SAT 97
[2022-09-07 18:33] LABS: Magnesium 2.4 mg/dL (1.6-2.6); Phosphorus 4.7 mg/dL (2.5-4.9)
[2022-09-07 18:55] VITALS: BP 93/69; PULSE 98; RESP 18; TEMP 36.6; O2SAT 93
[2022-09-07] MEDS: Lactated Ringers 1,000 ML 100 ML IV (19:11)
[2022-09-07 19:40] VITALS: BP 98/58; PULSE 100; RESP 18; TEMP 36.6; O2SAT 98
[2022-09-07] MEDS: Pravastatin 20 MG Tablet 10 MG PO (20:06)
[2022-09-07] MEDS: Tamsulosin HCl 0.4 MG Capsule PO (20:10)
[2022-09-07] MEDS: Menthol/Lanolin/Calamine/Znox 113 GM Tube 1 APPLIC TOPICAL (20:10)
[2022-09-07] MEDS: Lactulose 20 GM/30 ML UDC PO (20:11)
[2022-09-07] MEDS: QUEtiapine 25 MG Tablet PO (20:14)
[2022-09-07] MEDS: Acetaminophen 325 MG Tablet 650 MG PO (20:14)
[2022-09-07 20:21] VITALS: RESP 22
[2022-09-08 01:39] VITALS: BP 118/71; PULSE 100; RESP 20; TEMP 37.1; O2SAT 96
[2022-09-08] MEDS: 0.9% Saline Lock 10 ML Syringe IV (01:40)
[2022-09-08 02:24] VITALS: BMI 35.5
[2022-09-08] MEDS: Lactated Ringers 1,000 ML 100 ML IV (06:21)
[2022-09-08 06:30] VITALS: BP 110/67; PULSE 99; RESP 18; TEMP 36.3; O2SAT 97
[2022-09-08] MEDS: Lactulose 20 GM/30 ML UDC PO ×3 (06:30→22:22)
[2022-09-08 06:48] LABS: Absolute Lymphocyte Count 0.45 X10^3/uL (0.83-4.51); Absolute Neutrophil Count 8.9 X10^3/uL (2.0-7.7); Basophil# 0.01 X10^3/uL; Basophil% 0.1 % (0-1); Eosinophil# 0.13 X10^3/uL; Eosinophils% 1.2 % (0-5); Hematocrit 29.1 % (40-54); Hemoglobin 9.3 g/dL (13.0-16.5); Lymphocyte # 0.45 X10^3/ul (0.83-4.51); Lymphocyte % 4.1 % (19-41); Mean Corpuscular Hgb 33.5 pg (27.0-32.0); Mean Corpuscular Volume 104.7 fL (80-94); Mean Platelet Vol. 9.9 fl (6.2-12.0); Monocyte# 1.34 X10^3/uL; Monocyte% 12.3 % (0-10); NRBC Flagged by Analyzer 0 % (0-5); Neutrophil # 8.94 X10^3/uL (2.7-7.7); Neutrophil % 81.8 % (47-70); POSITIVE DIFFERENTIAL YES; Platelet Count 278 K/mm3 (150-450); RBC Distribution Width CV 14.8 % (11.6-14.6); RBC Distribution Width SD 56.7 fl (35.1-43.9); Red Blood Count 2.78 M/mm3 (4.6-6.2); White Blood Count 10.9 K/mm3 (4.4-11.0)
[2022-09-08 07:00] LABS: Differential Indicated SCAN CRITERIA MET
[2022-09-08 07:19] LABS: Anion Gap 6 (5-15); BUN 64 mg/dL (7-18); BUN/Creat Ratio 14.2 RATIO (10-20); Chloride 112 mmol/L (98-107); EST Glomerular Filtration Rate 13 mL/min (>60); Est Glom Filt Rate - Afr Amer 16 mL/min (>60); Estimated Creatinine Clearance 8.39 ml/min; Glucose 99 mg/dL (74-106); Potassium 4.6 mmol/L (3.5-5.1); Sodium Level 141 mmol/L (136-145)
[2022-09-08] MEDS: Acetaminophen 325 MG Tablet 650 MG PO (07:49)
[2022-09-08] MEDS: Menthol/Lanolin/Calamine/Znox 113 GM Tube 1 APPLIC TOPICAL ×2 (07:50→22:22)
[2022-09-08] MEDS: FLUoxetine 20 MG Capsule PO (07:56)
[2022-09-08] MEDS: Aspirin 81 MG TAB.CHEW PO (07:57)
[2022-09-08] MEDS: Finasteride 5 MG Tablet PO (07:58)
[2022-09-08] MEDS: amLODIPine 5 MG Tablet PO (08:10)
[2022-09-08 08:11] VITALS: BP 115/72; PULSE 99; RESP 20; TEMP 36.4; O2SAT 99
[2022-09-08 09:05] LABS: Differential Comment SCANNED
--- NOTE | 2022-09-08 13:05 | PN_ITS ---
Subjective Subjective Patient seen and examined. His daughter was by his bedside. He was admitted with a complaint of weakness and found to have GLORIA. His daughter states she does have a history of enlarged prostate. Patient tells me he has been urinating well. No catheter inserted currently. Review of systems otherwise negative. Objective Data Objective Data Vital Signs: Vital Signs Temp Pulse Resp BP Pulse Ox O2 Del Method 97.5 F L 99 20 H 115/72 99 Room Air 09/08/22 08:11 09/08/22 08:11 09/08/22 08:11 09/08/22 08:11 09/08/22 08:11 09/08/22 08:13 Oxygen Delivery Method Room Air Weight: 188 lb 4.396 oz Body Mass Index (BMI) 35.5 Intake & Output: Intake and Output for Last 24 Hours 09/06/22 09/07/22 09/08/22 23:59 23:59 23:59 Intake Total 600 / 600 1120 / 1120 Output Total 1000 / 1000 Balance 600 / 600 120 / 120 Lab / Micro Data Result Diagrams: 09/08/22 06:26 09/08/22 06:26 Labs: Laboratory Results - last 24 hr 09/07/22 14:11: Urine Color Yellow, Urine Clarity Sl. Cloudy, Urine pH 5.0, Ur Specific [place] 1.015, Urine Protein Negative, Urine Glucose (UA) Normal, Urine Ketones 5 H, Urine Occult Blood 150 H, Urine Nitrite Negative, Urine Bilirubin Negative, Urine Urobilinogen Normal, Ur Leukocyte Esterase 25 H, Urine RBC 10-25 SEEN, Urine WBC 0-5 SEEN, Ur Squamous Epith Cells 0 SEEN, Urine Bacteria 2+, Urine Mucus 0 SEEN 09/07/22 17:52: Phosphorus 4.7, Magnesium 2.4 09/08/22 06:26: WBC 10.9, RBC 2.78 L, Hgb 9.3 L, Hct 29.1 L, MCV 104.7 H, MCH 33.5 H, MCHC 32.0, RDW Std Deviation 56.7 H, RDW Coeff of Al 14.8 H, Plt Count 278, MPV 9.9, Immature Gran % (Auto) 0.500, Neut % (Auto) 81.8 H, Lymph % (Auto) 4.1 L, [place] % (Auto) 12.3 H, Eos % (Auto) 1.2, Baso % (Auto) 0.1, Absolute Neuts (auto) 8.9 H, Absolute Lymphs (auto) 0.45 L, Nucleated RBC % 0, Differential Comment SCANNED 09/08/22 06:26: Sodium 141, Potassium 4.6, Chloride 112 H, Carbon Dioxide 23.0, Anion Gap 6, BUN 64 H, Creatinine 4.50 H, Estim Creat Clear Calc 8.39, Est GFR (MDRD) Af Amer 16 L, Est GFR (MDRD) Non-Af 13 L, BUN/Creatinine Ratio 14.2, Glucose 99, Calcium 8.0 L Micro: Microbiology 09/07/22 14:11 Urine Catheter - Catheter Urine Culture - Preliminary GPC Poss Enterococcus sp GNR 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 performance improvement Physical Exam Const oriented x3 and no apparent distress General Appearance: cooperative HEENT normocephalic, head/scalp atraumatic, moist oral mucous membranes and oropharynx normal Eyes PERRL and EOMs intact bilaterally Neck no lymphadenopathy, supple and no JVD Lymph Lymphatic: no lymphadenopathy noted and no lymphedema noted Resp normal respiratory effort, normal air movement and clear to auscultation bilaterally Cardio regular rate, regular rhythm, S1 normal heart sound, S2 normal heart sound and no murmurs GI normal to inspection, nondistended, normoactive bowel sounds, soft to palpation and non-tender Extremity normal capillary refill, no clubbing, cyanosis or edema and no calf tenderness Skin General Skin Exam: no breakdown Neuro CN's II-XII intact bilaterally, no focal motor deficits and no sensory deficits noted Psych thought process normal and cooperative Assessment & Plan Assessment/Plan (1) GLORIA (acute kidney injury): (2) Acute weakness: PLAN: Plan #GLORIA * baseline Cr is 1.1, Cr was 4.12 on admission. Cr today is 4.5 * I suspect it might be due to BPH as he has a history of this * will get CT abdomen and pelvis to rule out any other evidence of obstruction * consult nephrology/urology based on results of CT abdomen and pelvis * insert barrios catheter- drained 1L of urine * #BPH: on finasteride and flomax #Hypertension; on amlodipine #Hyperlipidemia: on statin #Debility due ot mechanical falls * has a known transversal sacral fracutre. * PT/OT on board. Fall precautions * on PO oxycodone and IV morphine prn for pain. * #Mechanical aortic valve replacement * done in August 2004. On coumadin. INR should be 2-3 * monitor INR * #History of complete heart block * s/p ICD placmement * On carvedilol 25 mg twice daily * #DVT prophylaxis: Already on Coumadin CODE STATUS DNR CCA and no intubation Charges/Coding Visit Charges Inpatient E&M: 85670 Subs Hosp L2
--- NOTE | 2022-09-08 13:25 | CT_ITS ---
STUDY: CT ABDOMEN AND PELVIS WITHOUT CONTRAST REASON FOR EXAM: Male, 87 years old. post obstructive acute kidney failure RADIATION DOSAGE (If Supplied By Facility): CTDIvol = ( 17.47 ) mGy, DLP = ( 894.87 ) mGycm TECHNIQUE: Transaxial images were obtained from the dome of the diaphragm to the symphysis pubis without oral contrast, and without intravenous contrast. Sagittal and coronal images were reconstructed. Individualized dose optimization techniques were used for this CT. COMPARISON: 04/19/2022, lumbar spine CT 09/02/2022 FINDINGS: Moderate bilateral pleural effusions with bibasilar atelectasis. Cardiomegaly. Normal liver. Normal gallbladder and extrahepatic biliary system. Normal spleen. There are pancreatic calcifications in the distribution of the ducts consistent with chronic pancreatitis. Normal bilateral adrenal glands. Mild hydronephrosis and perinephric edema bilaterally. No renal or ureteral stone. Normal visualized stomach. Normal small intestine. Normal colon. The appendix is visualized and appears normal. There is diffuse atherosclerotic calcification of the abdominal aorta, without a demonstrated aneurysm. Normal inferior vena cava. Normal retroperitoneum. Joya catheter within the collapsed bladder. There is enlargement of the prostate gland. Edema of the subcutaneous fat of the abdominal wall and flank suggestive of anasarca. No change in the subacute or chronic mild compression fracture of L2. Radiolucencies within the sacral ala bilaterally worrisome for acute or subacute fractures. CT/Abdomen/Pelvis without Cont IMPRESSION: 1. Mild bilateral hydronephrosis and perinephric edema bilaterally but no obstructing stone. 2. Markedly enlarged prostate and findings may have been secondary to bladder outlet obstruction. 3. Joya catheter within the bladder. 4. Volume overload with moderate bilateral pleural effusions and anasarca. 5. Subacute sacral fractures and compression fracture of L2 as seen on recent lumbar spine CT. Electronically Signed: Manoj Pike MD at 15:15 EDT ,
[2022-09-08 14:10] VITALS: BP 125/72; PULSE 98; RESP 18; TEMP 36.3; O2SAT 98
[2022-09-08] MEDS: Ensure Plus High Protein 120 ML LIQUID PO ×2 (14:39→22:31)
--- NOTE | 2022-09-08 15:39 | CASEMGMT ---
Social Work Pt came in from [facility], left to go there from here earlier this week. SW called daughter Radha Sebastian to review discharge plan. Radha does not think [facility] was the best place for pt. She is not sure what to do at this point, she is thinking about hospice also. She did speak w/physician about it today and the doctor advised to give it a little time before making a decision. Daughter states she does not know what to do. SW advised to speak w/physician tomorow to see how pt is doing. SW educated daughter on the hospice option. SW also explained if he improves and hospice is not advised, they may want to go look at other facilities if they do not want him to return to [facility]. Daughter states understanding. They were considering [facility], she will see if she can look at the facilities this weekend and also try to touch base with the doctor tomorrow. SW did let Dr. Farrell know that the daughter is going to want to speak w/her tomorrow, and told SW she would be here around 9:30. Plan: TBD, possible hospice referral vs referral to a different SNF. SW to follow up on Saturday. VIRI Mcnamara
[2022-09-08 18:00] VITALS: BP 122/99; PULSE 99; RESP 16; TEMP 36.6; O2SAT 99
[2022-09-08] MEDS: Carvedilol 25 MG Tablet PO (18:06)
[2022-09-08] MEDS: Jantoven 2 MG Tablet PO (18:06)
[2022-09-08] MEDS: Tamsulosin HCl 0.4 MG Capsule PO (22:21)
[2022-09-08] MEDS: Pravastatin 20 MG Tablet 10 MG PO (22:22)
[2022-09-08 23:26] VITALS: BP 98/61; PULSE 98; RESP 18; TEMP 36.5; O2SAT 97
[2022-09-09 03:01] VITALS: BP 106/62; PULSE 98; RESP 18; TEMP 36.6; O2SAT 96
[2022-09-09 04:55] VITALS: BMI 26.5
[2022-09-09 06:27] LABS: Absolute Lymphocyte Count 0.43 X10^3/uL (0.83-4.51); Absolute Neutrophil Count 5.7 X10^3/uL (2.0-7.7); Basophil# 0.01 X10^3/uL; Basophil% 0.1 % (0-1); Eosinophil# 0.17 X10^3/uL; Eosinophils% 2.3 % (0-5); Hematocrit 28.8 % (40-54); Hemoglobin 9.2 g/dL (13.0-16.5); Lymphocyte # 0.43 X10^3/ul (0.83-4.51); Lymphocyte % 5.9 % (19-41); Mean Corp Hgb Conc 31.9 g/dL (32-36); Mean Corpuscular Hgb 32.5 pg (27.0-32.0); Mean Corpuscular Volume 101.8 fL (80-94); Monocyte# 0.91 X10^3/uL; Monocyte% 12.5 % (0-10); NRBC Flagged by Analyzer 0 % (0-5); Neutrophil # 5.71 X10^3/uL (2.7-7.7); Neutrophil % 78.6 % (47-70); POSITIVE DIFFERENTIAL YES; Platelet Count 267 K/mm3 (150-450); RBC Distribution Width CV 14.6 % (11.6-14.6); RBC Distribution Width SD 54.4 fl (35.1-43.9); Red Blood Count 2.83 M/mm3 (4.6-6.2); White Blood Count 7.3 K/mm3 (4.4-11.0)
[2022-09-09 06:44] LABS: Differential Indicated SCAN CRITERIA MET
[2022-09-09 06:47] LABS: Macrocytosis 2+
[2022-09-09 06:48] LABS: Anion Gap 8 (5-15); BUN 57 mg/dL (7-18); BUN/Creat Ratio 22.2 RATIO (10-20); Chloride 108 mmol/L (98-107); Creatinine, Serum 2.57 mg/dL (0.70-1.30); EST Glomerular Filtration Rate 25 mL/min (>60); Est Glom Filt Rate - Afr Amer 31 mL/min (>60); Estimated Creatinine Clearance 21.16 ml/min; Glucose 98 mg/dL (74-106); Sodium Level 140 mmol/L (136-145)
[2022-09-09] MEDS: Lactulose 20 GM/30 ML UDC PO ×3 (06:59→20:51)
[2022-09-09 08:57] VITALS: BP 98/59; PULSE 100; RESP 18; TEMP 36.3; O2SAT 98
[2022-09-09] MEDS: amLODIPine 5 MG Tablet PO (08:59)
[2022-09-09] MEDS: Finasteride 5 MG Tablet PO (08:59)
[2022-09-09] MEDS: Aspirin 81 MG TAB.CHEW PO (08:59)
[2022-09-09] MEDS: FLUoxetine 20 MG Capsule PO (08:59)
[2022-09-09] MEDS: Menthol/Lanolin/Calamine/Znox 113 GM Tube 1 APPLIC TOPICAL ×2 (09:01→20:51)
[2022-09-09] MEDS: 0.9% Normal Saline 1,000 ML 75 ML IV ×2 (09:37→20:49)
--- NOTE | 2022-09-09 11:00 | NURSING ---
This RN taking over care of this patient at this time.
--- NOTE | 2022-09-09 12:49 | PN_ITS ---
Subjective Subjective Patient seen and examined. He had no complaints. He is hard of hearing and was a bit confused. He denied any fever, chills, cough, yusuf pain, palpitaitons, dizziness,nausea, vomiting or any other symptoms. Cr has trended down to 2.57. Review of systems is otherwise negative. Objective Data Objective Data Vital Signs: Vital Signs Temp Pulse Resp BP Pulse Ox O2 Del Method 97.3 F L 100 18 98/59 L 98 Room Air 09/09/22 08:57 09/09/22 08:57 09/09/22 08:57 09/09/22 08:57 09/09/22 08:57 09/09/22 08:57 Oxygen Delivery Method Room Air Weight: 190 lb 4.143 oz Body Mass Index (BMI) 26.5 Intake & Output: Intake and Output for Last 24 Hours 09/07/22 09/08/22 09/09/22 23:59 23:59 23:59 Intake Total 600 / 600 2360 / 3060 700 / 700 Output Total 1500 / 1900 1100 / 1100 Balance 600 / 600 860 / 1160 -400 / -400 Lab / Micro Data Result Diagrams: 09/09/22 06:10 09/09/22 06:10 Labs: Laboratory Results - last 24 hr 09/09/22 06:10: WBC 7.3, RBC 2.83 L, Hgb 9.2 L, Hct 28.8 L, MCV 101.8 H, MCH 32.5 H, MCHC 31.9 L, RDW Std Deviation 54.4 H, RDW Coeff of Al 14.6, Plt Count 267, MPV 10.0, Immature Gran % (Auto) 0.600, Neut % (Auto) 78.6 H, Lymph % (Auto) 5.9 L, [place] % (Auto) 12.5 H, Eos % (Auto) 2.3, Baso % (Auto) 0.1, Absolute Neuts (auto) 5.7, Absolute Lymphs (auto) 0.43 L, Nucleated RBC % 0, Macrocytosis 2+ 09/09/22 06:10: Sodium 140, Potassium 4.0, Chloride 108 H, Carbon Dioxide 24.0, Anion Gap 8, BUN 57 H, Creatinine 2.57 H, Estim Creat Clear Calc 21.16, Est GFR (MDRD) Af Amer 31 L, Est GFR (MDRD) Non-Af 25 L, BUN/Creatinine Ratio 22.2 H, Glucose 98, Calcium 8.0 L Micro: Microbiology 09/07/22 14:11 Urine Catheter - Catheter Urine Culture - Final Enterococcus faecalis Klebsiella pneumoniae sp pneum Radiography Diagnostic Testing: Radiology Impression Abdomen/Pelvis CT 09/08/22 13:25 IMPRESSION: 1. Mild bilateral hydronephrosis and perinephric edema bilaterally but no obstructing stone. 2. Markedly enlarged prostate and findings may have been secondary to bladder outlet obstruction. 3. Joya catheter within the bladder. 4. Volume overload with moderate bilateral pleural effusions and anasarca. 5. Subacute sacral fractures and compression fracture of L2 as seen on recent lumbar spine CT. Electronically Signed: Manoj Pike MD at 15:15 EDT , Physical Exam Const alert and no apparent distress Constitutional Narrative: confused General Appearance: cooperative HEENT normocephalic, head/scalp atraumatic, moist oral mucous membranes and oropharynx normal Mouth: dry mucous membranes Eyes PERRL and EOMs intact bilaterally Neck no lymphadenopathy and supple Lymph Lymphatic: no lymphadenopathy noted and no lymphedema noted Resp normal respiratory effort, normal air movement and clear to auscultation bi laterally Resp Narrative: mildly diminished breath sounds bibasally, no wheezes or crackles. Cardio regular rate, regular rhythm, S1 normal heart sound, S2 normal heart sound and no murmurs GI normal to inspection, nondistended, normoactive bowel sounds, soft to palpation and non-tender Extremity normal capillary refill, no clubbing, cyanosis or edema and no calf tenderness Skin General Skin Exam: no breakdown Neuro CN's II-XII intact bilaterally, no focal motor deficits and no sensory deficits noted Psych Psych Narrative: confused Assessment & Plan Assessment/Plan (1) GLORIA (acute kidney injury): (2) Acute weakness: PLAN: Plan #GLORIA * baseline Cr is 1.1, Cr was 4.12 on admission and peaked at 4.5 * was likely due to bladder outlet obstruction due to BPH * Joya catheter inserted, and drained 1L of urine * CT of the abdomen and pelvis showed evidence of BPH and resultant mild bilateral hydronephrosis * continue gentle hydration with IVF and trend Cr * #BPH: on finasteride and flomax #Hypertension; on amlodipine #Hyperlipidemia: on statin #Debility due to mechanical falls * has a known transversal sacral fracture. * PT/OT on board. Fall precautions * on PO oxycodone and IV morphine prn for pain. * #Mechanical aortic valve replacement * done in August 2004. On coumadin. INR should be 2-3 * INR today is 2.5 * #History of complete heart block * s/p ICD placmement * On carvedilol 25 mg twice daily * #DVT prophylaxis: Already on Coumadin CODE STATUS DNR CCA and no intubation Disposition: * I spoke to patient's son and daughter today who wanted to know the plan of care. * I explained to them that patient was admitted for abnormal kidney function and was found to have GLORIA. This is now thought to be due to urinary outlet obstruction due to BPH. * Family asked about hospice as they have been told in the intermediate that vivien tapia needs to be in hospice. They said he went to the [facility] for rehab but has not had much rehab. Family counseled that it would be advisable for patient to be given a chance to undergo intensive physical therapy to help him get better. I counseled that it would be a good idea for palliative care to be consulted in the SNF. * Charges/Coding Visit Charges Inpatient E&M: 15854 Subs Hosp L2
[2022-09-09 13:54] LABS: International Normalized Ratio 2.5; Prothrombin Time (Protime)PT. 27.3 SECONDS (11.7-14.9)
[2022-09-09 15:07] VITALS: BP 93/78; PULSE 98; RESP 18; TEMP 36.5; O2SAT 96
[2022-09-09] MEDS: Acetaminophen 325 MG Tablet 650 MG PO (15:08)
[2022-09-09 17:15] VITALS: BP 114/68; PULSE 99; RESP 18; TEMP 36.4; O2SAT 95
[2022-09-09] MEDS: Jantoven 2 MG Tablet PO (17:16)
[2022-09-09] MEDS: HYDROmorphone Inj 0.2 MG/ML SYRINGE IV (20:47)
[2022-09-09] MEDS: 0.9% Saline Lock 10 ML Syringe IV (20:48)
[2022-09-09] MEDS: QUEtiapine 25 MG Tablet PO (20:49)
[2022-09-09] MEDS: Pravastatin 20 MG Tablet 10 MG PO (20:50)
[2022-09-09] MEDS: Tamsulosin HCl 0.4 MG Capsule PO (20:51)
[2022-09-09 23:14] VITALS: BP 102/58; PULSE 99; RESP 18; TEMP 36.5; O2SAT 97
[2022-09-10] VITALS (8 sets, daily range): BP systolic 106–130; BP diastolic 66–73; PULSE 92–96; RESP 16–18; TEMP 36.4–36.6; O2SAT 93–98; BMI 27.2
--- NOTE | 2022-09-10 00:12 | RAD_ITS ---
INDICATION: wheezing, sob EXAMINATION/TECHNIQUE: X-RAY - XR Chest 1 View AP portable. 12:22 AM. COMPARISON: 09/02/2022 FINDINGS: LINES/DEVICES: Pacemaker with leads unchanged. LUNGS: No consolidation. No pneumothorax. MEDIASTINUM: Unremarkable. CARDIAC SILHOUETTE: Enlarged. Stable size and configuration. Sternal wires. BONES AND SOFT TISSUES: No acute abnormalities. RAD/Chest 1 View (Portable) IMPRESSION: No evidence of active intrathoracic disease. Stable cardiomegaly. Sternotomy. Electronically Signed: Radha Ocampo MD at 1:40 EDT ,
[2022-09-10] MEDS: Furosemide 40 MG/4 ML Vial IV ×2 (00:21→04:37)
[2022-09-10] MEDS: 0.9% Saline Lock 10 ML Syringe IV ×4 (00:21→09:01)
--- NOTE | 2022-09-10 00:21 | NURSING ---
pt discovered in bed, undressed with iv pulled out-iv restarted nurse made aware audible wheezing heard at bedside-Rn Ryanne crews
[2022-09-10] MEDS: HYDROmorphone Inj 0.2 MG/ML SYRINGE IV (03:29)
--- NOTE | 2022-09-10 04:26 | NURSING ---
Patient has pulled on his barrios catheter for the past 12 hours. His output stopped even after getting iv lasix, so bladder scanned for over 800 ml. deflated the cath balloon and slightly advanced and bloody urine was released. balloon was reinflated and urine continues to drain. explained to patient not to pull on the barrios, he has torn off 2 stat locks this shift.
[2022-09-10 06:45] LABS: Absolute Lymphocyte Count 0.34 X10^3/uL (0.83-4.51); Basophil# 0.01 X10^3/uL; Basophil% 0.1 % (0-1); Eosinophil# 0.16 X10^3/uL; Eosinophils% 1.9 % (0-5); Hematocrit 28.6 % (40-54); Hemoglobin 9.3 g/dL (13.0-16.5); Lymphocyte # 0.34 X10^3/ul (0.83-4.51); Mean Corp Hgb Conc 32.5 g/dL (32-36); Mean Corpuscular Hgb 32.6 pg (27.0-32.0); Mean Corpuscular Volume 100.4 fL (80-94); Mean Platelet Vol. 9.9 fl (6.2-12.0); Monocyte# 1.01 X10^3/uL; Monocyte% 11.8 % (0-10); NRBC Flagged by Analyzer 0 % (0-5); Neutrophil # 6.97 X10^3/uL (2.7-7.7); Neutrophil % 81.6 % (47-70); POSITIVE DIFFERENTIAL YES; Platelet Count 320 K/mm3 (150-450); RBC Distribution Width CV 14.5 % (11.6-14.6); RBC Distribution Width SD 53.6 fl (35.1-43.9); Red Blood Count 2.85 M/mm3 (4.6-6.2); White Blood Count 8.5 K/mm3 (4.4-11.0)
[2022-09-10 06:50] LABS: Differential Indicated SCAN CRITERIA MET
[2022-09-10 07:04] LABS: Macrocytosis 1+
[2022-09-10 07:08] LABS: Anion Gap 6 (5-15); BUN 50 mg/dL (7-18); BUN/Creat Ratio 29.4 RATIO (10-20); Calcium,Total 7.8 mg/dL (8.5-10.1); Chloride 111 mmol/L (98-107); EST Glomerular Filtration Rate 41 mL/min (>60); Est Glom Filt Rate - Afr Amer 49 mL/min (>60); Estimated Creatinine Clearance 31.99 ml/min; Glucose 98 mg/dL (74-106); Potassium 3.8 mmol/L (3.5-5.1); Sodium Level 141 mmol/L (136-145)
[2022-09-10] MEDS: amLODIPine 5 MG Tablet PO (08:50)
[2022-09-10] MEDS: FLUoxetine 20 MG Capsule PO (08:50)
[2022-09-10] MEDS: Finasteride 5 MG Tablet PO (08:50)
[2022-09-10] MEDS: Aspirin 81 MG TAB.CHEW PO (08:51)
[2022-09-10] MEDS: Menthol/Lanolin/Calamine/Znox 113 GM Tube 1 APPLIC TOPICAL ×2 (08:53→21:10)
[2022-09-10] MEDS: Ensure Plus High Protein 120 ML LIQUID PO ×4 (08:54→21:15)
--- NOTE | 2022-09-10 10:52 | CASEMGMT ---
Addendum entered by Ange Glez 09/10/22 12:10: Social Work [facility] is able to accept pt back when medically ready. JOHN updated pt dgt who is agreeable to d/c plan. Mimi, DANNICM notified regarding referral to Palliative Medicine. Plan: [facility], skilled level of care with Palliative medicine. When medically ready JOY Travis Original Note: Social Work SW placed phone call to pt's daughter Radha. Radha states she spoke with physician who is recommending SNF with palliative medicine. Radha is agreeable to this and now states she would like pt to return to [facility] if possible. SW sent referral to [facility] via [facility]. Will await determination if they can accept back. Plan: [facility], pending acceptance JOY Travis
--- NOTE | 2022-09-10 14:09 | PN_ITS ---
Subjective Subjective Patient seen and examined. He was lying comfortably in his chair. He had no complaints and had an uneventful night. Review systems otherwise negative. He has remained hemodynamically stable. Objective Data Objective Data Vital Signs: Vital Signs Temp Pulse Resp BP Pulse Ox O2 Del Method O2 Flow Rate 97.5 F L 93 18 122/73 H 95 Nasal Cannula 2 09/10/22 02:27 09/10/22 02:27 09/10/22 02:27 09/10/22 02:27 09/10/22 11:50 09/10/22 09:05 09/10/22 09:05 Oxygen Flow Rate (L/min) 2 Oxygen Delivery Method Nasal Cannula Weight: 195 lb 1.745 oz Body Mass Index (BMI) 27.2 Intake & Output: Intake and Output for Last 24 Hours 09/08/22 09/09/22 09/10/22 23:59 23:59 23:59 Intake Total 2360 / 3060 1540.00 / 1540.00 100 / 100 Output Total 1500 / 1900 1800 / 1900 2350 / 2350 Balance 860 / 1160 -260.00 / -360.00 -2250 / -2250 Lab / Micro Data Result Diagrams: 09/10/22 06:27 09/10/22 06:27 Labs: Laboratory Results - last 24 hr 09/10/22 06:27: WBC 8.5, RBC 2.85 L, Hgb 9.3 L, Hct 28.6 L, MCV 100.4 H, MCH 32.6 H, MCHC 32.5, RDW Std Deviation 53.6 H, RDW Coeff of Al 14.5, Plt Count 320, MPV 9.9, Immature Gran % (Auto) 0.600, Neut % (Auto) 81.6 H, Lymph % (Auto) 4.0 L, [place] % (Auto) 11.8 H, Eos % (Auto) 1.9, Baso % (Auto) 0.1, Absolute Neuts (auto) 7.0, Absolute Lymphs (auto) 0.34 L, Nucleated RBC % 0, Macrocytosis 1+ 09/10/22 06:27: Sodium 141, Potassium 3.8, Chloride 111 H, Carbon Dioxide 24.0, Anion Gap 6, BUN 50 H, Creatinine 1.70 H, Estim Creat Clear Calc 31.99, Est GFR (MDRD) Af Amer 49 L, Est GFR (MDRD) Non-Af 41 L, BUN/Creatinine Ratio 29.4 H, Glucose 98, Calcium 7.8 L Micro: Microbiology 09/07/22 14:11 Urine Catheter - Catheter Urine Culture - Final Enterococcus faecalis Klebsiella pneumoniae sp pneum Radiography Diagnostic Testing: Radiology Impression Chest X-Ray 09/10/22 00:12 IMPRESSION: No evidence of active intrathoracic disease. Stable cardiomegaly. Sternotomy. Electronically Signed: Radha Ocampo MD at 1:40 EDT , Physical Exam Const alert, oriented x3 and no apparent distress Constitutional Narrative: confused General Appearance: cooperative HEENT normocephalic, head/scalp atraumatic, moist oral mucous membranes and oropharynx normal Eyes PERRL and EOMs intact bilaterally Neck no lymphadenopathy, supple and no JVD Lymph Lymphatic: no lymphadenopathy noted and no lymphedema noted Resp normal respiratory effort Resp Narrative: mildly diminished breath sounds bibasally, no wheezes or crackles. Cardio regular rate, regular rhythm, S1 normal heart sound, S2 normal heart sound and no murmurs GI normal to inspection, nondistended, normoactive bowel sounds, soft to palpation and non-tender Extremity normal capillary refill, no clubbing, cyanosis or edema and no calf tenderness Skin General Skin Exam: no breakdown Neuro CN's II-XII intact bilaterally, no focal motor deficits and no sensory deficits noted Psych thought process normal and cooperative Psych Narrative: confused Assessment & Plan Assessment/Plan (1) GLORIA (acute kidney injury): (2) Acute weakness: PLAN: Plan #GLORIA * baseline Cr is 1.1, Cr was 4.12 on admission and peaked at 4.5 * was likely due to bladder outlet obstruction due to BPH * Joya catheter inserted, and drained 1L of urine * CT of the abdomen and pelvis showed evidence of BPH and resultant mild bilateral hydronephrosis * continue gentle hydration with IVF and trend Cr * Cr today is 1.7. Urine is bloody because he was noted to be pulling on his catheter, which likely resulted in some trauma. ontinue hydrating with IVF * #BPH: on finasteride and flomax #Hypertension; on amlodipine #Hyperlipidemia: on statin #Debility due to mechanical falls * has a known transversal sacral fracture. * PT/OT on board. Fall precautions * on PO oxycodone and IV morphine prn for pain. * #Mechanical aortic valve replacement * done in August 2004. On coumadin. INR should be 2-3 * INR today is 2.5 * #History of complete heart block * s/p ICD placmement * On carvedilol 25 mg twice daily * #DVT prophylaxis: Already on Coumadin CODE STATUS DNR CCA and no intubation Disposition: for likely dc tomorrow Charges/Coding Visit Charges Inpatient E&M: 33076 Subs Hosp L2
--- NOTE | 2022-09-10 14:27 | CASEMGMT ---
DANNI EATON: Referral noted for palliative care services. Palliative screen completed and confidential email with referral information sent to [facility]. Instructions to contact pt's daughter to arrange initial meeting provided. Viraj Callahan RN CM
[2022-09-10 15:23] LABS: International Normalized Ratio 2.5; Prothrombin Time (Protime)PT. 27.6 SECONDS (11.7-14.9)
[2022-09-10] MEDS: Jantoven 2 MG Tablet PO (17:01)
[2022-09-10] MEDS: 0.9% Normal Saline 1,000 ML 100 ML IV (17:04)
[2022-09-10] MEDS: Acetaminophen 325 MG Tablet 650 MG PO (17:52)
[2022-09-10] MEDS: tiZANidine HCl 2 MG Tablet PO (17:53)
[2022-09-10] MEDS: Pravastatin 20 MG Tablet 10 MG PO (21:09)
[2022-09-10] MEDS: Tamsulosin HCl 0.4 MG Capsule PO (21:09)
[2022-09-10] MEDS: QUEtiapine 25 MG Tablet PO (21:14)
[2022-09-11] MEDS: 0.9% Normal Saline 1,000 ML 100 ML IV (02:53)
[2022-09-11 03:00] VITALS: BP 124/74; PULSE 86; RESP 16; TEMP 36.6; O2SAT 95
[2022-09-11 03:56] VITALS: BMI 27.2
[2022-09-11 07:09] LABS: Absolute Lymphocyte Count 0.48 X10^3/uL (0.83-4.51); Absolute Neutrophil Count 3.9 X10^3/uL (2.0-7.7); Basophil# 0.03 X10^3/uL; Basophil% 0.6 % (0-1); Eosinophil# 0.13 X10^3/uL; Eosinophils% 2.5 % (0-5); Hematocrit 27.3 % (40-54); Hemoglobin 8.7 g/dL (13.0-16.5); Lymphocyte # 0.48 X10^3/ul (0.83-4.51); Lymphocyte % 9.3 % (19-41); Mean Corp Hgb Conc 31.9 g/dL (32-36); Mean Corpuscular Hgb 32.7 pg (27.0-32.0); Mean Corpuscular Volume 102.6 fL (80-94); Mean Platelet Vol. 10.1 fl (6.2-12.0); Monocyte# 0.64 X10^3/uL; Monocyte% 12.4 % (0-10); NRBC Flagged by Analyzer 0 % (0-5); Neutrophil # 3.86 X10^3/uL (2.7-7.7); Neutrophil % 74.4 % (47-70); POSITIVE DIFFERENTIAL YES; Platelet Count 290 K/mm3 (150-450); RBC Distribution Width CV 14.6 % (11.6-14.6); RBC Distribution Width SD 54.9 fl (35.1-43.9); Red Blood Count 2.66 M/mm3 (4.6-6.2); White Blood Count 5.2 K/mm3 (4.4-11.0)
[2022-09-11 07:10] LABS: Differential Indicated SCAN CRITERIA MET
[2022-09-11 07:39] LABS: Differential Comment SCANNED
[2022-09-11 07:45] LABS: Anion Gap 4 (5-15); BUN 39 mg/dL (7-18); BUN/Creat Ratio 33.3 RATIO (10-20); Calcium,Total 7.6 mg/dL (8.5-10.1); Chloride 115 mmol/L (98-107); Creatinine, Serum 1.17 mg/dL (0.70-1.30); EST Glomerular Filtration Rate 63 mL/min (>60); Est Glom Filt Rate - Afr Amer 76 mL/min (>60); Estimated Creatinine Clearance 46.48 ml/min; Glucose 92 mg/dL (74-106); Potassium 3.9 mmol/L (3.5-5.1); Sodium Level 143 mmol/L (136-145)
[2022-09-11 07:48] VITALS: BP 119/76; PULSE 76; RESP 20; TEMP 36.6; O2SAT 98
[2022-09-11] MEDS: FLUoxetine 20 MG Capsule PO (08:03)
[2022-09-11] MEDS: Acetaminophen 325 MG Tablet 650 MG PO ×2 (08:03→14:54)
[2022-09-11] MEDS: Menthol/Lanolin/Calamine/Znox 113 GM Tube 1 APPLIC TOPICAL (08:04)
[2022-09-11] MEDS: amLODIPine 5 MG Tablet PO (08:04)
[2022-09-11] MEDS: Finasteride 5 MG Tablet PO (08:04)
[2022-09-11] MEDS: Aspirin 81 MG TAB.CHEW PO (08:06)
[2022-09-11 08:18] VITALS: PULSE 89; RESP 18; O2SAT 98
[2022-09-11] MEDS: Albuterol 2.5 MG/3 ML VIAL.NEB. INHALATION (08:18)
[2022-09-11 10:40] VITALS: O2SAT 96
--- NOTE | 2022-09-11 11:31 | TREXTCAR_ITS ---
Diet Diet Order/Speech Therapy: 09/08/22 12:20 Diet: Regular - No Added Salt Is pt able to select menu?: No Routine Orders/Code Status Enema Type: Fleetz Enema Frequency: Daily PRN Suppository Type: Dulcolax 10mg Suppository Frequency: Daily PRN O2 Frequency: PRN Keep PO Greater than or Equal to (%): 90 Wound(s) BUE: Wound Type: small scabs Therapies Weight Bearing: Weight bearing as tolerated Physical Therapy: Eval and Treat Occupational Therapy: Eval and Treat Problem/Diagnosis (1) GLORIA (acute kidney injury): Status: Acute Code(s): N17.9 - Acute kidney failure, unspecified (2) Acute weakness: Status: Acute Code(s): R53.1 - Weakness Plan #GLORIA * baseline Cr is 1.1, Cr was 4.12 on admission and peaked at 4.5 * was likely due to bladder outlet obstruction due to BPH * Joya catheter inserted, and drained 1L of urine * CT of the abdomen and pelvis showed evidence of BPH and resultant mild bilateral hydronephrosis * continue gentle hydration with IVF and trend Cr * Cr today is 1.7. Urine is bloody because he was noted to be pulling on his catheter, which likely resulted in some trauma. ontinue hydrating with IVF * #BPH: on finasteride and flomax #Hypertension; on amlodipine #Hyperlipidemia: on statin #Debility due to mechanical falls * has a known transversal sacral fracture. * PT/OT on board. Fall precautions * on PO oxycodone and IV morphine prn for pain. * #Mechanical aortic valve replacement * done in August 2004. On coumadin. INR should be 2-3 * INR today is 2.5 * #History of complete heart block * s/p ICD placmement * On carvedilol 25 mg twice daily * #DVT prophylaxis: Already on Coumadin CODE STATUS DNR CCA and no intubation Disposition: for likely dc tomorrow Allergies/Procedures Done in Hospital Allergies No Known Allergies Allergy (Verified 09/02/22 11:11) Procedures: None Type of Care/Length of Stay Estimated LOS: Convalescent Care Less Than 30 days Type of Care Needed: Skilled Rehab Potential: Fair Prognosis: Fair Additional Orders/Day of Discharge Day of Discharge: 09/11/22 Dietary and Speech Recommendations Dietitian Recommendations/Changes: will adjust diet to regular/no added salt; will add 120mL ensure plus high protein w/ medpass for additional calories/protein if consumed given risk for malnutrition Discharge Plan Admission Admit Date/Time: 09/07/22 13:54 Primary Reason for Your Visit: GLORIA due to BPH Attending Provider: Connie Farrell Primary Care Provider: Lon Gonzalez Consulting Providers: Ronnie Mejía Instructions Patient Instructions: Acute Kidney Failure Dc Discharge Orders/Prescriptions Prescriptions: Continued tamsulosin 0.4 mg capsule 0.4 mg PO QHS fluoxetine [Prozac] 20 mg capsule 20 mg PO DAILY aspirin 81 MG tablet,chewable 81 mg PO DAILY@0800 finasteride 5 mg PO/SL DAILY quetiapine 25 mg Tablet 25 mg PO QHS PRN PRN (Reason: Agitation) Qty: 0 0RF lactulose 20 gram/30 mL Solution 20 g PO TID Qty: 0 0RF (DME) Handicap Placard Qty: 1 0RF Dose Instruction: As directed Rx Instructions: Good from 09/29/2018 - 09/30/2023 pravastatin 10 mg tablet 10 mg PO QHS Qty: 90 4RF carvedilol 25 mg tablet 25 mg PO BID Qty: 180 3RF warfarin 2 mg tablet 2 mg PO DAILY Qty: 270 4RF Protocol: Dose Management Condition: Saturday Dose/Route: 2 mg Instruction: 1 x 2 mg tablet Condition: Saturday Dose/Route: 2 mg Instruction: 1 x 2 mg tablet Condition: Saturday Dose/Route: 2 mg Instruction: 1 x 2 mg tablet Condition: Saturday Dose/Route: 4 mg Instruction: 2 x 2 mg tablets Condition: Dose/Route: 4 mg Instruction: 2 x 2 mg tablets Condition: Saturday Dose/Route: 2 mg Instruction: 1 x 2 mg tablet Condition: Saturday Dose/Route: 2 mg Instruction: 1 x 2 mg tablet Protocol Text: Adjustment Start Date: Saturday08/31/22 INR Value: 3.9 INR Date: 08/31/22 Recheck Date: 09/07/22 Rx Instructions: Take 2 tabs (4mg) , Saturday and 2mg Saturday, Saturday, Saturday, Saturday, Saturday ramipril 10 mg capsule 10 mg PO BID Qty: 180 3RF amlodipine 5 mg tablet 5 mg PO DAILY Qty: 90 3RF Referrals / Follow Up: Ge Frazier MD [Med Staff - Active Staff] - Within 2 Weeks (see to establish care for BPH. ) Lon Gonzalez MD [Primary Care Provider] - Within 2 Weeks Disposition Disposition (needs filled in before D/C Order can be placed): [facility] Facility
--- NOTE | 2022-09-11 13:50 | CASEMGMT ---
Social Work Per physician, pt is ready for discharge today. Discharge orders and covid results sent to [facility] via [facility]. 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 Phone call to pt dgt and updated on discharge and she is agreeable. RN and [facility] updated on d/c time. Disposition: Return to [facility], skilled level of care JOY Travis
[2022-09-11] MEDS: Ipratropium/Albuterol Sulfate 3 ML AMPUL.NEB INHALATION (13:54)
[2022-09-11 13:55] VITALS: PULSE 85; RESP 18
[2022-09-11 14:49] VITALS: BP 110/71; PULSE 86; RESP 20; TEMP 36.8; O2SAT 98
[2022-09-11] MEDS: Ensure Plus High Protein 120 ML LIQUID PO (14:54)
--- NOTE | 2022-09-11 15:44 | DS.PCM_ITS ---
Providers Date of Admission: 09/07/22 Date of Discharge: 09/11/22 Primary Care Physician: Dr. Lon Gonzalez MD Reason For Visit: GLORIA Diagnosis Discharge Diagnosis (1) GLORIA (acute kidney injury): Status: Acute Code(s): N17.9 - Acute kidney failure, unspecified (2) Acute weakness: Status: Acute Code(s): R53.1 - Weakness Plan #GLORIA * baseline Cr is 1.1, Cr was 4.12 on admission and peaked at 4.5 * was likely due to bladder outlet obstruction due to BPH * Joya catheter inserted, and drained 1L of urine * CT of the abdomen and pelvis showed evidence of BPH and resultant mild bilateral hydronephrosis * continue gentle hydration with IVF and trend Cr * Cr today is 1.7. Urine is bloody because he was noted to be pulling on his catheter, which likely resulted in some trauma. ontinue hydrating with IVF * #BPH: on finasteride and flomax #Hypertension; on amlodipine #Hyperlipidemia: on statin #Debility due to mechanical falls * has a known transversal sacral fracture. * PT/OT on board. Fall precautions * on PO oxycodone and IV morphine prn for pain. * #Mechanical aortic valve replacement * done in August 2004. On coumadin. INR should be 2-3 * INR today is 2.5 * #History of complete heart block * s/p ICD placmement * On carvedilol 25 mg twice daily * #DVT prophylaxis: Already on Coumadin CODE STATUS DNR CCA and no intubation Disposition: for likely dc tomorrow Medications at Discharge Home Medications aspirin 81 mg chewable tablet 81 mg PO DAILY@0800 heart [facility] 03/17/13 Handicap Placard #1 ea 09/29/18 tamsulosin 0.4 mg capsule 0.4 mg PO QHS prostate 05/30/20 pravastatin 10 mg tablet 10 mg PO QHS #90 tabs 09/06/21 carvedilol 25 mg tablet 25 mg PO BID #180 tabs 01/05/22 warfarin 2 mg tablet 2 mg PO DAILY #270 tabs 01/12/22 ramipril 10 mg capsule 10 mg PO BID #180 caps 01/17/22 amlodipine 5 mg tablet 5 mg PO DAILY #90 tabs 03/09/22 fluoxetine 20 mg capsule (Prozac) 20 mg PO DAILY mood 03/09/22 finasteride 5 mg PO/SL DAILY 09/02/22 lactulose 20 gram/30 mL oral solution 20 g (30 mL) PO TID #0 mL 09/05/22 quetiapine 25 mg tablet 25 mg PO QHS PRN PRN Agitation #0 tabs 09/05/22 Hospital Course Operations None Procedures None Summary of Care Provided Minutes Spent on Discharge: 50 Hospital Course: Patient is an 87-year-old male with a past medical history as outlined was admitted via the ED on 09/07/2022 on account of abnormal labs. Patient had just been discharged 2 days prior to this admission after being admitted and managed for generalized weakness and falls. He was discharged to long-term home for therapy but had labs which showed elevated creatinine so he was brought into the ED. Creatinine was 4.12, up from 1.13 just couple of days prior to adm ission. Labs were otherwise unremarkable. He was admitted and managed for GLORIA. He was initially hydrated with IV fluids. In light of his history of BPH, it was felt that this was likely due to urine outlet obstruction from BPH. A Joya catheter was inserted. Patient subsequently had significant urine output and creatinine trended down significantly and normalized at 1.17 on 09/11/2022. Patient remained stable and was discharged back to the long-term facility on 09/21/2022. He was discharged with a Joya catheter in situ and is to follow- up with urology within 1 to 2 weeks. Joya catheter to be changed at least every 3 weeks. Patient seen and examined prior to discharge. He had no complaints and had an uneventful night. Review of systems otherwise negative. Labs and vitals reviewed. Home medication reviewed and reconciled. Physical Exam Const alert, oriented x3 and no apparent distress Constitutional Narrative: confused General Appearance: cooperative, comfortable and well kempt HEENT normocephalic, head/scalp atraumatic, hearing grossly normal bilaterally, moist oral mucous membranes and oropharynx normal Eyes PERRL and EOMs intact bilaterally Neck no lymphadenopathy, supple and no JVD Lymph Lymphatic: no lymphadenopathy noted and no lymphedema noted Resp normal respiratory effort, normal air movement, no retractions and clear to auscultation bilaterally Resp Narrative: mildly diminished breath sounds bibasally, no wheezes or crackles. Cardio regular rate, regular rhythm, S1 normal heart sound, S2 normal heart sound and no murmurs GI normal to inspection, nondistended, normoactive bowel sounds, soft to palpation and non-tender Extremity normal to inspection, full ROM, normal capillary refill, no clubbing, cyanosis or edema and no calf tenderness Skin no rashes or lesions noted General Skin Exam: no breakdown Neuro CN's II-XII intact bilaterally, moves all extremities, no focal motor deficits and no sensory deficits noted Psych cooperative Psych Narrative: confused Weight / BMI Weight Weight: 195 lb 1.745 oz Body Mass Index (BMI) 27.2 ABG / Lab / Microbiology Data Result Diagrams: 09/11/22 06:30 09/11/22 06:30 Laboratory: Laboratory Results - last 24 hr 09/11/22 06:30: WBC 5.2, RBC 2.66 L, Hgb 8.7 L, Hct 27.3 L, MCV 102.6 H, MCH 32.7 H, MCHC 31.9 L, RDW Std Deviation 54.9 H, RDW Coeff of Al 14.6, Plt Count 290, MPV 10.1, Immature Gran % (Auto) 0.800, Neut % (Auto) 74.4 H, Lymph % (Auto) 9.3 L, [place] % (Auto) 12.4 H, Eos % (Auto) 2.5, Baso % (Auto) 0.6, Absolute Neuts (auto) 3.9, Absolute Lymphs (auto) 0.48 L, Nucleated RBC % 0, Differential Comment SCANNED 09/11/22 06:30: Sodium 143, Potassium 3.9, Chloride 115 H, Carbon Dioxide 24.0, Anion Gap 4 L, BUN 39 H, Creatinine 1.17, Estim Creat Clear Calc 46.48, Est GFR (MDRD) Af Amer 76, Est GFR (MDRD) Non-Af 63, BUN/Creatinine Ratio 33.3 H, Glucose 92, Calcium 7.6 L Microbiology: Microbiology 09/11/22 11:43 Nasal Secretion SARS-CoV-2 Antigen (Rapid) - Final 09/07/22 14:11 Urine Catheter - Catheter Urine Culture - Final Enterococcus faecalis Klebsiella pneumoniae sp pneum D/C Instructions Discharge Diet: Low fat / Low cholesterol Discharge Activity: Return to Normal Activity Weight Bearing Status: Weight bearing as tolerated Call your doctor if you observe: Fever of 101 or Higher, Shortness of breath, Dizziness, Swelling in the ankles, Chest pain and Increased palpitations (irregular heartbeat) Meaningful Use Info Meaningful Use Diagnoses (Choose all that apply): None applicable Discharge Plan Admission Admit Date/Time: 09/07/22 13:54 Primary Reason for Your Visit: GLORIA due to BPH Attending Provider: Connie Farrell Primary Care Provider: Lon Gonzalez Consulting Providers: Ronnie Mejía Instructions Patient Instructions: Acute Kidney Failure Dc Discharge Orders/Prescriptions Prescriptions: Continued tamsulosin 0.4 mg capsule 0.4 mg PO QHS fluoxetine [Prozac] 20 mg capsule 20 mg PO DAILY aspirin 81 MG tablet,chewable 81 mg PO DAILY@0800 finasteride 5 mg PO/SL DAILY quetiapine 25 mg Tablet 25 mg PO QHS PRN PRN (Reason: Agitation) Qty: 0 0RF lactulose 20 gram/30 mL Solution 20 g PO TID Qty: 0 0RF (DME) Handicap Placard Qty: 1 0RF Dose Instruction: As directed Rx Instructions: Good from 09/29/2018 - 09/30/2023 pravastatin 10 mg tablet 10 mg PO QHS Qty: 90 4RF carvedilol 25 mg tablet 25 mg PO BID Qty: 180 3RF warfarin 2 mg tablet 2 mg PO DAILY Qty: 270 4RF Protocol: Dose Management Condition: Saturday Dose/Route: 2 mg Instruction: 1 x 2 mg tablet Condition: Saturday Dose/Route: 2 mg Instruction: 1 x 2 mg tablet Condition: Saturday Dose/Route: 2 mg Instruction: 1 x 2 mg tablet Condition: Saturday Dose/Route: 4 mg Instruction: 2 x 2 mg tablets Condition: Dose/Route: 4 mg Instruction: 2 x 2 mg tablets Condition: Saturday Dose/Route: 2 mg Instruction: 1 x 2 mg tablet Condition: Saturday Dose/Route: 2 mg Instruction: 1 x 2 mg tablet Protocol Text: Adjustment Start Date: Saturday08/31/22 INR Value: 3.9 INR Date: 08/31/22 Recheck Date: 09/07/22 Rx Instructions: Take 2 tabs (4mg) , Saturday and 2mg Saturday, Saturday, Saturday, Saturday, Saturday ramipril 10 mg capsule 10 mg PO BID Qty: 180 3RF amlodipine 5 mg tablet 5 mg PO DAILY Qty: 90 3RF Referrals / Follow Up: Ge Frazier MD [Med Staff - Active Staff] - 09/25/22 10:30 am (see to establish care for BPH. ) Lon Gonzalez MD [Primary Care Provider] - Within 2 Weeks Disposition Disposition (needs filled in before D/C Order can be placed): [facility] Facility Charges/Coding Visit Charges Inpatient E&M: 41917 Disch Hosp >30min
== END 2022-09-11 16:15 | disposition skilled nursing facility (03) | DRG 683 ==
LOC: ED 13:59 → MS3 14:37
PROVIDERS: Admitting Provider Internal Medicine; Emergency Provider Emergency Medicine; PCP Family Medicine; Visit Provider Student in an Organized Health Care Education/Training Program
DX: N17.9 Acute kidney failure, unspecified (principal); I42.8 Other cardiomyopathies; N13.8 Other obstructive and reflux uropathy; F03.90 Unspecified dementia, unspecified severity, without behavioral disturbance, psychotic disturbance, mood disturbance, and anxiety; I73.9 Peripheral vascular disease, unspecified; I48.0 Paroxysmal atrial fibrillation; N18.31 Chronic kidney disease, stage 3a; I08.1 Rheumatic disorders of both mitral and tricuspid valves; E78.00 Pure hypercholesterolemia, unspecified; I12.9 Hypertensive chronic kidney disease with stage 1 through stage 4 chronic kidney disease, or unspecified chronic kidney disease; Z95.810 Presence of automatic (implantable) cardiac defibrillator; Z79.01 Long term (current) use of anticoagulants; R53.1 Weakness; Z79.82 Long term (current) use of aspirin; M85.80 Other specified disorders of bone density and structure, unspecified site; H91.90 Unspecified hearing loss, unspecified ear; N32.0 Bladder-neck obstruction; R53.81 Other malaise; Z66 Do not resuscitate; N13.30 Unspecified hydronephrosis; S32.10XD Unspecified fracture of sacrum, subsequent encounter for fracture with routine healing; Z95.2 Presence of prosthetic heart valve; N40.1 Benign prostatic hyperplasia with lower urinary tract symptoms
CPT/HCPCS: 36415; 71045; 74176; 80048; 81001; 83735; 84100; 85025; 85610; 87077; 87086; 87088; 87186; 87426; 94640; 97110; 97162; 97166; 97530; 97535; 97802; 99285; J7030; J7120; P9612; A4216; J1940

== ENCOUNTER 2022-09-27 00:08 | Emergency (ER) | payer MEDICARE, OTHER, SELFPAY ==
[2022-09-27 00:09] VITALS: BP 85/68; PULSE 88; RESP 16; TEMP 36.4; O2SAT 95; BMI 27.7
--- NOTE | 2022-09-27 00:38 | EKG12_ITS ---
Test Reason : DYSRHYTHMIA Blood Pressure : / mmHG Vent. Rate : 075 BPM Atrial Rate : 000 BPM P-R Int : 000 ms QRS Dur : 114 ms QT Int : 434 ms P-R-T Axes : 000 073 003 degrees QTc Int : 484 ms Atrial fibrillation with premature ventricular or aberrantly conducted complexes Low voltage QRS Septal infarct , age undetermined Abnormal ECG Confirmed by RADHA HUDSON, JORGE ([id number]), film editor SONNY JACOBSON ([id number]) on 09/27/2022 10:44:40 AM Referred By: Confirmed By:JORGE GARCIA MD
--- NOTE | 2022-09-27 00:38 | RAD_ITS ---
EXAM: XR CHEST, 1 VIEW CLINICAL INDICATION: hypotensive TECHNIQUE: Frontal view of the chest. COMPARISON: 09/10/2022 portable chest FINDINGS: LUNGS AND PLEURAL SPACES: Moderate left pleural effusion and left basilar airspace disease. No pneumothorax. HEART: Mild enlargement of the cardiac silhouette. MEDIASTINUM: Surgical changes of the mediastinum. BONES/JOINTS: Unremarkable. SOFT TISSUES: Unremarkable. TUBES, LINES AND DEVICES: Left chest pacer. RAD/Chest 1 View (Portable) IMPRESSION: Moderate left pleural effusion and left basilar airspace disease. Findings may indicate atelectasis or infection. Electronically Signed: Dinesh Daniel MD at 1:16 EDT ,
--- NOTE | 2022-09-27 00:41 | EDS_ITS ---
HPI History of Present Illness Chief Complaint: Edema Detail of Chief Complaint: Decreased urine output. Informant: patient and family Onset/Context/Timing Onset: Today Context: Gradual Onset Timing: Continuous Maximum Severity: Mild Narrative Narrative: 55-y[age]z-l[age]-year-old male history of A-fib on Coumadin. Chronic anemia. In the last month patient's gone from his home to group home facility. Currently is a resident at [facility]. Daughter is in the room said his health has been steadily declining over the last several months. Currently he has a DNR Comfort Care arrest CODE STATUS. Patient is very limited informant. He has had swelling in his upper left and both lower extremities. Recently was placed on Lasix. Tonight had decreased urinary output through his chronic indwelling Joya catheter was sent in the emergency department. 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 03/17/13 [History Last Taken 05/16/22] Handicap Placard #1 ea 09/29/18 [Rx Last Taken Unknown] tamsulosin 0.4 mg capsule 0.4 mg PO QHS prostate 05/30/20 [History Last Taken Unknown] pravastatin 10 mg tablet 10 mg PO QHS #90 tabs 09/06/21 [Rx Last Taken Unknown] carvedilol 25 mg tablet 25 mg PO BID #180 tabs 01/05/22 [Rx Last Taken 05/17/22] warfarin 2 mg tablet 2 mg PO DAILY #270 tabs 01/12/22 [Rx Last Taken Unknown] ramipril 10 mg capsule 10 mg PO BID #180 caps 01/17/22 [Rx Last Taken 05/17/22] amlodipine 5 mg tablet 5 mg PO DAILY #90 tabs 03/09/22 [Rx Last Taken 05/17/22] fluoxetine 20 mg capsule (Prozac) 20 mg PO DAILY mood 03/09/22 [History Last Taken Unknown] finasteride 5 mg PO/SL DAILY 09/02/22 [History Last Taken Unknown] lactulose 20 gram/30 mL oral solution 20 g (30 mL) PO TID #0 mL 09/05/22 [Rx Last Taken Unknown] quetiapine 25 mg tablet 25 mg PO QHS PRN PRN Agitation #0 tabs 09/05/22 [Rx Last Taken Unknown] furosemide 20 mg tablet (Lasix) 20 mg PO DAILY 09/27/22 [History Last Taken Unknown] oxycodone 5 mg tablet 5 mg PO Q6H PRN pain 09/27/22 [History Last Taken Unknown] Allergy/AdvReac Type Severity Reaction Status Date / Time No Known Allergies Allergy Verified 09/27/22 00:31 Family History Father CAD (coronary artery disease) Mother Breast cancer Brother CAD (coronary artery disease) Hx CABG Brother Cancer Leukemia Surgical History Cardiac pacemaker in situ H/O mitral valve replacement Social History household members: spouse housing: assisted living facility Smoking Status: Never smoker alcohol intake: never substance use type: does not use caffeine: No what type of physical activity do you participate in: other details: tredmill frequency: 1-2 times per week duration: 15-30 minutes/day seatbelt use: always do you feel safe at home: Yes ROS ROS ED ROS Narrative Patient denies any complaints. But he is again a very limited informant. Review of Systems ROS Unobtainable: due to mental status EXAM Physical Exam Narrative Exam Narrative: 79-year-old male vital signs show blood pressure 85/68. He is afebrile. H EENT exam unremarkable. Mildly dry mucous membranes. Neck nontender. Lungs clear to auscultation. Heart rate about 90. Prior sternotomy well-healed. Abdomen soft nondistended. Normal bowel sounds no peritoneal signs. External exam is a Joya catheter in place with very cloudy urine. About 200 cc in the bag. Nurses BladderScan the patient and there was no appreciable urine in his bladder. Extremities he has edema in the left upper extremity normal right upper extremity. Both lower extremities have 1-2+ pitting edema left slightly greater than right. Neurologically he is awake. He will answer limited questions. He does open his eyes. He is generally weak. Const Vital Signs: 09/27/22 00:09 09/27/22 00:25 09/27/22 00:57 Temperature 97.5 F L Temperature Source Axillary Pulse Rate 88 Respiratory Rate 16 Respiratory Effort Normal Non-Labored Respiratory Pattern Normal Blood Pressure 85/68 L Blood Pressure Mean 73 Pulse Ox 95 Oxygen Delivery Method Room Air Room Air 09/27/22 01:50 09/27/22 02:03 Temperature Temperature Source Pulse Rate 74 74 Respiratory Rate 18 16 Respiratory Effort Respiratory Pattern Blood Pressure 87/56 L 92/65 Blood Pressure Mean 66 74 Pulse Ox 94 97 Oxygen Delivery Method Room Air Room Air Positive well nourished and well developed; Negative for cachectic, contractures or unkempt General Appearance ED: well developed; Negative for unkempt, cachectic, contractures, cyanotic, diaphoretic or NAD Nutritional Appearance: Negative for cachectic HEENT Reports dry mucous membranes; Denies moist mucous membranes Negative for trauma or tenderness Mouth ED: Yes dry mucous membranes Mouth: dry mucous membranes Eyes PERRL and EOMs intact bilaterally General Eye ED: Negative for pale conjunctiva or scleral icterus Neck no lymphadenopathy, supple and no JVD General: Negative for tenderness Lymph Lymphatic: Negative for other Chest Wall inspection of chest normal and palpation of chest normal Chest: Negative for other Resp normal respiratory effort and clear to auscultation bilaterally Effort and Inspection: Negative for retractions Auscultation: Negative for rales, rhonchi or wheezes Cardio regular rate GI normal to inspection, nondistended, normoactive bowel sounds, non-tender, non- distended and no masses Inspection: Negative for abdominal distention Auscultation: normoactive bowel sounds Palpation: soft; Negative for tender or guarding Back/Spine no CVA tenderness General Back: Negative for CVA tenderness Cervical Spine: Negative for cervical spine tenderness Thoracic Spine / Upper Back: Negative for thoracic spinal tenderness Lumbar Spine / Lower Back: Negative for lumbar spinal tenderness Extremity Negative for normal to inspection Extremity Narrative: Left upper and both lower extremity edema. Left side greater than right. General Extremety ED: Yes edema General Extremity: edema Neuro No oriented x3 Sensorium / Orientation: alert, orientation impaired and lethargic Motor Exam: Negative for strength 5/5 throughout Psych mental status grossly normal Appearance: Negative for unkempt Attitude: No agitated Mood & Affect: Negative for depressed, anxious or tearful Skin no rashes or lesions noted and no wounds Lesions: No lesion noted Rashes: No rashes noted Trauma: Negative for abrasion Wounds: Negative for wounds noted MDM MDM MDM Narrative Medical decision making narrative: 87-year-old male presents with decreased urine output and hypotension. Daughter is at bedside. He is chronically ill and progressively declining. She wants it evaluated but does not want aggressive measures. No CPR. No intubation. He will be worked up for dehydration and infectious etiologies. Repeat exam patient is doing well at hi 2:30 AM. Daughter and son-in-law are in the room. I discussed his care with her at length. She is comfortable and would prefer him to be discharged back to the extended care facility. He will be treated for urinary tract infection. Started on Cipro p.o. first dose given here. Urine culture was sent. History & Record Review Discussion w/independent historian: Patient and Family Lab Data Attestation: I reviewed the patient's lab results. Lab results narrative: CBC shows a white count of 6.2. H&H 8.9 and 28.2. He has a baseline anemia this is along his normal blood counts. His platelets are 143,000. Electrolytes show anion gap of 2. BUN and creatinine are 32 and 1.55. Liver enzymes are unremarkable. Patient is on Coumadin his PT/INR are 24 and 2.2 Urinalysis shows greater than 100 white cells, greater than 100 red cells and 4+ bacteria. Consistent with UTI. Urine culture will be sent. Labs: Laboratory Results - last 24 hr 09/27/22 09/27/22 00:55 01:01 WBC 6.2 RBC 2.75 L Hgb 8.9 L Hct 28.2 L MCV 102.5 H MCH 32.4 H MCHC 31.6 L RDW Std Deviation 58.0 H RDW Coeff of Al 15.9 H Plt Count 143 L MPV 11.0 Immature Gran % (Auto) 0.300 Neut % (Auto) 78.4 H Lymph % (Auto) 6.8 L [place] % (Auto) 12.1 H Eos % (Auto) 1.9 Baso % (Auto) 0.5 Absolute Neuts (auto) 4.8 Absolute Lymphs (auto) 0.42 L Nucleated RBC % 0 Platelet Estimate SLT DEC Anisocytosis 1+ Macrocytosis 1+ PT 24.6 H INR 2.2 APTT 45.9 H Sodium 142 Potassium 4.5 Chloride 112 H Carbon Dioxide 28.0 Anion Gap 2 L BUN 32 H Creatinine 1.55 H Estim Creat Clear Calc 35.09 Est GFR (MDRD) Af Amer 55 L Est GFR (MDRD) Non-Af 45 L BUN/Creatinine Ratio 20.6 H Glucose 88 Lactic Acid 1.2 Calcium 8.1 L Total Bilirubin 0.60 AST 26 ALT 32 Alkaline Phosphatase 155 H Total Protein 6.0 L Albumin 2.1 L Globulin 3.9 Albumin/Globulin Ratio 0.5 L Urine Color Yellow Urine Clarity Turbid Urine pH 5.0 Ur Specific [place] 1.020 Urine Protein 100 H Urine Glucose (UA) Normal Urine Ketones 5 H Urine Occult Blood 250 H Urine Nitrite Negative Urine Bilirubin Negative Urine Urobilinogen Normal Ur Leukocyte Esterase 500 H Urine RBC > 100 SEEN Urine WBC >100 SEEN Ur Squamous Epith Cells 0 SEEN Urine Bacteria 4+ Urine Mucus 0 SEEN Radiography Chest X-Ray - ED: 1 View, Read by ED Physician, Heart, Lungs, Mediastinum, Bony Structures, No Acute Disease and Chronic Changes Diagnostic Testing: Chest x-ray, portable, single view, interpreted by myself shows a normal cardiac silhouette. Lung dior show chronic changes. Left pleural effusion. Patient has a left-sided pacemaker defibrillator. Rhythm Strip Rhythm Strip: A-fib Rate: 75 Ectopy: None EKG Initial EKG: Attestation: I personally reviewed and interpreted this EKG as follows: Interpretation: No Acute Injury Pattern and Atrial Fibrillation Comments: A-fib with a rate of 75. Discharge Plan Triage Chief Complaint: Edema ED Provider: Todd Ram Dx/Rx/DC Orders Clinical Impression: Urinary tract infection, Chronic anticoagulation, History of atrial fibrillation, History of anemia Instructions: Urinary Tract Infections in Men Prescriptions: No Action tamsulosin 0.4 mg capsule 0.4 mg PO QHS fluoxetine [Prozac] 20 mg capsule 20 mg PO DAILY aspirin 81 MG tablet,chewable 81 mg PO DAILY@0800 finasteride 5 mg PO/SL DAILY quetiapine 25 mg Tablet 25 mg PO QHS PRN PRN (Reason: Agitation) Qty: 0 0RF lactulose 20 gram/30 mL Solution 20 g PO TID Qty: 0 0RF oxycodone 5 mg tablet 5 mg PO Q6H PRN (Reason: pain) furosemide [Lasix] 20 mg tablet 20 mg PO DAILY (DME) Handicap Placard Qty: 1 0RF Dose Instruction: As directed Rx Instructions: Good from 09/29/2018 - 09/30/2023 pravastatin 10 mg tablet 10 mg PO QHS Qty: 90 4RF carvedilol 25 mg tablet 25 mg PO BID Qty: 180 3RF warfarin 2 mg tablet 2 mg PO DAILY Qty: 270 4RF Protocol: Dose Management Condition: Saturday Dose/Route: 2 mg Instruction: 1 x 2 mg tablet Condition: Saturday Dose/Route: 2 mg Instruction: 1 x 2 mg tablet Condition: Saturday Dose/Route: 2 mg Instruction: 1 x 2 mg tablet Condition: Saturday Dose/Route: 4 mg Instruction: 2 x 2 mg tablets Condition: Dose/Route: 4 mg Instruction: 2 x 2 mg tablets Condition: Saturday Dose/Route: 2 mg Instruction: 1 x 2 mg tablet Condition: Saturday Dose/Route: 2 mg Instruction: 1 x 2 mg tablet Protocol Text: Adjustment Start Date: Saturday08/31/22 INR Value: 3.9 INR Date: 08/31/22 Recheck Date: 09/07/22 Rx Instructions: Take 2 tabs (4mg) , Saturday and 2mg Saturday, Saturday, Saturday, Saturday, Saturday ramipril 10 mg capsule 10 mg PO BID Qty: 180 3RF amlodipine 5 mg tablet 5 mg PO DAILY Qty: 90 3RF Primary Care Provider: Phuc Morgan Referrals: Phuc Morgan MD [Primary Care Provider] -
[2022-09-27 01:03] LABS: Absolute Lymphocyte Count 0.42 X10^3/uL (0.83-4.51); Absolute Neutrophil Count 4.8 X10^3/uL (2.0-7.7); Basophil# 0.03 X10^3/uL; Basophil% 0.5 % (0-1); Eosinophil# 0.12 X10^3/uL; Eosinophils% 1.9 % (0-5); Hematocrit 28.2 % (40-54); Hemoglobin 8.9 g/dL (13.0-16.5); Lymphocyte # 0.42 X10^3/ul (0.83-4.51); Lymphocyte % 6.8 % (19-41); Mean Corp Hgb Conc 31.6 g/dL (32-36); Mean Corpuscular Hgb 32.4 pg (27.0-32.0); Mean Corpuscular Volume 102.5 fL (80-94); Monocyte# 0.75 X10^3/uL; Monocyte% 12.1 % (0-10); NRBC Flagged by Analyzer 0 % (0-5); Neutrophil # 4.84 X10^3/uL (2.7-7.7); Neutrophil % 78.4 % (47-70); POSITIVE DIFFERENTIAL YES; Platelet Count 143 K/mm3 (150-450); RBC Distribution Width CV 15.9 % (11.6-14.6); Red Blood Count 2.75 M/mm3 (4.6-6.2); White Blood Count 6.2 K/mm3 (4.4-11.0)
[2022-09-27 01:04] LABS: Differential Indicated SCAN CRITERIA MET
[2022-09-27 01:05] LABS: Mucous, Urine 0 SEEN /hpf (<or=2+); Squamous Epithelial Cells - UA 0 SEEN /hpf (0-5)
[2022-09-27 01:07] LABS: Color, Urine Yellow (Yellow); Glucose, Dipstick Normal (Normal); Ketone-Dipstick 5 mg/dl (Negative); Leukocyte Esterase-Dipstick 500 /ul (Negative); Nitrite-Dipstick Negative (Negative); Occult Blood-Urine 250 /ul (Negative); Protein-Dipstick 100 mg/dl (Negative); Urine Bilirubin Dipstick Negative (Negative); Urine Clarity Turbid (Clear); Urine Urobilinogen Normal (Normal)
[2022-09-27 01:12] LABS: International Normalized Ratio 2.2; Prothrombin Time (Protime)PT. 24.6 SECONDS (11.7-14.9)
[2022-09-27 01:14] LABS: Partial Thromboplast Time 45.9 Seconds (24.1-36.2)
[2022-09-27 01:21] LABS: ALB/GLOB Ratio 0.5 RATIO (0.9-2.4); AST(SGOT) 26 U/L (15-37); Alanine Aminotransfer ALT/SGPT 32 U/L (16-61); Albumin, Serum 2.1 g/dL (3.2-5.0); Alkaline Phosphatase 155 U/L (45-117); Anion Gap 2 (5-15); BUN 32 mg/dL (7-18); BUN/Creat Ratio 20.6 RATIO (10-20); Calcium,Total 8.1 mg/dL (8.5-10.1); Chloride 112 mmol/L (98-107); Creatinine, Serum 1.55 mg/dL (0.70-1.30); EST Glomerular Filtration Rate 45 mL/min (>60); Est Glom Filt Rate - Afr Amer 55 mL/min (>60); Estimated Creatinine Clearance 35.09 ml/min; Globulin 3.9 g/dL (2.2-4.2); Glucose 88 mg/dL (74-106); Potassium 4.5 mmol/L (3.5-5.1); Sodium Level 142 mmol/L (136-145)
[2022-09-27 01:24] LABS: Lactic Acid 1.2 mmol/L (0.4-1.9)
[2022-09-27 01:26] LABS: Anisocytosis 1+; Macrocytosis 1+; Platelet Estimate SLT DEC (ADEQ)
[2022-09-27 01:50] VITALS: BP 87/56; PULSE 74; RESP 18; O2SAT 94
[2022-09-27 02:03] VITALS: BP 92/65; PULSE 74; RESP 16; O2SAT 97
[2022-09-27 02:27] LABS: Bacteria 4+ /hpf (None Seen); Red Blood Cells-Urine > 100 SEEN /hpf (0-5); White Blood Cells >100 SEEN /hpf (0-5)
[2022-09-27] MEDS: Ciprofloxacin 500 MG Tablet PO (03:03)
[2022-09-27 04:09] VITALS: BP 92/60; PULSE 72; RESP 18
[2022-09-27 04:27] VITALS: BP 96/68; PULSE 86; RESP 16; O2SAT 98
== END 2022-09-27 04:29 ==
PROVIDERS: Emergency Provider Emergency Medicine; PCP Internal Medicine; Visit Provider Emergency Medicine
DX: N39.0 Urinary tract infection, site not specified (principal); I48.0 Paroxysmal atrial fibrillation; D64.9 Anemia, unspecified; I10 Essential (primary) hypertension; E78.00 Pure hypercholesterolemia, unspecified; Z79.01 Long term (current) use of anticoagulants; Z86.73 Personal history of transient ischemic attack (TIA), and cerebral infarction without residual deficits; Z79.82 Long term (current) use of aspirin; Z79.899 Other long term (current) drug therapy; Z95.0 Presence of cardiac pacemaker; Z95.2 Presence of prosthetic heart valve
CPT/HCPCS: 71045; 80053; 81001; 83605; 85025; 85610; 85730; 87040; 87077; 87086; 87088; 87186; 93005; 96360; 99285; J7040; A4216